=== PATIENT | male | born 1940 | race Caucasian/White ===

== ENCOUNTER 2023-03-08 13:30 | Emergency (ER) | payer MEDICARE, OTHER, SELFPAY ==
[2023-03-08 13:35] VITALS: BP 148/88; BP 166/80; PULSE 56; RESP 18; TEMP 37; O2SAT 95; O2SAT 97; BMI 23.7
[2023-03-08 14:53] LABS: Basophils Percent Auto 0.1 % (0-2); Hematocrit 46.9 % (42.0-52.0); Hemoglobin 15.7 g/dl (14.0-18.0); Imm Gran Abs Auto 0.04 X10*3/uL (0.00-0.03); Imm Gran Pct Auto 0.4 % (0.0-0.4); Lymphocytes Absolute Auto 0.3 X10*3/uL (1.2-4.9); MANUAL DIFF FLAG SCAN; Mean Corpuscular HGB Conc 33.5 g/dl (31.0-36.0); Mean Corpuscular Hemoglobin 31.3 pg (27.0-33.0); Mean Corpuscular Volume 93.4 fL (80.0-98.0); Mean Platelet Volume 10.1 fL (9.4-12.4); Monocytes Absolute Auto 0.6 X10*3/uL (0.1-1.2); Monocytes Percent Auto 5.5 % (2-11); Neutrophils Absolute Auto 9.4 x10*3/uL (2.0-8.3); Platelet Count 206 X10*3/uL (160-400); Red Blood Count 5.02 X10*6/uL (4.60-5.80); Red Cell Distribution Width 12.4 % (11.0-16.0); SCAN SMEAR FLAG 1; White Blood Count 10.4 X10*3/uL (4.8-10.8)
[2023-03-08 14:58] LABS: Appearance Urine Clear; Color Urine Yellow; Glucose Urine UA >=1000 mg/dL (Negative); Leukocyte Esterase Urine Trace (Negative); Nitrite Urine Negative (Negative); Specific Gravity - Urine >= 1.030 (1.005-1.025); UMIC TRIGGER UACC YES; Urine Blood Negative (Negative); Urine Ketones 15 mg/dL (Negative); Urine Protein Trace mg/dL (Neg-Trace)
[2023-03-08 15:01] LABS: Bacteria Urine None Seen (None Seen); Squamous Epithelial Cell Urine 0-2 /HPF (0-2); UACC Culture Trigger YES
[2023-03-08 15:08] LABS: Alanine Aminotransferase 20 U/L (0-40); Albumin Level 4.1 g/dL (3.5-5.0); Alkaline Phosphatase 64 U/L (39-117); Anion Gap 14 (12-20); Aspartate Amino Transferase 24 U/L (5-37); Blood Urea Nitrogen 23 mg/dL (9-16); Calcium 10.3 mg/dL (8.4-10.2); Carbon Dioxide 25 mmol/L (22-29); Chloride 103 mmol/L (96-108); Creatinine Clr Calc Pharmacy 53.8; Estimated Glomerular Filt Rate > 60; Glucose Random 176 mg/dL (60-115); Lipase 9 U/L (8-78); Potassium 5.8 mmol/L (3.3-5.1); Sodium 136 mmol/L (135-145)
[2023-03-08 15:30] LABS: SLIDE REVIEW VERIFIED
== END 2023-03-08 16:55 | disposition left against medical advice (07) ==
PROVIDERS: Physician Assistant Medical; Emergency Provider Emergency Medicine
DX: R10.9 Unspecified abdominal pain (principal); M54.50 Low back pain, unspecified; Z79.899 Other long term (current) drug therapy
CPT/HCPCS: 36415; 80053; 81001; 83690; 83735; 85025; 87086; 99282; 99283

== ENCOUNTER 2023-03-09 04:33 | Inpatient (IN) | payer MEDICARE, OTHER, SELFPAY ==
[2023-03-09] VITALS (11 sets, daily range): BP systolic 100–170; BP diastolic 67–90; PULSE 59–79; RESP 16–20; TEMP 36.4–37.8; O2SAT 91–98; BMI 23.7; BMI 24.0
--- NOTE | ~2023-03-09 | XR_ITS ---
EXAMINATION: XR CHEST CLINICAL INFORMATION: Tachypnea, COMPARISON: 03/12/2023 TECHNIQUE: Frontal view of the chest was obtained. FINDINGS: Enteric tube tip lies in the region of the distal stomach. Lung volumes are symmetric. Persistent extensive opacification throughout the mid to lower left lung. Slightly improved left basilar aeration. Mild interval decrease in patchy right perihilar opacity compared to prior. No evidence of pneumothorax or significant pleural effusion. The cardiomediastinal silhouette is stable. No acute osseous findings are seen. XR/XR chest 1V IMPRESSION: Persistent extensive opacification throughout the mid to lower left
--- NOTE | ~2023-03-09 | XR_ITS ---
EXAMINATION: XR ABDOMEN KUB CLINICAL INDICATION: Follow-up small bowel obstruction COMPARISON: Previous CT of the abdomen and pelvis February 2023 TECHNIQUE: AP view of the abdomen. FINDINGS: There is a nasogastric tube in the stomach. There are still dilated loops of proximal small bowel similar yesterday's CT scan. There is no evidence of free air. No calcifications. Degenerative changes of the spine. Excreted contrast in the bladder from yesterday CT scan. Airspace disease at the left lung base suggestive of pneumonia. XR/XR KUB IMPRESSION: Nasogastric tube in the stomach. Dilated small bowel similar to yesterday's CT scan. Airspace disease at the left lung base probably representing pneumonia.
--- NOTE | ~2023-03-09 | FL_ITS ---
EXAMINATION: FL SMALL BOWEL SERIES CLINICAL INFORMATION: Question small bowel obstruction COMPARISON: Previous KUB and CT of the abdomen and pelvis from yesterday TECHNIQUE: The patient was administered 2 4 0 mL oral Gastrografin contrast through the nasogastric tube. 4 hour portable film of the abdomen and pelvis was obtained. FINDINGS: There is a nasogastric tube in the stomach. There is oral contrast seen in the small bowel. This appears less dilated than seen on yesterday's exam. There is oral contrast seen in the colon. There is no evidence of small bowel obstruction. FL/FL small bowel follow through IMPRESSION: Oral contrast in the colon. No evidence of small bowel obstruction.
--- NOTE | ~2023-03-09 | XR_ITS ---
EXAMINATION: XR CHEST CLINICAL INFORMATION: Post intubation COMPARISON: Previous x-ray from earlier the same day TECHNIQUE: Frontal view of the chest was obtained. FINDINGS: There is a new endotracheal tube with tip 6 cm above the madie. There may be increasing volume loss to the left hemithorax. The cardiac and mediastinal contours are otherwise stable. There is multilobar left-sided airspace disease that appears increased. There is likely a small left pleural effusion. There is patchy airspace disease in the right mid lung and right lung base that appears increased. There are degenerative changes of the spine. XR/XR chest 1V IMPRESSION: Endotracheal tube 6 cm above the madie. Increasing volume loss to the left hemithorax and multilobar left-sided airspace disease. Left pleural effusion. Increasing airspace disease in the right lung.
--- NOTE | ~2023-03-09 | XR_ITS ---
EXAMINATION: XR CHEST CLINICAL INFORMATION: Reason for Exam f/u L lung collapse COMPARISON: Chest radiograph 03/19/2023 TECHNIQUE: 2 views of the chest FINDINGS: Lines and tubes: None. Increased moderate to large left pleural effusion and similar trace right pleural effusion, with worsening left basilar consolidation. Background of mildly increased interstitial opacities which may reflect superimposed interstitial edema. No pneumothorax. Unchanged cardiomediastinal silhouette. XR/XR chest 2V IMPRESSION: 1. Increased moderate to large left pleural effusion and similar trace right pleural effusion, with worsening left basilar consolidation which may reflect atelectasis in the setting of effusion with superimposed infection or aspiration not excluded. 2. Background of mildly increased interstitial opacities which may reflect superimposed interstitial edema.
--- NOTE | ~2023-03-09 | CT_ITS ---
EXAMINATION: CT ABDOMEN AND PELVIS WITHOUT CONTRAST CLINICAL INFORMATION: Diffuse abdominal distention, tenderness, dark red emesis. COMPARISON: None available. TECHNIQUE: Multidetector volumetric imaging was performed from the superior aspect of the liver through the pubic symphysis. Sagittal and coronal reformatted images were obtained on the technologist's workstation. This CT examination was performed using dose optimization techniques as appropriate, variously including the following: *Automated exposure control *Adjustment of mA and/or kV according to patient size (this includes techniques or standardized protocols for targeted exams where dose is matched to indication/reason for exam; i.e. extremities or head) *Use of iterative reconstruction technique DLP: 578 mGy-cm FINDINGS: LUNG BASES: The visualized lung bases are unremarkable. LIVER, GALLBLADDER, AND BILIARY TREE: The liver is normal in size, shape, and attenuation. No focal hepatic lesion or biliary ductal dilatation is present. The gallbladder is unremarkable with no evidence of radiopaque gallstones, gallbladder wall thickening, or obvious pericholecystic inflammatory changes. PANCREAS: Unremarkable. SPLEEN: Unremarkable. ADRENAL GLANDS: Unremarkable. KIDNEYS AND URETERS: The kidneys are normal in size, shape, and attenuation. There is a 0.2 cm nonobstructing stone within the right lower pole as well as 0.2 and 0.3 cm nonobstructing stones within the left lower pole. No ureteral stone. No hydronephrosis or hydroureter. No perinephric stranding. BLADDER: Nondistended. GASTROINTESTINAL TRACT: Sliding hiatal hernia with fluid in the stomach and distal esophagus. There is mild distention of the small bowel proximally with air-fluid levels. Possible transition point within the central abdomen (axial image 40/91). Bowel wall thickening with mesenteric stranding adjacent to the anterior pelvic small-bowel loops, consistent with an acute enteritis. No extraluminal air to suggest perforation. No organized fluid collection or abscess formation. No small or large bowel obstruction. Unremarkable appendix. PERITONEAL CAVITY: Mild, simple ascites. No organized fluid collection or abscess formation. No abnormal soft tissue mass. ABDOMINAL WALL: No significant hernia is appreciated. LYMPH NODES: No significant lymphadenopathy. VASCULAR: No abdominal aortic dilatation. Atherosclerotic calcifications. PELVIC VISCERA: Prominent prostatomegaly with parenchymal calcifications. OSSEOUS STRUCTURES: No acute osseous abnormality. CT/CT abdomen pelvis wo IV con IMPRESSION: 1. Mild distention of the proximal small bowel with air-fluid levels. Possible transition point within the central abdomen. Bowel wall thickening with adjacent mesenteric stranding within the anterior pelvic small-bowel loops, consistent with an acute enteritis. No evidence of perforation or abscess formation. Mild, simple ascites. An infectious, inflammatory, or ischemic etiology could be considered. 2. Sliding hiatal hernia with fluid in the stomach and distal esophagus. 3. Bilateral nonobstructing renal stones measuring up to 0.3 cm. No hydronephrosis or hydroureter. 4. Prominent prostatomegaly. Fleischner guidelines were followed.
--- NOTE | ~2023-03-09 | XR_ITS ---
EXAMINATION: XR CHEST CLINICAL INFORMATION: Shortness of breath COMPARISON: 03/25/2023 TECHNIQUE: Frontal view of the chest was obtained. FINDINGS: Dense opacification of the mid to lower left hemithorax suspicious for small to moderate pleural effusion with associated atelectasis. There is increasing patchy opacity in the left perihilar region. Right lung is well-expanded with possible subtle patchy right upper lung opacity. No evidence of pneumothorax. Cardiomediastinal silhouette appears grossly stable. No acute osseous findings are seen. XR/XR chest 1V IMPRESSION: Dense opacification of the mid to lower left hemithorax suspicious for small to moderate pleural effusion with associated atelectasis. Increasing patchy left perihilar opacity. Possible subtle patchy right upper lung opacity.
--- NOTE | ~2023-03-09 | XR_ITS ---
EXAMINATION: XR CHEST CLINICAL INFORMATION: Aspiration COMPARISON: None available. TECHNIQUE: Frontal view of the chest was obtained. FINDINGS: Heart and mediastinum within normal limits. Patchy opacities identified left upper and lower lobes. No vascular congestion. No effusions. Demineralization and degenerative changes. XR/XR chest 1V IMPRESSION: Patchy left hemithorax opacities. Radiographic appearance consistent with aspiration pneumonias as clinically questioned.
--- NOTE | ~2023-03-09 | CT_ITS ---
EXAMINATION: CT ABDOMEN AND PELVIS WITH CONTRAST CLINICAL INFORMATION: ? SBO COMPARISON: 03/09/2023 TECHNIQUE: Multidetector volumetric imaging was performed from the superior aspect of the liver through the pubic symphysis following administration of 85 mL Omnipaque 300 intravenous contrast. Sagittal and coronal reformatted images were obtained on the technologist workstation.. This CT examination was performed using dose optimization techniques as appropriate, variously including the following: *Automated exposure control *Adjustment of mA and/or kV according to patient size (this includes techniques or standardized protocols for targeted exams where dose is matched to indication/reason for exam; i.e. extremities or head) *Use of iterative reconstruction technique DLP: 963 mGy-cm FINDINGS: LUNG BASES: Left greater than right moderate-sized pleural effusions with associated dependent airspace disease LIVER, GALLBLADDER, AND BILIARY TREE: The liver is normal in size, shape, and attenuation. No focal hepatic lesion or biliary ductal dilatation is present. The gallbladder is unremarkable with no evidence of radiopaque gallstones, gallbladder wall thickening, or obvious pericholecystic inflammatory changes. PANCREAS: Fine detail is obscured by motion artifact. SPLEEN: Fine detail obscured by motion artifact but no focal abnormality. ADRENAL GLANDS: Unremarkable. KIDNEYS AND URETERS: The kidneys are normal in size, shape, and attenuation. No hydronephrosis, hydroureter, or calculi seen. No perinephric stranding. BLADDER: Decompressed by Davies catheter GASTROINTESTINAL TRACT: Extensive colonic diverticulosis more so in the sigmoid colon. No colonic wall thickening or pericolonic inflammatory change to suggest diverticulitis. There is small bowel dilatation seen however fine detail is obscured by patient respiratory motion and I'm unable to appreciate a discrete transition point. The does appear to be focal mesenteric edema to small bowel loops in the midabdomen with relatively decompressed distal ileum. Early or partial small bowel obstruction cannot be excluded. ABDOMINAL WALL: No significant hernia is appreciated. LYMPHOVASCULAR STRUCTURES gastric tube in the stomach.: Vascular calcification within the aorta iliac system PELVIC VISCERA: Prostatic calcifications OSSEOUS STRUCTURES: Multilevel degenerative changes in the spine CT/CT abdomen pelvis w IV con IMPRESSION: There is small bowel dilatation seen however fine detail is obscured by patient respiratory motion artifact. There is focal mesenteric edema in the mid abdomen with relatively decompressed distal ileum. Early or partial small bowel obstruction cannot be excluded. There is extensive diverticulosis but no obvious diverticulitis.
--- NOTE | ~2023-03-09 | CT_ITS ---
EXAMINATION: CT ABDOMEN AND PELVIS WITH CONTRAST CLINICAL INFORMATION: Question of small bowel obstruction COMPARISON: 03/12/2023 TECHNIQUE: Multidetector volumetric images were obtained from the superior aspect of the liver through the pubic symphysis following administration 85 mL of Omnipaque 350 intravenous contrast. Sagittal and coronal reformatted images were obtained on the technologist's workstation. Oral contrast: No This CT examination was performed using dose optimization techniques as appropriate, variously including the following: *Automated exposure control *Adjustment of mA and/or kV according to patient size (this includes techniques or standardized protocols for targeted exams where dose is matched to indication/reason for exam; i.e. extremities or head) *Use of iterative reconstruction technique DLP: 1202.00 mGy-cm FINDINGS: LUNG BASES: There is left lower lobe patchy consolidation due to airspace disease and cystic bronchiectasis and there is moderate pleural effusion with adjacent atelectasis in the right lower lobe as well as small area of groundglass opacity in the right lower lobe most likely pneumonia. LIVER, GALLBLADDER, AND BILIARY TREE: The liver is normal in size, shape, and attenuation. No focal hepatic lesion or biliary ductal dilatation is present. The gallbladder is unremarkable with no evidence of radiopaque gallstones, gallbladder wall thickening, or obvious pericholecystic inflammatory changes. PANCREAS: Unremarkable. SPLEEN: Unremarkable. There is small splenule seen also. ADRENAL GLANDS: Unremarkable. KIDNEYS AND URETERS: The kidneys are normal in size, shape, and attenuation. No hydronephrosis, hydroureter, or calculi seen. No perinephric stranding. BLADDER: Urinary bladder is not distended with mildly thickened wall. Seen on the previous examination following catheter is not identifiable on the current examination. GASTROINTESTINAL TRACT: Loops of small bowel are diffusely dilated, filled with liquid stool, and the zone of transition is seen on images 51-54 on the left, better visualized on coronal reconstruction, images 40-44. There are changes of extensive colonic diverticulosis without diverticulitis in the sigmoid colon. Appendix is not seen. There is mesenteric haziness in the left lower abdomen, surrounding the area of obstruction. ABDOMINAL WALL: No significant hernia is appreciated. LYMPH NODES: Normal. VASCULAR: Unremarkable. PELVIC VISCERA: Prostate is enlarged heterogeneous and partially calcified. OSSEOUS STRUCTURES: There are multilevel degenerative changes in lumbar spine with grade 1 anterior listhesis of L4 over L5 and grade 1 posterior listhesis of L5 over S1. There is S-shaped scoliosis. No lytic or blastic lesions present. CT/CT abdomen pelvis w IV con IMPRESSION: 1. High-grade small bowel obstruction with zone of transition in the left lower abdomen. 2. Left lower lobe pneumonia and cystic bronchiectasis. 3. Right lower lobe pneumonia and pleural effusion. 4. Diverticulosis without diverticulitis. 5. Prostatomegaly. 6. Degenerative changes in lumbar spine. Fleischner guidelines were followed.
[2023-03-09 04:55] LABS: Hemoglobin 15.7 g/dl (14.0-18.0); Imm Gran Abs Auto 0.03 X10*3/uL (0.00-0.03); Imm Gran Pct Auto 0.3 % (0.0-0.4); Lymphocytes Absolute Auto 0.8 X10*3/uL (1.2-4.9); Lymphocytes Percent Auto 6.5 % (20-40); MANUAL DIFF FLAG NO; Mean Corpuscular HGB Conc 33.4 g/dl (31.0-36.0); Mean Corpuscular Hemoglobin 31.2 pg (27.0-33.0); Mean Corpuscular Volume 93.4 fL (80.0-98.0); Mean Platelet Volume 10.3 fL (9.4-12.4); Monocytes Absolute Auto 0.6 X10*3/uL (0.1-1.2); Monocytes Percent Auto 5.4 % (2-11); Neutrophils Absolute Auto 10.3 x10*3/uL (2.0-8.3); Neutrophils Percent Auto 87.8 % (45-73); Platelet Count 227 X10*3/uL (160-400); Red Blood Count 5.03 X10*6/uL (4.60-5.80); Red Cell Distribution Width 12.8 % (11.0-16.0); White Blood Count 11.7 X10*3/uL (4.8-10.8)
[2023-03-09 05:11] LABS: Alanine Aminotransferase 16 U/L (0-40); Albumin Level 3.9 g/dL (3.5-5.0); Alkaline Phosphatase 59 U/L (39-117); Anion Gap 18 (12-20); Aspartate Amino Transferase 19 U/L (5-37); Bilirubin Total 1.3 mg/dL (0.0-1.0); Blood Urea Nitrogen 31 mg/dL (9-16); Calcium 10.1 mg/dL (8.4-10.2); Carbon Dioxide 23 mmol/L (22-29); Chloride 101 mmol/L (96-108); Creatinine Clr Calc Pharmacy 39.1; Estimated Glomerular Filt Rate 42; Glucose Random 207 mg/dL (60-115); Potassium 4.1 mmol/L (3.3-5.1); Sodium 138 mmol/L (135-145); Total Protein 6.5 g/dL (6.5-8.0)
--- NOTE | 2023-03-09 06:34 | ED_ITS ---
HPI - Abdominal Pain General Chief Complaint: Abdominal Pain Stated Complaint: Possible GI Bleed Time Seen by Provider: 03/09/23 06:33 Source: patient, EMS, RN notes reviewed and old records reviewed Mode of arrival: EMS History of Present Illness HPI narrative: 82-year-old male with no significant past medical history presenting to the ED via EMS complaining dark red emesis x 2 episodes since last night with abdominal distension, abdominal pain, and nausea. Also reports subjective fever and chills. Patient admits he presented to ED yesterday however LWT'd due to needing to be home to give medications. Denies currently taking anticoagulation. Denies diarrhea/constipation, dysuria/hematuria, CP/SOB, lightheadedness/dizziness MD elicited complaint: abdominal pain Related Data Home Medications Medication Instructions Recorded Confirmed omega 3-mgb-pbt-fish oil 60 mg-90 1 cap PO DAILY 03/09/23 03/09/23 mg-500 mg capsule (Fish Oil) Allergies Allergy/AdvReac Type Severity Reaction Status Date / Time Unable to Assess Allergy Verified 03/09/23 08:50 Review of Systems Review of Systems Constitutional: + Fever, + Chills, No Night Sweats, No Fatigue, No Malaise ENT/Mouth: No Ear Pain, No Nasal Congestion, NNo sore throat, No Rhinorrhea, No Swallowing Difficulty Eyes: No Eye Pain, No Swelling, No Vision Changes Cardiovascular: No Chest Pain, No SOB, No Edema, No Palpitations Respiratory: No Cough, No Sputum, No Dyspnea Gastrointestinal: + Nausea, + Vomiting, No Diarrhea, No Constipation, + Abdominal pain, + hematemesis, No Melena Genitourinary: No irregular bleeding, No Dysuria, No Urinary Frequency, No Hematuria, No Flank Pain Musculoskeletal: No joint pain, No Myalgias, No Joint Swelling Skin: No Skin Lesions, No rash Neuro: No Weakness, No Dizziness, No Headache Yes all other systems are reviewed and are negative Constitutional: Reports as per [facility] Past Medical History Attestation statement: The following information was validated with the patient. Source: old records reviewed Social History Social History Alcohol intake: current Alcohol intake frequency: a few times a week Alcohol type: hard liquor Smoked in Last 30 Days: No Use of substances other than those prescribed or required for medical reasons: No Advance Directives: No Advance Directives Information Provided: No Physical Exam ED Vital Signs: Vital Signs - 24 hr 03/09/23 04:40 03/09/23 06:00 03/09/23 07:53 Temperature 98.0 F 100.1 F Pulse Rate 77 79 Respiratory Rate 20 20 Blood Pressure 117/75 115/75 Pulse Oximetry 96 94 Oxygen Delivery Method Room Air Room Air 03/09/23 08:36 03/09/23 10:03 03/09/23 11:41 Temperature 98.8 F Pulse Rate 59 74 78 Respiratory Rate 19 16 20 Blood Pressure 144/67 H 132/75 156/90 H Pulse Oximetry 95 96 96 Oxygen Delivery Method Room Air Room Air Room Air 03/09/23 12:03 03/09/23 14:22 Temperature Pulse Rate 69 67 Respiratory Rate 20 20 Blood Pressure 151/84 H 154/83 H Pulse Oximetry 93 93 Oxygen Delivery Method Room Air Room Air BMI result Body Mass Index 23.7 Const General: cooperative, healthy appearing and no acute distress Orientation/consciousness: patient oriented x3 Limitations: no limitations HENMT Head: Yes normal to inspection and Yes atraumatic Ears: hearing grossly normal bilaterally General nose exam: Normal external nose present Face and sinus: Yes normal facial exam Eyes General: appearance normal, both eyes and all related structures EOM: EOMs intact bilaterally Neck Neck: Yes normal visual inspection and Yes no meningeal signs Resp Effort & Inspection: normal respiratory effort and no respiratory distress Auscultation: clear to auscultation bilaterally Cardio Rate: regular rate Heart sounds: S1 normal heart sound present and S2 normal heart sound present GI Inspection: Yes normal to inspection Palpation (GI): Soft to palpation, Tenderness to palpation present (GI) (Diffusely, no rebound or guarding) with no rebound tenderness, no guarding and not rigid Skin Rashes: no rashes Wounds: no wounds Neuro General: patient oriented x3, tone normal and no meningeal signs Extrem General: Yes normal to inspection Course Course Course Narrative: -0832--mild leukocytosis of 12.5. EMILY with a BUN of 31, creatinine of 1.57. Lactic acid negative -UA infected -occult stool negative > will obtain repeat for confirmation CT abdomen pelvis wo IV con IMPRESSION: 1. Mild distention of the proximal small bowel with air-fluid levels. Possible transition point within the central abdomen. Bowel wall thickening with adjacent mesenteric stranding within the anterior pelvic small-bowel loops, consistent with an acute enteritis. No evidence of perforation or abscess formation. Mild, simple ascites. An infectious, inflammatory, or ischemic etiology could be considered. ? 2. Sliding hiatal hernia with fluid in the stomach and distal esophagus. ? 3. Bilateral nonobstructing renal stones measuring up to 0.3 cm. No hydronephrosis or hydroureter. ? 4. Prominent prostatomegaly. ? Fleischner guidelines were followed. > will consult GI Dr. Xie -1011--spoke with GI Dr. Xie concern for possible ischemic bowel versus SBO. Will consult General surgery. Second occult stool negative > Case d/w Dr. Monique who elvauated patient > reports low suspicion for ischemic bowel or SBO, likely gastroenteritis. >>1146--on re-evaluation patient reports mild symptomatic improvement, reports continued abdominal discomfort however abdomen soft > pt would like to be discharged home. Discussed admission with patient which this life insurance underwriter recommended, however patient states at home with Parkinson's and needs help, and would like to be discharged, is agreeable to repeat CMP prior -1239--repeat CMP with little improvement, persistent EMILY with a creatinine of 1.49. Patient is now agreeable to admission. Will consult hospitalist Medical Decision Making Medical Decision Making MDM Narrative: 82-year-old male with no significant past medical history presenting to the ED via EMS complaining dark red emesis x 2 episodes since last night with abdominal distension, abdominal pain, and nausea. On exam patient initially hypotensive per EMS, given small bolus IVF with improvement, vital signs stable since ED arrival, abdomen soft diffusely tender. Concern for UGIB vs anemia vs colitis/diverticulitis. Lower suspicion for appendicitis/GERD, or atypical ACS Plan: EKG, labs, lactic/blood cultures, CT AP, occult stool, anticipated admission Please refer to course for remaining clinical decision making, interpretation of labs/imaging results, and discussions with consultants and/or family members. Differential Diagnosis Differential Diagnoses: The differential diagnosis associated with the presentation includes As above Admission/Observation Consideration of admission/observation: Escalation of care including admission/observation considered Consult Healthcare Provider Management of the patient was discussed with: Hospitalist and Market Specialist (GI and General surgery) Lab Data MDM Lab Attestation statement: I reviewed the patient's lab results. 03/09/23 04:51 03/09/23 04:51 Labs: Lab Results 03/09/23 03/09/23 03/09/23 Range/Units 04:51 04:51 07:20 WBC 11.7 H 12.5 H (4.8-10.8) X10*3/uL RBC 5.03 5.05 (4.60-5.80) X10*6/uL Hgb 15.7 15.9 (14.0-18.0) g/dl Hct 47.0 46.9 (42.0-52.0) % MCV 93.4 92.9 (80.0-98.0) fL MCH 31.2 31.5 (27.0-33.0) pg MCHC 33.4 33.9 (31.0-36.0) g/dl RDW 12.8 12.9 (11.0-16.0) % Plt Count 227 246 (160-400) X10*3/uL MPV 10.3 10.5 (9.4-12.4) fL Immature Gran % (Auto) 0.3 (0.0-0.4) % Neut % (Auto) 87.8 H (45-73) % Lymph % (Auto) 6.5 L (20-40) % [place] % (Auto) 5.4 (2-11) % Eos % (Auto) 0.0 (0-4) % Baso % (Auto) 0.0 (0-2) % Lymph # (Auto) 0.8 L (1.2-4.9) X10*3/uL [place] # (Auto) 0.6 (0.1-1.2) X10*3/uL Eos # (Auto) 0.0 (0.0-0.4) X10*3/uL Baso # (Auto) 0.0 (0.0-0.2) X10*3/uL Abs Immat Gran (auto) 0.03 (0.00-0.03) X10*3/uL Absolute Neuts (auto) 10.3 H (2.0-8.3) x10*3/uL Absolute Nucleated RBC 0.000 0.000 (0.0-0.012) X10*3/uL Nucleated RBC % (auto) 0.0 0.0 (0.0-0.2) /100WBC PT (10.0-13.1) SEC INR (0.9-1.1) APTT (26.0-36.4) SEC Sodium 138 (135-145) mmol/L Potassium 4.1 D (3.3-5.1) mmol/L Chloride 101 (96-108) mmol/L Carbon Dioxide 23 (22-29) mmol/L Anion Gap 18 (12-20) BUN 31 H (9-16) mg/dL Creatinine 1.57 H (0.5-1.4) mg/dL Estim Creat Clear Calc 39.1 Estimated GFR 42 Random Glucose 207 H (60-115) mg/dL Lactic Acid (0.5-2.0) mmol/L Calcium 10.1 (8.4-10.2) mg/dL Magnesium 2.0 (1.6-2.6) mg/dL Total Bilirubin 1.3 H (0.0-1.0) mg/dL Direct Bilirubin 0.4 (0.0-0.5) mg/dL AST 19 (5-37) U/L ALT 16 (0-40) U/L Alkaline Phosphatase 59 (39-117) U/L Lactate Dehydrogenase (118-273) U/L Total Protein 6.5 (6.5-8.0) g/dL Albumin 3.9 (3.5-5.0) g/dL Lipase 42 (8-78) U/L Stool Occult Blood (NEGATIVE) Blood Type Antibody Screen 03/09/23 03/09/23 03/09/23 Range/Units 07:20 07:20 07:20 WBC (4.8-10.8) X10*3/uL RBC (4.60-5.80) X10*6/uL Hgb (14.0-18.0) g/dl Hct (42.0-52.0) % MCV (80.0-98.0) fL MCH (27.0-33.0) pg MCHC (31.0-36.0) g/dl RDW (11.0-16.0) % Plt Count (160-400) X10*3/uL MPV (9.4-12.4) fL Immature Gran % (Auto) (0.0-0.4) % Neut % (Auto) (45-73) % Lymph % (Auto) (20-40) % [place] % (Auto) (2-11) % Eos % (Auto) (0-4) % Baso % (Auto) (0-2) % Lymph # (Auto) (1.2-4.9) X10*3/uL [place] # (Auto) (0.1-1.2) X10*3/uL Eos # (Auto) (0.0-0.4) X10*3/uL Baso # (Auto) (0.0-0.2) X10*3/uL Abs Immat Gran (auto) (0.00-0.03) X10*3/uL Absolute Neuts (auto) (2.0-8.3) x10*3/uL Absolute Nucleated RBC (0.0-0.012) X10*3/uL Nucleated RBC % (auto) (0.0-0.2) /100WBC PT 10.8 (10.0-13.1) SEC INR 0.9 (0.9-1.1) APTT 23.7 L (26.0-36.4) SEC Sodium (135-145) mmol/L Potassium (3.3-5.1) mmol/L Chloride (96-108) mmol/L Carbon Dioxide (22-29) mmol/L Anion Gap (12-20) BUN (9-16) mg/dL Creatinine (0.5-1.4) mg/dL Estim Creat Clear Calc Estimated GFR Random Glucose (60-115) mg/dL Lactic Acid 1.8 (0.5-2.0) mmol/L Calcium (8.4-10.2) mg/dL Magnesium (1.6-2.6) mg/dL Total Bilirubin (0.0-1.0) mg/dL Direct Bilirubin (0.0-0.5) mg/dL AST (5-37) U/L ALT (0-40) U/L Alkaline Phosphatase (39-117) U/L Lactate Dehydrogenase (118-273) U/L Total Protein (6.5-8.0) g/dL Albumin (3.5-5.0) g/dL Lipase (8-78) U/L Stool Occult Blood (NEGATIVE) Blood Type A Negative Antibody Screen NEGATIVE 03/09/23 03/09/23 03/09/23 Range/Units 07:20 08:31 11:55 WBC (4.8-10.8) X10*3/uL RBC (4.60-5.80) X10*6/uL Hgb (14.0-18.0) g/dl Hct (42.0-52.0) % MCV (80.0-98.0) fL MCH (27.0-33.0) pg MCHC (31.0-36.0) g/dl RDW (11.0-16.0) % Plt Count (160-400) X10*3/uL MPV (9.4-12.4) fL Immature Gran % (Auto) (0.0-0.4) % Neut % (Auto) (45-73) % Lymph % (Auto) (20-40) % [place] % (Auto) (2-11) % Eos % (Auto) (0-4) % Baso % (Auto) (0-2) % Lymph # (Auto) (1.2-4.9) X10*3/uL [place] # (Auto) (0.1-1.2) X10*3/uL Eos # (Auto) (0.0-0.4) X10*3/uL Baso # (Auto) (0.0-0.2) X10*3/uL Abs Immat Gran (auto) (0.00-0.03) X10*3/uL Absolute Neuts (auto) (2.0-8.3) x10*3/uL Absolute Nucleated RBC (0.0-0.012) X10*3/uL Nucleated RBC % (auto) (0.0-0.2) /100WBC PT (10.0-13.1) SEC INR (0.9-1.1) APTT (26.0-36.4) SEC Sodium 138 (135-145) mmol/L Potassium 4.7 (3.3-5.1) mmol/L Chloride 106 (96-108) mmol/L Carbon Dioxide 23 (22-29) mmol/L Anion Gap 14 (12-20) BUN 36 H (9-16) mg/dL Creatinine 1.49 H (0.5-1.4) mg/dL Estim Creat Clear Calc 41.2 Estimated GFR 45 Random Glucose 126 H (60-115) mg/dL Lactic Acid (0.5-2.0) mmol/L Calcium 9.9 (8.4-10.2) mg/dL Magnesium (1.6-2.6) mg/dL Total Bilirubin (0.0-1.0) mg/dL Direct Bilirubin (0.0-0.5) mg/dL AST (5-37) U/L ALT (0-40) U/L Alkaline Phosphatase (39-117) U/L Lactate Dehydrogenase 242 (118-273) U/L Total Protein (6.5-8.0) g/dL Albumin (3.5-5.0) g/dL Lipase (8-78) U/L Stool Occult Blood NEGATIVE NEGATIVE (NEGATIVE) Blood Type Antibody Screen Independent Interpretation I performed an independent interpretation of an: EKG (Rhythm with short MS at a rate of 75. QTC 464. No viable priors to compare. No STEMI ) Radiology Impression Discussion of test interpretation with radiology: I have reviewed the radiologist's reading. Independent Historian Clinical information obtained from an independent historian. History obtained fr om or confirmed by: EMS External Record Review External record reviewed: Inpatient record, Office record, Outpatient record, Prior outpatient labs, Prior outpatient radiology, Primary care record and Outside ED record Tests considered The following testing was considered but not selected: As above Prescription Management I considered prescription management with: Pain Medication and Antibiotic Medications Administered Generic Name Dose Route Start Last Admin Trade Name Freq PRN Reason Stop Dose Admin Piperacillin Sod/Tazobactam 50 mls @ 100 mls/hr 03/09/23 15:00 03/09/23 16:11 Sod 3.375 gm/ Sodium Chloride IV 100 mls/hr Q6H MARGARITA Administration Sodium Chloride 1,000 mls @ 100 mls/hr 03/09/23 15:15 03/09/23 16:11 Ns IVCONT 100 mls/hr .Q10H MARGARITA Administration Pantoprazole Sodium 40 mg 03/09/23 16:30 03/09/23 16:11 Pantoprazole Sodium 40 Mg/10 Ml Vial IVPUSH 40 mg BID@0630,1630 MARGARITA Administration Sodium Chloride 3 ml 03/09/23 16:00 03/09/23 16:11 0.9 % Sodium Chloride Flush 3 Ml Syringe IVFLUSH Not Given QSHIFT MARGARITA Discontinued Medications Generic Name Dose Route Start Last Admin Trade Name Lencho PRN Reason Stop Dose Admin Acetaminophen 650 mg 03/09/23 07:52 03/09/23 07:59 Acetaminophen 325 Mg Tablet PO 03/09/23 07:53 650 mg ONCE ONE Administration Fentanyl 25 mcg 03/09/23 06:42 03/09/23 06:54 Fentanyl Citrate/Pf 100 Mcg/2 Ml Vial IVPUSH 03/09/23 06:43 25 mcg ONCE ONE Administration Protocol Sodium Chloride 1,000 mls @ 999 mls/hr 03/09/23 07:30 03/09/23 08:58 Ns IV 03/09/23 08:30 Infused .Q1H1M MARGARITA Infusion Piperacillin Sod/Tazobactam 50 mls @ 100 mls/hr 03/09/23 07:58 03/09/23 08:58 Sod 2.25 gm/ Sodium Chloride IV 03/09/23 08:27 Infused ONCE ONE Infusion Sodium Chloride 1,000 mls @ 999 mls/hr 03/09/23 11:45 03/09/23 13:50 Ns IV 03/09/23 12:45 Infused .Q1H1M MARGARITA Infusion Metoclopramide HCl 10 mg 03/09/23 13:39 03/09/23 13:46 Metoclopramide Hcl 10 Mg/2 Ml Vial IVPUSH 03/09/23 13:40 10 mg ONCE ONE Administration Ondansetron HCl 4 mg 03/09/23 07:55 03/09/23 08:24 Ondansetron Hcl 4 Mg/2 Ml Vial IVPUSH 03/09/23 07:56 4 mg ONCE ONE Administration Pantoprazole Sodium 80 mg 03/09/23 07:25 03/09/23 07:43 Pantoprazole Sodium 40 Mg/10 Ml Vial IVPUSH 03/09/23 07:26 80 mg ONCE ONE Administration Critical Care Time Critical Care Time Critical Care Time: Yes Total Critical Care Time: 40 Attestation: I have personally provided critical care time exclusive of time spent on sep arately billable procedures. Time includes review of lab data, radiology results, discussion with consultants, and monitoring for potential decompensation. Intervention performed as documented. Discharge Plan Discharge Clinical Impression: Enteritis, EMILY (acute kidney injury) Patient Disposition: Admitted As Inpatient
--- NOTE | 2023-03-09 06:42 | ECG_ITS ---
Test Reason : ABD PAIN Blood Pressure : / mmHG Vent. Rate : 075 BPM Atrial Rate : 075 BPM P-R Int : 100 ms QRS Dur : 096 ms QT Int : 416 ms P-R-T Axes : 033 -34 071 degrees QTc Int : 464 ms Sinus rhythm with short PA Left axis deviation Left ventricular hypertrophy with repolarization abnormality ( R in aVL , [place] product , [place] ) Abnormal ECG No previous ECGs available Referred By: Glo Edwards Electronically Signed By:ALEJANDRO SWANSON
[2023-03-09] MEDS: fentaNYL citrate/PF 100 MCG/2 ML VIAL 25 MCG IVPUSH (06:54)
[2023-03-09 07:02] LABS: Bilirubin Direct 0.4 mg/dL (0.0-0.5); Lipase 42 U/L (8-78)
[2023-03-09 07:35] LABS: Hematocrit 46.9 % (42.0-52.0); Hemoglobin 15.9 g/dl (14.0-18.0); Mean Corpuscular HGB Conc 33.9 g/dl (31.0-36.0); Mean Corpuscular Hemoglobin 31.5 pg (27.0-33.0); Mean Corpuscular Volume 92.9 fL (80.0-98.0); Mean Platelet Volume 10.5 fL (9.4-12.4); Platelet Count 246 X10*3/uL (160-400); Red Blood Count 5.05 X10*6/uL (4.60-5.80); Red Cell Distribution Width 12.9 % (11.0-16.0); White Blood Count 12.5 X10*3/uL (4.8-10.8)
[2023-03-09 07:38] LABS: Lactic Acid 1.8 mmol/L (0.5-2.0)
[2023-03-09 07:39] LABS: OBS Int Ctl Valid YES; OBS1 NEGATIVE (NEGATIVE)
[2023-03-09] MEDS: 0.9 % Sodium Chloride 1,000 ML 999 ML IV ×2 (07:43→11:51)
[2023-03-09] MEDS: Pantoprazole Sodium 40 MG/10 ML VIAL 80 MG IVPUSH (07:43)
[2023-03-09 07:52] LABS: INTERNATIONAL NORM RATIO 0.9 (0.9-1.1); Prothrombin Time 10.8 SEC (10.0-13.1)
[2023-03-09 07:57] LABS: Partial Thromboplastin Time 23.7 SEC (26.0-36.4)
[2023-03-09] MEDS: Acetaminophen 325 MG TABLET 650 MG PO ×2 (07:59→21:58)
[2023-03-09] MEDS: ondansetron HCL 4 MG/2 ML VIAL IVPUSH (08:24)
[2023-03-09] MEDS: Piperacillin Sodium/Tazobactam 2.25 GM in 0.9 % Sodium Chloride 50 ML IV (08:24)
--- NOTE | 2023-03-09 08:43 | PHA.MEDREC ---
Pharmacy Consult ? Medication Reconciliation Pharmacy has completed the medication reconciliation.
[2023-03-09 08:44] LABS: OBS Int Ctl Valid YES; OBS1 NEGATIVE (NEGATIVE)
--- NOTE | 2023-03-09 10:15 | PC.NURSE ---
pt was seen by surgery for consult. awaiting disposition
--- NOTE | 2023-03-09 11:00 | P.CONGS_ITS ---
History of Present Illness Consult details Consult date: 03/09/23 Narrative: Ms. Fleming is a pleasant 82-year-old male presents with approximately 1 day history of epigastric/upper abdominal pain. Because of progression of symptoms, presents emergency department. He denies any nausea vomiting or diarrhea. He does not recall having such symptoms before. He has regular bowel habits and tolerates his diet. Chart was reviewed and patient evaluated [facility] Social History Social History Household Members: Spouse Housing: House Do you presently have visiting nurse or other home services: No Alcohol intake: current Alcohol intake frequency: a few times a week Alcohol type: hard liquor Patient Tobacco Use Status: Former Tobacco user Smoked in Last 30 Days: No Use of substances other than those prescribed or required for medical reasons: No Currently Displaying Signs/Symptoms of Drug Intoxication Withdrawal: No Have you been hit, kicked, punched, or otherwise hurt by someone within the past year? If so, by whom?: No Do you feel safe in your current relationship?: Yes Is there a partner from a previous relationship who is making you feel unsafe now?: No Are you made to feel afraid or neglected: No Advance Directives: No Advance Directives Information Provided: No Advance Directives on File: No Do you have thoughts of harming others: None Recently lost weight without trying: No Eating poorly because of decreased appetite: Yes Nutrition Risks: No Nutritional Risk Poor oral hygiene: No service: No Meds Allergies Allergy/AdvReac Type Severity Reaction Status Date / Time Unable to Assess Allergy Verified 03/09/23 08:50 Home Medications Medication Instructions Recorded Confirmed Last Taken Type omega 4-nlz-swa-fish oil 60 mg-90 1 cap PO DAILY 03/09/23 03/09/23 Unknown History mg-500 mg capsule (Fish Oil) Physical Exam Vital Signs: Vital Signs: Last Vital Signs Temp 100.1 F 03/09/23 07:53 Pulse 74 03/09/23 10:03 Resp 16 03/09/23 10:03 BP 132/75 03/09/23 10:03 Pulse Ox 96 03/09/23 10:03 O2 Del Method Room Air 03/09/23 10:03 BMI result Body Mass Index 23.7 GI: Other: Abdomen minimally distended. Mild periumbilical tenderness but without guarding, rebound, rigidity. Results Labs 03/09/23 07:20 03/09/23 04:51 Labs: Abnormal lab results 03/09/23 03/09/23 03/09/23 Range/Units 04:51 04:51 07:20 WBC 11.7 H 12.5 H (4.8-10.8) X10*3/uL Neut % (Auto) 87.8 H (45-73) % Lymph % (Auto) 6.5 L (20-40) % Lymph # (Auto) 0.8 L (1.2-4.9) X10*3/uL Absolute Neuts (auto) 10.3 H (2.0-8.3) x10*3/uL APTT (26.0-36.4) SEC BUN 31 H (9-16) mg/dL Creatinine 1.57 H (0.5-1.4) mg/dL Random Glucose 207 H (60-115) mg/dL Total Bilirubin 1.3 H (0.0-1.0) mg/dL 03/09/23 Range/Units 07:20 WBC (4.8-10.8) X10*3/uL Neut % (Auto) (45-73) % Lymph % (Auto) (20-40) % Lymph # (Auto) (1.2-4.9) X10*3/uL Absolute Neuts (auto) (2.0-8.3) x10*3/uL APTT 23.7 L (26.0-36.4) SEC BUN (9-16) mg/dL Creatinine (0.5-1.4) mg/dL Random Glucose (60-115) mg/dL Total Bilirubin (0.0-1.0) mg/dL Short CBC 03/09/23 03/09/23 Range/Units 04:51 07:20 WBC 11.7 H 12.5 H (4.8-10.8) X10*3/uL Hgb 15.7 15.9 (14.0-18.0) g/dl Hct 47.0 46.9 (42.0-52.0) % Plt Count 227 246 (160-400) X10*3/uL BMP 03/09/23 04:51 Sodium 138 Potassium 4.1 D Chloride 101 Carbon Dioxide 23 BUN 31 H Creatinine 1.57 H Calcium 10.1 Liver Function 03/09/23 Range/Units 04:51 Total Bilirubin 1.3 H (0.0-1.0) mg/dL Direct Bilirubin 0.4 (0.0-0.5) mg/dL AST 19 (5-37) U/L ALT 16 (0-40) U/L Alkaline Phosphatase 59 (39-117) U/L Albumin 3.9 (3.5-5.0) g/dL All other labs normal. Assessment and Plan (1) Enteritis: Status: Acute Plan CT scan suggestive more of enteritis. At present, patient clinically stable. At present, no acute surgical issues or interventions required. Time Spent With Patient Time: Total time managing care of this patient today ____ minutes. Procedures Date of Service Date of Service: 03/10/23
[2023-03-09 12:17] LABS: Anion Gap 14 (12-20); Blood Urea Nitrogen 36 mg/dL (9-16); Calcium 9.9 mg/dL (8.4-10.2); Carbon Dioxide 23 mmol/L (22-29); Chloride 106 mmol/L (96-108); Creatinine Clr Calc Pharmacy 41.2; Estimated Glomerular Filt Rate 45; Glucose Random 126 mg/dL (60-115); Potassium 4.7 mmol/L (3.3-5.1); Sodium 138 mmol/L (135-145)
[2023-03-09 13:26] LABS: Lactate Dehydrogenase 242 U/L (118-273)
--- NOTE | 2023-03-09 13:38 | P.HPHOSP_ITS ---
History of Present Illness Date of Service: 03/09/23 Attending physician on admission: Frankie Bearden Chief Complaint: Abdominal pain, dark red emesis x2 Pt is an 82-year-old male with no significant PMH only taking fish oil at home who presents to the ED with?abdominal pain and 2 episodes of dark red emesis. Patient states his symptoms began early Saturday morning. Patient claims he has difficulty sleeping so he got up at 03:00 o'clock in the morning to do an upper body workout. He went back to sleep but woke up at 06:00 with severe abdominal pain. Patient also felt like he had indigestion and a ?sour stomach?. Patient induced vomiting twice and noted his vomitus was red and looked like a contained blood. Patient also noticed abdominal distension when he went to put on his pants. Ppatient initially presented to the emergency room yesterday where he had his blood drawn but did not get formally evaluated by a clinician. Patient takes care of his at home and needed to leave before being seen by a clinician in order to administer her medications at 17:00. At home patient continued to have increasing abdominal pain and he re-presented to the emergency room via ambulance at 04:00. Did not experience any more vomiting, no diarrhea, though did note increased abdominal distension. Has experienced subjective fevers and chills, but had did not take his temperature. Patient currently denies passing flatus or having a bowel movement today. Last bowel movement was yesterday, states was normal without hematochezia or melena or diarrhea. Patient normally has daily regular bowel movements. Patient denies chest pain/pressure, palpitations. No shortness of breath. Of note, patient does not have a PCP and states he has not seen a doctor since getting a physical in 1960 before going into the [facility]. In the ED patient had temperature up to 100.1 and was slightly hypertensive at 156/90. Labs were significant for leukocytosis of 12.5, potassium of 5.8, BUN 3 1, creatinine 1.57. UA negative for UTI. Stool negative for occult blood. CT?of abdomen and pelvis found mild distension of the proximal small bowel with air-fluid levels with a possible transition point within the central abdomen. Also found ball wall thickening with adjacent mesenteric stranding consistent with an acute enteritis without evidence of perforation or abscess. Also found mild ascites. Additional findings include sliding hiatal hernia and bilateral nonobstructing renal stones measuring up to 0.3 cm without hydronephrosis or hydroureter. Lastly, showed prominent prostatomegaly. EKG demonstrated sinus rhythm with short NC, left ventricular hypertrophy, but no evidence of ST elevations or depressions. Pt was treated with fentanyl, pantoprazole, IVF, Zosyn, and metoclopramide. General surgery was consulted who believe patient has gastroenteritis. Pt will be admitted to the hospital for treatment and further evaluation of likely gastroenteritis. Review of Systems Review of Systems: Abdominal pain and distension Nausea, vomiting with dark red vomitus Subjective fever, chills Denies diarrhea Yes all other systems are reviewed and are negative [facility] Social History Alcohol intake: current Alcohol intake frequency: a few times a week Alcohol type: hard liquor Smoked in Last 30 Days: No Use of substances other than those prescribed or required for medical reasons: No Advance Directives: No Advance Directives Information Provided: No Meds Allergies Allergy/AdvReac Type Severity Reaction Status Date / Time Unable to Assess Allergy Verified 03/09/23 08:50 Home Medications Medication Instructions Recorded Confirmed Last Taken Type omega 5-xpr-bjq-fish oil 60 mg-90 1 cap PO DAILY 03/09/23 03/09/23 Unknown History mg-500 mg capsule (Fish Oil) Physical Exam Vital Signs and Narrative: Vital Signs: Last Vital Signs Temp 98.8 F 03/09/23 11:41 Pulse 69 03/09/23 12:03 Resp 20 03/09/23 12:03 BP 151/84 H 03/09/23 12:03 Pulse Ox 93 03/09/23 12:03 O2 Del Method Room Air 03/09/23 12:03 BMI result Body Mass Index 23.7 Constitutional: Alert, in no acute distress. Mental Status: Oriented to person, place and time. Eyes: Pupils are equal, round, and reactive to light. Ear, Nose, and Throat: Oropharynx clear, mucous membranes dry. Ears and nose without deformities. Trachea midline. Respiratory: Clear to auscultation bilaterally. No wheezing, rales, or rhonchi. Cardiovascular: S1, S2 regular. No murmurs, rubs, or gallops. Gastrointestinal: Abdomen soft, distended, and with central and left-sided tenderness. Normal bowel sounds. Neurologic: Cranial nerves II-XII are grossly intact bilaterally. No focal neurological deficits. Moves all extremities spontaneously. Skin: No rashes or lesions noted. Musculoskeletal: No cyanosis or clubbing. Extremities: No edema. Psychiatric: Normal mood and affect. Results Labs 03/09/23 07:20 03/09/23 11:55 Labs: Laboratory Results - last 24 hr 03/09/23 03/09/23 03/09/23 04:51 04:51 07:20 MCV 93.4 92.9 MCH 31.2 31.5 MCHC 33.4 33.9 RDW 12.8 12.9 Plt Count 227 246 MPV 10.3 10.5 Immature Gran % (Auto) 0.3 Neut % (Auto) 87.8 H Lymph % (Auto) 6.5 L [place] % (Auto) 5.4 Eos % (Auto) 0.0 Baso % (Auto) 0.0 Lymph # (Auto) 0.8 L [place] # (Auto) 0.6 Eos # (Auto) 0.0 Baso # (Auto) 0.0 Abs Immat Gran (auto) 0.03 Absolute Neuts (auto) 10.3 H Absolute Nucleated RBC 0.000 0.000 Nucleated RBC % (auto) 0.0 0.0 PT INR APTT Anion Gap 18 Estim Creat Clear Calc 39.1 Estimated GFR 42 Random Glucose 207 H Lactic Acid Calcium 10.1 Magnesium 2.0 Total Bilirubin 1.3 H Direct Bilirubin 0.4 AST 19 ALT 16 Alkaline Phosphatase 59 Lactate Dehydrogenase Total Protein 6.5 Albumin 3.9 Lipase 42 Stool Occult Blood Blood Type Antibody Screen 03/09/23 03/09/23 03/09/23 07:20 07:20 07:20 MCV MCH MCHC RDW Plt Count MPV Immature Gran % (Auto) Neut % (Auto) Lymph % (Auto) [place] % (Auto) Eos % (Auto) Baso % (Auto) Lymph # (Auto) [place] # (Auto) Eos # (Auto) Baso # (Auto) Abs Immat Gran (auto) Absolute Neuts (auto) Absolute Nucleated RBC Nucleated RBC % (auto) PT 10.8 INR 0.9 APTT 23.7 L Anion Gap Estim Creat Clear Calc Estimated GFR Random Glucose Lactic Acid 1.8 Calcium Magnesium Total Bilirubin Direct Bilirubin AST ALT Alkaline Phosphatase Lactate Dehydrogenase Total Protein Albumin Lipase Stool Occult Blood Blood Type A Negative Antibody Screen NEGATIVE 03/09/23 03/09/23 03/09/23 07:20 08:31 11:55 MCV MCH MCHC RDW Plt Count MPV Immature Gran % (Auto) Neut % (Auto) Lymph % (Auto) [place] % (Auto) Eos % (Auto) Baso % (Auto) Lymph # (Auto) [place] # (Auto) Eos # (Auto) Baso # (Auto) Abs Immat Gran (auto) Absolute Neuts (auto) Absolute Nucleated RBC Nucleated RBC % (auto) PT INR APTT Anion Gap 14 Estim Creat Clear Calc 41.2 Estimated GFR 45 Random Glucose 126 H Lactic Acid Calcium 9.9 Magnesium Total Bilirubin Direct Bilirubin AST ALT Alkaline Phosphatase Lactate Dehydrogenase 242 Total Protein Albumin Lipase Stool Occult Blood NEGATIVE NEGATIVE Blood Type Antibody Screen Imaging Radiologist's Impressions: Impressions Abdomen/Pelvis CT 03/09/23 07:44 IMPRESSION: 1. Mild distention of the proximal small bowel with air-fluid levels. Possible transition point within the central abdomen. Bowel wall thickening with adjacent mesenteric stranding within the anterior pelvic small-bowel loops, consistent with an acute enteritis. No evidence of perforation or abscess formation. Mild, simple ascites. An infectious, inflammatory, or ischemic etiology could be considered. 2. Sliding hiatal hernia with fluid in the stomach and distal esophagus. 3. Bilateral nonobstructing renal stones measuring up to 0.3 cm. No hydronephrosis or hydroureter. 4. Prominent prostatomegaly. Fleischner guidelines were followed. Assessment and Plan (1) EMILY (acute kidney injury): Status: Acute (2) Enteritis: Status: Acute Plan Pt is an 82-year-old male with no significant PMH only taking fish oil at home who presents to the ED with?abdominal pain and 2 episodes of dark red emesis. Pt will be admitted to the hospital for treatment and further evaluation of gastroenteritis and EMILY with IV fluids and antibiotics. Gastroenteritis Patient with abdominal pain and distention, nausea, vomiting CT of abd/pelvis found mild distention, possible transition point, bowel wall thickening with adjacent mesenteric stranding consistent with acute enteritis Given Zosyn in the ED Continue Zosyn for now, started 03/09/2023 Clear liquid diet, advanced as tolerated IVF: Normal saline given hyperkalemia yesterday Anti emetics prn Protonix IV b.i.d. General surgery consult EMILY Patient's creatinine 1.57, elevated from 1.14 the day prior Likely secondary to vomiting and decreased p.o. intake Patient given IVF in the ED Will place on maintenance fluids Follow BMP Hyperkalemia, resolved Likely secondary to vomiting Patient's presented yesterday with potassium 5.8 Not given any medication, but repeats today WNL at 4.1 and 4.7 Follow BMP Question of upper GI bleed Patient states he had dark red vomitus x2 episodes yesterday Stool negative for occult blood H&H steady and WNL, 15.7/46.8 yesterday, 15.9/46.[address] a pneumatic boots for DVT prophylaxis Monitor CBC Full Code Attending:?Dr. Bearden DVT Prophylaxis: Pneumatic boots Pt will require a hospitalization of at least two nights for treatment of?EMILY and gastroenteritis with IV fluids and out antibiotics. Time Spent With Patient Time: Total time managing care of this patient today ____ minutes. Quality Stroke Does the patient have a stroke diagnosis?: No VTE Prior VTE?: No VTE Risk Level:: Medical - moderate - high VTE Device Contraindication: N/A - Device Ordered VTE Drug Contraindication: Treatment Not Indicated
[2023-03-09] MEDS: Metoclopramide HCl 10 MG/2 ML VIAL IVPUSH (13:46)
[2023-03-09] MEDS: Pantoprazole Sodium 40 MG/10 ML VIAL IVPUSH (16:11)
[2023-03-09] MEDS: Piperacillin Sodium/Tazobactam 3.375 GM in 0.9 % Sodium Chloride 50 ML IV ×2 (16:11→20:30)
[2023-03-09] MEDS: 0.9 % Sodium Chloride 1,000 ML 100 ML IVCONT (16:11)
--- NOTE | 2023-03-09 16:17 | PC.NURSE ---
pt resting comfortably in bed, no nausea/vomiting or discomfort noted.
[2023-03-10 02:47] VITALS: BP 138/77; PULSE 72; RESP 18; TEMP 36.3; O2SAT 93
[2023-03-10] MEDS: 0.9 % Sodium Chloride 1,000 ML 100 ML IVCONT ×3 (02:47→20:25)
[2023-03-10] MEDS: Piperacillin Sodium/Tazobactam 3.375 GM in 0.9 % Sodium Chloride 50 ML IV ×4 (02:47→20:25)
[2023-03-10] MEDS: Pantoprazole Sodium 40 MG/10 ML VIAL IVPUSH ×2 (06:02→15:38)
[2023-03-10 06:26] LABS: Hematocrit 39.3 % (42.0-52.0); Mean Corpuscular HGB Conc 33.1 g/dl (31.0-36.0); Mean Corpuscular Hemoglobin 31.6 pg (27.0-33.0); Mean Corpuscular Volume 95.4 fL (80.0-98.0); Mean Platelet Volume 10.7 fL (9.4-12.4); Platelet Count 193 X10*3/uL (160-400); Red Blood Count 4.12 X10*6/uL (4.60-5.80); Red Cell Distribution Width 12.8 % (11.0-16.0); White Blood Count 10.1 X10*3/uL (4.8-10.8)
[2023-03-10 06:40] LABS: Anion Gap 11 (12-20); Blood Urea Nitrogen 36 mg/dL (9-16); Calcium 9.5 mg/dL (8.4-10.2); Carbon Dioxide 25 mmol/L (22-29); Chloride 107 mmol/L (96-108); Creatinine Clr Calc Pharmacy 45.5; Estimated Glomerular Filt Rate 50; Glucose Random 113 mg/dL (60-115); Potassium 4.9 mmol/L (3.3-5.1); Sodium 138 mmol/L (135-145)
[2023-03-10 08:00] VITALS: BP 151/72; PULSE 56; RESP 18; TEMP 36.2; O2SAT 93
[2023-03-10 09:57] LABS: Appearance Urine Clear; Color Urine Yellow; Glucose Urine UA Negative (Negative); Leukocyte Esterase Urine Negative (Negative); Nitrite Urine Negative (Negative); Specific Gravity - Urine >= 1.030 (1.005-1.025); Urine Blood Negative (Negative); Urine Ketones Trace mg/dL (Negative); Urine Protein Negative (Neg-Trace)
--- NOTE | 2023-03-10 10:37 | MHC.CM.PN ---
PT REPORTS HE LIVES WITH HIS AND IS INDEPENDENT WITH CARE HE DENIES USE OF DME OR HOME HEALTH SERVICES PT REPORTS HE HAS A HCP, COPY REQUESTED PT DOES NOT HAVE A PCP PT REPORTS HE ALSO HAS MEDICARE, ALTHOUGH [employer] IS THE ONLY INSURANCE LISTED HE DOES NOT HAVE THE NUMBER/CARD WITH HIM AND SAYS [employer] IS PRIMARY IMM DELIVERED CURRENT DCP IS HOME WITH NO SERVICES VIA FAMILY TRANSPORT
--- NOTE | 2023-03-10 11:04 | P.PNIM_ITS ---
Subjective Subjective Date of Service: 03/10/23 Interval History: Minimal improvement overnight. Tolerating liquid diet Review of Systems Denies chest pain Denies shortness of breath Admits to nausea denies vomiting diarrhea Denies fever chills Physical Exam Vital Signs: Vital Signs: Last Vital Signs Temp 97.2 F 03/10/23 08:00 Pulse 56 03/10/23 08:00 Resp 18 03/10/23 08:00 BP 151/72 H 03/10/23 08:00 Pulse Ox 93 03/10/23 08:00 O2 Del Method Room Air 03/10/23 08:00 BMI result Body Mass Index 24.0 Const: Other: Awake alert oriented x3 no acute distress Resp: Other: Clear to auscultation bilaterally no rales rhonchi or wheezes Cardio: Other: No S4; positive S1-S2; no S3 murmurs rubs or gallops GI: Other: Soft nontender nondistended normoactive bowel sounds Extrem: Other: No edema bilateral Objective Data Active Medications Acetaminophen (Acetaminophen 325 Mg Tablet) 650 mg PO Q6H PRN PRN Reason: Pain, Mild (Pain Scale 1-3) Last Admin: 03/09/23 21:58 Dose: 650 mg Documented By: JOY Docusate Sodium (Docusate Sodium 100 Mg Capsule) 100 mg PO DAILY PRN PRN Reason: Constipation Piperacillin Sod/Tazobactam (Sod 3.375 gm/ Sodium Chloride) 50 mls @ 100 mls/hr IV Q6H [facility] Last Infusion: 03/10/23 10:06 Dose: 0 mls/hr Documented By: DAX Sodium Chloride (Ns) 1,000 mls @ 100 mls/hr IVCONT .Q10H [facility] Last Admin: 03/10/23 02:47 Dose: 100 mls/hr Documented By: JOY Ondansetron HCl (Ondansetron Hcl 4 Mg/2 Ml Vial) 4 mg IVPUSH Q8H PRN PRN Reason: Nausea and Vomiting Pantoprazole Sodium (Pantoprazole Sodium 40 Mg/10 Ml Vial) 40 mg IVPUSH BID@0630,1630 [facility] Last Admin: 03/10/23 06:02 Dose: 40 mg Documented By: JOY Sodium Chloride (0.9 % Sodium Chloride Flush 3 Ml Syringe) 3 ml IVFLUSH QSHIFT [facility] Last Admin: 03/10/23 07:18 Dose: Not Given Documented By: DAX Non-Admin Reason: IV Running Labs 03/10/23 05:56 03/10/23 05:56 Labs: Laboratory Results - last 24 hr 03/09/23 03/10/23 03/10/23 11:55 05:56 05:56 MCV 95.4 MCH 31.6 MCHC 33.1 RDW 12.8 Plt Count 193 MPV 10.7 Absolute Nucleated RBC 0.000 Nucleated RBC % (auto) 0.0 Anion Gap 14 11 L Estim Creat Clear Calc 41.2 45.5 Estimated GFR 45 50 Random Glucose 126 H 113 Calcium 9.9 9.5 Lactate Dehydrogenase 242 Urine Color Urine Appearance Urine pH Ur Specific [place] Urine Protein Urine Glucose (UA) Urine Ketones Urine Blood Urine Nitrite Ur Leukocyte Esterase 03/10/23 09:00 MCV MCH MCHC RDW Plt Count MPV Absolute Nucleated RBC Nucleated RBC % (auto) Anion Gap Estim Creat Clear Calc Estimated GFR Random Glucose Calcium Lactate Dehydrogenase Urine Color Yellow Urine Appearance Clear Urine pH 5.0 Ur Specific [place] >= 1.030 H Urine Protein Negative Urine Glucose (UA) Negative Urine Ketones Trace Urine Blood Negative Urine Nitrite Negative Ur Leukocyte Esterase Negative Microbiology Microbiology Results: Microbiology 03/09/23 08:12 Blood Culture - Preliminary Blood - Venous No growth after 24 hours. 03/09/23 08:07 Blood Culture - Preliminary Blood - Venous No growth after 24 hours. Assessment and Plan (1) Enteritis: Status: Acute (2) EMILY (acute kidney injury): Status: Acute Plan Pt is an 82-year-old male with no significant PMH only taking fish oil at home who presents to the ED with?abdominal pain and 2 episodes of dark red emesis. Pt will be admitted to the hospital for treatment and further evaluation of gastroenteritis and EMILY with IV fluids and antibiotics. 1.Gastroenteritis -slow to improve. . . Advanced diet as tolerated -Zosyn(2) -IVFs...(NSS) 2.EMILY -improved with volume repletion -follow renals/divalents 3.Hyperkalemia -resolved -follow renals/divalents 4.Question of upper GI bleed -Protonix IV b.i.d. -follow CBC in a.m.. .. Dropped likely dilutional -if continues to trend down in a.m.; GI consult Full Code Pneumatic boots Patient will require ongoing hospitalization for IV antibiotics to treat enteritis. Time Spent With Patient Time: Total time managing care of this patient today ____ minutes. Quality Stroke Does the patient have a stroke diagnosis?: No VTE Prior VTE?: No VTE Risk Level:: Medical - moderate - high VTE Device Contraindication: N/A - Device Ordered VTE Drug Contraindication: Treatment Not Indicated
--- NOTE | 2023-03-10 14:27 | P.PNGS_ITS ---
Subjective Subjective Date of Service: 03/10/23 Interval history: Patient has no abdominal complaints. No pain. Patient has not had any flatus or stool. He has had some dry heaves and nausea. Physical Exam Vital Signs: Vital Signs: Last Vital Signs Temp 97.2 F 03/10/23 08:00 Pulse 56 03/10/23 08:00 Resp 18 03/10/23 08:00 BP 151/72 H 03/10/23 08:00 Pulse Ox 93 03/10/23 08:00 O2 Del Method Room Air 03/10/23 08:00 BMI result Body Mass Index 24.0 GI: Other: Abdomen soft, benign, nontender Objective Data Active Medications Acetaminophen (Acetaminophen 325 Mg Tablet) 650 mg PO Q6H PRN PRN Reason: Pain, Mild (Pain Scale 1-3) Last Admin: 03/09/23 21:58 Dose: 650 mg Documented By: JOY Docusate Sodium (Docusate Sodium 100 Mg Capsule) 100 mg PO DAILY PRN PRN Reason: Constipation Piperacillin Sod/Tazobactam (Sod 3.375 gm/ Sodium Chloride) 50 mls @ 100 mls/hr IV Q6H [facility] Last Infusion: 03/10/23 10:06 Dose: 0 mls/hr Documented By: DAX Sodium Chloride (Ns) 1,000 mls @ 100 mls/hr IVCONT .Q10H [facility] Last Admin: 03/10/23 11:59 Dose: 100 mls/hr Documented By: DAX Ondansetron HCl (Ondansetron Hcl 4 Mg/2 Ml Vial) 4 mg IVPUSH Q8H PRN PRN Reason: Nausea and Vomiting Pantoprazole Sodium (Pantoprazole Sodium 40 Mg/10 Ml Vial) 40 mg IVPUSH BID@0630,1630 [facility] Last Admin: 03/10/23 06:02 Dose: 40 mg Documented By: JOY Sodium Chloride (0.9 % Sodium Chloride Flush 3 Ml Syringe) 3 ml IVFLUSH QSHIFT [facility] Last Admin: 03/10/23 07:18 Dose: Not Given Documented By: DAX Non-Admin Reason: IV Running Labs 03/10/23 05:56 03/10/23 05:56 Labs: Laboratory Results - last 24 hr 03/10/23 03/10/23 03/10/23 05:56 05:56 09:00 MCV 95.4 MCH 31.6 MCHC 33.1 RDW 12.8 Plt Count 193 MPV 10.7 Absolute Nucleated RBC 0.000 Nucleated RBC % (auto) 0.0 Anion Gap 11 L Estim Creat Clear Calc 45.5 Estimated GFR 50 Random Glucose 113 Calcium 9.5 Urine Color Yellow Urine Appearance Clear Urine pH 5.0 Ur Specific [place] >= 1.030 H Urine Protein Negative Urine Glucose (UA) Negative Urine Ketones Trace Urine Blood Negative Urine Nitrite Negative Ur Leukocyte Esterase Negative Microbiology Microbiology Results: Microbiology 03/09/23 08:12 Blood Culture - Preliminary Blood - Venous No growth after 24 hours. 03/09/23 08:07 Blood Culture - Preliminary Blood - Venous No growth after 24 hours. Procedures Date of Service Date of Service: 03/10/23 Progress Note: A&P Assessment and plan (1) Enteritis: Status: Acute Plan Gastroenteritis is working diagnosis. Patient is clinically stable from surgical perspective. Time Spent With Patient Time: Total time managing care of this patient today ____ minutes. Quality Stroke Does the patient have a stroke diagnosis?: No VTE Prior VTE?: No VTE Risk Level:: Medical - moderate - high VTE Device Contraindication: N/A - Device Ordered VTE Drug Contraindication: Treatment Not Indicated
[2023-03-10] MEDS: 0.9 % Sodium Chloride Flush 3 ML SYRINGE IVFLUSH (15:38)
[2023-03-10] MEDS: ondansetron HCL 4 MG/2 ML VIAL IVPUSH (15:44)
[2023-03-10] MEDS: Docusate Sodium 100 MG CAPSULE PO (15:46)
[2023-03-10 16:00] VITALS: BP 139/86; PULSE 73; RESP 18; TEMP 36.5; O2SAT 92
[2023-03-10 19:38] VITALS: BP 170/82; PULSE 83; RESP 18; TEMP 36.4; O2SAT 94
[2023-03-11] MEDS: Piperacillin Sodium/Tazobactam 3.375 GM in 0.9 % Sodium Chloride 50 ML IV ×4 (03:09→21:13)
[2023-03-11 04:00] VITALS: BP 150/76; PULSE 58; RESP 16; TEMP 36; O2SAT 93
[2023-03-11] MEDS: Pantoprazole Sodium 40 MG/10 ML VIAL IVPUSH ×2 (05:37→15:53)
[2023-03-11] MEDS: 0.9 % Sodium Chloride 1,000 ML 100 ML IVCONT ×2 (05:38→15:58)
[2023-03-11 07:01] LABS: MANUAL DIFF FLAG NO
[2023-03-11 07:06] LABS: Basophils Percent Auto 0.1 % (0-2); Eosinophils Percent Auto 0.1 % (0-4); Hematocrit 35.5 % (42.0-52.0); Hemoglobin 11.5 g/dl (14.0-18.0); Imm Gran Abs Auto 0.03 X10*3/uL (0.00-0.03); Imm Gran Pct Auto 0.4 % (0.0-0.4); Lymphocytes Absolute Auto 0.7 X10*3/uL (1.2-4.9); Lymphocytes Percent Auto 9.4 % (20-40); Mean Corpuscular HGB Conc 32.4 g/dl (31.0-36.0); Mean Corpuscular Hemoglobin 31.3 pg (27.0-33.0); Mean Corpuscular Volume 96.5 fL (80.0-98.0); Mean Platelet Volume 10.9 fL (9.4-12.4); Monocytes Absolute Auto 0.8 X10*3/uL (0.1-1.2); Neutrophils Absolute Auto 5.7 x10*3/uL (2.0-8.3); Platelet Count 176 X10*3/uL (160-400); Red Blood Count 3.68 X10*6/uL (4.60-5.80); Red Cell Distribution Width 12.8 % (11.0-16.0); White Blood Count 7.2 X10*3/uL (4.8-10.8)
[2023-03-11 07:44] VITALS: BP 154/80; PULSE 58; RESP 16; TEMP 36.7; O2SAT 92
[2023-03-11 08:43] LABS: Alanine Aminotransferase 12 U/L (0-40); Albumin Level 3.2 g/dL (3.5-5.0); Alkaline Phosphatase 45 U/L (39-117); Anion Gap 9 (12-20); Aspartate Amino Transferase 19 U/L (5-37); Blood Urea Nitrogen 30 mg/dL (9-16); Calcium 9.2 mg/dL (8.4-10.2); Carbon Dioxide 26 mmol/L (22-29); Chloride 110 mmol/L (96-108); Creatinine Clr Calc Pharmacy 49.9; Estimated Glomerular Filt Rate 56; Glucose Fasting 97 mg/dL (60-99); Potassium 4.4 mmol/L (3.3-5.1); Sodium 141 mmol/L (135-145); Total Protein 5.3 g/dL (6.5-8.0)
[2023-03-11 08:58] LABS: C Reactive Protein 2.19 mg/dL (< or = 0.50)
--- NOTE | 2023-03-11 11:26 | MHC.CM.PN ---
PER MD ROUNDS, PT LIKELY TO DC TOMORROW DCP: HOME NO SERVICES FAMILY TO TRANSPORT
--- NOTE | 2023-03-11 12:47 | P.PNIM_ITS ---
Subjective Subjective Date of Service: 03/11/23 Interval History: abd pain improving no further dark red emesis Review of Systems Review of Systems: Yes all other systems are reviewed and are negative Physical Exam Vital Signs: Vital Signs: Last Vital Signs Temp 98.0 F 03/11/23 07:44 Pulse 58 03/11/23 07:44 Resp 16 03/11/23 07:44 BP 154/80 H 03/11/23 07:44 Pulse Ox 92 03/11/23 07:44 O2 Del Method Room Air 03/11/23 07:44 BMI result Body Mass Index 24.0 Gen: in no acute distress HEENT: sclera anicteric, moist mucus membranes Neck: supple Lungs: clear to auscultation bilaterally Heart: regular rate and rhythm, no murmurs Abd: soft, non-tender, non-distended Ext: no edema Skin: warm/well-perfused Neuro: alert and oriented x3, no focal findings Psych: appropriate affect Objective Data Active Medications Acetaminophen (Acetaminophen 325 Mg Tablet) 650 mg PO Q6H PRN PRN Reason: Pain, Mild (Pain Scale 1-3) Last Admin: 03/09/23 21:58 Dose: 650 mg Documented By: JOY Docusate Sodium (Docusate Sodium 100 Mg Capsule) 100 mg PO DAILY PRN PRN Reason: Constipation Last Admin: 03/10/23 15:46 Dose: 100 mg Documented By: DAX Piperacillin Sod/Tazobactam (Sod 3.375 gm/ Sodium Chloride) 50 mls @ 100 mls/hr IV Q6H [facility] Last Infusion: 03/11/23 08:57 Dose: 100 mls/hr Documented By: ZEFERINO Sodium Chloride (Ns) 1,000 mls @ 100 mls/hr IVCONT .Q10H [facility] Last Admin: 03/11/23 05:38 Dose: 100 mls/hr Documented By: DARIAN Ondansetron HCl (Ondansetron Hcl 4 Mg/2 Ml Vial) 4 mg IVPUSH Q8H PRN PRN Reason: Nausea and Vomiting Last Admin: 03/10/23 15:44 Dose: 4 mg Documented By: DAX Pantoprazole Sodium (Pantoprazole Sodium 40 Mg/10 Ml Vial) 40 mg IVPUSH BID@0630,1630 [facility] Last Admin: 03/11/23 05:37 Dose: 40 mg Documented By: DARIAN Sodium Chloride (0.9 % Sodium Chloride Flush 3 Ml Syringe) 3 ml IVFLUSH QSHIFT [facility] Last Admin: 03/11/23 08:24 Dose: Not Given Documented By: ZEFERINO Non-Admin Reason: IV Running Labs 03/11/23 05:40 03/11/23 05:40 Labs: Laboratory Results - last 24 hr 03/11/23 03/11/23 05:40 05:40 MCV 96.5 MCH 31.3 MCHC 32.4 RDW 12.8 Plt Count 176 MPV 10.9 Immature Gran % (Auto) 0.4 Neut % (Auto) 79.0 H Lymph % (Auto) 9.4 L [place] % (Auto) 11.0 Eos % (Auto) 0.1 Baso % (Auto) 0.1 Lymph # (Auto) 0.7 L [place] # (Auto) 0.8 Eos # (Auto) 0.0 Baso # (Auto) 0.0 Abs Immat Gran (auto) 0.03 Absolute Neuts (auto) 5.7 Absolute Nucleated RBC 0.000 Nucleated RBC % (auto) 0.0 Anion Gap 9 L Estim Creat Clear Calc 49.9 Estimated GFR 56 Fasting Glucose 97 Calcium 9.2 Total Bilirubin 1.0 AST 19 ALT 12 Alkaline Phosphatase 45 C-Reactive Protein 2.19 H Total Protein 5.3 L Albumin 3.2 L Microbiology Microbiology Results: Microbiology 03/09/23 08:12 Blood Culture - Preliminary Blood - Venous No growth after 48 hours. 03/09/23 08:07 Blood Culture - Preliminary Blood - Venous No growth after 48 hours. Assessment and Plan (1) Enteritis: Status: Acute (2) EMILY (acute kidney injury): Status: Acute Plan d#3 82yo M with no chronic PMHx presenting with 2d of worsening abd pain + 2 episodes of dark red emesis found to have enteritis, EMILY # possible upper GI bleed with acute blood loss anemia - continue PPI, consult GI # enteritis - pip-epifanio d#2, advance diet as tolerated # EMILY, prerenal - improving with volume repletion # hyperK, mild - due to EMILY; resolved # VTE ppx: SCDs # dispo: eventual home In my clinical judgment, the patient requires continued inpatient hospitalization for the following reasons: GI eval Time Spent With Patient Time: Total time managing care of this patient today __35__ minutes. Quality Stroke Does the patient have a stroke diagnosis?: No VTE Prior VTE?: No VTE Risk Level:: Medical - moderate - high VTE Device Contraindication: N/A - Device Ordered VTE Drug Contraindication: Treatment Not Indicated
--- NOTE | 2023-03-11 13:12 | PM.EVENT ---
Event Note Date of Service: 03/11/23 Event Note: GI consult dictated EGD scheduled 03/12 for further evaluation of hematemesis. Continue ppi and monitor hematocrit. Time Spent With Patient Time: Total time managing care of this patient today ____ minutes.
[2023-03-11 15:35] VITALS: BP 147/66; PULSE 53; RESP 18; TEMP 37.1; O2SAT 93
[2023-03-11] MEDS: 0.9 % Sodium Chloride Flush 3 ML SYRINGE IVFLUSH (15:53)
--- NOTE | 2023-03-11 16:06 | PC.NURSE ---
Patient refused sequentials,,risks were explained to patient,encouraged activity,Dr. Neri notified.
[2023-03-11 20:00] VITALS: BP 156/72; PULSE 53; RESP 16; TEMP 36.5; O2SAT 93
[2023-03-11] MEDS: ondansetron HCL 4 MG/2 ML VIAL IVPUSH (21:09)
[2023-03-11] MEDS: Docusate Sodium 100 MG CAPSULE PO (21:12)
[2023-03-11 23:24] VITALS: BP 157/72; PULSE 50; RESP 18; TEMP 36.7; O2SAT 91
[2023-03-12] VITALS (29 sets, daily range): BP systolic 88–174; BP diastolic 47–90; PULSE 47–136; RESP 14–36; TEMP 34.8–38.8; O2SAT 82–100; BMI 25.3
--- NOTE | 2023-03-12 01:16 | CONS_ITS ---
DATE OF SERVICE: 03/11/2023 REFERRING PHYSICIAN: David Neri MD REASON FOR CONSULTATION: Hematemesis. HISTORY OF PRESENT ILLNESS: The patient is a pleasant 82-year-old man who was admitted to the hospital after presenting to the emergency department with complaints of hematemesis. He reports he was well until the morning on Saturday when he awoke and could not sleep. He worked out in his home gym and went back to bed, but developed severe abdominal pain later that morning. He reports vomiting bloody material twice at home, that was associated with abdominal distention and some generalized discomfort. He was seen in the emergency department, but left and had recurrent pain, returning by ambulance the following day. He denies any recurrent hematemesis and did not have any melena. He was evaluated in the emergency department with laboratory studies including blood work showing a hematocrit of 47, which dropped to 35 today. There has been no recurrent hematemesis. He has been treated with a proton pump inhibitor. Imaging studies including CT scanning showed distention of the proximal small bowel with air-fluid levels, consistent with enteritis and bowel wall thickening. The patient denies any prior history of peptic ulcer disease or chronic upper GI symptoms. He has generally been healthy and not seen a doctor for many years. He denies use of NSAIDs. He does drink 1 alcoholic drink several times per week. PAST MEDICAL HISTORY: Upper GI bleeding as above. CURRENT MEDICATIONS: His current medication list is reviewed in the chart. ALLERGIES: THERE ARE NONE REPORTED. FAMILY HISTORY: This is negative for upper GI tract malignancy. SOCIAL HISTORY: There is no current tobacco, alcohol, or substance abuse. REVIEW OF SYSTEMS: SKIN: No pruritus. HEENT: Negative. CARDIOPULMONARY: He denies shortness of breath or chest pain. GASTROINTESTINAL: As above. GENITOURINARY: Negative. NEUROPSYCHIATRIC: Negative. PHYSICAL EXAMINATION: GENERAL: Reveals a pleasant male, sitting comfortably in the table. He is tolerating clear liquids. VITAL SIGNS: Reviewed in the electronic medical record and are stable. SKIN: Anicteric. HEENT: Shows no scleral icterus. NECK: Without lymphadenopathy or thyromegaly. LUNGS: Clear. HEART: Shows a regular rate and rhythm. S1 and S2. No murmur. ABDOMEN: Soft without focal masses or tenderness. Bowel sounds are present. No organomegaly is noted. EXTREMITIES: Without edema. LABORATORY DATA AND IMAGING STUDIES: Reviewed. IMPRESSION: Hematemesis. At this time, he shows no signs of ongoing gastrointestinal bleeding. I would recommend further evaluation with endoscopy because of his underlying hematemesis. We discussed risks and benefits of the procedure today. He understands these and agrees to proceed. We also discussed the differential diagnosis for hematemesis, which includes gastroesophageal reflux disease, peptic ulcer disease, Lay-Xie tear, and tumors. I would recommend continuing his proton pump inhibitor and following his hematocrit. Thanks for asking me to see him. I will follow him in the hospital with you. MD JACQUELYN Marinelli/RENAE / [phone]
[2023-03-12] MEDS: 0.9 % Sodium Chloride 1,000 ML 100 ML IVCONT (02:19)
[2023-03-12] MEDS: Piperacillin Sodium/Tazobactam 3.375 GM in 0.9 % Sodium Chloride 50 ML IV ×4 (02:24→21:25)
[2023-03-12] MEDS: Pantoprazole Sodium 40 MG/10 ML VIAL IVPUSH (05:54)
[2023-03-12 06:03] LABS: Hematocrit 32.7 % (42.0-52.0); Hemoglobin 10.7 g/dl (14.0-18.0); Mean Corpuscular HGB Conc 32.7 g/dl (31.0-36.0); Mean Corpuscular Hemoglobin 31.4 pg (27.0-33.0); Mean Corpuscular Volume 95.9 fL (80.0-98.0); Mean Platelet Volume 10.7 fL (9.4-12.4); Platelet Count 174 X10*3/uL (160-400); Red Blood Count 3.41 X10*6/uL (4.60-5.80); Red Cell Distribution Width 12.7 % (11.0-16.0); White Blood Count 5.4 X10*3/uL (4.8-10.8)
[2023-03-12 06:11] LABS: Anion Gap 11 (12-20); Blood Urea Nitrogen 22 mg/dL (9-16); Calcium 9.1 mg/dL (8.4-10.2); Carbon Dioxide 24 mmol/L (22-29); Chloride 110 mmol/L (96-108); Creatinine Clr Calc Pharmacy 56.3; Estimated Glomerular Filt Rate > 60; Glucose Random 105 mg/dL (60-115); Sodium 141 mmol/L (135-145)
[2023-03-12] MEDS: Albuterol Sulfate (0.083%) 2.5 MG/3 ML VIAL.NEB INHALE (12:50)
--- NOTE | 2023-03-12 12:52 | MHC.SHP ---
Pre-Procedural Eval Section A Date of Service: 03/12/23 The patient is an INPATIENT: Yes Changes since office visit: No Cold of Flu in the past 2 weeks, No New Medical Problems, No Changes in Medication and No Patient answered all questions The History & Physical has been completed within 30 days and I have reviewed it.: Yes Section B Chief Complaint: Abdominal pain, gastroenteritis Allergies: Allergies Allergy/AdvReac Type Severity Reaction Status Date / Time Unable to Assess Allergy Verified 03/09/23 08:50 Plan I have reviewed the history and physical and performed a pertinent physical examination on my patient. No changes have occurred unless specified. Time Spent With Patient Time: Total time managing care of this patient today ____ minutes.
--- NOTE | 2023-03-12 13:25 | PM.OP ---
Brief Operative Note Date of Service: 03/12/23 Pre-op diagnosis: hematemesis Post-op diagnosis: same (erosive esophagitis) Procedure: EGD Surgeon: Eran Baker Anesthesia: MAC Was an Infantry Assaultman used for this Procedure?: No Estimated blood loss (mL): 2 Pathology: other Condition: stable Disposition: PACU
--- NOTE | 2023-03-12 13:26 | PM.EVENT ---
Event Note Date of Service: 03/12/23 Event Note: EGD note dictated Erosive esophagitis over distal 2/3 of esophagus nodular egj without mass, biopsied large amount of retained gastric secretions, suctioned superficial ulceration at pyloric channel, biopsied no obstruction. Rec: f/u bx results oral ppi advance diet. Time Spent With Patient Time: Total time managing care of this patient today ____ minutes.
--- NOTE | 2023-03-12 13:47 | P.CONAN_ITS ---
HPI - Anesthesia Eval Consult details Narrative: 82 M w upper gi bleed PMFSH Active Problems Active Problems: All Active Problems (Updated 03/09/23 @ 12:42 by GUERO Delatorre) EMILY (acute kidney injury) (Acute) Enteritis (Acute) Family History Family history of problems with anesthesia: No Surgical History History of Problems with Anesthesia: No Social History Social History Household Members: Spouse Housing: House Do you presently have visiting nurse or other home services: No Alcohol intake: current Alcohol intake frequency: a few times a week Alcohol type: hard liquor Patient Tobacco Use Status: Former Tobacco user Smoked in Last 30 Days: No Use of substances other than those prescribed or required for medical reasons: No Currently Displaying Signs/Symptoms of Drug Intoxication Withdrawal: No Have you been hit, kicked, punched, or otherwise hurt by someone within the past year? If so, by whom?: No Do you feel safe in your current relationship?: Yes Is there a partner from a previous relationship who is making you feel unsafe now?: No Are you made to feel afraid or neglected: No Are you DNR?: No Advance Directives: No Advance Directives Information Provided: No Advance Directives on File: No Do you have thoughts of harming others: None Recently lost weight without trying: No Eating poorly because of decreased appetite: Yes Nutrition Risks: No Nutritional Risk Poor oral hygiene: No service: No Meds Allergies Allergy/AdvReac Type Severity Reaction Status Date / Time Unable to Assess Allergy Verified 03/09/23 08:50 Active Medications: Current Medications Acetaminophen (Acetaminophen 325 Mg Tablet) 650 mg PO Q6H PRN PRN Reason: Pain, Mild (Pain Scale 1-3) Last Admin: 03/09/23 21:58 Dose: 650 mg Docusate Sodium (Docusate Sodium 100 Mg Capsule) 100 mg PO DAILY PRN PRN Reason: Constipation Last Admin: 03/11/23 21:12 Dose: 100 mg Piperacillin Sod/Tazobactam (Sod 3.375 gm/ Sodium Chloride) 50 mls @ 100 mls/hr IV Q6H [facility] Last Infusion: 03/12/23 09:23 Dose: Infused Ondansetron HCl (Ondansetron Hcl 4 Mg/2 Ml Vial) 4 mg IVPUSH Q8H PRN PRN Reason: Nausea and Vomiting Last Admin: 03/11/23 21:09 Dose: 4 mg Pantoprazole Sodium (Pantoprazole Sodium 40 Mg/10 Ml Vial) 40 mg IVPUSH BID@0630,1630 [facility] Last Admin: 03/12/23 05:54 Dose: 40 mg Sodium Chloride (0.9 % Sodium Chloride Flush 3 Ml Syringe) 3 ml IVFLUSH QSHIFT [facility] Last Admin: 03/12/23 07:30 Dose: Not Given Home Medications Medication Instructions Recorded Confirmed Last Taken Type omega 1-qca-awv-fish oil 60 mg-90 1 cap PO DAILY 03/09/23 03/09/23 Unknown History mg-500 mg capsule (Fish Oil) Exam Exam Date and Time: March 12, 2023 134 Height,Weight and Vital Signs: Height 6 ft Weight 177 lb 4.026 oz Last Vital Signs Temp 98.1 F 03/12/23 12:02 Pulse 47 L 03/12/23 12:02 Resp 18 03/12/23 12:02 BP 102/66 03/12/23 12:02 Pulse Ox 96 03/12/23 12:02 O2 Del Method Room Air 03/12/23 12:02 Pertinent Lab Results Pertinent Lab Results: Laboratory Tests 03/09/23 03/09/23 03/09/23 04:51 04:51 07:20 WBC 11.7 H 12.5 H RBC 5.03 5.05 Hgb 15.7 15.9 Hct 47.0 46.9 MCV 93.4 92.9 MCH 31.2 31.5 MCHC 33.4 33.9 RDW 12.8 12.9 Plt Count 227 246 MPV 10.3 10.5 Immature Gran % (Auto) 0.3 Neut % (Auto) 87.8 H Lymph % (Auto) 6.5 L [place] % (Auto) 5.4 Eos % (Auto) 0.0 Baso % (Auto) 0.0 Lymph # (Auto) 0.8 L [place] # (Auto) 0.6 Eos # (Auto) 0.0 Baso # (Auto) 0.0 Abs Immat Gran (auto) 0.03 Absolute Neuts (auto) 10.3 H Absolute Nucleated RBC 0.000 0.000 Nucleated RBC % (auto) 0.0 0.0 PT INR APTT Sodium 138 Potassium 4.1 D Chloride 101 Carbon Dioxide 23 Anion Gap 18 BUN 31 H Creatinine 1.57 H Estim Creat Clear Calc 39.1 Estimated GFR 42 Random Glucose 207 H Fasting Glucose Lactic Acid Calcium 10.1 Magnesium 2.0 Total Bilirubin 1.3 H Direct Bilirubin 0.4 AST 19 ALT 16 Alkaline Phosphatase 59 Lactate Dehydrogenase C-Reactive Protein Total Protein 6.5 Albumin 3.9 Lipase 42 Urine Color Urine Appearance Urine pH Ur Specific [place] Urine Protein Urine Glucose (UA) Urine Ketones Urine Blood Urine Nitrite Ur Leukocyte Esterase Stool Occult Blood Blood Type Antibody Screen 03/09/23 03/09/23 03/09/23 07:20 07:20 07:20 WBC RBC Hgb Hct MCV MCH MCHC RDW Plt Count MPV Immature Gran % (Auto) Neut % (Auto) Lymph % (Auto) [place] % (Auto) Eos % (Auto) Baso % (Auto) Lymph # (Auto) [place] # (Auto) Eos # (Auto) Baso # (Auto) Abs Immat Gran (auto) Absolute Neuts (auto) Absolute Nucleated RBC Nucleated RBC % (auto) PT 10.8 INR 0.9 APTT 23.7 L Sodium Potassium Chloride Carbon Dioxide Anion Gap BUN Creatinine Estim Creat Clear Calc Estimated GFR Random Glucose Fasting Glucose Lactic Acid 1.8 Calcium Magnesium Total Bilirubin Direct Bilirubin AST ALT Alkaline Phosphatase Lactate Dehydrogenase C-Reactive Protein Total Protein Albumin Lipase Urine Color Urine Appearance Urine pH Ur Specific [place] Urine Protein Urine Glucose (UA) Urine Ketones Urine Blood Urine Nitrite Ur Leukocyte Esterase Stool Occult Blood Blood Type A Negative Antibody Screen NEGATIVE 03/09/23 03/09/23 03/09/23 07:20 08:31 11:55 WBC RBC Hgb Hct MCV MCH MCHC RDW Plt Count MPV Immature Gran % (Auto) Neut % (Auto) Lymph % (Auto) [place] % (Auto) Eos % (Auto) Baso % (Auto) Lymph # (Auto) [place] # (Auto) Eos # (Auto) Baso # (Auto) Abs Immat Gran (auto) Absolute Neuts (auto) Absolute Nucleated RBC Nucleated RBC % (auto) PT INR APTT Sodium 138 Potassium 4.7 Chloride 106 Carbon Dioxide 23 Anion Gap 14 BUN 36 H Creatinine 1.49 H Estim Creat Clear Calc 41.2 Estimated GFR 45 Random Glucose 126 H Fasting Glucose Lactic Acid Calcium 9.9 Magnesium Total Bilirubin Direct Bilirubin AST ALT Alkaline Phosphatase Lactate Dehydrogenase 242 C-Reactive Protein Total Protein Albumin Lipase Urine Color Urine Appearance Urine pH Ur Specific [place] Urine Protein Urine Glucose (UA) Urine Ketones Urine Blood Urine Nitrite Ur Leukocyte Esterase Stool Occult Blood NEGATIVE NEGATIVE Blood Type Antibody Screen 03/10/23 03/10/23 03/10/23 05:56 05:56 09:00 WBC 10.1 RBC 4.12 L Hgb 13.0 L Hct 39.3 L MCV 95.4 MCH 31.6 MCHC 33.1 RDW 12.8 Plt Count 193 MPV 10.7 Immature Gran % (Auto) Neut % (Auto) Lymph % (Auto) [place] % (Auto) Eos % (Auto) Baso % (Auto) Lymph # (Auto) [place] # (Auto) Eos # (Auto) Baso # (Auto) Abs Immat Gran (auto) Absolute Neuts (auto) Absolute Nucleated RBC 0.000 Nucleated RBC % (auto) 0.0 PT INR APTT Sodium 138 Potassium 4.9 Chloride 107 Carbon Dioxide 25 Anion Gap 11 L BUN 36 H Creatinine 1.35 Estim Creat Clear Calc 45.5 Estimated GFR 50 Random Glucose 113 Fasting Glucose Lactic Acid Calcium 9.5 Magnesium Total Bilirubin Direct Bilirubin AST ALT Alkaline Phosphatase Lactate Dehydrogenase C-Reactive Protein Total Protein Albumin Lipase Urine Color Yellow Urine Appearance Clear Urine pH 5.0 Ur Specific [place] >= 1.030 H Urine Protein Negative Urine Glucose (UA) Negative Urine Ketones Trace Urine Blood Negative Urine Nitrite Negative Ur Leukocyte Esterase Negative Stool Occult Blood Blood Type Antibody Screen 03/11/23 03/11/23 03/12/23 05:40 05:40 05:37 WBC 7.2 5.4 RBC 3.68 L 3.41 L Hgb 11.5 L 10.7 L Hct 35.5 L 32.7 L MCV 96.5 95.9 MCH 31.3 31.4 MCHC 32.4 32.7 RDW 12.8 12.7 Plt Count 176 174 MPV 10.9 10.7 Immature Gran % (Auto) 0.4 Neut % (Auto) 79.0 H Lymph % (Auto) 9.4 L [place] % (Auto) 11.0 Eos % (Auto) 0.1 Baso % (Auto) 0.1 Lymph # (Auto) 0.7 L [place] # (Auto) 0.8 Eos # (Auto) 0.0 Baso # (Auto) 0.0 Abs Immat Gran (auto) 0.03 Absolute Neuts (auto) 5.7 Absolute Nucleated RBC 0.000 0.000 Nucleated RBC % (auto) 0.0 0.0 PT INR APTT Sodium 141 Potassium 4.4 Chloride 110 H Carbon Dioxide 26 Anion Gap 9 L BUN 30 H Creatinine 1.23 Estim Creat Clear Calc 49.9 Estimated GFR 56 Random Glucose Fasting Glucose 97 Lactic Acid Calcium 9.2 Magnesium Total Bilirubin 1.0 Direct Bilirubin AST 19 ALT 12 Alkaline Phosphatase 45 Lactate Dehydrogenase C-Reactive Protein 2.19 H Total Protein 5.3 L Albumin 3.2 L Lipase Urine Color Urine Appearance Urine pH Ur Specific [place] Urine Protein Urine Glucose (UA) Urine Ketones Urine Blood Urine Nitrite Ur Leukocyte Esterase Stool Occult Blood Blood Type Antibody Screen 03/12/23 05:37 WBC RBC Hgb Hct MCV MCH MCHC RDW Plt Count MPV Immature Gran % (Auto) Neut % (Auto) Lymph % (Auto) [place] % (Auto) Eos % (Auto) Baso % (Auto) Lymph # (Auto) [place] # (Auto) Eos # (Auto) Baso # (Auto) Abs Immat Gran (auto) Absolute Neuts (auto) Absolute Nucleated RBC Nucleated RBC % (auto) PT INR APTT Sodium 141 Potassium 4.0 Chloride 110 H Carbon Dioxide 24 Anion Gap 11 L BUN 22 H Creatinine 1.09 Estim Creat Clear Calc 56.3 Estimated GFR > 60 Random Glucose 105 Fasting Glucose Lactic Acid Calcium 9.1 Magnesium Total Bilirubin Direct Bilirubin AST ALT Alkaline Phosphatase Lactate Dehydrogenase C-Reactive Protein Total Protein Albumin Lipase Urine Color Urine Appearance Urine pH Ur Specific [place] Urine Protein Urine Glucose (UA) Urine Ketones Urine Blood Urine Nitrite Ur Leukocyte Esterase Stool Occult Blood Blood Type Antibody Screen Airway Mallampati Class: III TM Dist: >3cm Neck ROM: Full Denture: Upper Partial: Lower Loose/Missing/Broken Teeth: Yes Assessment and Plan Assessment Anesthesia Assessment: Anesthesia Plan Discussed and Chart Reviewed Final Anesthetic Review Family History of Problems with Anesthesia: No History of Problems with Anesthesia: No NPO: Yes ASA Class: III Final Preanesthetic Review: No Changes in Pt Med Stat, Meds/Allgs Chart Reviewed, Consent Obtained/Reviewed and Anes Risks/Benef Reviewed Patient Risk: Intermediate Procedure Risk: Low Anesthetic Plan Anesthetic Plan: MAC: Disposition: Standard PACU
[2023-03-12] MEDS: Albuterol Sulfate 7.5 MG, Albuterol Sulfate (0.083%) 2.5 MG 10 MG INHALE (14:45)
[2023-03-12] MEDS: Ipratropium Bromide 0.5 MG/2.5 ML SOLUTION INHALE (14:58)
[2023-03-12 15:15] LABS: VBG Base Excess -3.2 mmol/L; VBG HCO3 24 mmol/L (22-26); VBG pCO2 52 mmHg; VBG pH 7.26 (7.32-7.43); VBG pO2 61 mmHg
[2023-03-12] MEDS: propofoL 1,000 MG/100 ML VIAL 24.12 MG IVCONT (15:25)
--- NOTE | 2023-03-12 15:31 | P.PNIM_ITS ---
Subjective Subjective Date of Service: 03/12/23 Interval History: NPO for EGD Some nausea, no donna vomiting Hungry Review of Systems Review of Systems: Yes all other systems are reviewed and are negative Physical Exam Vital Signs: Vital Signs: VS: T 97.6, BP 174/72, P 51, R 18, SaO2 91 on RA Gen: in no acute distress HEENT: sclera anicteric, moist mucus membranes Neck: supple Lungs: clear to auscultation bilaterally Heart: regular rate and rhythm, no murmurs Abd: soft, non-tender, non-distended Ext: no edema Skin: warm/well-perfused Neuro: alert and oriented x3, no focal findings Psych: appropriate affect Objective Data Active Medications Acetaminophen (Acetaminophen 325 Mg Tablet) 650 mg PO Q6H PRN PRN Reason: Pain, Mild (Pain Scale 1-3) Last Admin: 03/09/23 21:58 Dose: 650 mg Documented By: JOY Docusate Sodium (Docusate Sodium 100 Mg Capsule) 100 mg PO DAILY PRN PRN Reason: Constipation Last Admin: 03/11/23 21:12 Dose: 100 mg Documented By: MICHELLE Piperacillin Sod/Tazobactam (Sod 3.375 gm/ Sodium Chloride) 50 mls @ 100 mls/hr IV Q6H [facility] Last Infusion: 03/12/23 09:23 Dose: 100 mls/hr Documented By: ZEFERINO Ondansetron HCl (Ondansetron Hcl 4 Mg/2 Ml Vial) 4 mg IVPUSH Q8H PRN PRN Reason: Nausea and Vomiting Last Admin: 03/11/23 21:09 Dose: 4 mg Documented By: MICHELLE Pantoprazole Sodium (Pantoprazole Sodium 40 Mg/10 Ml Vial) 40 mg IVPUSH BID@0630,1630 [facility] Last Admin: 03/12/23 05:54 Dose: 40 mg Documented By: JOSE ELIAS Sodium Chloride (0.9 % Sodium Chloride Flush 3 Ml Syringe) 3 ml IVFLUSH QSHIFT [facility] Last Admin: 03/12/23 07:30 Dose: Not Given Documented By: ZEFERINO Non-Admin Reason: IV Running Labs 03/12/23 05:37 03/12/23 05:37 Labs: Laboratory Results - last 24 hr 06/03/12/23 03/12/23 05:37 05:37 15:05 MCV 95.9 MCH 31.4 MCHC 32.7 RDW 12.7 Plt Count 174 MPV 10.7 Absolute Nucleated RBC 0.000 Nucleated RBC % (auto) 0.0 VBG pH 7.26 L VBG pCO2 52 VBG pO2 61 VBG HCO3 24 VBG O2 Saturation 85.0 VBG Base Excess -3.2 Anion Gap 11 L Estim Creat Clear Calc 56.3 Estimated GFR > 60 Random Glucose 105 Calcium 9.1 Assessment and Plan (1) Enteritis: Status: Acute (2) EMILY (acute kidney injury): Status: Acute Plan d#4 82yo M with no chronic PMHx presenting with 2d of worsening abd pain + 2 episodes of dark red emesis found to have enteritis, EMILY # possible upper GI bleed with acute blood loss anemia - continue PPI, EGD today # enteritis - pip-epifanio d#3, advance diet as tolerated after EGD # EMILY, prerenal - resolved p fluid resuscitation # hyperK, mild - due to EMILY; resolved # VTE ppx: SCDs # dispo: eventual home In my clinical judgment, the patient requires continued inpatient hospitalization for the following reasons: GI eval Time Spent With Patient Time: Total time managing care of this patient today __35__ minutes. Quality Stroke Does the patient have a stroke diagnosis?: No VTE Prior VTE?: No VTE Risk Level:: Medical - moderate - high VTE Device Contraindication: N/A - Device Ordered VTE Drug Contraindication: Treatment Not Indicated
[2023-03-12 16:16] LABS: Hematocrit 41.5 % (42.0-52.0); Lymphocytes Absolute Auto 0.3 X10*3/uL (1.2-4.9); Lymphocytes Percent Auto 23.7 % (20-40); MANUAL DIFF FLAG SCAN; Mean Corpuscular HGB Conc 31.3 g/dl (31.0-36.0); Mean Corpuscular Hemoglobin 31.2 pg (27.0-33.0); Mean Corpuscular Volume 99.5 fL (80.0-98.0); Mean Platelet Volume 10.2 fL (9.4-12.4); Monocytes Percent Auto 3.4 % (2-11); Neutrophils Absolute Auto 0.9 x10*3/uL (2.0-8.3); Neutrophils Percent Auto 72.9 % (45-73); Platelet Count 190 X10*3/uL (160-400); Red Blood Count 4.17 X10*6/uL (4.60-5.80); Red Cell Distribution Width 12.7 % (11.0-16.0); SCAN SMEAR FLAG 1
[2023-03-12] MEDS: Lactated Ringers 1,000 ML 999 ML IV ×2 (16:20→18:15)
--- NOTE | 2023-03-12 16:20 | P.ENANES_ITS ---
Anesthesia Event Note Date of Service: 03/12/23 Event Note: Initially did well in PACU with slight increase in WOB. Over time however, status worsened likely secondary to intra-procedural aspiration. Initially tried on high-flow nasal cannula but continued to have increased work of breathing. VBG obtained showing pH of 7.26. Decision made to intubate patient. Patient sedated with propofol 200 mg, lidocaine 15 mg, fentanyl 100 mcg and succinylcholine 100 mg. Intubated using MAC 3 blade with grade 1 view. Eugene ateral breath sounds confirmed. Report given to ICU attending and hospitalist regarding respiratory failure following periprocedural aspiration during endoscopy on an unexpectedly full stomach. Update provided to patient's son Trey via telephone. Time Spent With Patient Time: Total time managing care of this patient today ____ minutes.
[2023-03-12] MEDS: Midazolam HCl/PF 2 MG/2 ML VIAL IVPUSH ×3 (16:22→22:25)
[2023-03-12 16:27] LABS: White Blood Count 1.2 X10*3/uL (4.8-10.8)
[2023-03-12 16:41] LABS: SLIDE REVIEW VERIFIED
--- NOTE | 2023-03-12 16:45 | PM.CCN ---
Critical Care Event Note Summary Date of Service: 03/12/23 Code activated: No Narrative: 82-year-old gentleman admitted with hematemesis with concern for possible gastric outlet obstruction underwent EGD today with demonstration of relative it upper GI this and distended stomach. Patient developed acute hypoxic respiratory failure postprocedure, likely secondary to aspiration of gastric content requiring intubation and transfer to the intensive care unit. Critical Care Time (minutes): 0
--- NOTE | 2023-03-12 16:50 | PC.RT ---
called to PACU for pt requiring updraft treatment after endoscopy for question of aspiration. pt. appears in distress, on non-rebreather, with accessory muscle use. breath sounds on auscultation are dim and expiratory wheezing throughout. unit dose of albuterol given with little change. called back to pacu for pt. to be placed on high flow nasal cannula for resp distress. upon arrival, pt. with low spo2, increased accessory muscle use and RR in upper 20's to low 30's. placed on hfnc. breaths sounds continue to be dim and wheezing throughout. MD at bedside. order for 10mg albuterol given throught hfnc. pt. continues to be in distress. MD ordered atrovent treatment, given through hfnc. pt. c/o of fatigue, stating do something before I croke . decision was made to intubate. Anesthesia intubated in PACU, patient brought to ICU.
[2023-03-12] MEDS: 0.9 % Sodium Chloride Flush 3 ML SYRINGE IVFLUSH (16:51)
--- NOTE | 2023-03-12 17:11 | PC.NURSE ---
TOBY Yusuf brought patients belongings from 364 to ICU shoes,dentures in the cup and shirt
[2023-03-12] MEDS: iohexoL 350 MG/ML 75 ML INFUS..BTL 85 ML IV (17:39)
[2023-03-12 19:11] LABS: Anion Gap 14 (12-20); Blood Urea Nitrogen 24 mg/dL (9-16); Calcium 8.9 mg/dL (8.4-10.2); Carbon Dioxide 21 mmol/L (22-29); Chloride 111 mmol/L (96-108); Creatinine Clr Calc Pharmacy 52.5; Estimated Glomerular Filt Rate 60; Glucose Random 102 mg/dL (60-115); Potassium 3.5 mmol/L (3.3-5.1); Sodium 142 mmol/L (135-145)
[2023-03-12] MEDS: propofoL 1,000 MG/100 ML VIAL 14.47 MG IVCONT (19:12)
[2023-03-12 19:19] LABS: Lactic Acid 2.1 mmol/L (0.5-2.0)
[2023-03-12 19:29] LABS: Venous Blood Gas Refer to POC result
--- NOTE | 2023-03-12 19:30 | PM.EVENT ---
Documented by User: Rajni Powers NP 03/12/23 19:31 Event Note Date of Service: 03/12/23 Event Note: No evidence of septic shock, lactic acid only slighly elevated to 2.1, likely from EGD. Hypotension related to sedation Time Spent With Patient Time: Total time managing care of this patient today ____ minutes. Documented by User: Deondre Ley MD 03/13/23 08:04 Event Note Date of Service: 03/13/23
[2023-03-12] MEDS: Albumin Human 25 % 100 ML IV ×2 (19:57→21:04)
[2023-03-12] MEDS: Potassium Chloride/H20 10 MEQ/100 ML PIGGYBACK 100 MEQ IV ×4 (20:02→23:23)
--- NOTE | 2023-03-12 20:31 | OP_ITS ---
DATE OF SERVICE: 03/12/2023 SURGEON: Eran Baker MD INDICATIONS: Hematemesis. PREOPERATIVE DIAGNOSIS: POSTOPERATIVE DIAGNOSIS: PROCEDURE PERFORMED: Upper endoscopy with biopsy. ESTIMATED BLOOD LOSS: COMPLICATIONS: ANESTHESIA: Monitored anesthesia care. ASSISTANTS: SPECIMENS: DESCRIPTION OF PROCEDURE: A history and physical was performed. The risks and benefits of the procedure were explained to the patient. Informed consent was obtained. The patient was placed in the left lateral decubitus position. The Olympus video gastroscope was introduced into the esophagus, stomach, and duodenum. Examination was performed. The scope was removed. He tolerated the procedure well and was returned to the recovery area in stable condition. FINDINGS: Esophagus: The esophagus showed erosive esophagitis involving the distal 2/3 of the esophagus with linear ulceration and friability. There was some nodularity at the EG junction, but no definite tumor was identified. Biopsies were obtained from the EG junction. Stomach: The stomach showed a small hiatal hernia. There was a large amount of retained gastric secretions, which were carefully suctioned to prevent aspiration. Antral biopsies were obtained from the pyloric channel, which showed some mild superficial ulceration. There were several benign-appearing gastric polyps in the body that were not biopsied, measuring less than 10 mm. Duodenum: The bulb and 2nd portion were examined and appeared normal. IMPRESSION: Erosive esophagitis. RECOMMENDATION: 1. Follow up the biopsy results. 2. Oral proton pump inhibitor for a minimum of 8 to 12 weeks. 3. SBFT should be considered to rule out a more distal obstruction. Eran Baker MD BC/MODL / [id number] MTDD
[2023-03-12 20:47] LABS: Reflex Lactate? Lactic Acid Added
[2023-03-12] MEDS: Chlorhexidine Gluc Oral Rinse 15 ML MOUTHWASH BUCCAL (21:26)
[2023-03-12 21:39] LABS: ~Lactic Acid-LAB USE ONLY 2.1 mmol/L (0.5-2.0)
[2023-03-12 23:06] LABS: Reflex Lactate? 2 Y
[2023-03-13] VITALS (32 sets, daily range): BP systolic 88–143; BP diastolic 49–72; PULSE 67–99; RESP 18–30; TEMP 3.05–38; O2SAT 88–97; BMI 25.4
[2023-03-13] MEDS: propofoL 1,000 MG/100 ML VIAL 19.3 MG IVCONT ×2 (00:27→05:19)
[2023-03-13] MEDS: Piperacillin Sodium/Tazobactam 3.375 GM in 0.9 % Sodium Chloride 50 ML IV ×4 (03:26→19:42)
[2023-03-13] MEDS: Midazolam HCl/PF 2 MG/2 ML VIAL IVPUSH ×3 (03:48→07:55)
[2023-03-13] MEDS: Albumin Human 25 % 100 ML IV ×2 (04:47→14:12)
[2023-03-13 05:04] LABS: VBG Base Excess 0.2 mmol/L; VBG HCO3 24 mmol/L (22-26); VBG pCO2 39 mmHg; VBG pO2 82 mmHg
[2023-03-13 05:24] LABS: Alanine Aminotransferase 25 U/L (0-40); Albumin Level 3.1 g/dL (3.5-5.0); Alkaline Phosphatase 40 U/L (39-117); Anion Gap 14 (12-20); Aspartate Amino Transferase 30 U/L (5-37); Bilirubin Total 1.8 mg/dL (0.0-1.0); Blood Urea Nitrogen 23 mg/dL (9-16); Calcium 9.3 mg/dL (8.4-10.2); Carbon Dioxide 22 mmol/L (22-29); Chloride 111 mmol/L (96-108); Creatinine Clr Calc Pharmacy 48.7; Estimated Glomerular Filt Rate 55; Glucose Random 103 mg/dL (60-115); Magnesium 1.6 mg/dL (1.6-2.6); Phosphorus 3.6 mg/dL (2.7-4.5); Potassium 4.1 mmol/L (3.3-5.1); Sodium 143 mmol/L (135-145); Total Protein 4.8 g/dL (6.5-8.0)
[2023-03-13 05:57] LABS: Hematocrit 31.2 % (42.0-52.0); Hemoglobin 10.2 g/dl (14.0-18.0); Mean Corpuscular HGB Conc 32.7 g/dl (31.0-36.0); Mean Corpuscular Hemoglobin 31.3 pg (27.0-33.0); Mean Corpuscular Volume 95.7 fL (80.0-98.0); Mean Platelet Volume 10.8 fL (9.4-12.4); Platelet Count 137 X10*3/uL (160-400); Red Blood Count 3.26 X10*6/uL (4.60-5.80); Red Cell Distribution Width 12.7 % (11.0-16.0); White Blood Count 3.3 X10*3/uL (4.8-10.8)
[2023-03-13] MEDS: Magnesium Sulfate/D5W 1 GM/100 ML PIGGYBACK IV (06:02)
--- NOTE | 2023-03-13 06:06 | PC.NURSE ---
Pt admitted to ICU from [facility] on previous shift. Tmax 100.6 via core bladder probe. Pt sedated on propofol, RASS -3/4, TEM[place], intermittently emerges from sedation, does not follow commands, reaching for lines/tubes and asynchronous with vent requiring PRN versed. NSR/SA with PAC/PVCs on tele, HR 70-90s. SBP 80-100s, MAP > 60, ENGINEERING PROFESSOR aware. ETT #7.5, 23 cm at lip, on AC/VC settings, FiO2 weaned from 100% to 70%, moderate amount of fajardo inline secretions. NGT to R nare with approx 200 ml of dark brown output. Davies in place, UOP approx 30-50 ml/hr. No BM. Mag/KCl IV replaced per NOV. CHG bath given. Repositioned in bed q2hr. Skin intact- buttocks reddened but blanchable. Bed locked in lowest position.
[2023-03-13 06:09] LABS: Band Neutrophils Percent 23 % (3-5); Eosinophils Absolute Manual 0.1 X10*3/uL (0.0-0.4); Eosinophils Percent Manual 2 % (0-4); Lymphocytes Absolute Manual 0.7 X10*3/uL (1.2-4.9); Lymphocytes Percent Manual 20 % (20-40); Monocytes Absolute Manual 0.1 X10*3/uL (0.1-1.2); Monocytes Percent Manual 4 % (2-11); Neutrophils Absolute Manual 2.4 X10*3/uL (2.0-8.3); Neutrophils Percent Manual 51 % (45-73)
[2023-03-13 06:10] LABS: Platelet Estimate SLIGHTLY DECREASED (NORMAL); RBC Morphology NORMAL
[2023-03-13 06:11] LABS: Large Platelet PRESENT; Platelet Morphology Comment NOTED
[2023-03-13 07:52] LABS: Venous Blood Gas Refer to POC result
[2023-03-13] MEDS: 0.9 % Sodium Chloride Flush 3 ML SYRINGE IVFLUSH ×2 (07:58→15:49)
[2023-03-13] MEDS: Famotidine/PF 20 MG/2 ML VIAL IVPUSH (08:00)
[2023-03-13] MEDS: Chlorhexidine Gluc Oral Rinse 15 ML MOUTHWASH BUCCAL (08:01)
--- NOTE | 2023-03-13 08:10 | HO.POSTANES ---
Post Anesthesia Evaluation Post Anesthesia Evaluation Date of Service: 03/13/23 Vital Signs: Vital Signs Temp Pulse Resp BP Pulse Ox O2 Del Method FiO2 03/13/23 07:39 50 03/13/23 07:26 50 03/13/23 07:00 97.3 F 74 20 89/53 L 95 Mechanical Ventilation 70 03/13/23 04:48 88/49 L 03/13/23 04:43 70 03/13/23 06:00 97.3 F 76 21 H 103/55 L 96 Mechanical Ventilation 70 03/13/23 05:00 97.3 F 77 20 96 Mechanical Ventilation 70 03/13/23 04:00 70 03/13/23 03:51 97.3 F 84 20 97/64 97 Mechanical Ventilation 70 03/13/23 00:15 100 03/13/23 03:00 97.3 F 80 20 97/53 L 97 Mechanical Ventilation 80 03/13/23 02:00 97.7 F 83 20 91/49 L 96 Mechanical Ventilation 80 03/13/23 01:00 98.1 F 82 20 99/56 L 95 Mechanical Ventilation 100 03/13/23 00:00 98.6 F 81 20 92/54 L 96 Mechanical Ventilation 100 03/12/23 23:00 99.1 F 78 20 95/55 L 96 Mechanical Ventilation 100 03/12/23 22:00 99.0 F 94 25 H 112/63 96 Mechanical Ventilation 100 03/12/23 21:00 99.9 F 95 23 H 98/62 94 Mechanical Ventilation 100 03/13/23 00:00 85 03/12/23 21:00 99.9 F 93 24 H 98/62 94 Mechanical Ventilation 100 Anesthesia: Monitored Mental Status: Sedated Pain Control: Satisfactory Nausea/Vomiting: None Hydration: Adequate Comments: Pt was intubated after procedure due to resp. failure, potential aspiration.Pt is still intubated in ICU. His respiration improved, hemodynamically stable, no vasopressors
--- NOTE | 2023-03-13 09:48 | PM.CCPN ---
Subjective Subjective Date of Service: 03/13/23 Interval History: 82-year-old gentleman with no significant past medical history admitted on 03/09/2023 for complaints of hematemesis and treated for infectious enteritis. Evaluated by Gastroenterology and General surgery with concern for possible gastric outlet obstruction who underwent EGD on 03/12/2023 with demonstration of erosive esophagitis and no active bleeding, further complicated by aspiration requiring intubation and transfer to intensive care unit. No events overnight. FiO2 requirements improving. CT abdomen/ pelvis with no definite obstruction. Critical Care Time (minutes): 60 Physical Exam Vital Signs: Vital Signs: Last Vital Signs Temp 97.9 F 03/13/23 09:00 Pulse 79 03/13/23 09:00 Resp 20 03/13/23 09:00 BP 90/50 L 03/13/23 09:00 Pulse Ox 92 03/13/23 09:00 O2 Del Method Mechanical Ventil ation 03/13/23 09:00 O2 Flow Rate 15 03/12/23 15:50 FiO2 70 03/13/23 09:00 BMI result Body Mass Index 25.4 Const: General: no acute distress and other ( Sedated on the vent, arousable sedation vacation) Eyes: Sclerae: sclerae normal EOM: EOMs intact bilaterally Neck: Neck: Yes no lymphadenopathy, Yes trachea midline and Yes supple Resp: Effort & Inspection: normal respiratory effort and no respiratory distress Auscultation: crackles ( bibasilar) Cardio: Rate: regular rate Rhythm: regular rhythm Heart sounds: no gallops, no murmurs and no rubs GI: Other: abdomen is mildly distended Palpation (GI): Soft to palpation and Other GI palpation findings present ( Nontender) Auscultation: normal bowel sounds Extrem: General: Yes no pedal edema, No clubbing and No cyanosis Objective Data Labs 03/13/23 04:55 03/13/23 04:55 Labs: Laboratory Results - last 24 hr 03/12/23 03/12/23 03/12/23 15:05 16:03 18:45 WBC 1.2 L RBC 4.17 L D Hgb 13.0 L D Hct 41.5 L D MCV 99.5 H MCH 31.2 MCHC 31.3 RDW 12.7 Plt Count 190 MPV 10.2 Immature Gran % (Auto) 0.0 Neut % (Auto) 72.9 Lymph % (Auto) 23.7 [place] % (Auto) 3.4 Eos % (Auto) 0.0 Baso % (Auto) 0.0 Lymph # (Auto) 0.3 L [place] # (Auto) 0.0 L Eos # (Auto) 0.0 Baso # (Auto) 0.0 Abs Immat Gran (auto) 0.00 Absolute Neuts (auto) 0.9 L Absolute Nucleated RBC 0.000 Nucleated RBC % (auto) 0.0 Neutrophils % (Manual) Band Neutrophils % Lymphocytes % (Manual) Monocytes % (Manual) Eosinophils % (Manual) Abs Neuts (Manual) Lymphocytes # (Manual) Monocytes # (Manual) Eosinophils # (Manual) Platelet Estimate Large Platelets Plt Morphology Comment RBC Morphology Smear Tech's Comments VERIFIED VBG pH 7.26 L VBG pCO2 52 VBG pO2 61 VBG HCO3 24 VBG O2 Saturation 85.0 VBG Base Excess -3.2 Sodium 142 Potassium 3.5 Chloride 111 H Carbon Dioxide 21 L Anion Gap 14 BUN 24 H Creatinine 1.17 Estim Creat Clear Calc 52.5 Estimated GFR 60 Random Glucose 102 Lactic Acid Lactic Acid F/U @ 2Hr Lactic Acid F/U @ 4Hr Calcium 8.9 Phosphorus Magnesium Total Bilirubin AST ALT Alkaline Phosphatase Total Protein Albumin 03/12/23 03/12/23 03/12/23 18:45 20:55 23:38 WBC RBC Hgb Hct MCV MCH MCHC RDW Plt Count MPV Immature Gran % (Auto) Neut % (Auto) Lymph % (Auto) [place] % (Auto) Eos % (Auto) Baso % (Auto) Lymph # (Auto) [place] # (Auto) Eos # (Auto) Baso # (Auto) Abs Immat Gran (auto) Absolute Neuts (auto) Absolute Nucleated RBC Nucleated RBC % (auto) Neutrophils % (Manual) Band Neutrophils % Lymphocytes % (Manual) Monocytes % (Manual) Eosinophils % (Manual) Abs Neuts (Manual) Lymphocytes # (Manual) Monocytes # (Manual) Eosinophils # (Manual) Platelet Estimate Large Platelets Plt Morphology Comment RBC Morphology Smear Tech's Comments VBG pH VBG pCO2 VBG pO2 VBG HCO3 VBG O2 Saturation VBG Base Excess Sodium Potassium Chloride Carbon Dioxide Anion Gap BUN Creatinine Estim Creat Clear Calc Estimated GFR Random Glucose Lactic Acid 2.1 H* Lactic Acid F/U @ 2Hr 2.1 H* Lactic Acid F/U @ 4Hr 2.0 Calcium Phosphorus Magnesium Total Bilirubin AST ALT Alkaline Phosphatase Total Protein Albumin 03/13/23 03/13/23 03/13/23 04:53 04:55 04:55 WBC 3.3 L RBC 3.26 L D Hgb 10.2 L D Hct 31.2 L D MCV 95.7 MCH 31.3 MCHC 32.7 RDW 12.7 Plt Count 137 L D MPV 10.8 Immature Gran % (Auto) Cancelled Neut % (Auto) Cancelled Lymph % (Auto) Cancelled [place] % (Auto) Cancelled Eos % (Auto) Cancelled Baso % (Auto) Cancelled Lymph # (Auto) Cancelled [place] # (Auto) Cancelled Eos # (Auto) Cancelled Baso # (Auto) Cancelled Abs Immat Gran (auto) Cancelled Absolute Neuts (auto) Cancelled Absolute Nucleated RBC 0.000 Nucleated RBC % (auto) 0.0 Neutrophils % (Manual) 51 Band Neutrophils % 23 H Lymphocytes % (Manual) 20 Monocytes % (Manual) 4 Eosinophils % (Manual) 2 Abs Neuts (Manual) 2.4 Lymphocytes # (Manual) 0.7 L Monocytes # (Manual) 0.1 Eosinophils # (Manual) 0.1 Platelet Estimate SLIGHTLY DECREASED Large Platelets PRESENT Plt Morphology Comment NOTED RBC Morphology NORMAL Smear Tech's Comments VBG pH 7.40 VBG pCO2 39 VBG pO2 82 VBG HCO3 24 VBG O2 Saturation 97.0 VBG Base Excess 0.2 Sodium 143 Potassium 4.1 Chloride 111 H Carbon Dioxide 22 Anion Gap 14 BUN 23 H Creatinine 1.26 Estim Creat Clear Calc 48.7 Estimated GFR 55 Random Glucose 103 Lactic Acid Lactic Acid F/U @ 2Hr Lactic Acid F/U @ 4Hr Calcium 9.3 Phosphorus 3.6 Magnesium 1.6 Total Bilirubin 1.8 H AST 30 ALT 25 Alkaline Phosphatase 40 Total Protein 4.8 L Albumin 3.1 L Microbiology Microbiology Results: Microbiology 03/09/23 08:12 Blood - Venous Blood Culture - Preliminary No growth after 48 hours. 03/09/23 08:07 Blood - Venous Blood Culture - Preliminary No growth after 48 hours. Progress Note: A&P Assessment and plan (1) Pulmonary aspiration: Status: Acute (2) Acute respiratory failure with hypoxia: Status: Acute (3) Hematemesis: Status: Acute (4) Enteritis: Status: Acute Plan Assessment: 82-year-old gentleman admitted with complaints of hematemesis and treated for infectious enteritis, status post EGD complicated by aspiration requiring intubation Plan: Neuro: No acute issues. Cardiac: No acute issues. Pulmonary: acute hypoxic respiratory failure secondary to aspiration. Continue to titrate of ventilatory support as tolerated. Renal: No acute issues. Endo: No acute issues. GI: Gastroenterology service care appreciated. No active bleeding or gastric outlet obstruction on EGD. possible SBO versus partial below versus ileus. NG tube with minimal drainage. ID: Empirically covered for infectious enteritis. Heme/Onc: No acute issues. Psych: No acute issues. Miscellaneous: No acute issues. Prophylaxis: Heparin Diet: nothing by mouth Critical care time spent: 60 minutes Quality Stroke Does the patient have a stroke diagnosis?: No VTE Prior VTE?: No VTE Risk Level:: Medical - moderate - high VTE Device Contraindication: N/A - Device Ordered VTE Drug Contraindication: Treatment Not Indicated
--- NOTE | 2023-03-13 10:18 | MHC.CM.PN ---
Patient currently intubated/vented in ICU. Patient is from home with his . Patient had EGD on 03/12. Found to have an erosive esophagus. Patient aspirated at that time and was intubated/vented and transferred to the ICU. Per Dr Ley, possible extubation today. Patient hasn't seen a doctor since 1960 . No HCP on file. No PCP. Original discharge plan is for patient to return home via family. Patient received 1 J&J vaccine. Continue to monitor for d/c needs.
--- NOTE | 2023-03-13 16:42 | PM.GIPN ---
Subjective Subjective Date of Service: 03/13/23 Interval History: extubated this am still no bm ng draining brown material Critical Care Time (minutes): 25 Physical Exam Vital Signs: Vital Signs: Last Vital Signs Temp 100.4 F 03/13/23 16:00 Pulse 95 03/13/23 16:00 Resp 26 H 03/13/23 16:00 BP 125/62 03/13/23 16:00 Pulse Ox 92 03/13/23 16:38 O2 Del Method Nasal Cannula 03/13/23 16:38 O2 Flow Rate 6 03/13/23 16:00 FiO2 70 03/13/23 09:00 Oxygen Flow Rate 6 03/13/23 16:38 BMI result Body Mass Index 25.4 GI: Other: abdomen is protuberant, nontender bowel sounds present. Objective Data Labs 03/13/23 04:55 03/13/23 04:55 Microbiology Microbiology Results: Microbiology 03/09/23 08:12 Blood - Venous Blood Culture - Preliminary No growth after 48 hours. 03/09/23 08:07 Blood - Venous Blood Culture - Preliminary No growth after 48 hours. Procedures Date of Service Date of Service: 03/13/23 Progress Note: A&P Assessment and plan (1) Hematemesis: Status: Acute Assessment and Plan: erosive esophagitis: no signs of active gi bleeding cont ppi he will need further evaluation for vomiting and possibe sbo ?repeat ct vs sbft need gen surg input Time Spent With Patient Time: Total time managing care of this patient today ____ minutes. Quality Stroke Does the patient have a stroke diagnosis?: No VTE Prior VTE?: No VTE Risk Level:: Medical - moderate - high VTE Device Contraindication: N/A - Device Ordered VTE Drug Contraindication: Treatment Not Indicated
[2023-03-13] MEDS: Ketorolac Tromethamine 15 MG/ML VIAL IVPUSH (19:42)
[2023-03-13] MEDS: Albuterol Sulfate (0.083%) 2.5 MG/3 ML VIAL.NEB INHALE (20:04)
[2023-03-14] VITALS (14 sets, daily range): BP systolic 135–186; BP diastolic 60–115; PULSE 59–82; RESP 16–28; TEMP 36.7–37.7; O2SAT 90–96; BMI 25.4
[2023-03-14] MEDS: Piperacillin Sodium/Tazobactam 3.375 GM in 0.9 % Sodium Chloride 50 ML IV ×4 (03:38→20:46)
[2023-03-14 05:05] LABS: Hematocrit 34.2 % (42.0-52.0); Hemoglobin 11.1 g/dl (14.0-18.0); Mean Corpuscular HGB Conc 32.5 g/dl (31.0-36.0); Mean Corpuscular Hemoglobin 31.4 pg (27.0-33.0); Mean Corpuscular Volume 96.6 fL (80.0-98.0); Mean Platelet Volume 10.4 fL (9.4-12.4); Platelet Count 154 X10*3/uL (160-400); Red Blood Count 3.54 X10*6/uL (4.60-5.80); Red Cell Distribution Width 12.9 % (11.0-16.0); White Blood Count 9.8 X10*3/uL (4.8-10.8)
[2023-03-14 05:11] LABS: VBG Base Excess -2.8 mmol/L; VBG HCO3 20 mmol/L (22-26); VBG pCO2 29 mmHg; VBG pH 7.44 (7.32-7.43); VBG pO2 83 mmHg
[2023-03-14 05:14] LABS: Venous Blood Gas Refer to POC result
[2023-03-14 05:17] LABS: Alanine Aminotransferase 21 U/L (0-40); Albumin Level 3.6 g/dL (3.5-5.0); Alkaline Phosphatase 41 U/L (39-117); Anion Gap 16 (12-20); Aspartate Amino Transferase 30 U/L (5-37); Bilirubin Total 1.6 mg/dL (0.0-1.0); Blood Urea Nitrogen 26 mg/dL (9-16); Calcium 10.1 mg/dL (8.4-10.2); Carbon Dioxide 21 mmol/L (22-29); Chloride 111 mmol/L (96-108); Creatinine Clr Calc Pharmacy 51.6; Estimated Glomerular Filt Rate 58; Glucose Random 72 mg/dL (60-115); Magnesium 2.1 mg/dL (1.6-2.6); Phosphorus 2.9 mg/dL (2.7-4.5); Sodium 144 mmol/L (135-145); Total Protein 5.7 g/dL (6.5-8.0)
[2023-03-14 05:26] LABS: Band Neutrophils Percent 15 % (3-5); Eosinophils Absolute Manual 0.3 X10*3/uL (0.0-0.4); Eosinophils Percent Manual 3 % (0-4); Lymphocytes Absolute Manual 0.4 X10*3/uL (1.2-4.9); Lymphocytes Percent Manual 4 % (20-40); Metamyelocytes Absolute 0.1 X10*3/uL; Metamyelocytes Percent 1 %; Monocytes Absolute Manual 0.2 X10*3/uL (0.1-1.2); Monocytes Percent Manual 2 % (2-11); Neutrophils Absolute Manual 8.8 X10*3/uL (2.0-8.3); Neutrophils Percent Manual 75 % (45-73)
[2023-03-14 05:27] LABS: Platelet Estimate NORMAL (NORMAL); Platelet Morphology Comment NORMAL; RBC Morphology NORMAL; Toxic Vacuolation PRESENT
[2023-03-14] MEDS: 0.9 % Sodium Chloride Flush 3 ML SYRINGE IVFLUSH ×3 (08:09→23:57)
--- NOTE | 2023-03-14 08:23 | PM.CCPN ---
Subjective Subjective Date of Service: 03/14/23 Interval History: 82-year-old gentleman with no significant past medical history admitted on 03/09/2023 for complaints of hematemesis and treated for infectious enteritis. Evaluated by Gastroenterology and General surgery with concern for possible gastric outlet obstruction who underwent EGD on 03/12/2023 with demonstration of erosive esophagitis and no active bleeding, further complicated by aspiration requiring intubation and transfer to intensive care unit. Extubated 03/13/2023. No events overnight. Critical Care Time (minutes): 0 Physical Exam Vital Signs: Vital Signs: Last Vital Signs Temp 99.5 F 03/14/23 08:00 Pulse 74 03/14/23 08:00 Resp 20 03/14/23 08:00 BP 154/78 H 03/14/23 08:00 Pulse Ox 92 03/14/23 08:00 O2 Del Method Oxymask 03/14/23 08:00 O2 Flow Rate 5 03/14/23 08:00 FiO2 70 03/13/23 09:00 Oxygen Flow Rate 6 03/13/23 16:38 BMI result Body Mass Index 25.4 Const: General: no acute distress, alert and awake Eyes: Sclerae: sclerae normal EOM: EOMs intact bilaterally Neck: Neck: Yes no lymphadenopathy, Yes trachea midline and Yes supple Resp: Effort & Inspection: normal respiratory effort and no respiratory distress Auscultation: clear to auscultation bilaterally Cardio: Rate: regular rate Rhythm: regular rhythm Heart sounds: no gallops, no murmurs and no rubs GI: Other: Mildly distended Palpation (GI): Soft to palpation and Other GI palpation findings present ( Nontender) Auscultation: Hypoactive bowel sounds present Extrem: General: Yes no pedal edema, No clubbing and No cyanosis Objective Data Labs 03/14/23 04:54 03/14/23 04:54 Labs: Laboratory Results - last 24 hr 03/12/23 03/14/23 03/14/23 16:03 04:54 04:54 WBC 9.8 RBC 3.54 L Hgb 11.1 L Hct 34.2 L MCV 96.6 MCH 31.4 MCHC 32.5 RDW 12.9 Plt Count 154 L MPV 10.4 Immature Gran % (Auto) Cancelled Neut % (Auto) Cancelled Lymph % (Auto) Cancelled [place] % (Auto) Cancelled Eos % (Auto) Cancelled Baso % (Auto) Cancelled Lymph # (Auto) Cancelled [place] # (Auto) Cancelled Eos # (Auto) Cancelled Baso # (Auto) Cancelled Abs Immat Gran (auto) Cancelled Absolute Neuts (auto) Cancelled Absolute Nucleated RBC 0.000 Nucleated RBC % (auto) 0.0 Neutrophils % (Manual) 75 H Band Neutrophils % 15 H Lymphocytes % (Manual) 4 L Monocytes % (Manual) 2 Eosinophils % (Manual) 3 Metamyelocytes % 1 Abs Neuts (Manual) 8.8 H Lymphocytes # (Manual) 0.4 L Monocytes # (Manual) 0.2 Eosinophils # (Manual) 0.3 Metamyelocytes # 0.1 Toxic Vacuolation PRESENT Platelet Estimate NORMAL Plt Morphology Comment NORMAL RBC Morphology NORMAL Smear Path Review SEE NOTE VBG pH VBG pCO2 VBG pO2 VBG HCO3 VBG O2 Saturation VBG Base Excess Sodium 144 Potassium 4.0 Chloride 111 H Carbon Dioxide 21 L Anion Gap 16 BUN 26 H Creatinine 1.19 Estim Creat Clear Calc 51.6 Estimated GFR 58 Random Glucose 72 Calcium 10.1 D Phosphorus 2.9 Magnesium 2.1 Total Bilirubin 1.6 H AST 30 ALT 21 Alkaline Phosphatase 41 Total Protein 5.7 L Albumin 3.6 03/14/23 05:02 WBC RBC Hgb Hct MCV MCH MCHC RDW Plt Count MPV Immature Gran % (Auto) Neut % (Auto) Lymph % (Auto) [place] % (Auto) Eos % (Auto) Baso % (Auto) Lymph # (Auto) [place] # (Auto) Eos # (Auto) Baso # (Auto) Abs Immat Gran (auto) Absolute Neuts (auto) Absolute Nucleated RBC Nucleated RBC % (auto) Neutrophils % (Manual) Band Neutrophils % Lymphocytes % (Manual) Monocytes % (Manual) Eosinophils % (Manual) Metamyelocytes % Abs Neuts (Manual) Lymphocytes # (Manual) Monocytes # (Manual) Eosinophils # (Manual) Metamyelocytes # Toxic Vacuolation Platelet Estimate Plt Morphology Comment RBC Morphology Smear Path Review VBG pH 7.44 H VBG pCO2 29 VBG pO2 83 VBG HCO3 20 L VBG O2 Saturation 98.0 VBG Base Excess -2.8 Sodium Potassium Chloride Carbon Dioxide Anion Gap BUN Creatinine Estim Creat Clear Calc Estimated GFR Random Glucose Calcium Phosphorus Magnesium Total Bilirubin AST ALT Alkaline Phosphatase Total Protein Albumin Microbiology Microbiology Results: Microbiology 03/09/23 08:12 Blood - Venous Blood Culture - Preliminary No growth after 48 hours. 03/09/23 08:07 Blood - Venous Blood Culture - Preliminary No growth after 48 hours. Progress Note: A&P Assessment and plan (1) Vomiting: Status: Acute (2) Hematemesis: Status: Acute (3) Acute respiratory failure with hypoxia: Status: Acute (4) Pulmonary aspiration: Status: Acute Plan Assessment: 82-year-old gentleman admitted with complaints of hematemesis and treated for infectious enteritis, status post EGD complicated by aspiration requiring intubation Plan: Neuro: No acute issues. Cardiac: No acute issues. Pulmonary: acute hypoxic respiratory failure secondary to aspiration. Extubated 03/13/2023. Renal: No acute issues. Endo: No acute issues. GI: Gastroenterology and General surgery service care appreciated. No active bleeding or gastric outlet obstruction on EGD. Possible SBO versus partial SBO versus ileus. NG tube with minimal drainage. Will repeat CT abdomen/pelvis. ID: Empirically covered for infectious enteritis. Heme/Onc: No acute issues. Psych: No acute issues. Miscellaneous: No acute issues. Prophylaxis: Heparin Diet: nothing by mouth Quality Stroke Does the patient have a stroke diagnosis?: No VTE Prior VTE?: No VTE Risk Level:: Medical - moderate - high VTE Device Contraindication: N/A - Device Ordered VTE Drug Contraindication: Treatment Not Indicated
[2023-03-14] MEDS: iohexoL 350 MG/ML 100 ML INFUS..BTL IV (10:06)
--- NOTE | 2023-03-14 12:03 | PM.EVENT ---
Event Note Date of Service: 03/14/23 Event Note: day hospitalist accept note 82yo M with no chronic PMHx presenting with 2d of worsening abd pain + 2 episodes of dark red emesis found to have enteritis, EMILY admitted to hospitalist service on pip-epifanio + IV fluids EGD done 03/12 showed erosive esophagitis, nodular GE junction, large amount of retained gastric secretions, superficial pyloric ulceration post-procedure course complicated by aspiration causing hypoxic respiratory failure requiring intubation and transfer to 03/13 extubated 03/13 has high-grade SBO continue NPO, NG tube, IV fluids, pip-epifanio Surgery following Time Spent With Patient Time: Total time managing care of this patient today ____ minutes.
--- NOTE | 2023-03-14 12:07 | PM.GIPN ---
Subjective Subjective Date of Service: 03/14/23 Interval History: no bowel movement no c/ abd pain Critical Care Time (minutes): 0 Physical Exam Vital Signs: Vital Signs: Last Vital Signs Temp 99.3 F 03/14/23 11:23 Pulse 79 03/14/23 11:23 Resp 20 03/14/23 11:23 BP 180/80 H 03/14/23 11:23 Pulse Ox 94 03/14/23 11:23 O2 Del Method Oxymask 03/14/23 11:23 O2 Flow Rate 6 03/14/23 11:23 FiO2 70 03/13/23 09:00 Oxygen Flow Rate 6 03/13/23 16:38 BMI result Body Mass Index 25.4 GI: Other: abd distended, nontender, decreased bowel sounds Objective Data Labs 03/14/23 04:54 03/14/23 04:54 Microbiology Microbiology Results: Microbiology 03/09/23 08:12 Blood - Venous Blood Culture - Final No growth after 5 days. 03/09/23 08:07 Blood - Venous Blood Culture - Final No growth after 5 days. Procedures Date of Service Date of Service: 03/14/23 Progress Note: A&P Assessment and plan (1) Hematemesis: Status: Acute Assessment and Plan: ct reviewed: appears to show sbo, ?etiology no obvious mass, ? stricture, adhesive band, or other sb pathology, rec: cont ng decompression surgical reevaluation, discussed with Dr Monique Time Spent With Patient Time: Total time managing care of this patient today ____ minutes. Quality Stroke Does the patient have a stroke diagnosis?: No VTE Prior VTE?: No VTE Risk Level:: Medical - moderate - high VTE Device Contraindication: N/A - Device Ordered VTE Drug Contraindication: Treatment Not Indicated
--- NOTE | 2023-03-14 12:10 | P.PNGS_ITS ---
Subjective Subjective Date of Service: 03/14/23 Interval history: Transferred to telemetry from ICU this morning. Denies abdominal pain. NGT with scanty output. Physical Exam Vital Signs: Vital Signs: Last Vital Signs Temp 99.3 F 03/14/23 11:23 Pulse 79 03/14/23 11:23 Resp 20 03/14/23 11:23 BP 180/80 H 03/14/23 11:23 Pulse Ox 94 03/14/23 11:23 O2 Del Method Oxymask 03/14/23 11:23 O2 Flow Rate 6 03/14/23 11:23 FiO2 70 03/13/23 09:00 Oxygen Flow Rate 6 03/13/23 16:38 BMI result Body Mass Index 25.4 Const: General: comfortable and alert GI: Inspection: Yes distended (softly) Palpation (GI): Soft to palpation, nontender, no guarding and not rigid Percussion: Yes normal to percussion Objective Data Active Medications Acetaminophen (Acetaminophen 325 Mg Tablet) 650 mg PO Q6H PRN PRN Reason: Pain, Mild (Pain Scale 1-3) Last Admin: 03/09/23 21:58 Dose: 650 mg Documented By: JOY Piperacillin Sod/Tazobactam (Sod 3.375 gm/ Sodium Chloride) 50 mls @ 100 mls/hr IV Q6H [facility] Last Infusion: 03/14/23 08:40 Dose: 0 mls/hr Documented By: MONAE Lactated Ringer's (Lr) 1,000 mls @ 100 mls/hr IVCONT .Q10H MARGARITA Ondansetron HCl (Ondansetron Hcl 4 Mg/2 Ml Vial) 4 mg IVPUSH Q8H PRN PRN Reason: Nausea and Vomiting Last Admin: 03/11/23 21:09 Dose: 4 mg Documented By: MICHELLE Sodium Chloride (0.9 % Sodium Chloride Flush 3 Ml Syringe) 3 ml IVFLUSH QSHIFT MARGARITA Last Admin: 03/14/23 08:09 Dose: 3 ml Documented By: MONAE Labs 03/14/23 04:54 03/14/23 04:54 Labs: Laboratory Results - last 24 hr 03/12/23 03/14/23 03/14/23 16:03 04:54 04:54 MCV 96.6 MCH 31.4 MCHC 32.5 RDW 12.9 Plt Count 154 L MPV 10.4 Immature Gran % (Auto) Cancelled Neut % (Auto) Cancelled Lymph % (Auto) Cancelled [place] % (Auto) Cancelled Eos % (Auto) Cancelled Baso % (Auto) Cancelled Lymph # (Auto) Cancelled [place] # (Auto) Cancelled Eos # (Auto) Cancelled Baso # (Auto) Cancelled Abs Immat Gran (auto) Cancelled Absolute Neuts (auto) Cancelled Absolute Nucleated RBC 0.000 Nucleated RBC % (auto) 0.0 Neutrophils % (Manual) 75 H Band Neutrophils % 15 H Lymphocytes % (Manual) 4 L Monocytes % (Manual) 2 Eosinophils % (Manual) 3 Metamyelocytes % 1 Abs Neuts (Manual) 8.8 H Lymphocytes # (Manual) 0.4 L Monocytes # (Manual) 0.2 Eosinophils # (Manual) 0.3 Metamyelocytes # 0.1 Toxic Vacuolation PRESENT Platelet Estimate NORMAL Plt Morphology Comment NORMAL RBC Morphology NORMAL Smear Path Review SEE NOTE VBG pH VBG pCO2 VBG pO2 VBG HCO3 VBG O2 Saturation VBG Base Excess Anion Gap 16 Estim Creat Clear Calc 51.6 Estimated GFR 58 Random Glucose 72 Calcium 10.1 D Phosphorus 2.9 Magnesium 2.1 Total Bilirubin 1.6 H AST 30 ALT 21 Alkaline Phosphatase 41 Total Protein 5.7 L Albumin 3.6 03/14/23 05:02 MCV MCH MCHC RDW Plt Count MPV Immature Gran % (Auto) Neut % (Auto) Lymph % (Auto) [place] % (Auto) Eos % (Auto) Baso % (Auto) Lymph # (Auto) [place] # (Auto) Eos # (Auto) Baso # (Auto) Abs Immat Gran (auto) Absolute Neuts (auto) Absolute Nucleated RBC Nucleated RBC % (auto) Neutrophils % (Manual) Band Neutrophils % Lymphocytes % (Manual) Monocytes % (Manual) Eosinophils % (Manual) Metamyelocytes % Abs Neuts (Manual) Lymphocytes # (Manual) Monocytes # (Manual) Eosinophils # (Manual) Metamyelocytes # Toxic Vacuolation Platelet Estimate Plt Morphology Comment RBC Morphology Smear Path Review VBG pH 7.44 H VBG pCO2 29 VBG pO2 83 VBG HCO3 20 L VBG O2 Saturation 98.0 VBG Base Excess -2.8 Anion Gap Estim Creat Clear Calc Estimated GFR Random Glucose Calcium Phosphorus Magnesium Total Bilirubin AST ALT Alkaline Phosphatase Total Protein Albumin Microbiology Microbiology Results: Microbiology 03/09/23 08:12 Blood Culture - Final Blood - Venous No growth after 5 days. 03/09/23 08:07 Blood Culture - Final Blood - Venous No growth after 5 days. Procedures Date of Service Date of Service: 03/14/23 Progress Note: A&P Assessment and plan (1) Vomiting: Status: Acute (2) Hematemesis: Status: Acute Plan 82 year old male admitted for hematemesis and and initially treated for infectious enteritis who underwent EGD on 03/12/2023. This showed erosive esophagitis without active bleeding, complicated by aspiration requiring intubation and transfer to intensive care unit.?He was extubated 03/13/2023 and transferred to telemetry today. CT was repeated today for concern for SBO which showed dilated loops of small bowel with a transition point in the LLQ. His abdomen is softly distended and nontender. He has no hx of surgery. Will obtain SBFT today as the CT was repeated without oral contrast. Further plan dependent on results. Cont current management of NGT decompression, IVF. Time Spent With Patient Time: Total time managing care of this patient today ____ minutes. Quality Stroke Does the patient have a stroke diagnosis?: No VTE Prior VTE?: No VTE Risk Level:: Medical - moderate - high VTE Device Contraindication: N/A - Device Ordered VTE Drug Contraindication: Treatment Not Indicated
[2023-03-14] MEDS: Lactated Ringers 1,000 ML 100 ML IVCONT ×2 (13:47→23:57)
--- NOTE | 2023-03-14 14:56 | MHC.CM.PN ---
Patient's HCP has been uploaded into [facility] and a copy has been placed on the chart.
--- NOTE | 2023-03-14 17:04 | P.CDIM_ITS ---
PROVIDER RESPONSE TEXT: To clarify, the appropriate diagnosis supported by the clinical indicators: Clinically unable to determine (explain): no history of abd surgery QUERY TEXT: PHYSICIAN'S DOCUMENTATION REQUEST Date of Query: 03/14/2023 12:31 PM EDT Patient Name: Jenaro Brantley Admit Date: 03/09/2023 Dear David Neri, A review of the medical record indicates additional documentation may be needed. Please review below and update the documentation accordingly. Clinical Indicators: Per Gastroenterology Progress Notes 03/14/23: ct reviewed: appears to show sbo, ?etiology no obvious mass, ? stricture, adhesive band, or other sb pathology Per Event Note 03/14/23: has high-grade SBO continue NPO, NG tube, IV fluids, pip-epifanio Surgery following rec: cont ng decompression surgical reevaluation Per General Surgery Progress Note 03/14/23: CT was repeated today for concern for SBO which showed dilated loops of small bowel with a transition point in the LLQ. Will obtain SBFT Based on the above, could you clarify the appropriate diagnosis, if significant, that supports the ab ove abnormalities and additional evaluation, monitoring, and/or treatment rendered: Partial SBO Complete SBO Other (explain)Clinically unable to determine (explain)Thank you, Karen Mckeon RN Use of terms such as suspected, likely, concern for, or probable (associated with a specific diagnosi s that is being evaluated, monitored, or treated as if it exists) are acceptable and can be coded in the inpatient se tting, when documented at the time of discharge. Please use your independent medical judgment in providing your response. THIS QUERY IS PART OF THE PERMANENT MEDICAL RECORD
[2023-03-14] MEDS: Acetaminophen 325 MG TABLET 650 MG PO (17:22)
[2023-03-14] MEDS: ondansetron HCL 4 MG/2 ML VIAL IVPUSH (17:22)
[2023-03-15] VITALS (8 sets, daily range): BP systolic 154–192; BP diastolic 64–82; PULSE 62–75; RESP 18–22; TEMP 36.7–37.7; O2SAT 91–94; BMI 25.2
[2023-03-15] MEDS: diphenhydrAMINE HCL 50 MG/ML VIAL 25 MG IVPUSH (01:10)
[2023-03-15] MEDS: Piperacillin Sodium/Tazobactam 3.375 GM in 0.9 % Sodium Chloride 50 ML IV ×4 (03:18→20:33)
[2023-03-15 06:11] LABS: Hematocrit 34.6 % (42.0-52.0); Hemoglobin 11.2 g/dl (14.0-18.0); Mean Corpuscular HGB Conc 32.4 g/dl (31.0-36.0); Mean Corpuscular Hemoglobin 31.1 pg (27.0-33.0); Mean Corpuscular Volume 96.1 fL (80.0-98.0); Platelet Count 187 X10*3/uL (160-400); Red Cell Distribution Width 12.9 % (11.0-16.0); White Blood Count 11.7 X10*3/uL (4.8-10.8)
[2023-03-15 06:26] LABS: Albumin Level 3.3 g/dL (3.5-5.0); Anion Gap 15 (12-20); Blood Urea Nitrogen 28 mg/dL (9-16); Carbon Dioxide 23 mmol/L (22-29); Chloride 111 mmol/L (96-108); Creatinine Clr Calc Pharmacy 70.6; Estimated Glomerular Filt Rate > 60; Glucose Random 87 mg/dL (60-115); Magnesium 2.1 mg/dL (1.6-2.6); Phosphorus 2.1 mg/dL (2.7-4.5); Sodium 145 mmol/L (135-145)
[2023-03-15 06:54] LABS: Venous Blood Gas Refer to POC result
[2023-03-15 06:56] LABS: VBG Base Excess 3.6 mmol/L; VBG HCO3 29 mmol/L (22-26); VBG pCO2 48 mmHg; VBG pH 7.38 (7.32-7.43); VBG pO2 80 mmHg
[2023-03-15 07:15] LABS: Band Neutrophils Percent 2 % (3-5); Eosinophils Absolute Manual 0.4 X10*3/uL (0.0-0.4); Eosinophils Percent Manual 3 % (0-4); Lymphocytes Absolute Manual 0.6 X10*3/uL (1.2-4.9); Lymphocytes Percent Manual 5 % (20-40); Metamyelocytes Absolute 0.1 X10*3/uL; Metamyelocytes Percent 1 %; Monocytes Absolute Manual 0.2 X10*3/uL (0.1-1.2); Monocytes Percent Manual 2 % (2-11); Neutrophils Absolute Manual 10.4 X10*3/uL (2.0-8.3); Neutrophils Percent Manual 87 % (45-73)
--- NOTE | 2023-03-15 07:15 | PC.NURSE ---
Gastrografin found at field secretary desk at approximately 0230. No active order on NOV. No instructions provided with Gastrografin or in orders. Found previous order through order history which had been discontinued. Communicated with xray and pharmacy, both told RN to hold off until morning. Xray confirmed no active order for contrast or contrast imaging. Obtained order from at 0645, was instructed to contact radiology for administration instructions. Radiology in contact with clinical supervisor [facility] and confirmed they would administer. Oncoming RN aware.
[2023-03-15 07:17] LABS: Platelet Estimate NORMAL (NORMAL); RBC Morphology NORMAL
[2023-03-15 07:18] LABS: Platelet Morphology Comment NORMAL
[2023-03-15] MEDS: 0.9 % Sodium Chloride Flush 3 ML SYRINGE IVFLUSH ×2 (08:58→16:13)
[2023-03-15] MEDS: Diatrizoate Meglumine, Sodium 30 ML SOLUTION 240 ML PO (09:19)
--- NOTE | 2023-03-15 10:24 | MHC.CM.PN ---
Per ROUNDS discussion, Patient is a recent transfer from ICU and not yet medically cleared for dc. Patient may benefit from a PT eval to assist with disposition. CM will follow.
--- NOTE | 2023-03-15 10:26 | HO.PM.IMPN ---
Subjective Subjective Date of Service: 03/15/23 Interval History: Seen and evaluated this morning reports passing small amount of gas NG tube in place Denies any pain in stomach No other overnight events Review of Systems Review of Systems: Yes all other systems are reviewed and are negative Physical Exam Vital Signs: Vital Signs: Last Vital Signs Temp 98.2 F 03/15/23 07:38 Pulse 65 03/15/23 07:38 Resp 18 03/15/23 07:38 BP 155/70 H 03/15/23 07:38 Pulse Ox 93 03/15/23 07:38 O2 Del Method Oxymask 03/15/23 07:38 O2 Flow Rate 6 03/15/23 07:38 FiO2 70 03/13/23 09:00 Oxygen Flow Rate 6 03/14/23 17:00 BMI result Body Mass Index 25.2 Const: Other: Constitutional : Awake, interactive, not in distress, looks physically deconditioned Neck : Normal inspection, Supple Cardiovascular : RRR, no JVP, no lower extremity edema Respiratory : good bilateral air entry, basal finle crackles, wheezes or rhonchi Gastrointestinal: soft, lax, decreased bowel sounds, no tenderness, Skin : Warm, Dry Neurological : Alert & oriented x3, No focal deficit Objective Data Active Medications Acetaminophen (Acetaminophen 325 Mg Tablet) 650 mg PO Q6H PRN PRN Reason: Pain, Mild (Pain Scale 1-3) Last Admin: 03/14/23 17:22 Dose: 650 mg Documented By: MARY Piperacillin Sod/Tazobactam (Sod 3.375 gm/ Sodium Chloride) 50 mls @ 100 mls/hr IV Q6H [facility] Last Infusion: 03/15/23 09:35 Dose: 0 mls/hr Documented By: NEHEMIAS Lactated Ringer's (Lr) 1,000 mls @ 100 mls/hr IVCONT .Q10H [facility] Last Admin: 03/15/23 09:35 Dose: Not Given Documented By: NEHEMIAS Non-Admin Reason: IV Running Ondansetron HCl (Ondansetron Hcl 4 Mg/2 Ml Vial) 4 mg IVPUSH Q8H PRN PRN Reason: Nausea and Vomiting Last Admin: 03/14/23 17:22 Dose: 4 mg Documented By: MARY Sodium Chloride (0.9 % Sodium Chloride Flush 3 Ml Syringe) 3 ml IVFLUSH QSHIFT [facility] Last Admin: 03/15/23 08:58 Dose: 3 ml Documented By: GRETA Labs 03/15/23 05:56 03/15/23 05:56 Labs: Laboratory Results - last 24 hr 03/15/23 03/15/23 03/15/23 05:56 05:56 06:48 MCV 96.1 MCH 31.1 MCHC 32.4 RDW 12.9 Plt Count 187 MPV 10.0 Immature Gran % (Auto) Cancelled Neut % (Auto) Cancelled Lymph % (Auto) Cancelled [place] % (Auto) Cancelled Eos % (Auto) Cancelled Baso % (Auto) Cancelled Lymph # (Auto) Cancelled [place] # (Auto) Cancelled Eos # (Auto) Cancelled Baso # (Auto) Cancelled Abs Immat Gran (auto) Cancelled Absolute Neuts (auto) Cancelled Absolute Nucleated RBC 0.000 Nucleated RBC % (auto) 0.0 Neutrophils % (Manual) 87 H Band Neutrophils % 2 L Lymphocytes % (Manual) 5 L Monocytes % (Manual) 2 Eosinophils % (Manual) 3 Metamyelocytes % 1 Abs Neuts (Manual) 10.4 H Lymphocytes # (Manual) 0.6 L Monocytes # (Manual) 0.2 Eosinophils # (Manual) 0.4 Metamyelocytes # 0.1 Platelet Estimate NORMAL Plt Morphology Comment NORMAL RBC Morphology NORMAL VBG pH 7.38 VBG pCO2 48 VBG pO2 80 VBG HCO3 29 H VBG O2 Saturation 97.0 VBG Base Excess 3.6 Anion Gap 15 Estim Creat Clear Calc 70.6 Estimated GFR > 60 Random Glucose 87 Calcium 10.0 Phosphorus 2.1 L Magnesium 2.1 Albumin 3.3 L Microbiology Microbiology Results: Microbiology 03/09/23 08:12 Blood Culture - Final Blood - Venous No growth after 5 days. 03/09/23 08:07 Blood Culture - Final Blood - Venous No growth after 5 days. Assessment and Plan (1) Hematemesis: Status: Acute (2) Acute respiratory failure with hypoxia: Status: Acute (3) Pulmonary aspiration: Status: Acute (4) EMILY (acute kidney injury): Status: Acute (5) Intestinal obstruction: Status: Acute Plan 82yo M with no chronic PMHx presenting with 2d of worsening abd pain + 2 episodes of dark red emesis found to have enteritis, EMILY. EGD complicated with aspiration. # Acute hypoxic respiratory failure 2/2 aspiration pneumonia\pneumonitis requiring intubation and transfer to ICU, extubated 03/13 Continue IV Abx wean O2 down as tolerated # High-grade SBO passing gas CT showing transition point followed by surgery NPO, NGT IVF # acute blood loss anemia 2/2 GIB EGD showed significant Esophagitis , nodular GE junction, superficial pyloric ulceration continue PPI # EMILY, prerenal Resolved w IVF follow BMP # VTE ppx: SCDs # dispo: eventual home In my clinical judgment, the patient requires continued inpatient hospitalization for the following reasons: GI eval Time Spent With Patient Time: Total time managing care of this patient today ____ minutes. Quality Stroke Does the patient have a stroke diagnosis?: No VTE Prior VTE?: No VTE Risk Level:: Medical - moderate - high VTE Device Contraindication: N/A - Device Ordered VTE Drug Contraindication: Treatment Not Indicated
--- NOTE | 2023-03-15 10:49 | MHC.CLN ---
F/U PT TRANSFERRED TO MEDICAL FLOOR PT IS CURRENTLY NPO-HEADED INTO DAY [address] REMAINS ON SUCTION R/T PSBO NOTED ADVANCE DIET TOLERATED AFTER EGD WHEN DIET TO ADVANCE; RECOMMEND ADDING NUTRITION SUPPLEMENTS (ENSURE TID) TO INCREASE KCALS IF PPN NEEDED; PLS CONSULT RD FOLLOWING WITH TEAM
--- NOTE | 2023-03-15 12:06 | PM.PNGS ---
Subjective Subjective Date of Service: 03/15/23 <Chuyita Roman PA-C - Last Filed: 03/15/23 12:10> 03/15/23 <Luis Monique MD - Last Filed: 03/15/23 12:16> Interval history: Feels ok this morning. Denies abdominal pain. Passing flatus. Feels full from contrast. <Chuyita Roman PA-C - Last Filed: 03/15/23 12:10> Physical Exam Vital Signs: Vital Signs: Last Vital Signs Temp 98.1 F 03/15/23 11:24 Pulse 75 03/15/23 11:24 Resp 18 03/15/23 11:24 BP 155/70 H 03/15/23 11:24 Pulse Ox 93 03/15/23 11:24 O2 Del Method Oxymask 03/15/23 11:24 O2 Flow Rate 6 03/15/23 11:24 FiO2 70 03/13/23 09:00 Oxygen Flow Rate 6 03/14/23 17:00 BMI result Body Mass Index 25.2 <Chuyita Roman PA-C - Last Filed: 03/15/23 12:10> Const: General: comfortable, no acute distress and alert <MARISELA Patton Last Filed: 03/15/23 12:10> Orientation/consciousness: patient oriented x3 <Chuyita Roman PA-C - Last Filed: 03/15/23 12:10> Resp: Effort & Inspection: normal respiratory effort <Chuyita Romna PA-C - Last Filed: 03/15/23 12:10> GI: Inspection: Yes distended (softly) <Chuyita Roman PA-C - Last Filed: 03/15/23 12:10> Palpation (GI): Soft to palpation, nontender, no guarding and not rigid <MARISELA Patton Last Filed: 03/15/23 12:10> Percussion: Yes normal to percussion <MARISELA Patton Last Filed: 03/15/23 12:10> Skin: General skin exam: no rashes or lesions noted <Chuyita Roman PA-C - Last Filed: 03/15/23 12:10> Neuro: General: patient oriented x3 and moves all extremities <Chuyita Roman PA-C - Last Filed: 03/15/23 12:10> Objective Data Active Medications Acetaminophen (Acetaminophen 325 Mg Tablet) 650 mg PO Q6H PRN PRN Reason: Pain, Mild (Pain Scale 1-3) Last Admin: 03/14/23 17:22 Dose: 650 mg Documented By: MARY Piperacillin Sod/Tazobactam (Sod 3.375 gm/ Sodium Chloride) 50 mls @ 100 mls/hr IV Q6H [facility] Last Infusion: 03/15/23 09:35 Dose: 0 mls/hr Documented By: NEHEMIAS Lactated Ringer's (Lr) 1,000 mls @ 100 mls/hr IVCONT .Q10H [facility] Last Admin: 03/15/23 09:35 Dose: Not Given Documented By: NEHEMIAS Non-Admin Reason: IV Running Ondansetron HCl (Ondansetron Hcl 4 Mg/2 Ml Vial) 4 mg IVPUSH Q8H PRN PRN Reason: Nausea and Vomiting Last Admin: 03/14/23 17:22 Dose: 4 mg Documented By: MARY Sodium Chloride (0.9 % Sodium Chloride Flush 3 Ml Syringe) 3 ml IVFLUSH QSHIFT [facility] Last Admin: 03/15/23 08:58 Dose: 3 ml Documented By: GRETA <Chuyita Roman PA-C - Last Filed: 03/15/23 12:10> Labs CBC & Chem 7: 03/15/23 05:56 03/15/23 05:56 <Chuyita Roman PA-C - Last Filed: 03/15/23 12:10> Labs: Laboratory Results - last 24 hr 03/15/23 03/15/23 03/15/23 05:56 05:56 06:48 MCV 96.1 MCH 31.1 MCHC 32.4 RDW 12.9 Plt Count 187 MPV 10.0 Immature Gran % (Auto) Cancelled Neut % (Auto) Cancelled Lymph % (Auto) Cancelled [place] % (Auto) Cancelled Eos % (Auto) Cancelled Baso % (Auto) Cancelled Lymph # (Auto) Cancelled [place] # (Auto) Cancelled Eos # (Auto) Cancelled Baso # (Auto) Cancelled Abs Immat Gran (auto) Cancelled Absolute Neuts (auto) Cancelled Absolute Nucleated RBC 0.000 Nucleated RBC % (auto) 0.0 Neutrophils % (Manual) 87 H Band Neutrophils % 2 L Lymphocytes % (Manual) 5 L Monocytes % (Manual) 2 Eosinophils % (Manual) 3 Metamyelocytes % 1 Abs Neuts (Manual) 10.4 H Lymphocytes # (Manual) 0.6 L Monocytes # (Manual) 0.2 Eosinophils # (Manual) 0.4 Metamyelocytes # 0.1 Platelet Estimate NORMAL Plt Morphology Comment NORMAL RBC Morphology NORMAL VBG pH 7.38 VBG pCO2 48 VBG pO2 80 VBG HCO3 29 H VBG O2 Saturation 97.0 VBG Base Excess 3.6 Anion Gap 15 Estim Creat Clear Calc 70.6 Estimated GFR > 60 Random Glucose 87 Calcium 10.0 Phosphorus 2.1 L Magnesium 2.1 Albumin 3.3 L <Chuyita Roman PA-C - Last Filed: 03/15/23 12:10> Microbiology Microbiology Results: Microbiology 03/09/23 08:12 Blood Culture - Final Blood - Venous No growth after 5 days. 03/09/23 08:07 Blood Culture - Final Blood - Venous No growth after 5 days. <Chuyita Roman PA-C - Last Filed: 03/15/23 12:10> Procedures Date of Service Date of Service: 03/15/23 <Chuyita Roman PA-C - Last Filed: 03/15/23 12:10> 03/15/23 <Luis Monique MD - Last Filed: 03/15/23 12:16> Progress Note: A&P Assessment and plan (1) Enteritis: Status: Acute <MARISELA Patton Last Filed: 03/15/23 12:10> (2) Hematemesis: Status: Acute <MARISELA Patton Last Filed: 03/15/23 12:10> Assessment and Plan: 82 year old male admitted for hematemesis and and initially treated for infectious enteritis who underwent EGD on 03/12/2023. This showed erosive esophagitis without active bleeding, complicated by aspiration requiring intubation and transfer to intensive care unit. He was extubated 03/13/2023 and transferred to telemetry today. Repeat CT yesterday for concern for SBO which showed dilated loops of small bowel with a transition point in the LLQ but SBFT today shows contrast already in the colon- discussed with radiology who feel he is not obstructed. His abdomen reamins softly distended, nontender. NGT has had scanty output and has been clamped since contrast this AM with evidence of GI function. Clinically not obstructed. Will likely dc NGT later today and advance diet slowly. Encouraged OOB/ambulation. <Chuyita Roman PA-C - Last Filed: 03/15/23 12:10> Time Spent With Patient Time: Total time managing care of this patient today ____ minutes. <Chuyita Roman PA-C - Last Filed: 03/15/23 12:10> Quality Stroke Does the patient have a stroke diagnosis?: No <Chuyita Roman PA-C - Last Filed: 03/15/23 12:10> VTE Prior VTE?: No <Chuyita Roman PA-C - Last Filed: 03/15/23 12:10> VTE Risk Level:: Medical - moderate - high <MARISELA Patton Last Filed: 03/15/23 12:10> VTE Device Contraindication: N/A - Device Ordered <Chuyita Roman PA-C - Last Filed: 03/15/23 12:10> VTE Drug Contraindication: Treatment Not Indicated <Chuyita Roman PA-C - Last Filed: 03/15/23 12:10>
--- NOTE | 2023-03-15 16:08 | PC.NURSE ---
As instructed by surgical PA, freelance copywriter put pt's ng tube under suction to determine residual after imaging with contrast. Residual appeared to be approx 20mL, which was relayed to PA. PA ordered clear liquid diet and removal of NG tube. Later, ng tube drained an additional 200mL fluid, while pt had 2 substantial BMs. Information relayed to Dr. Monique via [place]. Dr. Monique asked for the tube to remain in place but OK'd clear liquids for pt.
[2023-03-15] MEDS: Lactated Ringers 1,000 ML 100 ML IVCONT (16:13)
[2023-03-15] MEDS: traZODone HCL 50 MG TABLET PO (20:34)
[2023-03-15] MEDS: hydrALAZINE HCl 20 MG/ML VIAL 5 MG IVPUSH (22:00)
[2023-03-16] VITALS (8 sets, daily range): BP systolic 150–190; BP diastolic 62–84; PULSE 59–72; RESP 18–28; TEMP 36.8–37.7; O2SAT 92–95; BMI 24.8
--- NOTE | 2023-03-16 | PM.EVENT ---
Event Note Date of Service: 03/16/23 Event Note: During p.o. intake. Has 500 cc gastric content drawn with NG tube. Will keep patient NPO Time Spent With Patient Time: Total time managing care of this patient today ____ minutes.
--- NOTE | 2023-03-16 01:37 | PC.NURSE ---
Addendum entered by Piotr Joe RN 03/16/23 01:43: notified hydralazine ordered. Blood pressure decreased to 182/82. will continue to monitor. Pt was on clear liquid diet with NG tube not hooked up to suction. Pt not tolerating clear liquid diet. Abdomen was distended and he was regurgitating emesis into his mouth. MD was notified. Pt hooked up to intermittent suction at 60.Immediately 500ml was drained. Pt seemed to gain relief and abdomen reduced in distention. Diet was changed to NPO. Original Note: Pts blood pressure was elevated at 192/82 for 19:00 vitals. notified hydralazine
[2023-03-16] MEDS: Piperacillin Sodium/Tazobactam 3.375 GM in 0.9 % Sodium Chloride 50 ML IV ×4 (04:14→20:04)
[2023-03-16] MEDS: hydrALAZINE HCl 20 MG/ML VIAL 5 MG IVPUSH (04:27)
[2023-03-16] MEDS: Lactated Ringers 1,000 ML 100 ML IVCONT (05:03)
[2023-03-16 06:57] LABS: Hematocrit 33.9 % (42.0-52.0); Mean Corpuscular HGB Conc 32.4 g/dl (31.0-36.0); Mean Corpuscular Hemoglobin 31.3 pg (27.0-33.0); Mean Corpuscular Volume 96.3 fL (80.0-98.0); Mean Platelet Volume 10.1 fL (9.4-12.4); Platelet Count 215 X10*3/uL (160-400); Red Blood Count 3.52 X10*6/uL (4.60-5.80); White Blood Count 12.9 X10*3/uL (4.8-10.8)
[2023-03-16 07:18] LABS: Anion Gap 16 (12-20); Blood Urea Nitrogen 27 mg/dL (9-16); Calcium 9.8 mg/dL (8.4-10.2); Carbon Dioxide 26 mmol/L (22-29); Chloride 110 mmol/L (96-108); Estimated Glomerular Filt Rate > 60; Glucose Random 113 mg/dL (60-115); Potassium 3.6 mmol/L (3.3-5.1); Sodium 148 mmol/L (135-145)
[2023-03-16] MEDS: 0.9 % Sodium Chloride Flush 3 ML SYRINGE IVFLUSH ×2 (07:54→20:05)
[2023-03-16] MEDS: Dextrose 5 % 1,000 ML 125 ML IVCONT ×2 (08:28→16:15)
--- NOTE | 2023-03-16 10:36 | PM.PNGS ---
Subjective Subjective Date of Service: 03/16/23 Interval history: Patient reported to have high NG output yesterday. He does report having loose stool. His abdominal pain is much improved as well. Physical Exam Vital Signs: Vital Signs: Last Vital Signs Temp 98.7 F 03/16/23 07:09 Pulse 59 03/16/23 07:09 Resp 20 03/16/23 07:09 BP 168/80 H 03/16/23 07:09 Pulse Ox 94 03/16/23 07:09 O2 Del Method Oxymask 03/16/23 07:09 O2 Flow Rate 6 03/16/23 07:09 FiO2 70 03/13/23 09:00 Oxygen Flow Rate 6 03/15/23 17:00 BMI result Body Mass Index 24.8 Const: General: comfortable and no acute distress Nutritional Appearance: well nourished Orientation/consciousness: patient oriented x3 Resp: Effort & Inspection: normal respiratory effort, no audible wheezes and no cough GI: Other: Softly distended, no tympany to percussion, nontender. NG tube with bilious fluid. Skin: Other: Warm and dry Neuro: General: patient oriented x3 Objective Data Active Medications Acetaminophen (Acetaminophen 325 Mg Tablet) 650 mg PO Q6H PRN PRN Reason: Pain, Mild (Pain Scale 1-3) Last Admin: 03/14/23 17:22 Dose: 650 mg Documented By: MARY Piperacillin Sod/Tazobactam (Sod 3.375 gm/ Sodium Chloride) 50 mls @ 100 mls/hr IV Q6H [facility] Last Infusion: 03/16/23 08:28 Dose: 0 mls/hr Documented By: ADAM Dextrose (D5w) 1,000 mls @ 125 mls/hr IVCONT .Q8H [facility] Stop: 03/16/23 23:59 Last Admin: 03/16/23 08:28 Dose: 125 mls/hr Documented By: ADAM Ondansetron HCl (Ondansetron Hcl 4 Mg/2 Ml Vial) 4 mg IVPUSH Q8H PRN PRN Reason: Nausea and Vomiting Last Admin: 03/14/23 17:22 Dose: 4 mg Documented By: MARY Sodium Chloride (0.9 % Sodium Chloride Flush 3 Ml Syringe) 3 ml IVFLUSH QSHIFT [facility] Last Admin: 03/16/23 07:54 Dose: 3 ml Documented By: ADAM Labs 03/16/23 06:11 03/16/23 06:10 Labs: Laboratory Results - last 24 hr 03/16/23 03/16/23 06:10 06:11 MCV 96.3 MCH 31.3 MCHC 32.4 RDW 13.0 Plt Count 215 MPV 10.1 Absolute Nucleated RBC 0.000 Nucleated RBC % (auto) 0.0 Anion Gap 16 Estim Creat Clear Calc 69.0 Estimated GFR > 60 Random Glucose 113 Calcium 9.8 Procedures Date of Service Date of Service: 03/16/23 Progress Note: A&P Assessment and plan (1) Intestinal obstruction: Status: Acute (2) Vomiting: Status: Acute Plan patient initially with a presumed small-bowel obstruction although small-bowel series reveals prompt passage of barium into colon. Patient is now passing frequent stools. NG tube output has decreased as well. Will continue to monitor output with possible clamping trial tomorrow. Time Spent With Patient Time: Total time managing care of this patient today ____ minutes. Quality Stroke Does the patient have a stroke diagnosis?: No VTE Prior VTE?: No VTE Risk Level:: Medical - moderate - high VTE Device Contraindication: N/A - Device Ordered VTE Drug Contraindication: Treatment Not Indicated
--- NOTE | 2023-03-16 12:36 | HO.PM.IMPN ---
Subjective Subjective Date of Service: 03/16/23 Interval History: Seen and evaluated this morning Had obstruction symptoms and suctioning 500 cc at night reports passing stool, mainly diarrhea NG tube in place, suction output decreased No other overnight events Review of Systems Review of Systems: Yes all other systems are reviewed and are negative Physical Exam Vital Signs: Vital Signs: Last Vital Signs Temp 99.2 F 03/16/23 10:58 Pulse 59 03/16/23 10:58 Resp 20 03/16/23 10:58 BP 180/80 H 03/16/23 10:58 Pulse Ox 95 03/16/23 10:58 O2 Del Method Oxymask 03/16/23 10:58 O2 Flow Rate 6 03/16/23 10:58 FiO2 70 03/13/23 09:00 Oxygen Flow Rate 6 03/15/23 17:00 BMI result Body Mass Index 24.8 Const: Other: Constitutional : Awake, interactive, not in distress, looks physically deconditioned Neck : Normal inspection, Supple Cardiovascular : RRR, no JVP, no lower extremity edema Respiratory : fair bilateral air entry, basal finle crackles, wheezes or rhonchi Gastrointestinal: soft, lax, decreased bowel sounds, no tenderness, NG tube in place, Skin : Warm, Dry Neurological : Alert & oriented x3, No focal deficit Objective Data Active Medications Acetaminophen (Acetaminophen 325 Mg Tablet) 650 mg PO Q6H PRN PRN Reason: Pain, Mild (Pain Scale 1-3) Last Admin: 03/14/23 17:22 Dose: 650 mg Documented By: MARY Piperacillin Sod/Tazobactam (Sod 3.375 gm/ Sodium Chloride) 50 mls @ 100 mls/hr IV Q6H [facility] Last Infusion: 03/16/23 08:28 Dose: 0 mls/hr Documented By: ADAM Dextrose (D5w) 1,000 mls @ 125 mls/hr IVCONT .Q8H [facility] Stop: 03/16/23 23:59 Last Admin: 03/16/23 08:28 Dose: 125 mls/hr Documented By: ADAM Ondansetron HCl (Ondansetron Hcl 4 Mg/2 Ml Vial) 4 mg IVPUSH Q8H PRN PRN Reason: Nausea and Vomiting Last Admin: 03/14/23 17:22 Dose: 4 mg Documented By: MARY Sodium Chloride (0.9 % Sodium Chloride Flush 3 Ml Syringe) 3 ml IVFLUSH QSHIFT [facility] Last Admin: 03/16/23 07:54 Dose: 3 ml Documented By: ADAM Labs 03/16/23 06:11 03/16/23 06:10 Labs: Laboratory Results - last 24 hr 03/16/23 03/16/23 06:10 06:11 MCV 96.3 MCH 31.3 MCHC 32.4 RDW 13.0 Plt Count 215 MPV 10.1 Absolute Nucleated RBC 0.000 Nucleated RBC % (auto) 0.0 Anion Gap 16 Estim Creat Clear Calc 69.0 Estimated GFR > 60 Random Glucose 113 Calcium 9.8 Assessment and Plan (1) Intestinal obstruction: Status: Acute (2) Hematemesis: Status: Acute (3) Acute respiratory failure with hypoxia: Status: Acute (4) Pulmonary aspiration: Status: Acute (5) EMILY (acute kidney injury): Status: Acute (6) Esophagitis: Status: Acute Plan 82yo M with no chronic PMHx presenting with 2d of worsening abd pain + 2 episodes of dark red emesis found to have enteritis, EMILY. EGD complicated with aspiration. # Acute hypoxic respiratory failure 2/2 aspiration pneumonia\pneumonitis requiring intubation and transfer to ICU, extubated 03/13 Continue IV Abx wean O2 down as tolerated # High-grade SBO passing frequent stool CT showed transitional pain followed by surgery, consider clamping NG tube tomorrow NPO, NGT Continue IVF # Acute hypernatremia 2/2 decrease intake and high losses Start D5W follow BMP # acute blood loss anemia 2/2 GIB Hb stable EGD showed significant Esophagitis , nodular GE junction, superficial pyloric ulceration continue PPI # EMILY, prerenal Resolved w IVF follow BMP # VTE ppx: SCDs # dispo: eventual home In my clinical judgment, the patient requires continued inpatient hospitalization for the following reasons: GI eval Time Spent With Patient Time: Total time managing care of this patient today ____ minutes. Quality Stroke Does the patient have a stroke diagnosis?: No VTE Prior VTE?: No VTE Risk Level:: Medical - moderate - high VTE Device Contraindication: N/A - Device Ordered VTE Drug Contraindication: Treatment Not Indicated
--- NOTE | 2023-03-16 18:16 | PC.NURSE ---
Patient is alert and oriented to self, place, time, and event. Patient can express needs. Patient right NasoGastric tube suction held at 10:30 am. No output once changed to gravity. Patient consumed three cups of ice chips by 1pm. Frequently has productive cough with white phelm present. Patient tolerated advancement of diet from ice chips to ice water. Dr Jovel contacted a via tiger text to advance diet to clear liquids. Patient tolerated beef broth, jello and juices from dinner tray. Purposeful rounding for safety, call arnett in place and bed alarm on.
[2023-03-16] MEDS: Albuterol/Iprat 2.5/0.5MG 3 ML AMPUL.NEB INHALE (20:41)
--- NOTE | 2023-03-16 23:31 | PC.NURSE ---
Addendum entered by Pankaj Richardson RN 03/17/23 06:48: NGT clammped all shift. No output noted when unclammped, no c/o nausea or vomitting. Pt refusing AM labs. States he doesnt want any of this anymore and wants to be left alone. Original Note: At start of shift pt in coughing fit. Expiratory wheezes audibly heard. Increased WOB with RR in the mid 20s, labored and SOB. O2 sats 91% on 6L via Oxymask. notified. Casa ordered and RT in to see patient. Improved after neb treatment.
[2023-03-17] VITALS (8 sets, daily range): BP systolic 138–170; BP diastolic 70–88; PULSE 61–83; RESP 18–20; TEMP 36.6–37.6; O2SAT 91–96; BMI 25.2
[2023-03-17] MEDS: Piperacillin Sodium/Tazobactam 3.375 GM in 0.9 % Sodium Chloride 50 ML IV ×4 (03:15→21:27)
[2023-03-17] MEDS: 0.9 % Sodium Chloride Flush 3 ML SYRINGE IVFLUSH ×3 (09:45→23:31)
--- NOTE | 2023-03-17 10:04 | HO.PM.IMPN ---
Subjective Subjective Date of Service: 03/17/23 Interval History: Seen and evaluated this morning tolerating clears, passing stool no nausea or vomiting NG suction on hold No other overnight events Review of Systems Review of Systems: Yes all other systems are reviewed and are negative Physical Exam Vital Signs: Vital Signs: Last Vital Signs Temp 98.9 F 03/17/23 07:11 Pulse 61 03/17/23 07:11 Resp 20 03/17/23 07:11 BP 160/80 H 03/17/23 07:11 Pulse Ox 96 03/17/23 07:11 O2 Del Method Oxymask 03/17/23 07:11 O2 Flow Rate 6 03/17/23 07:11 FiO2 70 03/13/23 09:00 Oxygen Flow Rate 6 03/16/23 16:58 BMI result Body Mass Index 25.2 Const: Other: Constitutional : Awake, interactive, not in distress, looks physically deconditioned Neck : Normal inspection, Supple Cardiovascular : RRR, no JVP, no lower extremity edema Respiratory : fair bilateral air entry, basal finle crackles, wheezes or rhonchi Gastrointestinal: soft, lax, active bowel sounds, no tenderness, NG tube in place, Skin : Warm, Dry Neurological : Alert & oriented x3, No focal deficit Objective Data Active Medications Acetaminophen (Acetaminophen 325 Mg Tablet) 650 mg PO Q6H PRN PRN Reason: Pain, Mild (Pain Scale 1-3) Last Admin: 03/14/23 17:22 Dose: 650 mg Documented By: MARY Albuterol/Ipratropium (Albuterol/Iprat 2.5/0.5mg 3 Ml Ampul.Neb) 3 ml INHALE RQ4H PRN PRN Reason: Shortness of Breath/Wheezing Last Admin: 03/16/23 20:41 Dose: 3 ml Documented By: MARIVEL Piperacillin Sod/Tazobactam (Sod 3.375 gm/ Sodium Chloride) 50 mls @ 100 mls/hr IV Q6H [facility] Last Admin: 03/17/23 09:45 Dose: 100 mls/hr Documented By: ADAM Ondansetron HCl (Ondansetron Hcl 4 Mg/2 Ml Vial) 4 mg IVPUSH Q8H PRN PRN Reason: Nausea and Vomiting Last Admin: 03/14/23 17:22 Dose: 4 mg Documented By: MARY Sodium Chloride (0.9 % Sodium Chloride Flush 3 Ml Syringe) 3 ml IVFLUSH [facility] Last Admin: 03/17/23 09:45 Dose: 3 ml Documented By: ADAM Labs 03/16/23 06:11 03/16/23 12:41 Labs: Laboratory Results - last 24 hr 03/16/23 12:41 Anion Gap 14 Estim Creat Clear Calc 70.6 Estimated GFR > 60 Random Glucose 138 H Calcium 9.3 Microbiology Microbiology Results: Microbiology 03/16/23 06:10 Blood Culture - Preliminary Blood - Venous No growth after 24 hours. 03/16/23 06:10 Blood Culture - Preliminary Blood - Venous No growth after 24 hours. Assessment and Plan (1) Esophagitis: Status: Acute (2) Intestinal obstruction: Status: Acute (3) Acute respiratory failure with hypoxia: Status: Acute (4) Pulmonary aspiration: Status: Acute Plan 82yo M with no chronic PMHx presenting with 2d of worsening abd pain + 2 episodes of dark red emesis found to have enteritis, EMILY. EGD complicated with aspiration. # Acute hypoxic respiratory failure 2/2 aspiration pneumonia\pneumonitis requiring intubation and transfer to ICU, extubated 03/13 Continue IV Abx of Zosyn Incentive spirometry still on 6L wean O2 down as tolerated # High-grade SBO reported on CT with transitional point clamped NG tube overnight with good tolerance Tolerating clears passing frequent stool followed by surgery DC NGT DC IVF Advance diet to full # Acute hypernatremia resolved with D5W follow BMP # acute blood loss anemia 2/2 GIB Hb stable EGD showed significant Esophagitis , nodular GE junction, superficial pyloric ulceration continue PPI # EMILY, prerenal Resolved w IVF follow BMP # VTE ppx: SCDs # dispo: eventual home, pending PT eval In my clinical judgment, the patient requires continued inpatient hospitalization for the following reasons: GI eval Time Spent With Patient Time: Total time managing care of this patient today ____ minutes. Quality Stroke Does the patient have a stroke diagnosis?: No VTE Prior VTE?: No VTE Risk Level:: Medical - moderate - high VTE Device Contraindication: N/A - Device Ordered VTE Drug Contraindication: Treatment Not Indicated
[2023-03-17] MEDS: Omeprazole 20 MG CAPSULE.DR PO ×2 (11:11→14:58)
--- NOTE | 2023-03-17 11:40 | PC.NURSE ---
Patient is alert and orientated to self , time, person. Nasogastric tube removed at 0950 this morning. Patient tolerated removal well. Patient denies any nausea at time. Patient has productive cough with white tinged phlegm. Patient able to clear throat. Patient able to take small sips of water, tolerated well. Frequent rounds to maintain safety. Call arnett in reach, bed alarm on and bed in lowest position.
--- NOTE | 2023-03-17 13:10 | MHC.CM.PN ---
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
[2023-03-17 15:45] LABS: Anion Gap 15 (12-20); Blood Urea Nitrogen 19 mg/dL (9-16); Calcium 9.3 mg/dL (8.4-10.2); Carbon Dioxide 24 mmol/L (22-29); Chloride 106 mmol/L (96-108); Creatinine Clr Calc Pharmacy 63.9; Estimated Glomerular Filt Rate > 60; Glucose Random 140 mg/dL (60-115); Potassium 3.5 mmol/L (3.3-5.1); Sodium 141 mmol/L (135-145)
[2023-03-18] VITALS (11 sets, daily range): BP systolic 146–178; BP diastolic 69–86; PULSE 53–98; RESP 16–20; TEMP 36.7–37.7; O2SAT 91–96; BMI 25.0
[2023-03-18] MEDS: Piperacillin Sodium/Tazobactam 3.375 GM in 0.9 % Sodium Chloride 50 ML IV ×2 (03:04→07:42)
[2023-03-18] MEDS: Omeprazole 20 MG CAPSULE.DR PO ×2 (05:56→17:02)
[2023-03-18] MEDS: 0.9 % Sodium Chloride Flush 3 ML SYRINGE IVFLUSH ×3 (07:42→22:28)
--- NOTE | 2023-03-18 08:06 | PM.PNGS ---
Subjective Subjective Date of Service: 03/18/23 <Chuyita Roman PA-C - Last Filed: 03/18/23 08:09> 03/18/23 <Luis Monique MD - Last Filed: 03/18/23 08:57> Interval history: NGT removed yesterday. Tolerating liquids. Denies abdominal pain, bloating. Passing flatus, now with more solid stool. Says he is going home no matter what. <Chuyita Roman PA-C - Last Filed: 03/18/23 08:09> Physical Exam Vital Signs: Vital Signs: Last Vital Signs Temp 98.1 F 03/18/23 07:05 Pulse 68 03/18/23 07:05 Resp 20 03/18/23 07:05 BP 146/78 H 03/18/23 07:05 Pulse Ox 95 03/18/23 07:05 O2 Del Method Nasal Cannula 03/18/23 07:05 O2 Flow Rate 6 03/18/23 07:05 FiO2 70 03/13/23 09:00 Oxygen Flow Rate 4 03/17/23 16:20 BMI result Body Mass Index 25.0 <MARISELA Patton Last Filed: 03/18/23 08:09> Const: General: comfortable, no acute distress and alert <MARISELA Patton Last Filed: 03/18/23 08:09> Orientation/consciousness: patient oriented x3 <MARISELA Patton Last Filed: 03/18/23 08:09> Resp: Effort & Inspection: normal respiratory effort <MARISELA Patton Last Filed: 03/18/23 08:09> GI: Inspection: No distended <MARISELA Patton Last Filed: 03/18/23 08:09> Palpation (GI): Soft to palpation, nontender, no guarding and not rigid <MARISELA Patton Last Filed: 03/18/23 08:09> Percussion: Yes normal to percussion <MARISELA Patton Last Filed: 03/18/23 08:09> Skin: General skin exam: no rashes or lesions noted <Chuyita Roman PA-C - Last Filed: 03/18/23 08:09> Neuro: General: patient oriented x3 and moves all extremities <Chuyita Roman PA-C - Last Filed: 03/18/23 08:09> Objective Data Active Medications Acetaminophen (Acetaminophen 325 Mg Tablet) 650 mg PO Q6H PRN PRN Reason: Pain, Mild (Pain Scale 1-3) Last Admin: 03/14/23 17:22 Dose: 650 mg Documented By: MARY Albuterol/Ipratropium (Albuterol/Iprat 2.5/0.5mg 3 Ml Ampul.Neb) 3 ml INHALE RQ4H PRN PRN Reason: Shortness of Breath/Wheezing Last Admin: 03/16/23 20:41 Dose: 3 ml Documented By: MARIVEL Piperacillin Sod/Tazobactam (Sod 3.375 gm/ Sodium Chloride) 50 mls @ 100 mls/hr IV Q6H [facility] Last Admin: 03/18/23 07:42 Dose: 100 mls/hr Documented By: SHARYN Omeprazole (Omeprazole 20 Mg Capsule.Dr) 20 mg PO BID@0630,1630 [facility] Last Admin: 03/18/23 05:56 Dose: 20 mg Documented By: KAMERON Ondansetron HCl (Ondansetron Hcl 4 Mg/2 Ml Vial) 4 mg IVPUSH Q8H PRN PRN Reason: Nausea and Vomiting Last Admin: 03/14/23 17:22 Dose: 4 mg Documented By: MARY Sodium Chloride (0.9 % Sodium Chloride Flush 3 Ml Syringe) 3 ml IVFLUSH QSHIFT [facility] Last Admin: 03/18/23 07:42 Dose: 3 ml Documented By: SHARYN <Chuyita Roman PA-C - Last Filed: 03/18/23 08:09> Labs CBC & Chem 7: 03/16/23 06:11 03/17/23 15:04 <Chuyita Roman PA-C - Last Filed: 03/18/23 08:09> Labs: Laboratory Results - last 24 hr 03/17/23 15:04 Anion Gap 15 Estim Creat Clear Calc 63.9 Estimated GFR > 60 Random Glucose 140 H Calcium 9.3 <Chuyita Roman PA-C - Last Filed: 03/18/23 08:09> Microbiology Microbiology Results: Microbiology 03/16/23 06:10 Blood Culture - Preliminary Blood - Venous No growth after 24 hours. 03/16/23 06:10 Blood Culture - Preliminary Blood - Venous No growth after 24 hours. <Chuyita Roman PA-C - Last Filed: 03/18/23 08:09> Procedures Date of Service Date of Service: 03/18/23 <Chuyita Roman PA-C - Last Filed: 03/18/23 08:09> 03/18/23 <Luis Monique MD - Last Filed: 03/18/23 08:57> Progress Note: A&P Assessment and plan (1) Vomiting: Status: Acute <MARISELA Patton Last Filed: 03/18/23 08:09> (2) Enteritis: Status: Acute <MARISELA Patton Last Filed: 03/18/23 08:09> Assessment and Plan: Patient initially with a presumed small-bowel obstruction although small-bowel series revealed prompt passage of barium into colon. NGT removed yesterday and started on diet. Tolerating liquids. Passing flatus and now with more solid stools. Advance to solid diet. If tolerating solid diet, stable for dc to home from surgical standpoint. States he is leaving today no matter what. <MARISELA Patton Last Filed: 03/18/23 08:09> Time Spent With Patient Time: Total time managing care of this patient today ____ minutes. <MARISELA Patton Last Filed: 03/18/23 08:09> Quality Stroke Does the patient have a stroke diagnosis?: No <MARISELA Patton Last Filed: 03/18/23 08:09> VTE Prior VTE?: No <MARISELA Patton Last Filed: 03/18/23 08:09> VTE Risk Level:: Medical - moderate - high <MARISELA Patton Last Filed: 03/18/23 08:09> VTE Device Contraindication: N/A - Device Ordered <Chuyita Roman PA-C - Last Filed: 03/18/23 08:09> VTE Drug Contraindication: Treatment Not Indicated <Chuyita Roman PA-C - Last Filed: 03/18/23 08:09>
--- NOTE | 2023-03-18 10:14 | MHC.CM.PN ---
Per ROUNDS discussion, Patient is not yet medically cleared for dc (IV Zosyn, NGT removed yesterday and diet being advanced); Home is the Patient's goal and CM will follow.
[2023-03-18] MEDS: guaiFENesin LA 600 MG TAB.ER.12H PO ×2 (10:54→22:27)
--- NOTE | 2023-03-18 11:23 | MHC.CLN ---
F/U PO INTAKE 0-25% DIET ADVANCED TO REGULAR-APPROPRIATE RECOMMEND ADDING ENSURE TO INCREASE KCALS MONITOR PO INTAKE CLOSELY
--- NOTE | 2023-03-18 11:36 | HO.PM.IMPN ---
Subjective Subjective Date of Service: 03/18/23 Interval History: Seen and evaluated this morning tolerating regular diet, passing stool bringing more thick mucus, tachypneic and still on O2 supplement No other overnight events Review of Systems Review of Systems: Yes all other systems are reviewed and are negative Physical Exam Vital Signs: Vital Signs: Last Vital Signs Temp 98.3 F 03/18/23 10:47 Pulse 71 03/18/23 11:23 Resp 18 03/18/23 11:23 BP 158/86 H 03/18/23 10:47 Pulse Ox 94 03/18/23 10:47 O2 Del Method Nasal Cannula 03/18/23 10:47 O2 Flow Rate 3 03/18/23 10:47 FiO2 70 03/13/23 09:00 Oxygen Flow Rate 4 03/17/23 16:20 BMI result Body Mass Index 25.0 Const: Other: Constitutional : Awake, interactive, not in distress, physically deconditioned Neck : Normal inspection, Supple Cardiovascular : RRR, no JVP, no lower extremity edema Respiratory : fair bilateral air entry, basal crackles bilaterall, no significant wheezes Gastrointestinal: soft, lax, active bowel sounds, no tenderness Skin : Warm, Dry Neurological : Alert & oriented x3, No focal deficit Objective Data Active Medications Acetaminophen (Acetaminophen 325 Mg Tablet) 650 mg PO Q6H PRN PRN Reason: Pain, Mild (Pain Scale 1-3) Last Admin: 03/14/23 17:22 Dose: 650 mg Documented By: MARY Albuterol/Ipratropium (Albuterol/Iprat 2.5/0.5mg 3 Ml Ampul.Neb) 3 ml INHALE RQ4H PRN PRN Reason: Shortness of Breath/Wheezing Last Admin: 03/16/23 20:41 Dose: 3 ml Documented By: MARIVEL Albuterol/Ipratropium (Albuterol/Iprat 2.5/0.5mg 3 Ml Ampul.Neb) 3 ml INHALE RQ4H WHILE AWAKE [facility] Last Admin: 03/18/23 11:18 Dose: 3 ml Documented By: MARCIA Guaifenesin (Guaifenesin La 600 Mg Tab.Er.12h) 600 mg PO BID [facility] Last Admin: 03/18/23 10:54 Dose: 600 mg Documented By: SHARYN Piperacillin Sod/Tazobactam (Sod 3.375 gm/ Sodium Chloride) 50 mls @ 100 mls/hr IV Q6H [facility] Last Infusion: 03/18/23 08:15 Dose: 0 mls/hr Documented By: SHARYN Omeprazole (Omeprazole 20 Mg Capsule.) 20 mg PO BID@0630,1630 [facility] Last Admin: 03/18/23 05:56 Dose: 20 mg Documented By: KAMERON Ondansetron HCl (Ondansetron Hcl 4 Mg/2 Ml Vial) 4 mg IVPUSH Q8H PRN PRN Reason: Nausea and Vomiting Last Admin: 03/14/23 17:22 Dose: 4 mg Documented By: MARY Sodium Chloride (0.9 % Sodium Chloride Flush 3 Ml Syringe) 3 ml IVFLUSH QSHIFT [facility] Last Admin: 03/18/23 07:42 Dose: 3 ml Documented By: SHARYN Labs 03/16/23 06:11 03/17/23 15:04 Labs: Laboratory Results - last 24 hr 03/17/23 15:04 Anion Gap 15 Estim Creat Clear Calc 63.9 Estimated GFR > 60 Random Glucose 140 H Calcium 9.3 Microbiology Microbiology Results: Microbiology 03/16/23 06:10 Blood Culture - Preliminary Blood - Venous No growth after 48 hours. 03/16/23 06:10 Blood Culture - Preliminary Blood - Venous No growth after 48 hours. Assessment and Plan (1) Esophagitis: Status: Acute (2) Intestinal obstruction: Status: Acute (3) Acute respiratory failure with hypoxia: Status: Acute (4) Pulmonary aspiration: Status: Acute Plan 82yo M with no chronic PMHx presenting with 2d of worsening abd pain + 2 episodes of dark red emesis found to have enteritis, EMILY. EGD complicated with aspiration. # Acute hypoxic respiratory failure 2/2 aspiration pneumonia\pneumonitis requiring intubation and transfer to ICU, extubated 03/13 Change IV Abx of Zosyn to PO Augmentin Incentive spirometry wean O2 down as tolerated as he doesnt have PCP and seems can not have Home O2 # PHysical deconditioning pending PT eval He prefers to go home, but has no PCP and can not get VNA. spoke with family who will try to convince him\to get services at home. # High-grade SBO, resolved reported on CT with transitional point followed by surgery DC NGT Advance diet to regular # Acute hypernatremia resolved follow BMP # acute blood loss anemia 2/2 GIB Hb stable EGD showed significant Esophagitis , nodular GE junction, superficial pyloric ulceration continue PPI # EMILY, prerenal Resolved w IVF follow BMP # VTE ppx: SCDs # dispo: eventual home per his wishes, pending PT eval In my clinical judgment, the patient requires continued inpatient hospitalization for the following reasons Hypoxia requiring O2 supplement. Time Spent With Patient Time: Total time managing care of this patient today ____ minutes. Quality Stroke Does the patient have a stroke diagnosis?: No VTE Prior VTE?: No VTE Risk Level:: Medical - moderate - high VTE Device Contraindication: N/A - Device Ordered VTE Drug Contraindication: Treatment Not Indicated
--- NOTE | 2023-03-18 12:15 | MHC.CM.PN ---
CM met with Patient's Daughter/Ranjana and provided her with a list of area PCPs. CM will follow.
[2023-03-19] VITALS (12 sets, daily range): BP systolic 130–186; BP diastolic 59–96; PULSE 63–114; RESP 18–24; TEMP 36.8–37.6; O2SAT 91–96; BMI 24.0
[2023-03-19] MEDS: Omeprazole 20 MG CAPSULE.DR PO ×2 (06:39→17:54)
--- NOTE | 2023-03-19 09:13 | PC.NURSE ---
Augmentin oral found in patient's room - medication should be refrigerated, reported to Jo at the pharmacy and was advised to discard the bottle, per pharmacy new bottle will be provided or new orders for different medication.
[2023-03-19] MEDS: guaiFENesin LA 600 MG TAB.ER.12H PO ×2 (09:21→22:17)
[2023-03-19] MEDS: 0.9 % Sodium Chloride Flush 3 ML SYRINGE IVFLUSH ×3 (09:22→22:17)
--- NOTE | 2023-03-19 12:57 | HO.PM.IMPN ---
Subjective Subjective Date of Service: 03/19/23 Interval History: rib pain with coughing on 4L o2 via NC eating fine, no abd pain/distension or N/V Review of Systems Review of Systems: Yes all other systems are reviewed and are negative Physical Exam Vital Signs: Vital Signs: Last Vital Signs Temp 98.7 F 03/19/23 11:50 Pulse 105 H 03/19/23 11:50 Resp 20 03/19/23 11:50 BP 134/76 03/19/23 11:50 Pulse Ox 93 03/19/23 11:50 O2 Del Method Nasal Cannula 03/19/23 11:50 O2 Flow Rate 4 03/19/23 11:50 FiO2 70 03/13/23 09:00 Oxygen Flow Rate 4 03/18/23 17:00 BMI result Body Mass Index 24.0 Gen: in no acute distress HEENT: sclera anicteric, moist mucus membranes Neck: supple Lungs: diminished L base Heart: regular rate and rhythm, no murmurs Abd: soft, non-tender, non-distended Ext: no edema Skin: warm/well-perfused Neuro: alert and oriented x3, no focal findings Psych: appropriate affect Objective Data Active Medications Acetaminophen (Acetaminophen 325 Mg Tablet) 650 mg PO Q6H PRN PRN Reason: Pain, Mild (Pain Scale 1-3) Last Admin: 03/14/23 17:22 Dose: 650 mg Documented By: MARY Albuterol/Ipratropium (Albuterol/Iprat 2.5/0.5mg 3 Ml Ampul.Neb) 3 ml INHALE RQ4H PRN PRN Reason: Shortness of Breath/Wheezing Last Admin: 03/16/23 20:41 Dose: 3 ml Documented By: MRAIVEL Albuterol/Ipratropium (Albuterol/Iprat 2.5/0.5mg 3 Ml Ampul.Neb) 3 ml INHALE RQ4H WHILE AWAKE [facility] Last Admin: 03/19/23 11:11 Dose: 3 ml Documented By: MARCIA Amoxicillin/Clavulanate Potassium (Amoxicillin/Potassium Clav 400 Mg/5 Ml 100 Ml Bottle) 875 mg PO BID [facility] Last Admin: 03/19/23 09:42 Dose: 875 mg Documented By: DOBROAlba Guaifenesin (Guaifenesin La 600 Mg Tab.Er.12h) 600 mg PO BID [facility] Last Admin: 03/19/23 09:21 Dose: 600 mg Documented By: SARAI Ketorolac Tromethamine (Ketorolac Tromethamine 15 Mg/Ml Vial) 15 mg IVPUSH Q6H PRN PRN Reason: chest wall apin Omeprazole (Omeprazole 20 Mg Capsule.Dr) 20 mg PO BID@0630,1630 [facility] Last Admin: 03/19/23 06:39 Dose: 20 mg Documented By: ZACHARIAH Ondansetron HCl (Ondansetron Hcl 4 Mg/2 Ml Vial) 4 mg IVPUSH Q8H PRN PRN Reason: Nausea and Vomiting Last Admin: 03/14/23 17:22 Dose: 4 mg Documented By: MARY Sodium Chloride (0.9 % Sodium Chloride Flush 3 Ml Syringe) 3 ml IVFLUSH QSHIFT [facility] Last Admin: 03/19/23 09:22 Dose: 3 ml Documented By: SARAI Labs 03/19/23 09:15 03/19/23 09:15 Labs: Laboratory Results - last 24 hr 03/19/23 03/19/23 09:15 09:15 MCV 92.5 MCH 30.7 MCHC 33.1 RDW 12.6 Plt Count 231 MPV 9.9 Immature Gran % (Auto) 1.4 H Neut % (Auto) 83.2 H Lymph % (Auto) 7.5 L Addison % (Auto) 6.7 Eos % (Auto) 0.9 Baso % (Auto) 0.3 Lymph # (Auto) 0.9 L Addison # (Auto) 0.8 Eos # (Auto) 0.1 Baso # (Auto) 0.0 Abs Immat Gran (auto) 0.16 H Absolute Neuts (auto) 9.5 H Absolute Nucleated RBC 0.000 Nucleated RBC % (auto) 0.0 Anion Gap 14 Estim Creat Clear Calc 60.2 Estimated GFR > 60 Random Glucose 124 H Calcium 9.1 Procalcitonin 2.94 Assessment and Plan (1) Esophagitis: Status: Acute (2) Intestinal obstruction: Status: Acute (3) Acute respiratory failure with hypoxia: Status: Acute (4) Pulmonary aspiration: Status: Acute Plan d#11 82yo M with no chronic PMHx presenting with 2d of worsening abd pain + 2 episodes of dark red emesis found to have enteritis, EMILY. EGD complicated by aspiration prompting intubation + ventilation in the ICU 03/12-03/13 # acute hypoxic respiratory failure 2/2 aspiration pneumonia\pneumonitis - requiring intubation and transfer to ICU, extubated 03/13 - changed IV Abx of Zosyn to PO Augmentin - trend PCT - wean O2 as tolerated # high-grade SBO - resolved, NGT out, tolerating diet, no surgical intervention needed # hyperNa - resolved # hypoK - replete, recheck in AM # acute blood loss anemia due to GIB - EGD with esophagitis/nodular GEJ/pyloric ulceration - continue PPI # EMILY, prerenal - resolved p IV fluids # VTE ppx: SCDs # dispo: TBD In my clinical judgment, the patient requires continued inpatient hospitalization for the following reasons:hypoxia Time Spent With Patient Time: Total time managing care of this patient today _35___ minutes. Quality Stroke Does the patient have a stroke diagnosis?: No VTE Prior VTE?: No VTE Risk Level:: Medical - moderate - high VTE Device Contraindication: N/A - Device Ordered VTE Drug Contraindication: Treatment Not Indicated
[2023-03-19] MEDS: Acetaminophen 325 MG TABLET 650 MG PO (22:24)
[2023-03-20] VITALS (12 sets, daily range): BP systolic 118–160; BP diastolic 58–80; PULSE 80–113; RESP 18–94; TEMP 36.3–37.6; O2SAT 4–97; BMI 24.3
[2023-03-20] MEDS: Acetaminophen 325 MG TABLET 650 MG PO ×3 (05:17→18:39)
[2023-03-20] MEDS: Omeprazole 20 MG CAPSULE.DR PO ×2 (05:21→16:55)
[2023-03-20] MEDS: guaiFENesin LA 600 MG TAB.ER.12H PO ×2 (08:56→21:09)
[2023-03-20] MEDS: 0.9 % Sodium Chloride Flush 3 ML SYRINGE IVFLUSH ×3 (09:00→21:09)
--- NOTE | 2023-03-20 11:17 | HO.PM.IMPN ---
Subjective Subjective Date of Service: 03/20/23 Interval History: still hypoxic requiring 6L O2 via NC coughing no abd pain Review of Systems Review of Systems: Yes all other systems are reviewed and are negative Physical Exam Vital Signs: Vital Signs: Last Vital Signs Temp 97.4 F 03/20/23 07:10 Pulse 88 03/20/23 07:24 Resp 24 H 03/20/23 07:24 BP 160/80 H 03/20/23 07:10 Pulse Ox 97 03/20/23 07:10 O2 Del Method Nasal Cannula 03/20/23 07:10 O2 Flow Rate 6 03/20/23 07:10 FiO2 70 03/13/23 09:00 Oxygen Flow Rate 4 03/19/23 16:45 BMI result Body Mass Index 24.3 Gen: in no acute distress HEENT: sclera anicteric, moist mucus membranes Neck: supple Lungs: diminished L base Heart: regular rate and rhythm, no murmurs Abd: soft, non-tender, non-distended Ext: no edema Skin: warm/well-perfused Neuro: alert and oriented x3, no focal findings Psych: appropriate affect Objective Data Active Medications Acetaminophen (Acetaminophen 325 Mg Tablet) 650 mg PO Q6H PRN PRN Reason: Pain, Mild (Pain Scale 1-3) Last Admin: 03/20/23 05:17 Dose: 650 mg Documented By: GAVINO Albuterol/Ipratropium (Albuterol/Iprat 2.5/0.5mg 3 Ml Ampul.Neb) 3 ml INHALE RQ4H PRN PRN Reason: Shortness of Breath/Wheezing Last Admin: 03/16/23 20:41 Dose: 3 ml Documented By: MARIVEL Albuterol/Ipratropium (Albuterol/Iprat 2.5/0.5mg 3 Ml Ampul.Neb) 3 ml INHALE RQ4H WHILE AWAKE [facility] Last Admin: 03/20/23 07:24 Dose: 3 ml Documented By: MARCIA Amoxicillin/Clavulanate Potassium (Amoxicillin/Potassium Clav 400 Mg/5 Ml 100 Ml Bottle) 875 mg PO BID [facility] Last Admin: 03/20/23 08:56 Dose: 875 mg Documented By: SHARYN Guaifenesin (Guaifenesin La 600 Mg Tab.Er.12h) 600 mg PO BID [facility] Last Admin: 03/20/23 08:56 Dose: 600 mg Documented By: SHARYN Ketorolac Tromethamine (Ketorolac Tromethamine 15 Mg/Ml Vial) 15 mg IVPUSH Q6H PRN PRN Reason: chest wall apin Last Admin: 03/19/23 18:40 Dose: 15 mg Documented By: DOBROAlba Omeprazole (Omeprazole 20 Mg Capsule.Dr) 20 mg PO BID@0630,1630 [facility] Last Admin: 03/20/23 05:21 Dose: 20 mg Documented By: LYNNETRYogesh Ondansetron HCl (Ondansetron Hcl 4 Mg/2 Ml Vial) 4 mg IVPUSH Q8H PRN PRN Reason: Nausea and Vomiting Last Admin: 03/14/23 17:22 Dose: 4 mg Documented By: MARY Sodium Chloride (0.9 % Sodium Chloride Flush 3 Ml Syringe) 3 ml IVFLUSH QSHIFT [facility] Last Admin: 03/20/23 09:00 Dose: 3 ml Documented By: SHARYN Labs 03/19/23 09:15 03/20/23 05:25 Labs: Laboratory Results - last 24 hr 03/20/23 05:25 Anion Gap 11 L Estim Creat Clear Calc 54.3 Estimated GFR > 60 Random Glucose 112 Calcium 9.4 Impressions Chest X-Ray 03/19/23 10:02 IMPRESSION: Again, there is bilateral airspace disease left greater than right. Whereas this shows some interim improvement in the mid left lung, there is increased retrocardiac airspace disease. Recommend continued radiographic follow-up to clearance. Assessment and Plan (1) Esophagitis: Status: Acute (2) Intestinal obstruction: Status: Acute (3) Acute respiratory failure with hypoxia: Status: Acute (4) Pulmonary aspiration: Status: Acute Plan d#12 82yo M with no chronic PMHx presenting with 2d of worsening abd pain + 2 episodes of dark red emesis found to have enteritis, EMILY. EGD complicated by aspiration prompting intubation + ventilation in the ICU 03/12-03/13 # acute hypoxic respiratory failure 2/2 aspiration pneumonia\pneumonitis - requiring intubation and transfer to ICU, extubated 03/13 - changed IV Abx of Zosyn to PO Augmentin, change today to IV Unasyn - trend PCT - wean O2 as tolerated # high-grade SBO - resolved, NGT out, tolerating diet, no surgical intervention needed # hyperNa - resolved # hypoK - repleted # acute blood loss anemia due to GIB - EGD with esophagitis/nodular GEJ/pyloric ulceration - continue PPI # EMILY, prerenal - resolved p IV fluids # VTE ppx: SCDs # dispo: TBD In my clinical judgment, the patient requires continued inpatient hospitalization for the following reasons:hypoxia Time Spent With Patient Time: Total time managing care of this patient today ___40_ minutes. Quality Stroke Does the patient have a stroke diagnosis?: No VTE Prior VTE?: No VTE Risk Level:: Medical - moderate - high VTE Device Contraindication: N/A - Device Ordered VTE Drug Contraindication: Treatment Not Indicated
--- NOTE | 2023-03-20 11:44 | MHC.CLN ---
F/U PO INTAKE 75-100% DIET ADVANCED TO REGULAR-APPROPRIATE PT RECEIVING ENSURE TID TO INCREASE KCALS PROVIDES 1050KCALS, 60G PROTEIN MONITOR PO INTAKE CLOSELY
--- NOTE | 2023-03-20 14:15 | MHC.CM.PN ---
Addendum entered by Mouna Farmer 03/20/23 16:25: This CM spoke with pts daughter/HCP Ranjana to update at [phone]. Addendum entered by Mouna Farmer 03/20/23 16:10: PT is recommending STR, this CM met with pt and he is adamantly against STR and would like to return home when medically cleared. This CM explained that without a PCP, pt would not be eligible for home vna services, pt states he understands this. Original Note: EMR reviewed and per MD rounds, pt is not medically cleared for D/C today due to hypoxia. CM will continue to follow.
[2023-03-21] VITALS (11 sets, daily range): BP systolic 124–145; BP diastolic 60–78; PULSE 77–105; RESP 18–22; TEMP 37–37.9; O2SAT 93–96; BMI 24.7
[2023-03-21] MEDS: Acetaminophen 325 MG TABLET 650 MG PO ×2 (03:33→16:22)
[2023-03-21] MEDS: Omeprazole 20 MG CAPSULE.DR PO ×2 (05:57→16:22)
[2023-03-21 06:36] LABS: Venous Blood Gas Refer to POC result
[2023-03-21 06:41] LABS: Hematocrit 32.2 % (42.0-52.0); Hemoglobin 10.5 g/dl (14.0-18.0); Mean Corpuscular HGB Conc 32.6 g/dl (31.0-36.0); Mean Platelet Volume 10.1 fL (9.4-12.4); Platelet Count 292 X10*3/uL (160-400); Red Blood Count 3.39 X10*6/uL (4.60-5.80); Red Cell Distribution Width 12.9 % (11.0-16.0); White Blood Count 12.5 X10*3/uL (4.8-10.8)
[2023-03-21 07:11] LABS: Anion Gap 11 (12-20); Blood Urea Nitrogen 23 mg/dL (9-16); Calcium 9.3 mg/dL (8.4-10.2); Carbon Dioxide 30 mmol/L (22-29); Chloride 102 mmol/L (96-108); Creatinine Clr Calc Pharmacy 57.4; Estimated Glomerular Filt Rate > 60; Glucose Random 120 mg/dL (60-115); Potassium 3.4 mmol/L (3.3-5.1); Sodium 140 mmol/L (135-145)
[2023-03-21 07:27] LABS: Procalcitonin 1.88 ng/mL
[2023-03-21] MEDS: guaiFENesin LA 600 MG TAB.ER.12H PO ×2 (09:10→20:28)
[2023-03-21] MEDS: 0.9 % Sodium Chloride Flush 3 ML SYRINGE IVFLUSH ×2 (09:10→16:24)
--- NOTE | 2023-03-21 09:37 | HO.PM.IMPN ---
Subjective Subjective Date of Service: 03/21/23 Interval History: O2 requirement down to 4L no cough fever improved Review of Systems Review of Systems: Yes all other systems are reviewed and are negative Physical Exam Vital Signs: Vital Signs: Last Vital Signs Temp 98.7 F 03/21/23 07:46 Pulse 95 03/21/23 07:46 Resp 20 03/21/23 07:46 BP 128/78 03/21/23 07:46 Pulse Ox 94 03/21/23 07:46 O2 Del Method Nasal Cannula 03/21/23 07:46 O2 Flow Rate 4 03/21/23 07:46 FiO2 94 03/20/23 19:09 Oxygen Flow Rate 4 03/20/23 17:00 BMI result Body Mass Index 24.7 Gen: in no acute distress HEENT: sclera anicteric, moist mucus membranes Neck: supple Lungs: diminished L base Heart: regular rate and rhythm, no murmurs Abd: soft, non-tender, non-distended Ext: no edema Skin: warm/well-perfused Neuro: alert and oriented x3, no focal findings Psych: appropriate affect Objective Data Active Medications Acetaminophen (Acetaminophen 325 Mg Tablet) 650 mg PO Q6H PRN PRN Reason: Pain, Mild (Pain Scale 1-3) Last Admin: 03/21/23 03:33 Dose: 650 mg Documented By: DANA Albuterol/Ipratropium (Albuterol/Iprat 2.5/0.5mg 3 Ml Ampul.Neb) 3 ml INHALE RQ4H PRN PRN Reason: Shortness of Breath/Wheezing Last Admin: 03/16/23 20:41 Dose: 3 ml Documented By: MARIVEL Albuterol/Ipratropium (Albuterol/Iprat 2.5/0.5mg 3 Ml Ampul.Neb) 3 ml INHALE RQ4H WHILE AWAKE [facility] Last Admin: 03/21/23 08:06 Dose: Not Given Documented By: GIO Non-Admin Reason: Patient Refused Guaifenesin (Guaifenesin La 600 Mg Tab.Er.12h) 600 mg PO BID [facility] Last Admin: 03/21/23 09:10 Dose: 600 mg Documented By: ZEFERINO Ampicillin Sodium/Sulbactam (Sodium 3 gm/ Sodium Chloride) 100 mls @ 200 mls/hr IV Q6H [facility] Last Admin: 03/21/23 09:10 Dose: 200 mls/hr Documented By: ZEFERINO Ketorolac Tromethamine (Ketorolac Tromethamine 15 Mg/Ml Vial) 15 mg IVPUSH Q6H PRN PRN Reason: chest wall apin Last Admin: 03/21/23 03:35 Dose: 15 mg Documented By: DANA Omeprazole (Omeprazole 20 Mg Capsule.Dr) 20 mg PO BID@0630,1630 [facility] Last Admin: 03/21/23 05:57 Dose: 20 mg Documented By: DANA Ondansetron HCl (Ondansetron Hcl 4 Mg/2 Ml Vial) 4 mg IVPUSH Q8H PRN PRN Reason: Nausea and Vomiting Last Admin: 03/14/23 17:22 Dose: 4 mg Documented By: MARY Sodium Chloride (0.9 % Sodium Chloride Flush 3 Ml Syringe) 3 ml IVFLUSH QSHIFT [facility] Last Admin: 03/21/23 09:10 Dose: 3 ml Documented By: ZEFERINO Labs 03/21/23 06:24 03/21/23 06:24 Labs: Laboratory Results - last 24 hr 03/21/23 03/21/23 03/21/23 06:24 06:24 06:30 MCV 95.0 MCH 31.0 MCHC 32.6 RDW 12.9 Plt Count 292 D MPV 10.1 Absolute Nucleated RBC 0.000 Nucleated RBC % (auto) 0.0 VBG pH 7.52 H VBG pCO2 39 VBG pO2 141 VBG HCO3 32 H VBG O2 Saturation 100.0 VBG Base Excess 8.7 Anion Gap 11 L Estim Creat Clear Calc 57.4 Estimated GFR > 60 Random Glucose 120 H Calcium 9.3 Procalcitonin 1.88 Microbiology Microbiology Results: Microbiology 03/16/23 06:10 Blood Culture - Final Blood - Venous No growth after 5 days. 03/16/23 06:10 Blood Culture - Final Blood - Venous No growth after 5 days. Assessment and Plan (1) Esophagitis: Status: Acute (2) Intestinal obstruction: Status: Acute (3) Acute respiratory failure with hypoxia: Status: Acute (4) Pulmonary aspiration: Status: Acute Plan d#13 82yo M with no chronic PMHx presenting with 2d of worsening abd pain + 2 episodes of dark red emesis found to have enteritis, EMILY. EGD complicated by aspiration prompting intubation + ventilation in the ICU 03/12-03/13 # acute hypoxic respiratory failure 2/2 aspiration pneumonia\pneumonitis - requiring intubation and transfer to ICU, extubated 03/13 - changed IV Abx of Zosyn to PO Augmentin 03/18/23, changed 03/20/23 to IV Unasyn - trend PCT q48h - wean O2 as tolerated - pulmonary toilet # high-grade SBO - resolved, NGT out, tolerating diet, no surgical intervention needed # hyperNa - resolved # hypoK - repleted # acute blood loss anemia due to GIB - EGD with esophagitis/nodular GEJ/pyloric ulceration - continue PPI # EMILY, prerenal - resolved p IV fluids # VTE ppx: SCDs # dispo: TBD In my clinical judgment, the patient requires continued inpatient hospitalization for the following reasons: hypoxia Time Spent With Patient Time: Total time managing care of this patient today _35___ minutes. Quality Stroke Does the patient have a stroke diagnosis?: No VTE Prior VTE?: No VTE Risk Level:: Medical - moderate - high VTE Device Contraindication: N/A - Device Ordered VTE Drug Contraindication: Treatment Not Indicated
[2023-03-21] MEDS: Sennosides/Docusate Sodium TABLET 2 TAB PO ×2 (12:32→20:28)
[2023-03-21] MEDS: polyethylene glycoL 3350 17 GM POWD.PACK PO (12:32)
--- NOTE | 2023-03-21 22:38 | PC.NURSE ---
oral temp 100.2 this afternoon, HR 105, oxygen saturation 94% 4 l via NC . was notified , new orders: blood cx, CTA chest
[2023-03-22] VITALS (10 sets, daily range): BP systolic 132–159; BP diastolic 72–81; PULSE 78–98; RESP 16–20; TEMP 36.7–37; O2SAT 91–97; BMI 24.3
[2023-03-22] MEDS: Omeprazole 20 MG CAPSULE.DR PO ×2 (06:24→15:25)
[2023-03-22] MEDS: polyethylene glycoL 3350 17 GM POWD.PACK PO (09:06)
[2023-03-22] MEDS: guaiFENesin LA 600 MG TAB.ER.12H PO ×2 (09:06→20:05)
[2023-03-22] MEDS: Sennosides/Docusate Sodium TABLET 2 TAB PO ×2 (09:06→20:05)
[2023-03-22] MEDS: 0.9 % Sodium Chloride Flush 3 ML SYRINGE IVFLUSH ×3 (09:06→20:06)
--- NOTE | 2023-03-22 10:20 | MHC.CM.PN ---
Per ROUNDS discussion, Patient needs a Pulmonary consult and may need a Bronch on Saturday. PT recommends STR and CM will continue to follow.
--- NOTE | 2023-03-22 10:27 | HO.PM.IMPN ---
Subjective Subjective Date of Service: 03/22/23 Interval History: still short of breath with activity T 100.2 yesterday afternoon otherwise in good spirits tolerating diets + having flatus and BM Review of Systems Review of Systems: Yes all other systems are reviewed and are negative Physical Exam Vital Signs: Vital Signs: Last Vital Signs Temp 98.5 F 03/22/23 07:28 Pulse 98 03/22/23 10:09 Resp 16 03/22/23 08:44 BP 146/76 H 03/22/23 07:28 Pulse Ox 95 03/22/23 07:28 O2 Del Method Nasal Cannula 03/22/23 07:28 O2 Flow Rate 4 03/22/23 07:28 FiO2 94 03/20/23 19:09 Oxygen Flow Rate 4 03/21/23 17:00 BMI result Body Mass Index 24.3 Gen: in no acute distress HEENT: sclera anicteric, moist mucus membranes Neck: supple Lungs: absent air entry L side Heart: regular rate and rhythm, no murmurs Abd: soft, non-tender, non-distended Ext: no edema Skin: warm/well-perfused Neuro: alert and oriented x3, no focal findings Psych: appropriate affect Objective Data Active Medications Acetaminophen (Acetaminophen 325 Mg Tablet) 650 mg PO Q6H PRN PRN Reason: Pain, Mild (Pain Scale 1-3) Last Admin: 03/21/23 16:22 Dose: 650 mg Documented By: JIMENA Albuterol/Ipratropium (Albuterol/Iprat 2.5/0.5mg 3 Ml Ampul.Neb) 3 ml INHALE RQ4H PRN PRN Reason: Shortness of Breath/Wheezing Last Admin: 03/16/23 20:41 Dose: 3 ml Documented By: MARIVEL Albuterol/Ipratropium (Albuterol/Iprat 2.5/0.5mg 3 Ml Ampul.Neb) 3 ml INHALE RQ4H WHILE AWAKE [facility] Last Admin: 03/22/23 08:44 Dose: 3 ml Documented By: GIO Guaifenesin (Guaifenesin La 600 Mg Tab.Er.12h) 600 mg PO BID [facility] Last Admin: 03/22/23 09:06 Dose: 600 mg Documented By: HAWA Ampicillin Sodium/Sulbactam (Sodium 3 gm/ Sodium Chloride) 100 mls @ 200 mls/hr IV Q6H [facility] Last Infusion: 03/22/23 09:49 Dose: 0 mls/hr Documented By: HAWA Ketorolac Tromethamine (Ketorolac Tromethamine 15 Mg/Ml Vial) 15 mg IVPUSH Q6H PRN PRN Reason: chest wall apin Last Admin: 03/21/23 03:35 Dose: 15 mg Documented By: DANA Omeprazole (Omeprazole 20 Mg Capsule.Dr) 20 mg PO BID@0630,1630 [facility] Last Admin: 03/22/23 06:24 Dose: 20 mg Documented By: NEGRA Ondansetron HCl (Ondansetron Hcl 4 Mg/2 Ml Vial) 4 mg IVPUSH Q8H PRN PRN Reason: Nausea and Vomiting Last Admin: 03/14/23 17:22 Dose: 4 mg Documented By: WILLISMAShaina Polyethylene Glycol (Polyethylene Glycol 3350 17 Gm Powd.Pack) 17 gm PO DAILY [facility] Last Admin: 03/22/23 09:06 Dose: 17 gm Documented By: HAWA Senna/Docusate Sodium (Sennosides/Docusate Sodium Tablet) 2 tab PO BID [facility] Last Admin: 03/22/23 09:06 Dose: 2 tab Documented By: HAWA Sodium Chloride (0.9 % Sodium Chloride Flush 3 Ml Syringe) 3 ml IVFLUSH QSHIFT [facility] Last Admin: 03/22/23 09:06 Dose: 3 ml Documented By: HAWA Labs 03/21/23 06:24 03/21/23 06:24 Labs: Laboratory Results - last 24 hr 03/21/23 17:34 Nasal Screen MRSA (PCR) NEGATIVE Nasal S. aureus Screen NEGATIVE Nasal MRSA/S.aureus Interp SEE NOTE Impressions Chest CTA 03/21/23 20:30 IMPRESSION: No evidence of pulmonary embolism. New volume loss to the left hemithorax and complete white out due to a combination of left upper and left lower lobe atelectasis and left pleural effusion. Follow-up chest x-ray following respiratory treatment recommended. Innumerable small right pulmonary nodules and question small left apical nodule. Small pericardial effusion. Small right pleural effusion. Findings will be communicated by the [place] work flow car trimmer. VTE: negative Microbiology Microbiology Results: Microbiology 03/16/23 06:10 Blood Culture - Final Blood - Venous No growth after 5 days. 03/16/23 06:10 Blood Culture - Final Blood - Venous No growth after 5 days. Assessment and Plan (1) Esophagitis: Status: Acute (2) Intestinal obstruction: Status: Acute (3) Acute respiratory failure with hypoxia: Status: Acute (4) Pulmonary aspiration: Status: Acute Plan d#14 82yo M with no chronic PMHx presenting with 2d of worsening abd pain + 2 episodes of dark red emesis found to have enteritis, EMILY. EGD complicated by aspiration prompting intubation + ventilation in the ICU 03/12-03/13 # acute hypoxic respiratory failure 2/2 aspiration pneumonia\pneumonitis # now with L lung collapse - requiring intubation and transfer to ICU, extubated 03/13 - changed IV Abx of Zosyn to PO Augmentin 03/18/23, changed 03/20/23 to IV Unasyn - trend PCT q48h - wean O2 as tolerated - pulmonary toilet - Pulm consult re: therapeutic bronchoscopy # high-grade SBO - resolved, NGT out, tolerating diet, no surgical intervention needed # hyperNa - resolved # hypoK - repleted # acute blood loss anemia due to GIB - EGD with esophagitis/nodular GEJ/pyloric ulceration - continue PPI # EMILY, prerenal - resolved p IV fluids # VTE ppx: SCDs # dispo: TBD In my clinical judgment, the patient requires continued inpatient hospitalization for the following reasons: hypoxia Time Spent With Patient Time: Total time managing care of this patient today __45__ minutes. Quality Stroke Does the patient have a stroke diagnosis?: No VTE Prior VTE?: No VTE Risk Level:: Medical - moderate - high VTE Device Contraindication: N/A - Device Ordered VTE Drug Contraindication: Treatment Not Indicated
--- NOTE | 2023-03-22 10:28 | PM.PNPUL ---
Subjective Subjective Date of Service: 03/22/23 Principal diagnosis: PULMONARY ASPIRATION / PNEUMONITIS LT LUNG Interval history: PULMONARY F U . 82-year-old gentleman with no significant past medical history admitted on 03/09/2023 for complaints of hematemesis and treated for infectious enteritis.? Evaluated by Gastroenterology and General surgery with concern for possible gastric outlet obstruction who underwent EGD on 03/12/2023 with demonstration of erosive esophagitis and no active bleeding. The course was complicated by vomiting and pulmonary aspiration, resulting in complete white needing of the left lung. Patient was treated with the a intubation and ventilatory support for 1 day, treated in intensive care unit, extubated on 03/13. He continues to require oxygen supplementation, currently requiring 4 L/minute. Being treated with IV Zosyn. Repeat chest x-ray shows some residual densities in the left lower and right lower lobe, The CTA of the chest on 03/21 shows almost complete white needing of the left lung. No evidence of pulmonary embolism. The patient is slowly getting better. He has only minimal cough,. Not much expectoration. Remains afebrile, He is ambulating with the walker, mentally remains very clear. ? Objective Data Labs 03/21/23 06:24 03/21/23 06:24 Labs: Laboratory Results - last 24 hr 03/21/23 17:34 Nasal Screen MRSA (PCR) NEGATIVE Nasal S. aureus Screen NEGATIVE Nasal MRSA/S.aureus Interp SEE NOTE Imaging Chest x-ray: My impression: Hypoinflation of the left lung, residual alveolar densities, especially in left lower lobe. Is a few residual densities in the left lower lobe. CT scan - chest: My impression: There is no evidence of pulmonary embolism There is complete white needing of the left lung, no definite endobronchial obstruction noted. Findings consistent with atelectasis/ pneumonitis of the left lung. Microbiology Microbiology Results: Microbiology 03/16/23 06:10 Blood - Venous Blood Culture - Final No growth after 5 days. 03/16/23 06:10 Blood - Venous Blood Culture - Final No growth after 5 days. 03/09/23 08:12 Blood - Venous Blood Culture - Final No growth after 5 days. 03/09/23 08:07 Blood - Venous Blood Culture - Final No growth after 5 days. Physical Exam Vital Signs: Vital Signs: Last Vital Signs Temp 98.5 F 03/22/23 07:28 Pulse 98 03/22/23 10:09 Resp 16 03/22/23 08:44 BP 146/76 H 03/22/23 07:28 Pulse Ox 95 03/22/23 07:28 O2 Del Method Nasal Cannula 03/22/23 07:28 O2 Flow Rate 4 03/22/23 07:28 FiO2 94 03/20/23 19:09 Oxygen Flow Rate 4 03/21/23 17:00 BMI result Body Mass Index 24.3 Chest: Chest palpation & inspection: normal inspection of the chest, normal palpation of entire chest wall and no tenderness Resp: Other: Percussion note slightly dull over the left lower lobe. Patient does have partial aeration of the left lung, breath sounds decreased over the left lower lobe area. No wheezes or crepitations are heard. Procedures Date of Service Date of Service: 03/22/23 Assessment and Plan Assessment and plan (1) Pulmonary aspiration: Status: Acute (2) Atelectasis of left lung: Status: Acute (3) Pneumonitis: Status: Acute (4) Acute respiratory failure with hypoxia: Status: Acute Plan I think this gentleman did have massive pulmonary aspiration, with residual atelectasis of the Left lung, Clinically he has improved. Still dependent on oxygen. CTA of the chest showing complete whitening of the left long, probably due to atelectasis is and also pneumonitis of the left lung. Clinically he is stable and not in any acute distress. Recc . Continue present treatment. Continue incentive spirometry. Add CPT chest for left lung . T.i.d. Also have the patient use Acapela Valve along with the incentive spirometry. Short course of IV Solu-Medrol 40 mg q.8 hours for 2-3 days. Repeat chest x-ray on 03/25 , if significant atelectasis is is persisting then patient may benefit from bronchoscopy and bronchial lavage . Time Spent With Patient Time: Total time managing care of this patient today ____ minutes. Progress Note: Quality Stroke Does the patient have a stroke diagnosis?: No
[2023-03-22] MEDS: methylPREDNISolone Sod Succ 40 MG/ML VIAL IVPUSH ×2 (11:04→20:02)
[2023-03-23] VITALS (11 sets, daily range): BP systolic 126–148; BP diastolic 58–64; PULSE 58–100; RESP 17–20; TEMP 36.7–37; O2SAT 91–96; BMI 25.0
[2023-03-23] MEDS: methylPREDNISolone Sod Succ 40 MG/ML VIAL IVPUSH ×3 (03:19→18:22)
[2023-03-23] MEDS: Omeprazole 20 MG CAPSULE.DR PO ×2 (06:44→16:54)
[2023-03-23] MEDS: Sennosides/Docusate Sodium TABLET 2 TAB PO ×2 (08:38→21:23)
[2023-03-23] MEDS: polyethylene glycoL 3350 17 GM POWD.PACK PO (08:38)
[2023-03-23] MEDS: guaiFENesin LA 600 MG TAB.ER.12H PO ×2 (08:38→21:23)
[2023-03-23] MEDS: 0.9 % Sodium Chloride Flush 3 ML SYRINGE IVFLUSH ×3 (08:39→21:27)
--- NOTE | 2023-03-23 09:50 | HO.PM.IMPN ---
Subjective Subjective Date of Service: 03/23/23 Interval History: weaned from 4 to 3L O2 coughing up occasional sputum no fever less dyspnea Review of Systems Review of Systems: Yes all other systems are reviewed and are negative Physical Exam Vital Signs: Vital Signs: Last Vital Signs Temp 98.6 F 03/23/23 07:26 Pulse 81 03/23/23 07:55 Resp 18 03/23/23 07:55 BP 148/64 H 03/23/23 07:26 Pulse Ox 94 03/23/23 07:26 O2 Del Method Nasal Cannula 03/23/23 07:26 O2 Flow Rate 3 03/23/23 07:26 FiO2 94 03/20/23 19:09 Oxygen Flow Rate 4 03/22/23 16:39 BMI result Body Mass Index 25.0 Gen: in no acute distress HEENT: sclera anicteric, moist mucus membranes Neck: supple Lungs: markedly diminished air entry L side Heart: regular rate and rhythm, no murmurs Abd: soft, non-tender, non-distended Ext: no edema Skin: warm/well-perfused Neuro: alert and oriented x3, no focal findings Psych: appropriate affect Objective Data Active Medications Acetaminophen (Acetaminophen 325 Mg Tablet) 650 mg PO Q6H PRN PRN Reason: Pain, Mild (Pain Scale 1-3) Last Admin: 03/21/23 16:22 Dose: 650 mg Documented By: JIMENA Albuterol/Ipratropium (Albuterol/Iprat 2.5/0.5mg 3 Ml Ampul.Neb) 3 ml INHALE RQ4H PRN PRN Reason: Shortness of Breath/Wheezing Last Admin: 03/16/23 20:41 Dose: 3 ml Documented By: MARIVEL Albuterol/Ipratropium (Albuterol/Iprat 2.5/0.5mg 3 Ml Ampul.Neb) 3 ml INHALE RQ4H WHILE AWAKE [facility] Last Admin: 03/23/23 07:55 Dose: 3 ml Documented By: HITESH Guaifenesin (Guaifenesin La 600 Mg Tab.Er.12h) 600 mg PO BID [facility] Last Admin: 03/23/23 08:38 Dose: 600 mg Documented By: YOVANA Ampicillin Sodium/Sulbactam (Sodium 3 gm/ Sodium Chloride) 100 mls @ 200 mls/hr IV Q6H [facility] Last Infusion: 03/23/23 09:35 Dose: 0 mls/hr Documented By: YOVANA Ketorolac Tromethamine (Ketorolac Tromethamine 15 Mg/Ml Vial) 15 mg IVPUSH Q6H PRN PRN Reason: chest wall apin Last Admin: 03/21/23 03:35 Dose: 15 mg Documented By: DANA Methylprednisolone Sodium Succinate (Methylprednisolone Sod Succ 40 Mg/Ml Vial) 40 mg IVPUSH Q8H [facility] Last Admin: 03/23/23 03:19 Dose: 40 mg Documented By: GAVINO Omeprazole (Omeprazole 20 Mg Capsule.Dr) 20 mg PO BID@0630,1630 [facility] Last Admin: 03/23/23 06:44 Dose: 20 mg Documented By: GAVINO Ondansetron HCl (Ondansetron Hcl 4 Mg/2 Ml Vial) 4 mg IVPUSH Q8H PRN PRN Reason: Nausea and Vomiting Last Admin: 03/14/23 17:22 Dose: 4 mg Documented By: MARY Polyethylene Glycol (Polyethylene Glycol 3350 17 Gm Powd.Pack) 17 gm PO DAILY [facility] Last Admin: 03/23/23 08:38 Dose: 17 gm Documented By: YOVANA Senna/Docusate Sodium (Sennosides/Docusate Sodium Tablet) 2 tab PO BID [facility] Last Admin: 03/23/23 08:38 Dose: 2 tab Documented By: YOVANA Sodium Chloride (0.9 % Sodium Chloride Flush 3 Ml Syringe) 3 ml IVFLUSH QSHIFT [facility] Last Admin: 03/23/23 08:39 Dose: 3 ml Documented By: YOVANA Labs 03/23/23 06:10 03/23/23 06:10 Labs: Laboratory Results - last 24 hr 03/23/23 03/23/23 06:10 06:10 MCV 93.8 MCH 30.8 MCHC 32.9 RDW 12.9 Plt Count 393 D MPV 10.1 Absolute Nucleated RBC 0.000 Nucleated RBC % (auto) 0.0 Anion Gap 14 Estim Creat Clear Calc 63.9 Estimated GFR > 60 Random Glucose 138 H Calcium 9.7 Procalcitonin 0.75 Microbiology Microbiology Results: Microbiology 03/21/23 18:40 Blood Culture - Preliminary Blood - Venous No growth after 24 hours. 03/21/23 18:40 Blood Culture - Preliminary Blood - Venous No growth after 24 hours. Assessment and Plan (1) Esophagitis: Status: Acute (2) Intestinal obstruction: Status: Acute (3) Acute respiratory failure with hypoxia: Status: Acute (4) Pulmonary aspiration: Status: Acute Plan d#15 82yo M with no chronic PMHx presenting with 2d of worsening abd pain + 2 episodes of dark red emesis found to have enteritis, EMILY. EGD complicated by aspiration prompting intubation + ventilation in the ICU 03/12-03/13 # acute hypoxic respiratory failure 2/2 aspiration pneumonia\pneumonitis # now with L lung collapse - requiring intubation and transfer to ICU, extubated 03/13 - changed IV Abx of Zosyn to PO Augmentin 03/18/23, changed 03/20/23 to IV Unasyn - trend PCT q48h - wean O2 as tolerated - pulmonary toilet - Pulm consulted: continue CPT, give steroids x2-3d, repeat CXR 03/25 and bronch if unimproved # high-grade SBO - resolved, NGT out, tolerating diet, no surgical intervention needed # hyperNa - resolved # hypoK - repleted # acute blood loss anemia due to GIB - EGD with esophagitis/nodular GEJ/pyloric ulceration - continue PPI # EMILY, prerenal - resolved p IV fluids # VTE ppx: SCDs # dispo: TBD In my clinical judgment, the patient requires continued inpatient hospitalization for the following reasons: hypoxia Time Spent With Patient Time: Total time managing care of this patient today __35_ minutes. Quality Stroke Does the patient have a stroke diagnosis?: No VTE Prior VTE?: No VTE Risk Level:: Medical - moderate - high VTE Device Contraindication: N/A - Device Ordered VTE Drug Contraindication: Treatment Not Indicated
[2023-03-23] MEDS: Enoxaparin Sodium 40 MG/0.4 ML SYRINGE SUBCUT (11:16)
[2023-03-24] VITALS (10 sets, daily range): BP systolic 123–161; BP diastolic 60–76; PULSE 66–96; RESP 17–20; TEMP 36.6–37.5; O2SAT 90–99; BMI 25.3
[2023-03-24] MEDS: methylPREDNISolone Sod Succ 40 MG/ML VIAL IVPUSH ×3 (04:01→20:48)
[2023-03-24] MEDS: Sennosides/Docusate Sodium TABLET 2 TAB PO (07:43)
[2023-03-24] MEDS: guaiFENesin LA 600 MG TAB.ER.12H PO ×2 (07:44→20:48)
[2023-03-24] MEDS: polyethylene glycoL 3350 17 GM POWD.PACK PO (07:44)
[2023-03-24] MEDS: Omeprazole 20 MG CAPSULE.DR PO ×2 (07:44→16:24)
[2023-03-24] MEDS: 0.9 % Sodium Chloride Flush 3 ML SYRINGE IVFLUSH ×3 (07:48→20:48)
[2023-03-24] MEDS: Enoxaparin Sodium 40 MG/0.4 ML SYRINGE SUBCUT (09:43)
--- NOTE | 2023-03-24 10:13 | HO.PM.IMPN ---
Subjective Subjective Date of Service: 03/24/23 Interval History: still sob Physical Exam Vital Signs: Vital Signs: Last Vital Signs Temp 98.9 F 03/24/23 07:07 Pulse 81 03/24/23 08:28 Resp 18 03/24/23 08:28 BP 138/74 03/24/23 07:07 Pulse Ox 99 03/24/23 07:07 O2 Del Method Nasal Cannula 03/24/23 07:07 O2 Flow Rate 2 03/24/23 07:07 FiO2 94 03/20/23 19:09 Oxygen Flow Rate 3 03/23/23 16:00 BMI result Body Mass Index 25.3 Chest: Chest palpation & inspection: normal inspection of the chest, normal palpation of entire chest wall and no tenderness Resp: Other: Percussion note slightly dull over the left lower lobe. Patient does have partial aeration of the left lung, breath sounds decreased over the left lower lobe area. No wheezes or crepitations are heard. Objective Data Active Medications Acetaminophen (Acetaminophen 325 Mg Tablet) 650 mg PO Q6H PRN PRN Reason: Pain, Mild (Pain Scale 1-3) Last Admin: 03/21/23 16:22 Dose: 650 mg Documented By: JIMENA Albuterol/Ipratropium (Albuterol/Iprat 2.5/0.5mg 3 Ml Ampul.Neb) 3 ml INHALE RQ4H PRN PRN Reason: Shortness of Breath/Wheezing Last Admin: 03/16/23 20:41 Dose: 3 ml Documented By: MARIVEL Albuterol/Ipratropium (Albuterol/Iprat 2.5/0.5mg 3 Ml Ampul.Neb) 3 ml INHALE RQ4H WHILE AWAKE [facility] Last Admin: 03/24/23 08:28 Dose: 3 ml Documented By: HITESH Enoxaparin Sodium (Enoxaparin Sodium 40 Mg/0.4 Ml Syringe) 40 mg SUBCUT Q24H [facility] Last Admin: 03/24/23 09:43 Dose: 40 mg Documented By: GRETA Guaifenesin (Guaifenesin La 600 Mg Tab.Er.12h) 600 mg PO BID [facility] Last Admin: 03/24/23 07:44 Dose: 600 mg Documented By: GRETA Ampicillin Sodium/Sulbactam (Sodium 3 gm/ Sodium Chloride) 100 mls @ 200 mls/hr IV Q6H [facility] Last Admin: 03/24/23 09:48 Dose: 200 mls/hr Documented By: GRETA Methylprednisolone Sodium Succinate (Methylprednisolone Sod Succ 40 Mg/Ml Vial) 40 mg IVPUSH Q8H [facility] Last Admin: 03/24/23 04:01 Dose: 40 mg Documented By: GAVINO Omeprazole (Omeprazole 20 Mg Capsule.Dr) 20 mg PO BID@0630,1630 [facility] Last Admin: 03/24/23 07:44 Dose: 20 mg Documented By: GRETA Ondansetron HCl (Ondansetron Hcl 4 Mg/2 Ml Vial) 4 mg IVPUSH Q8H PRN PRN Reason: Nausea and Vomiting Last Admin: 03/14/23 17:22 Dose: 4 mg Documented By: MARY Polyethylene Glycol (Polyethylene Glycol 3350 17 Gm Powd.Pack) 17 gm PO DAILY [facility] Last Admin: 03/24/23 07:44 Dose: 17 gm Documented By: GRETA Senna/Docusate Sodium (Sennosides/Docusate Sodium Tablet) 2 tab PO BID [facility] Last Admin: 03/24/23 07:43 Dose: 2 tab Documented By: GRETA Sodium Chloride (0.9 % Sodium Chloride Flush 3 Ml Syringe) 3 ml IVFLUSH QSHIFT [facility] Last Admin: 03/24/23 07:48 Dose: 3 ml Documented By: GRETA Labs 03/23/23 06:10 03/23/23 06:10 Microbiology Microbiology Results: Microbiology 03/21/23 18:40 Blood Culture - Preliminary Blood - Venous No growth after 48 hours. 03/21/23 18:40 Blood Culture - Preliminary Blood - Venous No growth after 48 hours. Assessment and Plan (1) Esophagitis: Status: Acute (2) Intestinal obstruction: Status: Acute (3) Acute respiratory failure with hypoxia: Status: Acute (4) Pulmonary aspiration: Status: Acute Plan d#16 82yo M with no chronic PMHx presenting with 2d of worsening abd pain + 2 episodes of dark red emesis found to have enteritis, EMILY. EGD complicated by aspiration prompting intubation + ventilation in the ICU 03/12-03/13 # acute hypoxic respiratory failure 2/2 aspiration pneumonia\pneumonitis # now with L lung collapse - requiring intubation and transfer to ICU, extubated 03/13 - changed IV Abx of Zosyn to PO Augmentin 03/18/23, changed 03/20/23 to IV Unasyn - trend PCT q48h - wean O2 as tolerated - pulmonary toilet - Pulm consulted: continue CPT, give steroids x2-3d, repeat CXR 03/25 and bronch if unimproved # high-grade SBO - resolved, NGT out, tolerating diet, no surgical intervention needed # hyperNa - resolved # hypoK - repleted # acute blood loss anemia due to GIB - EGD with esophagitis/nodular GEJ/pyloric ulceration - continue PPI # EMILY, prerenal - resolved p IV fluids # VTE ppx: SCDs # dispo: TBD In my clinical judgment, the patient requires continued inpatient hospitalization for the following reasons: hypoxia Time Spent With Patient Time: Total time managing care of this patient today ____ minutes. Quality Stroke Does the patient have a stroke diagnosis?: No VTE Prior VTE?: No VTE Risk Level:: Medical - moderate - high VTE Device Contraindication: N/A - Device Ordered VTE Drug Contraindication: Treatment Not Indicated
[2023-03-25] VITALS (7 sets, daily range): BP systolic 122–156; BP diastolic 62–78; PULSE 59–77; RESP 16–20; TEMP 36.2–37.1; O2SAT 94–98; BMI 25.7
[2023-03-25] MEDS: methylPREDNISolone Sod Succ 40 MG/ML VIAL IVPUSH (03:43)
[2023-03-25] MEDS: Omeprazole 20 MG CAPSULE.DR PO ×2 (05:41→15:19)
[2023-03-25 06:45] LABS: Anion Gap 13 (12-20); Blood Urea Nitrogen 31 mg/dL (9-16); Calcium 9.3 mg/dL (8.4-10.2); Carbon Dioxide 29 mmol/L (22-29); Chloride 103 mmol/L (96-108); Estimated Glomerular Filt Rate > 60; Glucose Fasting 126 mg/dL (60-99); Sodium 141 mmol/L (135-145)
[2023-03-25 08:05] LABS: Procalcitonin 0.33 ng/mL
[2023-03-25] MEDS: guaiFENesin LA 600 MG TAB.ER.12H PO ×2 (08:25→22:12)
[2023-03-25] MEDS: 0.9 % Sodium Chloride Flush 3 ML SYRINGE IVFLUSH ×3 (08:26→22:14)
[2023-03-25] MEDS: Enoxaparin Sodium 40 MG/0.4 ML SYRINGE SUBCUT (08:26)
--- NOTE | 2023-03-25 08:43 | PM.PNPUL ---
Subjective Subjective Date of Service: 03/25/23 Principal diagnosis: PULMONARY ASPIRATION / PNEUMONITIS LT LUNG Interval history: The patient was seen on exam. She has a his breathing is worse. He is on 4 L nasal cannula. On examination he has absent breath sounds on the left hemithorax. Will go ahead and request a chest x-ray but, in view of his persistent symptoms will go ahead and plan for bronchoscopy. Right now the bronchoscopy scheduled for 13:00 tomorrow SaturdayMarch 26. Objective Data Labs 03/25/23 06:01 03/25/23 06:01 Labs: Laboratory Results - last 24 hr 03/25/23 03/25/23 06:01 06:01 WBC 7.8 RBC 3.15 L Hgb 9.6 L Hct 30.2 L MCV 95.9 MCH 30.5 MCHC 31.8 RDW 13.1 Plt Count 490 H MPV 10.4 Absolute Nucleated RBC 0.000 Nucleated RBC % (auto) 0.0 Sodium 141 Potassium 4.0 Chloride 103 Carbon Dioxide 29 Anion Gap 13 BUN 31 H Creatinine 0.89 Estim Creat Clear Calc 69.0 Estimated GFR > 60 Fasting Glucose 126 H Calcium 9.3 Procalcitonin 0.33 Microbiology Microbiology Results: Microbiology 03/21/23 18:40 Blood - Venous Blood Culture - Preliminary No growth after 48 hours. 03/21/23 18:40 Blood - Venous Blood Culture - Preliminary No growth after 48 hours. 03/16/23 06:10 Blood - Venous Blood Culture - Final No growth after 5 days. 03/16/23 06:10 Blood - Venous Blood Culture - Final No growth after 5 days. 03/09/23 08:12 Blood - Venous Blood Culture - Final No growth after 5 days. 03/09/23 08:07 Blood - Venous Blood Culture - Final No growth after 5 days. Review of Systems Constitutional: Denies fever(s) Denies neck pain Cardiovascular: Denies chest pain and Reports dyspnea Respiratory: Reports cough, Reports dyspnea and Denies wheezing Gastrointestinal: Reports no additional gastrointestinal complaints Musculoskeletal: Denies neck pain Hematologic/Lymphatic: Denies lymphadenopathy Allergic/Immunologic: Denies wheezing Physical Exam Vital Signs: Vital Signs: Last Vital Signs Temp 98.4 F 03/25/23 07:31 Pulse 74 03/25/23 07:31 Resp 20 03/25/23 07:31 BP 156/68 H 03/25/23 07:31 Pulse Ox 94 03/25/23 07:31 O2 Del Method Nasal Cannula 03/25/23 07:31 O2 Flow Rate 4 03/25/23 07:31 FiO2 94 03/20/23 19:09 Oxygen Flow Rate 3 03/23/23 16:00 BMI result Body Mass Index 25.7 Const: General: comfortable HEENT: Head: Yes atraumatic Neck: Neck: Yes trachea midline and Yes supple Chest: Chest palpation & inspection: normal inspection of the chest Resp: Effort & Inspection: not tachypneic and no tracheal deviation Auscultation: breath sounds absent on th left Cardio: Rate: regular rate Heart sounds: S1 normal heart sound present and S2 normal heart sound present GI: Palpation (GI): Soft to palpation Extrem: General: No cyanosis Procedures Date of Service Date of Service: 03/25/23 Assessment and Plan Assessment and plan (1) Atelectasis of left lung: Status: Acute (2) Acute respiratory failure with hypoxia: Status: Acute (3) Pulmonary aspiration: Status: Acute Plan Plan for bronchoscopy tomorrow 03/26 at 1pm CPT oxygen supplementation to keep pox>90% Time Spent With Patient Time: Total time managing care of this patient today ____ minutes. Progress Note: Quality Stroke Does the patient have a stroke diagnosis?: No
--- NOTE | 2023-03-25 10:09 | MHC.CM.PN ---
Per ROUNDS discussion, Patient is not yet medically cleared for dc (Bronch tomorrow); PT is recommending STR and CM will continue to follow.
--- NOTE | 2023-03-25 10:49 | HO.PM.IMPN ---
Subjective Subjective Date of Service: 03/25/23 Interval History: persistent dyspnea + hypoxia requiring 4L NC Review of Systems Review of Systems: Yes all other systems are reviewed and are negative Physical Exam Vital Signs: Vital Signs: Last Vital Signs Temp 98.4 F 03/25/23 07:31 Pulse 74 03/25/23 07:31 Resp 20 03/25/23 07:31 BP 156/68 H 03/25/23 07:31 Pulse Ox 94 03/25/23 07:31 O2 Del Method Nasal Cannula 03/25/23 07:31 O2 Flow Rate 4 03/25/23 07:31 FiO2 94 03/20/23 19:09 Oxygen Flow Rate 3 03/23/23 16:00 BMI result Body Mass Index 25.7 Gen: in no acute distress HEENT: sclera anicteric, moist mucus membranes Neck: supple Lungs: markedly diminished air entry L side Heart: regular rate and rhythm, no murmurs Abd: soft, non-tender, non-distended Ext: no edema Skin: warm/well-perfused Neuro: alert and oriented x3, no focal findings Psych: appropriate affect Objective Data Active Medications Acetaminophen (Acetaminophen 325 Mg Tablet) 650 mg PO Q6H PRN PRN Reason: Pain, Mild (Pain Scale 1-3) Last Admin: 03/21/23 16:22 Dose: 650 mg Documented By: JIMENA Albuterol/Ipratropium (Albuterol/Iprat 2.5/0.5mg 3 Ml Ampul.Neb) 3 ml INHALE RQ4H PRN PRN Reason: Shortness of Breath/Wheezing Last Admin: 03/16/23 20:41 Dose: 3 ml Documented By: MARIVEL Albuterol/Ipratropium (Albuterol/Iprat 2.5/0.5mg 3 Ml Ampul.Neb) 3 ml INHALE RQ4H WHILE AWAKE [facility] Last Admin: 03/25/23 08:32 Dose: Not Given Documented By: GIO Non-Admin Reason: Patient Refused Enoxaparin Sodium (Enoxaparin Sodium 40 Mg/0.4 Ml Syringe) 40 mg SUBCUT Q24H [facility] Last Admin: 03/25/23 08:26 Dose: 40 mg Documented By: CLAYTON Guaifenesin (Guaifenesin La 600 Mg Tab.Er.12h) 600 mg PO BID [facility] Last Admin: 03/25/23 08:25 Dose: 600 mg Documented By: CLAYTON Ampicillin Sodium/Sulbactam (Sodium 3 gm/ Sodium Chloride) 100 mls @ 200 mls/hr IV Q6H [facility] Last Infusion: 03/25/23 09:09 Dose: 0 mls/hr Documented By: CLAYTON Omeprazole (Omeprazole 20 Mg Capsule.) 20 mg PO BID@0630,1630 [facility] Last Admin: 03/25/23 05:41 Dose: 20 mg Documented By: MIKE Ondansetron HCl (Ondansetron Hcl 4 Mg/2 Ml Vial) 4 mg IVPUSH Q8H PRN PRN Reason: Nausea and Vomiting Last Admin: 03/14/23 17:22 Dose: 4 mg Documented By: MARY Polyethylene Glycol (Polyethylene Glycol 3350 17 Gm Powd.Pack) 17 gm PO DAILY [facility] Last Admin: 03/25/23 08:26 Dose: Not Given Documented By: CLAYTON Non-Admin Reason: Patient Refused Senna/Docusate Sodium (Sennosides/Docusate Sodium Tablet) 2 tab PO BID [facility] Last Admin: 03/25/23 08:26 Dose: Not Given Documented By: CLAYTON Non-Admin Reason: Patient Refused Sodium Chloride (0.9 % Sodium Chloride Flush 3 Ml Syringe) 3 ml IVFLUSH QSHIFT [facility] Last Admin: 03/25/23 08:26 Dose: 3 ml Documented By: CLAYTON Labs 03/25/23 06:01 03/25/23 06:01 Labs: Laboratory Results - last 24 hr 03/25/23 03/25/23 06:01 06:01 MCV 95.9 MCH 30.5 MCHC 31.8 RDW 13.1 Plt Count 490 H MPV 10.4 Absolute Nucleated RBC 0.000 Nucleated RBC % (auto) 0.0 Anion Gap 13 Estim Creat Clear Calc 69.0 Estimated GFR > 60 Fasting Glucose 126 H Calcium 9.3 Procalcitonin 0.33 Assessment and Plan (1) Esophagitis: Status: Acute (2) Intestinal obstruction: Status: Acute (3) Acute respiratory failure with hypoxia: Status: Acute (4) Pulmonary aspiration: Status: Acute Plan d#17 82yo M with no chronic PMHx presenting with 2d of worsening abd pain + 2 episodes of dark red emesis found to have enteritis, EMILY. EGD complicated by aspiration prompting intubation + ventilation in the ICU 03/12-03/13 # acute hypoxic respiratory failure 2/2 aspiration pneumonia\pneumonitis # now with L lung collapse - requiring intubation and transfer to ICU, extubated 03/13 - changed IV Abx of Zosyn to PO Augmentin 03/18/23, changed 03/20/23 to IV Unasyn - PCT now <0.5, consider d/c ABX after bronchoscopy tomorrow - wean O2 as tolerated - pulmonary toilet - Pulm consulted: d/c steroids, bronchoscopy tomorrow # high-grade SBO - resolved, NGT out, tolerating diet, no surgical intervention needed # hyperNa - resolved # hypoK - repleted # acute blood loss anemia due to GIB - EGD with esophagitis/nodular GEJ/pyloric ulceration - continue PPI # EMILY, prerenal - resolved p IV fluids # VTE ppx: SCDs # dispo: TBD In my clinical judgment, the patient requires continued inpatient hospitalization for the following reasons: hypoxia, bronchoscopy Time Spent With Patient Time: Total time managing care of this patient today ___40_ minutes. Quality Stroke Does the patient have a stroke diagnosis?: No VTE Prior VTE?: No VTE Risk Level:: Medical - moderate - high VTE Device Contraindication: N/A - Device Ordered VTE Drug Contraindication: Treatment Not Indicated
[2023-03-26] VITALS (13 sets, daily range): BP systolic 118–170; BP diastolic 54–82; PULSE 61–79; RESP 18–24; TEMP 36.2–37.2; O2SAT 82–98; BMI 25.7
--- NOTE | 2023-03-26 08:44 | MHC.SHP ---
Pre-Procedural Eval Section A Date of Service: 03/26/23 The patient is an INPATIENT: Yes Section B Chief Complaint: Abdominal pain, gastroenteritis Allergies: Allergies Allergy/AdvReac Type Severity Reaction Status Date / Time No Known Allergies Allergy Verified 03/23/23 00:34 Plan I have reviewed the history and physical and performed a pertinent physical examination on my patient. No changes have occurred unless specified. Time Spent With Patient Time: Total time managing care of this patient today ____ minutes.
--- NOTE | 2023-03-26 09:51 | HO.PM.IMPN ---
Subjective Subjective Date of Service: 03/26/23 Interval History: still having dyspnea with exertion not coughing afebrile Review of Systems Review of Systems: Yes all other systems are reviewed and are negative Physical Exam Vital Signs: Vital Signs: Last Vital Signs Temp 98.9 F 03/26/23 07:05 Pulse 68 03/26/23 07:05 Resp 20 03/26/23 07:05 BP 130/76 03/26/23 07:05 Pulse Ox 96 03/26/23 07:05 O2 Del Method Nasal Cannula 03/26/23 07:05 O2 Flow Rate 2 03/26/23 07:05 FiO2 94 03/20/23 19:09 Oxygen Flow Rate 3 03/25/23 16:00 BMI result Body Mass Index 25.7 Gen: in no acute distress HEENT: sclera anicteric, moist mucus membranes Neck: supple Lungs: markedly diminished air entry L side Heart: regular rate and rhythm, no murmurs Abd: soft, non-tender, non-distended Ext: no edema Skin: warm/well-perfused Neuro: alert and oriented x3, no focal findings Psych: appropriate affect Objective Data Active Medications Acetaminophen (Acetaminophen 325 Mg Tablet) 650 mg PO Q6H PRN PRN Reason: Pain, Mild (Pain Scale 1-3) Last Admin: 03/21/23 16:22 Dose: 650 mg Documented By: JIMENA Albuterol/Ipratropium (Albuterol/Iprat 2.5/0.5mg 3 Ml Ampul.Neb) 3 ml INHALE RQ4H PRN PRN Reason: Shortness of Breath/Wheezing Last Admin: 03/16/23 20:41 Dose: 3 ml Documented By: MARIVEL Enoxaparin Sodium (Enoxaparin Sodium 40 Mg/0.4 Ml Syringe) 40 mg SUBCUT Q24H [facility] Last Admin: 03/25/23 08:26 Dose: 40 mg Documented By: CLAYTON Guaifenesin (Guaifenesin La 600 Mg Tab.Er.12h) 600 mg PO BID [facility] Last Admin: 03/25/23 22:12 Dose: 600 mg Documented By: ZACHARIAH Ampicillin Sodium/Sulbactam (Sodium 3 gm/ Sodium Chloride) 100 mls @ 200 mls/hr IV Q6H [facility] Last Infusion: 03/26/23 03:09 Dose: 0 mls/hr Documented By: ZACHARIAH Omeprazole (Omeprazole 20 Mg Capsule.Dr) 20 mg PO BID@0630,1630 [facility] Last Admin: 03/26/23 06:32 Dose: Not Given Documented By: ZACHARIAH Non-Admin Reason: NPO Ondansetron HCl (Ondansetron Hcl 4 Mg/2 Ml Vial) 4 mg IVPUSH Q8H PRN PRN Reason: Nausea and Vomiting Last Admin: 03/14/23 17:22 Dose: 4 mg Documented By: MARY Polyethylene Glycol (Polyethylene Glycol 3350 17 Gm Powd.Pack) 17 gm PO DAILY [facility] Last Admin: 03/25/23 08:26 Dose: Not Given Documented By: CLAYTON Non-Admin Reason: Patient Refused Senna/Docusate Sodium (Sennosides/Docusate Sodium Tablet) 2 tab PO BID [facility] Last Admin: 03/25/23 22:19 Dose: Not Given Documented By: ZACHARIAH Non-Admin Reason: loose stools Sodium Chloride (0.9 % Sodium Chloride Flush 3 Ml Syringe) 3 ml IVFLUSH QSHIFT [facility] Last Admin: 03/25/23 22:14 Dose: 3 ml Documented By: ZACHARIAH Labs 03/25/23 06:01 03/25/23 06:01 Assessment and Plan (1) Esophagitis: Status: Acute (2) Intestinal obstruction: Status: Acute (3) Acute respiratory failure with hypoxia: Status: Acute (4) Pulmonary aspiration: Status: Acute Plan d#18 82yo M with no chronic PMHx presenting with 2d of worsening abd pain + 2 episodes of dark red emesis found to have enteritis, EMILY. EGD complicated by aspiration prompting intubation + ventilation in the ICU 03/12-03/13 acute hypoxic respiratory failure 2/2 aspiration pneumonia\pneumonitis, now with L lung collapse - requiring intubation and transfer to ICU, extubated 03/13 - changed IV Abx of Zosyn to PO Augmentin 03/18/23, changed 03/20/23 to IV Unasyn - PCT now <0.5, consider d/c ABX after bronchoscopy today - wean O2 as tolerated - pulmonary toilet - Pulm consulted: d/c'ed steroids, will get therapeutic bronchoscopy today # high-grade SBO - resolved, NGT out, tolerating diet, no surgical intervention needed # hyperNa - resolved # hypoK - repleted # acute blood loss anemia due to GIB - EGD with esophagitis/nodular GEJ/pyloric ulceration - continue PPI # EMILY, prerenal - resolved p IV fluids # VTE ppx: SCDs # dispo: home when off O2 In my clinical judgment, the patient requires continued inpatient hospitalization for the following reasons: hypoxia, bronchoscopy Time Spent With Patient Time: Total time managing care of this patient today __35__ minutes. Quality Stroke Does the patient have a stroke diagnosis?: No VTE Prior VTE?: No VTE Risk Level:: Medical - moderate - high VTE Device Contraindication: N/A - Device Ordered VTE Drug Contraindication: Treatment Not Indicated
[2023-03-26] MEDS: 0.9 % Sodium Chloride Flush 3 ML SYRINGE IVFLUSH ×3 (10:15→20:04)
--- NOTE | 2023-03-26 12:40 | HO.ANESPROP2 ---
HPI - Anesthesia Eval Consult details Narrative: for bronchoscopy [facility] Active Problems Active Problems: All Active Problems (Updated 03/22/23 @ 10:39 by Raghu Rosales MD) Pneumonitis (Acute) Atelectasis of left lung (Acute) Esophagitis (Acute) Intestinal obstruction (Acute) Vomiting (Acute) Hematemesis (Acute) Acute respiratory failure with hypoxia (Acute) Pulmonary aspiration (Acute) EMILY (acute kidney injury) (Acute) Enteritis (Acute) Past Medical History Medical History (Updated 03/22/23 @ 10:39 by Raghu Rosales MD) Atelectasis of left lung Pneumonitis Family History Family history of problems with anesthesia: No Surgical History Surgical History (Updated 03/26/23 @ 12:59 by Francia Franco RN) Hx of arthroscopic knee surgery History of Problems with Anesthesia: No Social History Social History Household Members: Spouse Housing: House Do you presently have visiting nurse or other home services: No Alcohol intake: current Alcohol intake frequency: a few times a week Alcohol type: hard liquor Patient Tobacco Use Status: Former Tobacco user Smoked in Last 30 Days: No Use of substances other than those prescribed or required for medical reasons: No Currently Displaying Signs/Symptoms of Drug Intoxication Withdrawal: No Have you been hit, kicked, punched, or otherwise hurt by someone within the past year? If so, by whom?: No Do you feel safe in your current relationship?: Yes Is there a partner from a previous relationship who is making you feel unsafe now?: No Are you made to feel afraid or neglected: No Are you DNR?: No Advance Directives: No Advance Directives Information Provided: No Advance Directives on File: No Do you have thoughts of harming others: None Recently lost weight without trying: No Eating poorly because of decreased appetite: Yes Nutrition Risks: No Nutritional Risk Poor oral hygiene: No service: No Meds Allergies Allergy/AdvReac Type Severity Reaction Status Date / Time No Known Allergies Allergy Verified 03/23/23 00:34 Active Medications: Current Medications Acetaminophen (Acetaminophen 325 Mg Tablet) 650 mg PO Q6H PRN PRN Reason: Pain, Mild (Pain Scale 1-3) Last Admin: 03/21/23 16:22 Dose: 650 mg Albuterol/Ipratropium (Albuterol/Iprat 2.5/0.5mg 3 Ml Ampul.Neb) 3 ml INHALE RQ4H PRN PRN Reason: Shortness of Breath/Wheezing Last Admin: 03/16/23 20:41 Dose: 3 ml Enoxaparin Sodium (Enoxaparin Sodium 40 Mg/0.4 Ml Syringe) 40 mg SUBCUT Q24H [facility] Last Admin: 03/25/23 08:26 Dose: 40 mg Guaifenesin (Guaifenesin La 600 Mg Tab.Er.12h) 600 mg PO BID [facility] Last Admin: 03/26/23 10:15 Dose: Not Given Ampicillin Sodium/Sulbactam (Sodium 3 gm/ Sodium Chloride) 100 mls @ 200 mls/hr IV Q6H [facility] Last Infusion: 03/26/23 10:51 Dose: Infused Omeprazole (Omeprazole 20 Mg Capsule.Dr) 20 mg PO BID@0630,1630 [facility] Last Admin: 03/26/23 06:32 Dose: Not Given Ondansetron HCl (Ondansetron Hcl 4 Mg/2 Ml Vial) 4 mg IVPUSH Q8H PRN PRN Reason: Nausea and Vomiting Last Admin: 03/14/23 17:22 Dose: 4 mg Polyethylene Glycol (Polyethylene Glycol 3350 17 Gm Powd.Pack) 17 gm PO DAILY [facility] Last Admin: 03/26/23 10:15 Dose: Not Given Senna/Docusate Sodium (Sennosides/Docusate Sodium Tablet) 2 tab PO BID [facility] Last Admin: 03/26/23 10:15 Dose: Not Given Sodium Chloride (0.9 % Sodium Chloride Flush 3 Ml Syringe) 3 ml IVFLUSH QSHIFT [facility] Last Admin: 03/26/23 10:15 Dose: 3 ml Home Medications Medication Instructions Recorded Confirmed Last Taken Type omega 4-khf-zys-fish oil 60 mg-90 1 cap PO DAILY 03/09/23 03/09/23 Unknown History mg-500 mg capsule (Fish Oil) Exam Exam Date and Time: March 26, 2023 1240 Height,Weight and Vital Signs: Height 6 ft Weight 86 kg Last Vital Signs Temp 97.7 F 03/26/23 11:05 Pulse 66 03/26/23 11:05 Resp 20 03/26/23 11:05 BP 120/70 07/11/23 11:05 Pulse Ox 94 03/26/23 11:05 O2 Del Method Nasal Cannula 03/26/23 11:05 O2 Flow Rate 2 03/26/23 11:05 FiO2 94 03/20/23 19:09 Oxygen Flow Rate 3 03/25/23 16:00 Pertinent Lab Results Pertinent Lab Results: Laboratory Tests 03/09/23 03/09/23 03/09/23 04:51 04:51 07:20 WBC 11.7 H 12.5 H RBC 5.03 5.05 Hgb 15.7 15.9 Hct 47.0 46.9 MCV 93.4 92.9 MCH 31.2 31.5 MCHC 33.4 33.9 RDW 12.8 12.9 Plt Count 227 246 MPV 10.3 10.5 Immature Gran % (Auto) 0.3 Neut % (Auto) 87.8 H Lymph % (Auto) 6.5 L Burt % (Auto) 5.4 Eos % (Auto) 0.0 Baso % (Auto) 0.0 Lymph # (Auto) 0.8 L Burt # (Auto) 0.6 Eos # (Auto) 0.0 Baso # (Auto) 0.0 Abs Immat Gran (auto) 0.03 Absolute Neuts (auto) 10.3 H Absolute Nucleated RBC 0.000 0.000 Nucleated RBC % (auto) 0.0 0.0 Neutrophils % (Manual) Band Neutrophils % Lymphocytes % (Manual) Monocytes % (Manual) Eosinophils % (Manual) Metamyelocytes % Abs Neuts (Manual) Lymphocytes # (Manual) Monocytes # (Manual) Eosinophils # (Manual) Metamyelocytes # Toxic Vacuolation Platelet Estimate Large Platelets Plt Morphology Comment RBC Morphology Smear Tech's Comments Smear Path Review PT INR APTT VBG pH VBG pCO2 VBG pO2 VBG HCO3 VBG O2 Saturation VBG Base Excess Sodium 138 Potassium 4.1 D Chloride 101 Carbon Dioxide 23 Anion Gap 18 BUN 31 H Creatinine 1.57 H Estim Creat Clear Calc 39.1 Estimated GFR 42 Random Glucose 207 H Fasting Glucose Lactic Acid Lactic Acid F/U @ 2Hr Lactic Acid F/U @ 4Hr Calcium 10.1 Phosphorus Magnesium 2.0 Total Bilirubin 1.3 H Direct Bilirubin 0.4 AST 19 ALT 16 Alkaline Phosphatase 59 Lactate Dehydrogenase C-Reactive Protein Total Protein 6.5 Albumin 3.9 Lipase 42 Procalcitonin Urine Color Urine Appearance Urine pH Ur Specific [place] Urine Protein Urine Glucose (UA) Urine Ketones Urine Blood Urine Nitrite Ur Leukocyte Esterase Nasal Screen MRSA (PCR) Nasal S. aureus Screen Nasal MRSA/S.aureus Interp Stool Occult Blood Blood Type Antibody Screen 03/09/23 03/09/23 03/09/23 07:20 07:20 07:20 WBC RBC Hgb Hct MCV MCH MCHC RDW Plt Count MPV Immature Gran % (Auto) Neut % (Auto) Lymph % (Auto) Burt % (Auto) Eos % (Auto) Baso % (Auto) Lymph # (Auto) Burt # (Auto) Eos # (Auto) Baso # (Auto) Abs Immat Gran (auto) Absolute Neuts (auto) Absolute Nucleated RBC Nucleated RBC % (auto) Neutrophils % (Manual) Band Neutrophils % Lymphocytes % (Manual) Monocytes % (Manual) Eosinophils % (Manual) Metamyelocytes % Abs Neuts (Manual) Lymphocytes # (Manual) Monocytes # (Manual) Eosinophils # (Manual) Metamyelocytes # Toxic Vacuolation Platelet Estimate Large Platelets Plt Morphology Comment RBC Morphology Smear Tech's Comments Smear Path Review PT 10.8 INR 0.9 APTT 23.7 L VBG pH VBG pCO2 VBG pO2 VBG HCO3 VBG O2 Saturation VBG Base Excess Sodium Potassium Chloride Carbon Dioxide Anion Gap BUN Creatinine Estim Creat Clear Calc Estimated GFR Random Glucose Fasting Glucose Lactic Acid 1.8 Lactic Acid F/U @ 2Hr Lactic Acid F/U @ 4Hr Calcium Phosphorus Magnesium Total Bilirubin Direct Bilirubin AST ALT Alkaline Phosphatase Lactate Dehydrogenase C-Reactive Protein Total Protein Albumin Lipase Procalcitonin Urine Color Urine Appearance Urine pH Ur Specific [place] Urine Protein Urine Glucose (UA) Urine Ketones Urine Blood Urine Nitrite Ur Leukocyte Esterase Nasal Screen MRSA (PCR) Nasal S. aureus Screen Nasal MRSA/S.aureus Interp Stool Occult Blood Blood Type A Negative Antibody Screen NEGATIVE 03/09/23 03/09/23 03/09/23 07:20 08:31 11:55 WBC RBC Hgb Hct MCV MCH MCHC RDW Plt Count MPV Immature Gran % (Auto) Neut % (Auto) Lymph % (Auto) Burt % (Auto) Eos % (Auto) Baso % (Auto) Lymph # (Auto) Burt # (Auto) Eos # (Auto) Baso # (Auto) Abs Immat Gran (auto) Absolute Neuts (auto) Absolute Nucleated RBC Nucleated RBC % (auto) Neutrophils % (Manual) Band Neutrophils % Lymphocytes % (Manual) Monocytes % (Manual) Eosinophils % (Manual) Metamyelocytes % Abs Neuts (Manual) Lymphocytes # (Manual) Monocytes # (Manual) Eosinophils # (Manual) Metamyelocytes # Toxic Vacuolation Platelet Estimate Large Platelets Plt Morphology Comment RBC Morphology Smear Tech's Comments Smear Path Review PT INR APTT VBG pH VBG pCO2 VBG pO2 VBG HCO3 VBG O2 Saturation VBG Base Excess Sodium 138 Potassium 4.7 Chloride 106 Carbon Dioxide 23 Anion Gap 14 BUN 36 H Creatinine 1.49 H Estim Creat Clear Calc 41.2 Estimated GFR 45 Random Glucose 126 H Fasting Glucose Lactic Acid Lactic Acid F/U @ 2Hr Lactic Acid F/U @ 4Hr Calcium 9.9 Phosphorus Magnesium Total Bilirubin Direct Bilirubin AST ALT Alkaline Phosphatase Lactate Dehydrogenase 242 C-Reactive Protein Total Protein Albumin Lipase Procalcitonin Urine Color Urine Appearance Urine pH Ur Specific [place] Urine Protein Urine Glucose (UA) Urine Ketones Urine Blood Urine Nitrite Ur Leukocyte Esterase Nasal Screen MRSA (PCR) Nasal S. aureus Screen Nasal MRSA/S.aureus Interp Stool Occult Blood NEGATIVE NEGATIVE Blood Type Antibody Screen 03/10/23 03/10/23 03/10/23 05:56 05:56 09:00 WBC 10.1 RBC 4.12 L Hgb 13.0 L Hct 39.3 L MCV 95.4 MCH 31.6 MCHC 33.1 RDW 12.8 Plt Count 193 MPV 10.7 Immature Gran % (Auto) Neut % (Auto) Lymph % (Auto) Burt % (Auto) Eos % (Auto) Baso % (Auto) Lymph # (Auto) Burt # (Auto) Eos # (Auto) Baso # (Auto) Abs Immat Gran (auto) Absolute Neuts (auto) Absolute Nucleated RBC 0.000 Nucleated RBC % (auto) 0.0 Neutrophils % (Manual) Band Neutrophils % Lymphocytes % (Manual) Monocytes % (Manual) Eosinophils % (Manual) Metamyelocytes % Abs Neuts (Manual) Lymphocytes # (Manual) Monocytes # (Manual) Eosinophils # (Manual) Metamyelocytes # Toxic Vacuolation Platelet Estimate Large Platelets Plt Morphology Comment RBC Morphology Smear Tech's Comments Smear Path Review PT INR APTT VBG pH VBG pCO2 VBG pO2 VBG HCO3 VBG O2 Saturation VBG Base Excess Sodium 138 Potassium 4.9 Chloride 107 Carbon Dioxide 25 Anion Gap 11 L BUN 36 H Creatinine 1.35 Estim Creat Clear Calc 45.5 Estimated GFR 50 Random Glucose 113 Fasting Glucose Lactic Acid Lactic Acid F/U @ 2Hr Lactic Acid F/U @ 4Hr Calcium 9.5 Phosphorus Magnesium Total Bilirubin Direct Bilirubin AST ALT Alkaline Phosphatase Lactate Dehydrogenase C-Reactive Protein Total Protein Albumin Lipase Procalcitonin Urine Color Yellow Urine Appearance Clear Urine pH 5.0 Ur Specific [place] >= 1.030 H Urine Protein Negative Urine Glucose (UA) Negative Urine Ketones Trace Urine Blood Negative Urine Nitrite Negative Ur Leukocyte Esterase Negative Nasal Screen MRSA (PCR) Nasal S. aureus Screen Nasal MRSA/S.aureus Interp Stool Occult Blood Blood Type Antibody Screen 03/11/23 03/11/23 03/12/23 05:40 05:40 05:37 WBC 7.2 5.4 RBC 3.68 L 3.41 L Hgb 11.5 L 10.7 L Hct 35.5 L 32.7 L MCV 96.5 95.9 MCH 31.3 31.4 MCHC 32.4 32.7 RDW 12.8 12.7 Plt Count 176 174 MPV 10.9 10.7 Immature Gran % (Auto) 0.4 Neut % (Auto) 79.0 H Lymph % (Auto) 9.4 L Burt % (Auto) 11.0 Eos % (Auto) 0.1 Baso % (Auto) 0.1 Lymph # (Auto) 0.7 L Burt # (Auto) 0.8 Eos # (Auto) 0.0 Baso # (Auto) 0.0 Abs Immat Gran (auto) 0.03 Absolute Neuts (auto) 5.7 Absolute Nucleated RBC 0.000 0.000 Nucleated RBC % (auto) 0.0 0.0 Neutrophils % (Manual) Band Neutrophils % Lymphocytes % (Manual) Monocytes % (Manual) Eosinophils % (Manual) Metamyelocytes % Abs Neuts (Manual) Lymphocytes # (Manual) Monocytes # (Manual) Eosinophils # (Manual) Metamyelocytes # Toxic Vacuolation Platelet Estimate Large Platelets Plt Morphology Comment RBC Morphology Smear Tech's Comments Smear Path Review PT INR APTT VBG pH VBG pCO2 VBG pO2 VBG HCO3 VBG O2 Saturation VBG Base Excess Sodium 141 Potassium 4.4 Chloride 110 H Carbon Dioxide 26 Anion Gap 9 L BUN 30 H Creatinine 1.23 Estim Creat Clear Calc 49.9 Estimated GFR 56 Random Glucose Fasting Glucose 97 Lactic Acid Lactic Acid F/U @ 2Hr Lactic Acid F/U @ 4Hr Calcium 9.2 Phosphorus Magnesium Total Bilirubin 1.0 Direct Bilirubin AST 19 ALT 12 Alkaline Phosphatase 45 Lactate Dehydrogenase C-Reactive Protein 2.19 H Total Protein 5.3 L Albumin 3.2 L Lipase Procalcitonin Urine Color Urine Appearance Urine pH Ur Specific [place] Urine Protein Urine Glucose (UA) Urine Ketones Urine Blood Urine Nitrite Ur Leukocyte Esterase Nasal Screen MRSA (PCR) Nasal S. aureus Screen Nasal MRSA/S.aureus Interp Stool Occult Blood Blood Type Antibody Screen 03/12/23 03/12/23 03/12/23 05:37 15:05 16:03 WBC 1.2 L RBC 4.17 L D Hgb 13.0 L D Hct 41.5 L D MCV 99.5 H MCH 31.2 MCHC 31.3 RDW 12.7 Plt Count 190 MPV 10.2 Immature Gran % (Auto) 0.0 Neut % (Auto) 72.9 Lymph % (Auto) 23.7 Burt % (Auto) 3.4 Eos % (Auto) 0.0 Baso % (Auto) 0.0 Lymph # (Auto) 0.3 L Burt # (Auto) 0.0 L Eos # (Auto) 0.0 Baso # (Auto) 0.0 Abs Immat Gran (auto) 0.00 Absolute Neuts (auto) 0.9 L Absolute Nucleated RBC 0.000 Nucleated RBC % (auto) 0.0 Neutrophils % (Manual) Band Neutrophils % Lymphocytes % (Manual) Monocytes % (Manual) Eosinophils % (Manual) Metamyelocytes % Abs Neuts (Manual) Lymphocytes # (Manual) Monocytes # (Manual) Eosinophils # (Manual) Metamyelocytes # Toxic Vacuolation Platelet Estimate Large Platelets Plt Morphology Comment RBC Morphology Smear Tech's Comments VERIFIED Smear Path Review SEE NOTE PT INR APTT VBG pH 7.26 L VBG pCO2 52 VBG pO2 61 VBG HCO3 24 VBG O2 Saturation 85.0 VBG Base Excess -3.2 Sodium 141 Potassium 4.0 Chloride 110 H Carbon Dioxide 24 Anion Gap 11 L BUN 22 H Creatinine 1.09 Estim Creat Clear Calc 56.3 Estimated GFR > 60 Random Glucose 105 Fasting Glucose Lactic Acid Lactic Acid F/U @ 2Hr Lactic Acid F/U @ 4Hr Calcium 9.1 Phosphorus Magnesium Total Bilirubin Direct Bilirubin AST ALT Alkaline Phosphatase Lactate Dehydrogenase C-Reactive Protein Total Protein Albumin Lipase Procalcitonin Urine Color Urine Appearance Urine pH Ur Specific [place] Urine Protein Urine Glucose (UA) Urine Ketones Urine Blood Urine Nitrite Ur Leukocyte Esterase Nasal Screen MRSA (PCR) Nasal S. aureus Screen Nasal MRSA/S.aureus Interp Stool Occult Blood Blood Type Antibody Screen 03/12/23 03/12/23 03/12/23 18:45 18:45 20:55 WBC RBC Hgb Hct MCV MCH MCHC RDW Plt Count MPV Immature Gran % (Auto) Neut % (Auto) Lymph % (Auto) Burt % (Auto) Eos % (Auto) Baso % (Auto) Lymph # (Auto) Burt # (Auto) Eos # (Auto) Baso # (Auto) Abs Immat Gran (auto) Absolute Neuts (auto) Absolute Nucleated RBC Nucleated RBC % (auto) Neutrophils % (Manual) Band Neutrophils % Lymphocytes % (Manual) Monocytes % (Manual) Eosinophils % (Manual) Metamyelocytes % Abs Neuts (Manual) Lymphocytes # (Manual) Monocytes # (Manual) Eosinophils # (Manual) Metamyelocytes # Toxic Vacuolation Platelet Estimate Large Platelets Plt Morphology Comment RBC Morphology Smear Tech's Comments Smear Path Review PT INR APTT VBG pH VBG pCO2 VBG pO2 VBG HCO3 VBG O2 Saturation VBG Base Excess Sodium 142 Potassium 3.5 Chloride 111 H Carbon Dioxide 21 L Anion Gap 14 BUN 24 H Creatinine 1.17 Estim Creat Clear Calc 52.5 Estimated GFR 60 Random Glucose 102 Fasting Glucose Lactic Acid 2.1 H* Lactic Acid F/U @ 2Hr 2.1 H* Lactic Acid F/U @ 4Hr Calcium 8.9 Phosphorus Magnesium Total Bilirubin Direct Bilirubin AST ALT Alkaline Phosphatase Lactate Dehydrogenase C-Reactive Protein Total Protein Albumin Lipase Procalcitonin Urine Color Urine Appearance Urine pH Ur Specific [place] Urine Protein Urine Glucose (UA) Urine Ketones Urine Blood Urine Nitrite Ur Leukocyte Esterase Nasal Screen MRSA (PCR) Nasal S. aureus Screen Nasal MRSA/S.aureus Interp Stool Occult Blood Blood Type Antibody Screen 03/12/23 03/13/23 03/13/23 23:38 04:53 04:55 WBC 3.3 L RBC 3.26 L D Hgb 10.2 L D Hct 31.2 L D MCV 95.7 MCH 31.3 MCHC 32.7 RDW 12.7 Plt Count 137 L D MPV 10.8 Immature Gran % (Auto) Cancelled Neut % (Auto) Cancelled Lymph % (Auto) Cancelled Burt % (Auto) Cancelled Eos % (Auto) Cancelled Baso % (Auto) Cancelled Lymph # (Auto) Cancelled Burt # (Auto) Cancelled Eos # (Auto) Cancelled Baso # (Auto) Cancelled Abs Immat Gran (auto) Cancelled Absolute Neuts (auto) Cancelled Absolute Nucleated RBC 0.000 Nucleated RBC % (auto) 0.0 Neutrophils % (Manual) 51 Band Neutrophils % 23 H Lymphocytes % (Manual) 20 Monocytes % (Manual) 4 Eosinophils % (Manual) 2 Metamyelocytes % Abs Neuts (Manual) 2.4 Lymphocytes # (Manual) 0.7 L Monocytes # (Manual) 0.1 Eosinophils # (Manual) 0.1 Metamyelocytes # Toxic Vacuolation Platelet Estimate SLIGHTLY DECREASED Large Platelets PRESENT Plt Morphology Comment NOTED RBC Morphology NORMAL Smear Tech's Comments Smear Path Review PT INR APTT VBG pH 7.40 VBG pCO2 39 VBG pO2 82 VBG HCO3 24 VBG O2 Saturation 97.0 VBG Base Excess 0.2 Sodium Potassium Chloride Carbon Dioxide Anion Gap BUN Creatinine Estim Creat Clear Calc Estimated GFR Random Glucose Fasting Glucose Lactic Acid Lactic Acid F/U @ 2Hr Lactic Acid F/U @ 4Hr 2.0 Calcium Phosphorus Magnesium Total Bilirubin Direct Bilirubin AST ALT Alkaline Phosphatase Lactate Dehydrogenase C-Reactive Protein Total Protein Albumin Lipase Procalcitonin Urine Color Urine Appearance Urine pH Ur Specific [place] Urine Protein Urine Glucose (UA) Urine Ketones Urine Blood Urine Nitrite Ur Leukocyte Esterase Nasal Screen MRSA (PCR) Nasal S. aureus Screen Nasal MRSA/S.aureus Interp Stool Occult Blood Blood Type Antibody Screen 03/13/23 03/14/23 03/14/23 04:55 04:54 04:54 WBC 9.8 RBC 3.54 L Hgb 11.1 L Hct 34.2 L MCV 96.6 MCH 31.4 MCHC 32.5 RDW 12.9 Plt Count 154 L MPV 10.4 Immature Gran % (Auto) Cancelled Neut % (Auto) Cancelled Lymph % (Auto) Cancelled Burt % (Auto) Cancelled Eos % (Auto) Cancelled Baso % (Auto) Cancelled Lymph # (Auto) Cancelled Burt # (Auto) Cancelled Eos # (Auto) Cancelled Baso # (Auto) Cancelled Abs Immat Gran (auto) Cancelled Absolute Neuts (auto) Cancelled Absolute Nucleated RBC 0.000 Nucleated RBC % (auto) 0.0 Neutrophils % (Manual) 75 H Band Neutrophils % 15 H Lymphocytes % (Manual) 4 L Monocytes % (Manual) 2 Eosinophils % (Manual) 3 Metamyelocytes % 1 Abs Neuts (Manual) 8.8 H Lymphocytes # (Manual) 0.4 L Monocytes # (Manual) 0.2 Eosinophils # (Manual) 0.3 Metamyelocytes # 0.1 Toxic Vacuolation PRESENT Platelet Estimate NORMAL Large Platelets Plt Morphology Comment NORMAL RBC Morphology NORMAL Smear Tech's Comments Smear Path Review PT INR APTT VBG pH VBG pCO2 VBG pO2 VBG HCO3 VBG O2 Saturation VBG Base Excess Sodium 143 144 Potassium 4.1 4.0 Chloride 111 H 111 H Carbon Dioxide 22 21 L Anion Gap 14 16 BUN 23 H 26 H Creatinine 1.26 1.19 Estim Creat Clear Calc 48.7 51.6 Estimated GFR 55 58 Random Glucose 103 72 Fasting Glucose Lactic Acid Lactic Acid F/U @ 2Hr Lactic Acid F/U @ 4Hr Calcium 9.3 10.1 D Phosphorus 3.6 2.9 Magnesium 1.6 2.1 Total Bilirubin 1.8 H 1.6 H Direct Bilirubin AST 30 30 ALT 25 21 Alkaline Phosphatase 40 41 Lactate Dehydrogenase C-Reactive Protein Total Protein 4.8 L 5.7 L Albumin 3.1 L 3.6 Lipase Procalcitonin Urine Color Urine Appearance Urine pH Ur Specific [place] Urine Protein Urine Glucose (UA) Urine Ketones Urine Blood Urine Nitrite Ur Leukocyte Esterase Nasal Screen MRSA (PCR) Nasal S. aureus Screen Nasal MRSA/S.aureus Interp Stool Occult Blood Blood Type Antibody Screen 03/14/23 03/15/23 03/15/23 05:02 05:56 05:56 WBC 11.7 H RBC 3.60 L Hgb 11.2 L Hct 34.6 L MCV 96.1 MCH 31.1 MCHC 32.4 RDW 12.9 Plt Count 187 MPV 10.0 Immature Gran % (Auto) Cancelled Neut % (Auto) Cancelled Lymph % (Auto) Cancelled Burt % (Auto) Cancelled Eos % (Auto) Cancelled Baso % (Auto) Cancelled Lymph # (Auto) Cancelled Burt # (Auto) Cancelled Eos # (Auto) Cancelled Baso # (Auto) Cancelled Abs Immat Gran (auto) Cancelled Absolute Neuts (auto) Cancelled Absolute Nucleated RBC 0.000 Nucleated RBC % (auto) 0.0 Neutrophils % (Manual) 87 H Band Neutrophils % 2 L Lymphocytes % (Manual) 5 L Monocytes % (Manual) 2 Eosinophils % (Manual) 3 Metamyelocytes % 1 Abs Neuts (Manual) 10.4 H Lymphocytes # (Manual) 0.6 L Monocytes # (Manual) 0.2 Eosinophils # (Manual) 0.4 Metamyelocytes # 0.1 Toxic Vacuolation Platelet Estimate NORMAL Large Platelets Plt Morphology Comment NORMAL RBC Morphology NORMAL Smear Tech's Comments Smear Path Review PT INR APTT VBG pH 7.44 H VBG pCO2 29 VBG pO2 83 VBG HCO3 20 L VBG O2 Saturation 98.0 VBG Base Excess -2.8 Sodium 145 Potassium 4.0 Chloride 111 H Carbon Dioxide 23 Anion Gap 15 BUN 28 H Creatinine 0.87 Estim Creat Clear Calc 70.6 Estimated GFR > 60 Random Glucose 87 Fasting Glucose Lactic Acid Lactic Acid F/U @ 2Hr Lactic Acid F/U @ 4Hr Calcium 10.0 Phosphorus 2.1 L Magnesium 2.1 Total Bilirubin Direct Bilirubin AST ALT Alkaline Phosphatase Lactate Dehydrogenase C-Reactive Protein Total Protein Albumin 3.3 L Lipase Procalcitonin Urine Color Urine Appearance Urine pH Ur Specific [place] Urine Protein Urine Glucose (UA) Urine Ketones Urine Blood Urine Nitrite Ur Leukocyte Esterase Nasal Screen MRSA (PCR) Nasal S. aureus Screen Nasal MRSA/S.aureus Interp Stool Occult Blood Blood Type Antibody Screen 03/15/23 03/16/23 03/16/23 06:48 06:10 06:11 WBC 12.9 H RBC 3.52 L Hgb 11.0 L Hct 33.9 L MCV 96.3 MCH 31.3 MCHC 32.4 RDW 13.0 Plt Count 215 MPV 10.1 Immature Gran % (Auto) Neut % (Auto) Lymph % (Auto) Burt % (Auto) Eos % (Auto) Baso % (Auto) Lymph # (Auto) Burt # (Auto) Eos # (Auto) Baso # (Auto) Abs Immat Gran (auto) Absolute Neuts (auto) Absolute Nucleated RBC 0.000 Nucleated RBC % (auto) 0.0 Neutrophils % (Manual) Band Neutrophils % Lymphocytes % (Manual) Monocytes % (Manual) Eosinophils % (Manual) Metamyelocytes % Abs Neuts (Manual) Lymphocytes # (Manual) Monocytes # (Manual) Eosinophils # (Manual) Metamyelocytes # Toxic Vacuolation Platelet Estimate Large Platelets Plt Morphology Comment RBC Morphology Smear Tech's Comments Smear Path Review PT INR APTT VBG pH 7.38 VBG pCO2 48 VBG pO2 80 VBG HCO3 29 H VBG O2 Saturation 97.0 VBG Base Excess 3.6 Sodium 148 H Potassium 3.6 Chloride 110 H Carbon Dioxide 26 Anion Gap 16 BUN 27 H Creatinine 0.89 Estim Creat Clear Calc 69.0 Estimated GFR > 60 Random Glucose 113 Fasting Glucose Lactic Acid Lactic Acid F/U @ 2Hr Lactic Acid F/U @ 4Hr Calcium 9.8 Phosphorus Magnesium Total Bilirubin Direct Bilirubin AST ALT Alkaline Phosphatase Lactate Dehydrogenase C-Reactive Protein Total Protein Albumin Lipase Procalcitonin Urine Color Urine Appearance Urine pH Ur Specific [place] Urine Protein Urine Glucose (UA) Urine Ketones Urine Blood Urine Nitrite Ur Leukocyte Esterase Nasal Screen MRSA (PCR) Nasal S. aureus Screen Nasal MRSA/S.aureus Interp Stool Occult Blood Blood Type Antibody Screen 03/16/23 03/17/23 03/19/23 12:41 15:04 09:15 WBC 11.4 H RBC 3.62 L Hgb 11.1 L Hct 33.5 L MCV 92.5 MCH 30.7 MCHC 33.1 RDW 12.6 Plt Count 231 MPV 9.9 Immature Gran % (Auto) 1.4 H Neut % (Auto) 83.2 H Lymph % (Auto) 7.5 L Burt % (Auto) 6.7 Eos % (Auto) 0.9 Baso % (Auto) 0.3 Lymph # (Auto) 0.9 L [place] # (Auto) 0.8 Eos # (Auto) 0.1 Baso # (Auto) 0.0 Abs Immat Gran (auto) 0.16 H Absolute Neuts (auto) 9.5 H Absolute Nucleated RBC 0.000 Nucleated RBC % (auto) 0.0 Neutrophils % (Manual) Band Neutrophils % Lymphocytes % (Manual) Monocytes % (Manual) Eosinophils % (Manual) Metamyelocytes % Abs Neuts (Manual) Lymphocytes # (Manual) Monocytes # (Manual) Eosinophils # (Manual) Metamyelocytes # Toxic Vacuolation Platelet Estimate Large Platelets Plt Morphology Comment RBC Morphology Smear Tech's Comments Smear Path Review PT INR APTT VBG pH VBG pCO2 VBG pO2 VBG HCO3 VBG O2 Saturation VBG Base Excess Sodium 145 141 Potassium 3.4 3.5 Chloride 108 106 Carbon Dioxide 26 24 Anion Gap 14 15 BUN 25 H 19 H Creatinine 0.87 0.96 Estim Creat Clear Calc 70.6 63.9 Estimated GFR > 60 > 60 Random Glucose 138 H 140 H Fasting Glucose Lactic Acid Lactic Acid F/U @ 2Hr Lactic Acid F/U @ 4Hr Calcium 9.3 9.3 Phosphorus Magnesium Total Bilirubin Direct Bilirubin AST ALT Alkaline Phosphatase Lactate Dehydrogenase C-Reactive Protein Total Protein Albumin Lipase Procalcitonin Urine Color Urine Appearance Urine pH Ur Specific [place] Urine Protein Urine Glucose (UA) Urine Ketones Urine Blood Urine Nitrite Ur Leukocyte Esterase Nasal Screen MRSA (PCR) Nasal S. aureus Screen Nasal MRSA/S.aureus Interp Stool Occult Blood Blood Type Antibody Screen 03/19/23 03/20/23 03/21/23 09:15 05:25 06:24 WBC 12.5 H RBC 3.39 L Hgb 10.5 L Hct 32.2 L MCV 95.0 MCH 31.0 MCHC 32.6 RDW 12.9 Plt Count 292 D MPV 10.1 Immature Gran % (Auto) Neut % (Auto) Lymph % (Auto) Burt % (Auto) Eos % (Auto) Baso % (Auto) Lymph # (Auto) Burt # (Auto) Eos # (Auto) Baso # (Auto) Abs Immat Gran (auto) Absolute Neuts (auto) Absolute Nucleated RBC 0.000 Nucleated RBC % (auto) 0.0 Neutrophils % (Manual) Band Neutrophils % Lymphocytes % (Manual) Monocytes % (Manual) Eosinophils % (Manual) Metamyelocytes % Abs Neuts (Manual) Lymphocytes # (Manual) Monocytes # (Manual) Eosinophils # (Manual) Metamyelocytes # Toxic Vacuolation Platelet Estimate Large Platelets Plt Morphology Comment RBC Morphology Smear Tech's Comments Smear Path Review PT INR APTT VBG pH VBG pCO2 VBG pO2 VBG HCO3 VBG O2 Saturation VBG Base Excess Sodium 143 140 Potassium 3.0 L 3.4 Chloride 102 100 Carbon Dioxide 30 H 32 H Anion Gap 14 11 L BUN 22 H 23 H Creatinine 1.02 1.13 Estim Creat Clear Calc 60.2 54.3 Estimated GFR > 60 > 60 Random Glucose 124 H 112 Fasting Glucose Lactic Acid Lactic Acid F/U @ 2Hr Lactic Acid F/U @ 4Hr Calcium 9.1 9.4 Phosphorus Magnesium Total Bilirubin Direct Bilirubin AST ALT Alkaline Phosphatase Lactate Dehydrogenase C-Reactive Protein Total Protein Albumin Lipase Procalcitonin 2.94 Urine Color Urine Appearance Urine pH Ur Specific [place] Urine Protein Urine Glucose (UA) Urine Ketones Urine Blood Urine Nitrite Ur Leukocyte Esterase Nasal Screen MRSA (PCR) Nasal S. aureus Screen Nasal MRSA/S.aureus Interp Stool Occult Blood Blood Type Antibody Screen 03/21/23 03/21/23 03/21/23 06:24 06:30 17:34 WBC RBC Hgb Hct MCV MCH MCHC RDW Plt Count MPV Immature Gran % (Auto) Neut % (Auto) Lymph % (Auto) Burt % (Auto) Eos % (Auto) Baso % (Auto) Lymph # (Auto) Burt # (Auto) Eos # (Auto) Baso # (Auto) Abs Immat Gran (auto) Absolute Neuts (auto) Absolute Nucleated RBC Nucleated RBC % (auto) Neutrophils % (Manual) Band Neutrophils % Lymphocytes % (Manual) Monocytes % (Manual) Eosinophils % (Manual) Metamyelocytes % Abs Neuts (Manual) Lymphocytes # (Manual) Monocytes # (Manual) Eosinophils # (Manual) Metamyelocytes # Toxic Vacuolation Platelet Estimate Large Platelets Plt Morphology Comment RBC Morphology Smear Tech's Comments Smear Path Review PT INR APTT VBG pH 7.52 H VBG pCO2 39 VBG pO2 141 VBG HCO3 32 H VBG O2 Saturation 100.0 VBG Base Excess 8.7 Sodium 140 Potassium 3.4 Chloride 102 Carbon Dioxide 30 H Anion Gap 11 L BUN 23 H Creatinine 1.07 Estim Creat Clear Calc 57.4 Estimated GFR > 60 Random Glucose 120 H Fasting Glucose Lactic Acid Lactic Acid F/U @ 2Hr Lactic Acid F/U @ 4Hr Calcium 9.3 Phosphorus Magnesium Total Bilirubin Direct Bilirubin AST ALT Alkaline Phosphatase Lactate Dehydrogenase C-Reactive Protein Total Protein Albumin Lipase Procalcitonin 1.88 Urine Color Urine Appearance Urine pH Ur Specific [place] Urine Protein Urine Glucose (UA) Urine Ketones Urine Blood Urine Nitrite Ur Leukocyte Esterase Nasal Screen MRSA (PCR) NEGATIVE Nasal S. aureus Screen NEGATIVE Nasal MRSA/S.aureus Interp SEE NOTE Stool Occult Blood Blood Type Antibody Screen 03/23/23 03/23/23 03/25/23 06:10 06:10 06:01 WBC 9.9 7.8 RBC 3.08 L 3.15 L Hgb 9.5 L 9.6 L Hct 28.9 L 30.2 L MCV 93.8 95.9 MCH 30.8 30.5 MCHC 32.9 31.8 RDW 12.9 13.1 Plt Count 393 D 490 H MPV 10.1 10.4 Immature Gran % (Auto) Neut % (Auto) Lymph % (Auto) Burt % (Auto) Eos % (Auto) Baso % (Auto) Lymph # (Auto) Burt # (Auto) Eos # (Auto) Baso # (Auto) Abs Immat Gran (auto) Absolute Neuts (auto) Absolute Nucleated RBC 0.000 0.000 Nucleated RBC % (auto) 0.0 0.0 Neutrophils % (Manual) Band Neutrophils % Lymphocytes % (Manual) Monocytes % (Manual) Eosinophils % (Manual) Metamyelocytes % Abs Neuts (Manual) Lymphocytes # (Manual) Monocytes # (Manual) Eosinophils # (Manual) Metamyelocytes # Toxic Vacuolation Platelet Estimate Large Platelets Plt Morphology Comment RBC Morphology Smear Tech's Comments Smear Path Review PT INR APTT VBG pH VBG pCO2 VBG pO2 VBG HCO3 VBG O2 Saturation VBG Base Excess Sodium 140 Potassium 3.8 Chloride 102 Carbon Dioxide 28 Anion Gap 14 BUN 23 H Creatinine 0.96 Estim Creat Clear Calc 63.9 Estimated GFR > 60 Random Glucose 138 H Fasting Glucose Lactic Acid Lactic Acid F/U @ 2Hr Lactic Acid F/U @ 4Hr Calcium 9.7 Phosphorus Magnesium Total Bilirubin Direct Bilirubin AST ALT Alkaline Phosphatase Lactate Dehydrogenase C-Reactive Protein Total Protein Albumin Lipase Procalcitonin 0.75 Urine Color Urine Appearance Urine pH Ur Specific [place] Urine Protein Urine Glucose (UA) Urine Ketones Urine Blood Urine Nitrite Ur Leukocyte Esterase Nasal Screen MRSA (PCR) Nasal S. aureus Screen Nasal MRSA/S.aureus Interp Stool Occult Blood Blood Type Antibody Screen 03/25/23 06:01 WBC RBC Hgb Hct MCV MCH MCHC RDW Plt Count MPV Immature Gran % (Auto) Neut % (Auto) Lymph % (Auto) Burt % (Auto) Eos % (Auto) Baso % (Auto) Lymph # (Auto) Burt # (Auto) Eos # (Auto) Baso # (Auto) Abs Immat Gran (auto) Absolute Neuts (auto) Absolute Nucleated RBC Nucleated RBC % (auto) Neutrophils % (Manual) Band Neutrophils % Lymphocytes % (Manual) Monocytes % (Manual) Eosinophils % (Manual) Metamyelocytes % Abs Neuts (Manual) Lymphocytes # (Manual) Monocytes # (Manual) Eosinophils # (Manual) Metamyelocytes # Toxic Vacuolation Platelet Estimate Large Platelets Plt Morphology Comment RBC Morphology Smear Tech's Comments Smear Path Review PT INR APTT VBG pH VBG pCO2 VBG pO2 VBG HCO3 VBG O2 Saturation VBG Base Excess Sodium 141 Potassium 4.0 Chloride 103 Carbon Dioxide 29 Anion Gap 13 BUN 31 H Creatinine 0.89 Estim Creat Clear Calc 69.0 Estimated GFR > 60 Random Glucose Fasting Glucose 126 H Lactic Acid Lactic Acid F/U @ 2Hr Lactic Acid F/U @ 4Hr Calcium 9.3 Phosphorus Magnesium Total Bilirubin Direct Bilirubin AST ALT Alkaline Phosphatase Lactate Dehydrogenase C-Reactive Protein Total Protein Albumin Lipase Procalcitonin 0.33 Urine Color Urine Appearance Urine pH Ur Specific [place] Urine Protein Urine Glucose (UA) Urine Ketones Urine Blood Urine Nitrite Ur Leukocyte Esterase Nasal Screen MRSA (PCR) Nasal S. aureus Screen Nasal MRSA/S.aureus Interp Stool Occult Blood Blood Type Antibody Screen Airway Mallampati Class: II TM Dist: >3cm Neck ROM: Full Denture: Upper Partial: Lower Heart: ok. Lungs: Pneumonitis. Sat 92% on 3L NC, 85% on room air. Assessment and Plan Assessment Anesthesia Assessment: Anesthesia Plan Discussed and Chart Reviewed Final Anesthetic Review Family History of Problems with Anesthesia: No History of Problems with Anesthesia: No NPO: Yes ASA Class: IV Final Preanesthetic Review: No Changes in Pt Med Stat, Meds/Allgs Chart Reviewed, Consent Obtained/Reviewed and Anes Risks/Benef Reviewed Patient Risk: High Procedure Risk: Intermediate Anesthetic Plan Anesthetic Plan: GA (PSR.) and Agree w/ Assess. and Plan Disposition: Standard PACU
--- NOTE | 2023-03-26 13:54 | P.BOP_ITS ---
Brief Operative Note Date of Service: 03/26/23 Pre-op diagnosis: Atelectasis Post-op diagnosis: other (Atelectasis, Bronchomalecia) Procedure: Bronchoscopy with washings and brushings Implants: Surgeon: Grady Gilmore MD Anesthesia: GLMA Was an Linen Supervisor used for this Procedure?: No Estimated blood loss (mL): 0 Pathology: none sent Condition: stable Disposition: floor
[2023-03-26] MEDS: Omeprazole 20 MG CAPSULE.DR PO (16:04)
[2023-03-26] MEDS: guaiFENesin LA 600 MG TAB.ER.12H PO (20:03)
--- NOTE | 2023-03-26 23:36 | OP_ITS ---
DATE OF SERVICE: 03/26/2023 SURGEON: Grady Gilmore MD PREOPERATIVE DIAGNOSIS: Atelectasis. POSTOPERATIVE DIAGNOSIS: Atelectasis, Bronchomalecia PROCEDURE PERFORMED: Bronchoscopy with washings and brushings ESTIMATED BLOOD LOSS: 0. COMPLICATIONS: ANESTHESIA: LMA. ASSISTANTS: SPECIMENS: ASA CLASSIFICATION: 3. POSTOPERATIVE DIAGNOSES: Atelectasis and bronchomalacia. PROCEDURE IN DETAIL: After the patient was sedated and LMA in place, the flexible digital bronchoscope was inserted via the LMA to the level of larynx. The vocal cords appeared to be normal and symmetrical. Larynx also appeared to be normal. After instilling lidocaine, the bronchoscope was then passed through the vocal cords to the level of the trachea. The tracheal mucosa appeared normal and it was patent. Patient did have some frothy secretions, but minimal. After instilling additional lidocaine, the bronchoscope then was navigated to the entire tracheobronchial tree. The patient did have edematous and congested looking mucosa primarily on the left lower lobe. Patient also has significant bronchomalacia causing 100% obstruction of the left lower lobe airway bronchus, which was dynamic obstruction that then reopened during insufflation. No endobronchial lesions were noted. No foreign bodies noted. No evidence of any bleeding. The patient did have frothy secretions throughout. Using cytologic brushes introduced into the left lower lobe and sent to the proper location. Also, microscopic brushes introduced into the left lower lobe for Gram-stain culture. Bronchial washings were collected bilaterally and sent for both Gram-stain culture and cytology. The bronchoscope was then removed. The total endoscopic time was approximately 12 minutes. Patient tolerated the procedure well. Vital signs were stable throughout the procedure. No evidence of any complications. MD MIMI Talbert/RENAE / [id number] ERINN
[2023-03-27] VITALS (10 sets, daily range): BP systolic 124–172; BP diastolic 64–78; PULSE 58–86; RESP 16–20; TEMP 36.2–37.2; O2SAT 3–98
[2023-03-27 01:59] LABS: B Type Natriuretic Peptide 205 pg/mL (<100)
[2023-03-27] MEDS: Omeprazole 20 MG CAPSULE.DR PO ×2 (06:16→15:46)
--- NOTE | 2023-03-27 08:12 | HO.POSTANES ---
Post Anesthesia Evaluation Post Anesthesia Evaluation Date of Service: 03/27/23 Vital Signs: Vital Signs Temp Pulse Resp BP Pulse Ox O2 Del Method 03/27/23 07:03 97.6 F 62 20 128/78 3 L Nasal Cannula 03/27/23 02:57 98.4 F 62 16 158/72 H 93 Nasal Cannula 03/27/23 00:00 98.9 F 67 16 159/76 H 94 Nasal Cannula Anesthesia: General Endotracheal-GETA Mental Status: Awake Pain Control: Satisfactory Nausea/Vomiting: None Hydration: Adequate Anesthesia-Related Issues: No Anes. Related Issues
[2023-03-27] MEDS: guaiFENesin LA 600 MG TAB.ER.12H PO ×2 (09:38→22:04)
[2023-03-27] MEDS: Furosemide 40 MG TABLET PO (09:38)
[2023-03-27] MEDS: 0.9 % Sodium Chloride Flush 3 ML SYRINGE IVFLUSH ×2 (09:38→15:46)
[2023-03-27] MEDS: Enoxaparin Sodium 40 MG/0.4 ML SYRINGE SUBCUT (09:41)
--- NOTE | 2023-03-27 10:18 | MHC.CM.PN ---
Per ROUNDS discussion, Patient may be medically cleared for dc soon; PT is recommending STR and Patient has multiple SNF bed offers. CM will follow.
--- NOTE | 2023-03-27 10:47 | P.PNIM_ITS ---
Subjective Subjective Date of Service: 03/27/23 Interval History: Overall dyspnea is better Bronch yesterday was unremarkable other tracheomalacia Physical Exam Vital Signs: Vital Signs: Last Vital Signs Temp 97.6 F 03/27/23 07:03 Pulse 62 03/27/23 07:03 Resp 20 03/27/23 07:03 BP 128/78 03/27/23 07:03 Pulse Ox 3 L 03/27/23 07:03 O2 Del Method Nasal Cannula 03/27/23 07:03 O2 Flow Rate 3 03/26/23 18:57 FiO2 94 03/20/23 19:09 Oxygen Flow Rate 3 03/26/23 16:00 BMI result Body Mass Index 25.7 Const: Other: Constitutional : Awake, interactive, not in distress, physically deconditioned Neck : Normal inspection, Supple Cardiovascular : RRR, no JVP, no lower extremity edema Respiratory : fair bilateral air entry, basal crackles bilaterall, no significant wheezes Gastrointestinal: soft, lax, active bowel sounds, no tenderness Skin : Warm, Dry Neurological : Alert & oriented x3, No focal deficit Objective Data Active Medications Acetaminophen (Acetaminophen 325 Mg Tablet) 650 mg PO Q6H PRN PRN Reason: Pain, Mild (Pain Scale 1-3) Last Admin: 03/21/23 16:22 Dose: 650 mg Documented By: JIMENA Albuterol/Ipratropium (Albuterol/Iprat 2.5/0.5mg 3 Ml Ampul.Neb) 3 ml INHALE RQ4H PRN PRN Reason: Shortness of Breath/Wheezing Last Admin: 03/16/23 20:41 Dose: 3 ml Documented By: MARIVEL Enoxaparin Sodium (Enoxaparin Sodium 40 Mg/0.4 Ml Syringe) 40 mg SUBCUT Q24H [facility] Last Admin: 03/27/23 09:41 Dose: 40 mg Documented By: DENNY Fentanyl (Fentanyl Citrate/Pf 100 Mcg/2 Ml Vial) 25 mcg IVPUSH Q5M PRN; Protocol PRN Reason: Pain, Moderate(Pain Scale 4-6) Guaifenesin (Guaifenesin La 600 Mg Tab.Er.12h) 600 mg PO BID [facility] Last Admin: 03/27/23 09:38 Dose: 600 mg Documented By: DENNY Hydromorphone HCl (Hydromorphone Hcl 0.5 Mg/0.5 Ml Syringe) 0.25 mg IVPUSH Q5M PRN; Protocol PRN Reason: Pain, Severe (Pain Scale 7-10) Ampicillin Sodium/Sulbactam (Sodium 3 gm/ Sodium Chloride) 100 mls @ 200 mls/hr IV Q6H [facility] Last Admin: 03/27/23 09:39 Dose: 100 mls/hr Documented By: DENNY Omeprazole (Omeprazole 20 Mg Capsule.Dr) 20 mg PO BID@0630,1630 [facility] Last Admin: 03/27/23 06:16 Dose: 20 mg Documented By: ZACHARIAH Ondansetron HCl (Ondansetron Hcl 4 Mg/2 Ml Vial) 4 mg IVPUSH Q8H PRN PRN Reason: Nausea and Vomiting Last Admin: 03/14/23 17:22 Dose: 4 mg Documented By: MARY Ondansetron HCl (Ondansetron Hcl 4 Mg/2 Ml Vial) 4 mg IVPUSH ONCE PRN PRN Reason: Nausea and Vomiting Polyethylene Glycol (Polyethylene Glycol 3350 17 Gm Powd.Pack) 17 gm PO DAILY [facility] Last Admin: 03/27/23 09:42 Dose: Not Given Documented By: DENNY Non-Admin Reason: Patient Refused Senna/Docusate Sodium (Sennosides/Docusate Sodium Tablet) 2 tab PO BID [facility] Last Admin: 03/27/23 09:42 Dose: Not Given Documented By: DENNY Non-Admin Reason: Patient Refused Sodium Chloride (0.9 % Sodium Chloride Flush 3 Ml Syringe) 3 ml IVFLUSH QSHIFT [facility] Last Admin: 03/27/23 09:38 Dose: 3 ml Documented By: DENNY Labs 03/25/23 06:01 03/25/23 06:01 Labs: Laboratory Results - last 24 hr 03/27/23 00:58 B-Natriuretic Peptide 205 H Microbiology Microbiology Results: Microbiology 03/26/23 13:40 Gram Stain - Final Bronchial Washings - Preliminary No growth to date. 03/26/23 13:40 Gram Stain - Final Bronchial Brushings - Preliminary No growth to date. 03/21/23 18:40 Blood Culture - Final Blood - Venous No growth after 5 days. 03/21/23 18:40 Blood Culture - Final Blood - Venous No growth after 5 days. Assessment and Plan (1) Esophagitis: Status: Acute (2) Intestinal obstruction: Status: Acute (3) Acute respiratory failure with hypoxia: Status: Acute (4) Pulmonary aspiration: Status: Acute Plan 82yo M with no chronic PMHx who presented on 03/09 with worsening abdominal pain and hematemsis, initiallyy hgb was 15.9 on 03/09, and dropped to 10 on 03/12. He underwent EGD on 03/12 and noted to have Erosive esophagitis over distal 2/3 of esophagus nodular egj without mass, biopsied large amount of retained gastric secretions, suctioned superficial ulceration at pyloric channel, biopsied no obstruction. Patient aspirated after the EGD and was intubated and went to ICU and was extubated the next day 03/13. His initial CT of abdomen on 03/09 showed Mild distention of the proximal small bowel with air-fluid levels. Possible transition point within the central abdomen. Bowel wall thickening with adjacent mesenteric stranding within the anterior pelvic small- bowel loops Surgery saw him and did not think obstruction but rather infectious enteritis and was treated with IV Abx (Zosyn), A repeat CT on 03/14 showed a high grade small bowel obstruction and NGT was inserted and was managed co nservatively, Upper GI series 03/15 showed no obstruction. He has continued to have respriatory difficulty and hasn't been able to wean off oxygen. He has been treated extensively with IV antibiotics for asp penumonia, enteritis. Repeat CXRs have shown persistent left lung colapase so on 03/26, he underwent Bronchoscopy by Dr. Gilmore and noted to have Atelectassis and Tracheomalacia. Other issues during hospitalization inclue EMILY, hypernatremia, hypokalemia, acute blood loss anemia.. All of which are stable or resolved. Problems: Acute hypoxic respiratory failure due t aspiration pneumonia\pneumonitis following EGD, complicated by left lung collaspse from ateletasis. He required intubation x night in ICU 03/12-03/13. Has been IV Abx of Zosyn from admission, changed to PO Augmentin 03/18/23 and then changed back to Unasyn 03/20/23 . Bronch yesterday didn't show any signs of infection (just tracheomalacia and atelectass), he is afebrile, CXR finding are due to atelectasis and therefore discontinuing all antibiotics today. Wean off O2 --probably difficult to get home O2 since doesn't have PCP # high-grade SBO-- - resolved, NGT out, tolerating diet, no surgical i ntervention needed # hyperNatremia-- resolved # hypoKalemia, repleted and resolved # acute blood loss anemia due to GIB - EGD 03/12 with esophagitis/nodular GEJ/pyloric ulceration - continue PPI. Initial Hct 46 on 03/09 went down to 32 on 03/12 when EGD was done and since then, has stayed around 30.. Did not get transfused # EMILY, prerenal- resolved p IV fluids. Initial Cr 1.57, most recently 0.89 on 03/25 # VTE ppx: SCDs # dispo: home when off O2 In my clinical judgment, the patient requires continued inpatient hospitalization for the following reasons: Need for placement Time Spent With Patient Time: Total time managing care of this patient today ____ minutes. Quality Stroke Does the patient have a stroke diagnosis?: No VTE Prior VTE?: No VTE Risk Level:: Medical - moderate - high VTE Device Contraindication: N/A - Device Ordered VTE Drug Contraindication: Treatment Not Indicated
--- NOTE | 2023-03-27 12:35 | MHC.CM.PN ---
CM met with Patient at bedside to discuss PT's recommendation for STR; Patient refuses to consider STR. Patient has no PCP so he will not qualify for VNA. Per Patient's request, JILLIAN has left a message for Dr. Cyril Bhat's [facility] @ [phone], asking if she is accepting new Patients and able to take Patient on as a new Patient. CM awaits a return call. is aware.If Patient requires home O2, it will be new to him; he has not had home O2 in the past.JILLIAN will follow.
--- NOTE | 2023-03-27 12:42 | MHC.CM.PN ---
Patient has been medically cleared for dc to return to LTC today. Patient will return to LTC on [employer] to [facility] today at 3PM, via [facility]. CM has left a detailed message for Son/HCP/Romero, informing him of the 3PM dc.
--- NOTE | 2023-03-27 14:46 | MHC.CM.PN ---
JILLIAN was able to get Patient an appointment with a PA/Geovany Mann on 04/03/2023 @ 10:45 AM(PA is from Dr. Bhat's practice). is aware.
--- NOTE | 2023-03-27 16:15 | MHC.CM.PN ---
CM met with Patient and his Daughter at bedside and addressed IMM with them, providing Patient with the original and placing a copy on the chart.
[2023-03-28] MEDS: 0.9 % Sodium Chloride Flush 3 ML SYRINGE IVFLUSH ×2 (00:16→08:47)
--- NOTE | 2023-03-28 00:39 | PC.NURSE ---
Assumed care at 07:00. Patient OOB to commode and to recliner today, ate well. WEaned off 3 LPM nasal cannula on to room air, well tolerated, o2 eval today. Denies pain. Still with +2 edema to BLE. Dicussed lasix plan with MD per patient request. Bladder scanned per MD for 24 ccs, 2 liters urine output.
[2023-03-28 03:16] VITALS: BP 148/78; PULSE 56; RESP 20; TEMP 36.1; O2SAT 88
[2023-03-28 04:00] VITALS: O2SAT 97
[2023-03-28 05:29] VITALS: BMI 26.0
[2023-03-28] MEDS: Omeprazole 20 MG CAPSULE.DR PO (06:00)
[2023-03-28 07:30] VITALS: BP 135/70; PULSE 65; RESP 19; O2SAT 89
[2023-03-28] MEDS: guaiFENesin LA 600 MG TAB.ER.12H PO (08:47)
[2023-03-28] MEDS: Enoxaparin Sodium 40 MG/0.4 ML SYRINGE SUBCUT (08:53)
--- NOTE | 2023-03-28 10:44 | MHC.CM.PN ---
Per MD, Patient is medically cleared for dc to home, self care. Patient does not need new home O2 and his new PCP appointment with GUERO/Geovany Mann is 04/03/2023 at 10:45 AM.Patient's Daughter will provide transport to home.
[2023-03-28 11:09] VITALS: BP 130/70; PULSE 58; RESP 20; TEMP 36.7; O2SAT 90
--- NOTE | 2023-03-28 13:24 | PM.PNPUL ---
Subjective Subjective Date of Service: 03/28/23 Principal diagnosis: PULMONARY ASPIRATION / PNEUMONITIS LT LUNG Interval history: Seen and examined. Feeling well after the bronchoscopy. Has significant Bronchomalecia. USing the flutter valve. On RA resting, but likely need oxygen with activity. Objective Data Labs 03/25/23 06:01 03/25/23 06:01 Microbiology Microbiology Results: Microbiology 03/26/23 13:40 Bronchial Washings Gram Stain - Final 03/26/23 13:40 Bronchial Washings - Final No growth after 2 days 03/26/23 13:40 Bronchial Brushings Gram Stain - Final 03/26/23 13:40 Bronchial Brushings - Final No growth after 2 days 03/21/23 18:40 Blood - Venous Blood Culture - Final No growth after 5 days. 03/21/23 18:40 Blood - Venous Blood Culture - Final No growth after 5 days. 03/16/23 06:10 Blood - Venous Blood Culture - Final No growth after 5 days. 03/16/23 06:10 Blood - Venous Blood Culture - Final No growth after 5 days. 03/09/23 08:12 Blood - Venous Blood Culture - Final No growth after 5 days. 03/09/23 08:07 Blood - Venous Blood Culture - Final No growth after 5 days. Review of Systems Constitutional: Denies fever(s) Denies neck pain Cardiovascular: Denies chest pain and Reports dyspnea Respiratory: Reports cough, Reports dyspnea and Denies wheezing Gastrointestinal: Reports no additional gastrointestinal complaints Musculoskeletal: Denies neck pain Hematologic/Lymphatic: Denies lymphadenopathy Allergic/Immunologic: Denies wheezing Physical Exam Vital Signs: Vital Signs: Last Vital Signs Temp 98.1 F 03/28/23 11:09 Pulse 58 03/28/23 11:09 Resp 20 03/28/23 11:09 BP 130/70 03/28/23 11:09 Pulse Ox 90 L 03/28/23 11:09 O2 Del Method Room Air 03/28/23 11:09 O2 Flow Rate 2 03/28/23 04:00 FiO2 94 03/20/23 19:09 Oxygen Flow Rate 3 03/27/23 16:00 BMI result Body Mass Index 26.0 Const: General: comfortable HEENT: Head: Yes atraumatic Neck: Neck: Yes trachea midline and Yes supple Chest: Chest palpation & inspection: normal inspection of the chest Resp: Effort & Inspection: not tachypneic and no tracheal deviation Auscultation: breath sounds absent on th left Cardio: Rate: regular rate Heart sounds: S1 normal heart sound present and S2 normal heart sound present GI: Palpation (GI): Soft to palpation Extrem: General: No cyanosis Procedures Date of Service Date of Service: 03/28/23 Assessment and Plan Assessment and plan (1) Atelectasis of left lung: Status: Acute (2) Acute respiratory failure with hypoxia: Status: Acute (3) Pulmonary aspiration: Status: Acute Plan CPT with aerobika oxygen supplementation to keep pox>90%. will need a walking oximetry F/U with Pulmonary Time Spent With Patient Time: Total time managing care of this patient today ____ minutes. Progress Note: Quality Stroke Does the patient have a stroke diagnosis?: No
--- NOTE | 2023-03-29 14:56 | P.DS_ITS ---
DS: Providers Provider Date of Service: 03/29/23 Date of admission: 03/09/23 14:43 Primary care physician: Unknown Physician Consults: 03/09/23 15:04 Consult to General Surgery Routine Consulting Provider: [facility] General Surgeons Reason for consultation: Gastroenteritis versus SBO Has provider been notified: Yes 03/11/23 07:54 Consult to Gastroenterology Routine Consulting Provider: Clinton Xie Reason for consultation: acute blood loss anemia 03/22/23 07:55 Consult to Pulmonology Routine Consulting Provider: [facility] [place] [facility] Pulmonology Services Reason for consultation: white out of the left hemithorax, persistently hypoxic DS: Diagnosis Discharge Diagnosis (1) Atelectasis of left lung: Status: Acute (2) Acute respiratory failure with hypoxia: Status: Acute (3) Pulmonary aspiration: Status: Acute DS: Summary Hospital Course Hospital Course: Date of Service: 03/09/23 Attending physician on admission: Frankie Bearden Chief Complaint: Abdominal pain, dark red emesis x2 Pt is an 82-year-old male with no significant PMH only taking fish oil at home who presents to the ED with?abdominal pain and 2 episodes of dark red emesis.? Patient states his symptoms began early Saturday morning.? Patient claims he has difficulty sleeping so he got up at 03:00 o'clock in the morning to do an upper body workout.? He went back to sleep but woke up at 06:00 with severe abdominal pain.? Patient also felt like he had indigestion and a ?sour stomach?.? Patient induced vomiting twice and noted his vomitus was red and looked like a contained blood.? Patient also noticed abdominal distension when he went to put on his pants. Ppatient initially presented to the emergency room yesterday where he had his blood drawn but did not get formally evaluated by a clinician.? Patient takes care of his at home and needed to leave before being seen by a clinician in order to administer her medications at 17:00.? At home patient continued to have increasing abdominal pain and he re-presented to the emergency room via ambulance at 04:00.? Did not experience any more vomiting, no diarrhea, though did note increased abdominal distension.? Has experienced subjective fevers and chills, but had did not take his temperature.? Patient currently denies passing flatus or having a bowel movement today.? Last bowel movement was yesterday, states was normal without hematochezia or melena or diarrhea.? Patient normally has daily regular bowel movements.? Patient denies chest pain/pressure, palpitations.? No shortness of breath. Of note, patient does not have a PCP and states he has not seen a doctor since getting a physical in 1960 before going into the [employer] [facility]. In the ED patient had temperature up to 100.1 and was slightly hypertensive at 156/90. Labs were significant for leukocytosis of 12.5, potassium of 5.8, BUN 31, creatinine 1.57.? UA negative for UTI.? Stool negative for occult blood. CT?of abdomen and pelvis found mild distension of the proximal small bowel with air-fluid levels with a possible transition point within the central abdomen.? Also found ball wall thickening with adjacent mesenteric stranding consistent with an acute enteritis without evidence of perforation or abscess.? Also found mild ascites.? Additional findings include sliding hiatal hernia and bilateral nonobstructing renal stones measuring up to 0.3 cm without hydronephrosis or hydroureter.? Lastly, showed prominent prostatomegaly. EKG demonstrated sinus rhythm with short SD, left ventricular hypertrophy, but no evidence of ST elevations or depressions. Pt was treated with fentanyl, pantoprazole, IVF, Zosyn, and metoclopramide.? General surgery was consulted who believe patient has gastroenteritis. Pt will be admitted to the hospital for treatment and further evaluation of likely gastroenteritis. Hospital course: 82yo M with no chronic PMHx who presented on 03/09 with? worsening? abdominal pain and hematemsis, initiallyy hgb was 15.9 on 03/09, and dropped to 10 on 03/12. He underwent EGD on 03/12 and noted to have Erosive esophagitis over distal 2/3 of esophagus nodular egj without mass, biopsied large amount of retained gastric secretions, suctioned superficial ulceration at pyloric channel, biopsied no obstruction.? Patient aspirated after the EGD and was intubated and went to ICU and was extubated the next day 03/13.? His initial CT of abdomen on 03/09 showed Mild distention of the proximal small bowel with air-fluid levels. Possible transition point within the central abdomen. Bowel wall thickening with adjacent mesenteric stranding within the anterior pelvic small- bowel loops Surgery saw him and did not think obstruction but rather infectious enteritis and was treated with IV Abx (Zosyn), A repeat CT on 03/14 showed a high grade small bowel obstruction? and NGT was inserted and was managed conservatively, Upper GI series 03/15 showed no obstruction.? He has continued to have respriatory difficulty and hasn't been able to wean off oxygen. He has been treated extensively with IV antibiotics for asp penumonia, enteritis.? Repeat CXRs have shown persistent? left lung colapase so on 03/26, he underwent Bronchoscopy by Dr. Gilmore? 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 Other issues during hospitalization inclue EMILY, hypernatremia, hypokalemia, acute blood loss anemia.. All of which are stable or resolved. Problems: Acute hypoxic respiratory failure due to aspiration pneumonia\pneumonitis following EGD, complicated by left lung collaspse from atelectasis. He required intubation in ICU 03/12-03/13. Treated with IV Abx Zosyn from admission, changed? to PO Augmentin 03/18/23 and then? changed? back to Unasyn 03/20/23 . Bronch 03/26 didn't show any signs of infection (just tracheomalacia and atelectass), he is afebrile, CXR finding are due to atelectasis and therefore all antibiotics discontinued on 03/27. Wean off O2. # high-grade SBO-- - resolved, NGT out, tolerating diet, no surgical intervention needed. # hyperNatremia-- resolved # hypoKalemia, repleted and resolved # acute blood loss anemia due to GIB - EGD? 03/12 with esophagitis/nodular GEJ/pyloric ulceration - continue PPI. Initial Hct 46 on 03/09 went down to 32 on 03/12 when EGD was done and since then, has stayed around 30.. Did not get transfused # EMILY, prerenal- resolved p IV fluids. Initial Cr 1.57, most recently 0.89 on 03/25. Time Spent with Patient Time attestation: Total time managing care of this patient today ____ minutes. Discharge coordination time: Greater than 30 minutes Quality: Safe Use of Opioids Does Pt have an Active Cancer Diagnosis on the Problem List?: No Quality: Stroke Does the patient have a stroke diagnosis?: No Physical Exam Vital Signs: Vital Signs: Last Vital Signs Temp 98.1 F 03/28/23 11:09 Pulse 58 03/28/23 11:09 Resp 20 03/28/23 11:09 BP 130/70 03/28/23 11:09 Pulse Ox 90 L 03/28/23 11:09 O2 Del Method Room Air 03/28/23 11:09 O2 Flow Rate 2 03/28/23 04:00 FiO2 94 03/20/23 19:09 Oxygen Flow Rate 3 03/27/23 16:00 BMI result Body Mass Index 26.0 Const: Other: Constitutional : Awake, interactive, not in distress, physically deconditioned Neck : Normal inspection, Supple Cardiovascular : RRR, no JVP, no lower extremity edema Respiratory : fair bilateral air entry,?no significant wheezes Gastrointestinal:? soft, active bowel sounds, no tenderness to palpation Skin : Warm, Dry Neurological : Alert & oriented x3, No focal deficit. DS: Data Data Completed and Pending Completed studies during hospitalization [Text1]: Pending at discharge 03/12/23 13:25 Surgical [PTH] Routine 03/26/23 14:05 Cytology [PTH] Routine Discharge Plan Discharge Anticipated Discharge Date/Time: 03/28/23 11:20 Patient Disposition: Home, Self-Care Discharge Diagnosis: Acute hypoxic respiratory failure due to aspiration pneumonia High-grade small-bowel obstruction Acute GI bleed Referrals: GUERO/Geovany Mann(from DR. Bhat's practice)04/03/23 10:45AM [Other] - 1 Week Po,Kamini Wilcox MD [Physician] - 07/08/23 1:45 pm (New patient appointment scheduled. If you need to reschedule call office ) Luis Monique MD [Physician] - 1 Week Discharge Medications: New omeprazole 20 mg Capsule,Delayed Release(/Ec) 20 mg PO BID@0630,1630 Qty: 60 0RF Continued omega 2-wto-aoi-fish oil [Fish Oil] 60-90-500 mg Capsule 1 cap PO DAILY Discharge Orders: Discharge Order (Routine); Ordered 03/28/23 Ordered By: Caridad Burton Diet: Advance to usual diet Activity on Discharge: As tolerated Stand Alone Forms: Patient Portal Discharge page Care Plan Goals: Take Prilosec 1 tablet twice daily Cough medication as needed Keep legs elevated take high-protein diet Return to ED with worsening shortness of breath, weakness bloody stool or vomiting. Discharge no the a Health Concerns: Acute hypoxic respiratory, do not qualify for home oxygen Plan of Treatment: Outpatient follow-up with primary care physician Assessment: As above Patient Instructions: Pneumonitis (DC), Aspiration Pneumonia (GEN), Bowel Obstruction (DC) Discharge Date/Time: 03/28/23 13:52
== END 2023-03-28 13:52 | disposition home or self-care (01) | DRG 326 ==
LOC: HO.ED 12:42 → HO.EDOVER 15:07 → HO.S3 16:32 → HO.ICU 03-12 16:12 → HO.IMC 03-14 10:28
PROVIDERS: Family Medicine; Hospitalist; Internal Medicine; Internal Medicine Gastroenterology; Internal Medicine Pulmonary Disease; Physician Assistant; Registered Nurse Community Health; Student in an Organized Health Care Education/Training Program; Admitting Provider Student in an Organized Health Care Education/Training Program; Emergency Provider Emergency Medicine Emergency Medical Services; Visit Provider Hospitalist
PROC: 0D968ZZ Drainage of Stomach, Via Natural or Artificial Opening Endoscopic (ICD-10-PCS; principal; 2023-03-12 11:40)
PROC: 0BJ08ZZ Inspection of Tracheobronchial Tree, Via Natural or Artificial Opening Endoscopic (ICD-10-PCS; CPT 31622; principal; 2023-03-26 13:00)
DX: K22.11 Ulcer of esophagus with bleeding (principal); J69.0 Pneumonitis due to inhalation of food and vomit; J96.01 Acute respiratory failure with hypoxia; K56.609 Unspecified intestinal obstruction, unspecified as to partial versus complete obstruction; D62 Acute posthemorrhagic anemia; N17.9 Acute kidney failure, unspecified; J98.11 Atelectasis; K31.1 Adult hypertrophic pyloric stenosis; A09 Infectious gastroenteritis and colitis, unspecified; E87.0 Hyperosmolality and hypernatremia; I95.2 Hypotension due to drugs; K44.9 Diaphragmatic hernia without obstruction or gangrene; J98.09 Other diseases of bronchus, not elsewhere classified; K25.4 Chronic or unspecified gastric ulcer with hemorrhage; E87.5 Hyperkalemia; Z87.891 Personal history of nicotine dependence; Z79.899 Other long term (current) drug therapy
CPT/HCPCS: 36415; 71045; 71046; 71275; 74018; 74176; 74177; 74250; 80048; 80053; 81001; 81003; 82040; 82248; 82272; 82803; 83605; 83615; 83690; 83735; 83880; 84100; 84145; 85007; 85025; 85027; 85610; 85730; 86140; 86850; 86900; 86901; 87040; 87071; 87086; 87205; 87640; 87641; 88112; 88305; 88342; 93005; 94002; 94003; 94640; 94799; 97116; 97161; 97530; 99282; 99283; 99285; C1758; J0171; J0295; J1200; J1650; J1885; J1940; J2250; J2405; J2543; J2765; J2920; J3010; J3475; P9047; Q9967

== ENCOUNTER → 2023-03-09 14:43 | Outpatient (BNV) | payer MEDICARE, OTHER, SELFPAY | PROVIDERS: Admitting Provider Student in an Organized Health Care Education/Training Program; Emergency Provider Emergency Medicine Emergency Medical Services; Visit Provider Internal Medicine Pulmonary Disease | DX: J98.11 Atelectasis (principal) | CPT/HCPCS: 31623; 99232; 99233; 99291; 99499 ==

== ENCOUNTER → 2023-03-09 14:43 | Outpatient (BNV) | payer MEDICARE, OTHER, SELFPAY | PROVIDERS: Admitting Provider Student in an Organized Health Care Education/Training Program; Emergency Provider Emergency Medicine Emergency Medical Services; Visit Provider Student in an Organized Health Care Education/Training Program | DX: J98.11 Atelectasis (principal); J96.01 Acute respiratory failure with hypoxia; T17.900A Unspecified foreign body in respiratory tract, part unspecified causing asphyxiation, initial encounter | CPT/HCPCS: 99223; 99232; 99233; 99239; 99499 ==

== ENCOUNTER 2025-03-11 08:58 | Inpatient (IN) | payer MEDICARE, OTHER, SELFPAY ==
[2025-03-11] VITALS (15 sets, daily range): BP systolic 90–143; BP diastolic 36–68; PULSE 50–94; RESP 16–19; TEMP 36–36.8; O2SAT 99–100; BMI 20.3; BMI 20.8
--- NOTE | 2025-03-11 09:06 | ECG_ITS ---
Test Reason : SOB Blood Pressure : */* mmHG Vent. Rate : 73 BPM Atrial Rate : * BPM P-R Int : * ms QRS Dur : 104 ms QT Int : 380 ms P-R-T Axes : * -36 50 degrees QTcB Int : 418 ms Normal sinus rhythm Premature atrial complexes Left axis deviation Abnormal ECG When compared with ECG of 09-Mar-2023 06:44, No significant changes seen Referred By: Generic ED Physician Electronically Signed By: ALEJANDRO SWANSON
--- NOTE | 2025-03-11 09:18 | ED.GENADULT ---
HPI - General Adult General Chief complaint: Recheck/Abnormal Lab/Rx Stated complaint: abnormal labs Time Seen by Provider: 03/11/25 09:12 Source: patient, RN notes reviewed and old records reviewed Mode of arrival: ambulatory Limitations: no limitations History of Present Illness ED Provider: Alexus [facility] narrative: Patient is a an 84-year-old male with prior admission for GI bleeding presenting to the emergency department for low H&H after he was called by his doctor and notified of abnormal lab values. He reports several months of shortness of breath worse with exertion and generalized fatigue. Denies any chest pain, palpitations, dizziness or lightheadedness, syncope. Reports some dark stools but denies any bright red blood in his stools. Denies any nausea, vomiting, hematemesis. Denies abdominal pain, does report some constipation. MD complaint: anemia Related Data Home Medications ?Medication ?Instructions ?Recorded ?Confirmed omega 3-zbl-trt-fish oil 60 mg-90 1 cap PO DAILY 03/09/23 03/09/23 mg-500 mg capsule (Fish Oil) Previous Rx's ?Medication ?Instructions ?Recorded omeprazole 20 mg capsule,delayed 20 mg PO BID@0630,1630 #60 caps 03/28/23 release Allergies Allergy/AdvReac Type Severity Reaction Status Date / Time No Known Allergies Allergy Verified 03/11/25 09:03 Review of Systems Review of Systems: As per HPI Yes all other systems are reviewed and are negative Constitutional: Constitutional: Reports as per HPI [facility] Past Medical History Medical History (Updated 03/11/25 @ 10:39 by Mouna Vaughan NP) Pneumonitis Atelectasis of left lung Surgical History (Updated 03/26/23 @ 12:59 by Francia Franco RN) Hx of arthroscopic knee surgery Social History Social History Household Members: Spouse Housing: House Do you presently have visiting nurse or other home services: No Unable to assess alcohol history related to: Unknown Alcohol intake: current Alcohol intake frequency: a few times a week Alcohol type: hard liquor Patient Tobacco Use Status: Former Tobacco user Smoked in Last 30 Days: No Use of substances other than those prescribed or required for medical reasons: Unknown Advance Directives: Yes Advance Directives on File: Yes Advance Directives Date on File: 03/29/23 Do you have a plan to hurt others: No Plan service: No Physical Exam ED Vital Signs: Vital Signs - 24 hr 03/11/25 09:00 03/11/25 09:26 Temperature 97.4 F 97.9 F Pulse Rate 94 70 Respiratory Rate 18 17 Blood Pressure 107/44 L 102/36 L Pulse Oximetry 99 100 Oxygen Delivery Method Room Air Room Air BMI result Body Mass Index 20.3 Vital signs have been reviewed and appear to be correct. Blood pressure normal. Heart rate normal. Respiratory rate normal. Temperature normal. Oxygen saturation normal. Const General: cooperative, healthy appearing and no acute distress Orientation/consciousness: oriented to person, oriented to place, oriented to time and patient oriented x3 Limitations: no limitations HENMT Head: Yes normocephalic and Yes atraumatic Ears: external ears normal General nose exam: Normal external nose present Face and sinus: Yes face symmetric Mouth: oropharynx normal and moist mucous membranes Throat: Yes uvula midline Eyes Conjunctivae: conjunctival abnormal bilateral pallor Pupils: Equal, round and reactive pupils present Neck Neck: Yes normal visual inspection and Yes supple Resp Effort & Inspection: normal respiratory effort and able to speak in complete sentences Auscultation: clear to auscultation bilaterally Cardio Rate: regular rate Rhythm: regular rhythm Heart sounds: S1 normal heart sound present and S2 normal heart sound present GI Palpation (GI): Soft to palpation and nontender Auscultation: normoactive bowel sounds General: Yes no CVA tenderness Back/Spine/Pelvis Back: no CVA tenderness Skin General skin exam: elasticity normal, turgor normal and pallor Neuro General: oriented to person, oriented to place, oriented to time, patient oriented x3, moves all extremities, no focal motor deficits and CN's II-XI intact bilaterally Cranial nerves: Yes Equal, round and reactive pupils present Cognition (Neuro): normal cognition Extrem General: Yes full ROM, Yes no pedal edema and Yes no calf tenderness Psych Mental Status: mental status grossly normal Affect: normal affect Thought process: Normal thought process present Course Reevaluation(s) Reevaluation #1: Written consent for transfusion of blood products obtained. Time: 09:37 Medications Administered Generic Name Dose Route Start Last Admin Trade Name Freq PRN Reason Stop Dose Admin Sodium Chloride 1,000 mls @ 999 mls/hr 03/11/25 10:45 03/11/25 10:42 Ns IV 03/11/25 11:45 999 mls/hr .Q1H1M MARGARITA Administration Discontinued Medications Generic Name Dose Route Start Last Admin Trade Name Lencho PRN Reason Stop Dose Admin Acetaminophen 975 mg 03/11/25 09:53 03/11/25 10:17 Acetaminophen 325 Mg Tablet PO 03/11/25 09:54 975 mg ONCE ONE Administration Medical Decision Making Medical Decision Making [facility] Narrative: Patient is a an 84-year-old male with prior admission for GI bleeding presenting to the emergency department for low H&H after he was called by his doctor and notified of abnormal lab values. On exam patient is awake, A+Ox3, VS WNL, afebrile, normal neurological exam without focal deficits, physical exam findings as above. Given reported symptoms and physical exam findings, initial differential includes but is not limited to anemia, GI bleed, electrolyte abnormality. Labs notable for anemia with H&H of 5.6/19.8, EMILY. IV fluids and 2 units RBCs ordered. Admission to medicine accepted by Dr. Harden. Differential Diagnosis Differential Diagnoses: The differential diagnosis associated with the presentation includes as per [facility] Admission/Observation Consideration of admission/observation: Escalation of care including admission/observation considered Consult Healthcare Provider Management of the patient was discussed with: Hospitalist Lab Data [facility] Lab Attestation statement: I reviewed the patient's lab results. as per [facility] 03/11/25 09:20 03/11/25 09:20 Labs: Lab Results 03/11/25 03/11/25 03/11/25 Range/Units 09:20 09:46 10:45 WBC 7.5 (4.8-10.8) X10*3/uL RBC 3.00 L (4.60-5.80) X10*6/uL Hgb 5.6 L* D (14.0-18.0) g/dl Hct 19.8 L* D (42.0-52.0) % MCV 66.0 L (80.0-98.0) fL MCH 18.7 L (27.0-33.0) pg MCHC 28.3 L (31.0-36.0) g/dl RDW 18.5 H (11.0-16.0) % Plt Count 383 (160-400) X10*3/uL MPV 9.6 (9.4-12.4) fL Immature Gran % (Auto) 0.4 (0.0-0.4) % Neut % (Auto) 76.4 H (45-73) % Lymph % (Auto) 10.8 L (20-40) % [place] % (Auto) 10.8 (2-11) % Eos % (Auto) 1.1 (0-4) % Baso % (Auto) 0.5 (0-2) % Lymph # (Auto) 0.8 L (1.2-4.9) X10*3/uL [place] # (Auto) 0.8 (0.1-1.2) X10*3/uL Eos # (Auto) 0.1 (0.0-0.4) X10*3/uL Baso # (Auto) 0.0 (0.0-0.2) X10*3/uL Abs Immat Gran (auto) 0.03 (0.00-0.03) X10*3/uL Absolute Neuts (auto) 5.7 (2.0-8.3) x10*3/uL Absolute Nucleated RBC 0.000 (0.0-0.012) X10*3/uL Nucleated RBC % (auto) 0.0 (0.0-0.2) /100WBC Sodium 136 (135-145) mmol/L Potassium 4.1 (3.3-5.1) mmol/L Chloride 102 (96-108) mmol/L Carbon Dioxide 24 (22-29) mmol/L Anion Gap 14 (12-20) BUN 26 H (9-16) mg/dL Creatinine 1.65 H (0.5-1.4) mg/dL Estim Creat Clear Calc 31.4 Estimated GFR 40 Random Glucose 134 H (60-115) mg/dL Calcium 10.0 D (8.4-10.2) mg/dL Magnesium 2.2 (1.6-2.6) mg/dL Total Bilirubin 0.5 (0.0-1.0) mg/dL AST 17 (5-37) U/L ALT 8 (0-40) U/L Alkaline Phosphatase 81 (39-117) U/L Total Protein 7.2 (6.5-8.0) g/dL Albumin 4.2 (3.5-5.0) g/dL Stool Occult Blood NEGATIVE (NEGATIVE) Blood Type A Negative Antibody Screen NEGATIVE Crossmatch See Detail External Record Review External record reviewed: Inpatient record, Office record and Outpatient record Critical Care Time Critical Care Time Critical Care Time: Yes Total Critical Care Time: 37 Attestation: I have personally provided critical care time exclusive of time spent on separately billable procedures. Time includes review of lab data, radiology results, discussion with consultants, and monitoring for potential decompensation. Intervention performed as documented. Discharge Plan Discharge Clinical Impression: Acute blood loss anemia Patient Disposition: Admitted As Inpatient Print Language: Wallisian
[2025-03-11 09:26] LABS: MANUAL DIFF FLAG NO
[2025-03-11 09:27] LABS: Basophils Percent Auto 0.5 % (0-2); Eosinophils Absolute Auto 0.1 X10*3/uL (0.0-0.4); Eosinophils Percent Auto 1.1 % (0-4); Imm Gran Abs Auto 0.03 X10*3/uL (0.00-0.03); Imm Gran Pct Auto 0.4 % (0.0-0.4); Lymphocytes Absolute Auto 0.8 X10*3/uL (1.2-4.9); Lymphocytes Percent Auto 10.8 % (20-40); Mean Corpuscular HGB Conc 28.3 g/dl (31.0-36.0); Mean Corpuscular Hemoglobin 18.7 pg (27.0-33.0); Mean Platelet Volume 9.6 fL (9.4-12.4); Monocytes Absolute Auto 0.8 X10*3/uL (0.1-1.2); Monocytes Percent Auto 10.8 % (2-11); Neutrophils Absolute Auto 5.7 x10*3/uL (2.0-8.3); Neutrophils Percent Auto 76.4 % (45-73); Platelet Count 383 X10*3/uL (160-400); Red Cell Distribution Width 18.5 % (11.0-16.0); White Blood Count 7.5 X10*3/uL (4.8-10.8)
--- NOTE | 2025-03-11 09:29 | PC.NURSE ---
IV placed, labs drawn and sent.
[2025-03-11 09:30] LABS: Hematocrit 19.8 % (42.0-52.0); Hemoglobin 5.6 g/dl (14.0-18.0)
[2025-03-11 09:43] LABS: Alanine Aminotransferase 8 U/L (0-40); Albumin Level 4.2 g/dL (3.5-5.0); Alkaline Phosphatase 81 U/L (39-117); Anion Gap 14 (12-20); Aspartate Amino Transferase 17 U/L (5-37); Bilirubin Total 0.5 mg/dL (0.0-1.0); Blood Urea Nitrogen 26 mg/dL (9-16); Carbon Dioxide 24 mmol/L (22-29); Chloride 102 mmol/L (96-108); Creatinine Clr Calc Pharmacy 31.4; Estimated Glomerular Filt Rate 40; Glucose Random 134 mg/dL (60-115); Magnesium 2.2 mg/dL (1.6-2.6); Potassium 4.1 mmol/L (3.3-5.1); Sodium 136 mmol/L (135-145); Total Protein 7.2 g/dL (6.5-8.0)
[2025-03-11] MEDS: Acetaminophen 325 MG TABLET 975 MG PO (10:17)
[2025-03-11] MEDS: 0.9 % Sodium Chloride 1,000 ML 999 ML IV (10:42)
[2025-03-11 10:49] LABS: OBS Int Ctl Valid YES; OBS1 NEGATIVE (NEGATIVE)
--- NOTE | 2025-03-11 11:01 | PM.IMHP ---
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 Patient stated that he has been feeling very short of breath for a while. He also has been experiencing stomachache right after eating. He denied any event of vomiting or nausea. He reported black stools. The patient denied chest pain, headache, dizziness or loss of consciousness. He denied picking about thinners such as aspirin. He also denied taking NSAIDs such as naproxen, Advil or Motrin. The only medication he is currently taking is lisinopril. He drinks a glass of wine daily and has a former tobacco smoker. Patient stated that he has not ever been transfused. Chart review: Patient has an EGD 2022 that showed erosive gastritis. He required endotracheal intubation after developed hypotension and over-sedation. In the ED he was found to have stable vital signs, however, his blood pressure has been slowly decreasing since 09:00. Last BP at 11 16:00 is 90/79. There is no tachycardia and oxygen saturation on room air is 100%. Blood workup is remarkable hemoglobin 5.6, hematocrit 19.8, MCV 66 and RDW 18.5. Platelets is normal, 383. There are no electrolyte imbalances. Creatinine is 1.65 and BUN 26 (0.89 and 31, in 2022). LFTs are normal as well as total protein and albumin. Review of Systems Review of Systems: All 12 systems were reviewed and normal except as noted in HPI. REPLACED BY [facility] Medical History (Updated 03/11/25 @ 11:59 by Maria T Salvador MD) Erosive gastritis Essential hypertension Pneumonitis Atelectasis of left lung Surgical History (Updated 03/26/23 @ 12:59 by Francia Franco RN) Hx of arthroscopic knee surgery Social History Household Members: Spouse Housing: House Do you presently have visiting nurse or other home services: No Unable to assess alcohol history related to: Unknown Alcohol intake: current Alcohol intake frequency: a few times a week Alcohol type: hard liquor Patient Tobacco Use Status: Former Tobacco user Smoked in Last 30 Days: No Use of substances other than those prescribed or required for medical reasons: Unknown Advance Directives: Yes Advance Directives on File: Yes Advance Directives Date on File: 03/29/23 Do you have a plan to hurt others: No Plan service: No Meds Allergies Allergy/AdvReac Type Severity Reaction Status Date / Time No Known Allergies Allergy Verified 03/11/25 09:03 Active Medications: Current Medications Sodium Chloride (Ns) 1,000 mls @ 999 mls/hr IV .Q1H1M MARGARITA Stop: 03/11/25 11:45 Last Admin: 03/11/25 10:42 Dose: 999 mls/hr Home Medications ?Medication ?Instructions ?Recorded ?Confirmed ?Last Taken ?Type omega 9-nob-vhy-fish oil 60 mg-90 1 cap PO DAILY 03/09/23 03/11/25 03/11/25 History mg-500 mg capsule (Fish Oil) lisinopril 20 mg tablet 20 mg PO DAILY 03/11/25 03/11/25 03/11/25 History Physical Exam Vital Signs and Narrative: Vital Signs: Last Vital Signs Temp 97.9 F 03/11/25 09:26 Pulse 70 03/11/25 09:26 Resp 17 03/11/25 09:26 BP 102/36 L 03/11/25 09:26 Pulse Ox 100 03/11/25 09:26 O2 Del Method Room Air 03/11/25 09:26 BMI result Body Mass Index 20.3 Constitutional - Awake and Alert, No apparent distress. Pleasant. Cooperative. HEENT - PER, EOMI Heart -RRR, No murmurs Lungs - Normal lung expansion, Normal respiratory effort, No respiratory distress, CTA bilaterally Abdomen - NT / ND; +BS; No rebound or guarding Extremities - no calf tenderness bilaterally, no swelling Musculoskeletal - Normal inspection, normal ROM Skin - Warm/Dry. Pallor. Neurological - Alert & oriented x3. No focal weakness grossly noted. Normal speech. Psychological - Appropriate affect Results Labs 03/11/25 09:20 03/11/25 09:20 Labs: Laboratory Results - last 24 hr 03/11/25 03/11/25 03/11/25 09:20 09:46 10:45 MCV 66.0 L MCH 18.7 L MCHC 28.3 L RDW 18.5 H Plt Count 383 MPV 9.6 Immature Gran % (Auto) 0.4 Neut % (Auto) 76.4 H Lymph % (Auto) 10.8 L [place] % (Auto) 10.8 Eos % (Auto) 1.1 Baso % (Auto) 0.5 Lymph # (Auto) 0.8 L [place] # (Auto) 0.8 Eos # (Auto) 0.1 Baso # (Auto) 0.0 Abs Immat Gran (auto) 0.03 Absolute Neuts (auto) 5.7 Absolute Nucleated RBC 0.000 Nucleated RBC % (auto) 0.0 Anion Gap 14 Estim Creat Clear Calc 31.4 Estimated GFR 40 Random Glucose 134 H Calcium 10.0 D Magnesium 2.2 Total Bilirubin 0.5 AST 17 ALT 8 Alkaline Phosphatase 81 Total Protein 7.2 Albumin 4.2 Stool Occult Blood NEGATIVE Blood Type A Negative Antibody Screen NEGATIVE Crossmatch See Detail Assessment and Plan (1) Acute blood loss anemia: Status: Acute (2) Essential hypertension: Status: Acute Plan Jenaro Brantley is 84 y/o man admitted with: Acute blood loss anemia (microcytic), suspecting GI bleeding. History of erosive gastritis. Admit to hospitalist service. NPO after midnight. Continue PRBCs transfusions and continue to monitor H&H (goal > 7). Anemia workup. Start Protonix 80 mg IV now then 40 mg IV quantity. Gastroenterology consult. EMILY, secondary to above. Continue PRBC transfusions. IV fluids. Avoid nephrotoxic agents. Hold lisinopril. Continue to monitor renal function. Essential hypertension. Lisinopril on hold due to above. DVT prophylaxis: SCDs Code status: Full Patient will need hospitalization for at least 2 midnights acute blood loss anemia treatment PRBC transfusion, IV anti-reflux therapy and evaluation by subspecialty for EGD if appropriate. Quality Stroke Does the patient have a stroke diagnosis?: No VTE Prior VTE?: No VTE Risk Level:: Medical - moderate - high VTE Device Contraindication: N/A - Device Ordered VTE Drug Contraindication: Treatment Not Indicated
[2025-03-11] MEDS: Pantoprazole Sodium 40 MG/10 ML VIAL 80 MG IVPUSH (11:10)
[2025-03-11 11:43] LABS: Immature Retic Fraction 18.6 % (2.3-13.4); Retic HGB Equivalent 16.1 pg (30.0-35.0); Reticulocyte Percent 1.7 % (0.5-1.8); Reticulocytes Absolute 0.051 X10*6/uL (0.026-0.095)
--- NOTE | 2025-03-11 11:50 | PHA.MEDREC ---
Addendum entered by Eunice Awad RPh 03/11/25 12:03: Reviewed by [facility] Original Note: Pharmacy Consult ? Medication Reconciliation Pharmacy has completed the medication reconciliation. Spoke with pt and he confirmed he is only taking Lisinopril 20mg tabs and Fish Oil tabs once daily and nothing else. Pt was on an Albuterol inhaler but stopped it stating he was not finding any relief when he was using it.
[2025-03-11 11:56] LABS: Iron 8 mcg/dL (45-160); Percent Iron Saturation 2 % (15-50); Total Iron Binding Capacity 366 mcg/dL (228-428); Unsaturated Iron Binding 358 ug/dL
--- NOTE | 2025-03-11 14:48 | P.CNGI_ITS ---
History of Present Illness Data of Consult Service Date: 03/11/25 Requesting physician: Maria T Salvador Primary Care Provider: Unknown Physician HPI 84 YM with erosive gastritis (February 2023), diverticulosis, SBO and hypertension on lisinopril seen at [facility] on 03/10/25 after he was found to have significant anemia as an outpatient. 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 He decreased the amount of food he was eating and still noted pain yesterday. Patient denies nausea, vomiting, heartburn or dysphagia. He admits to being constipated for the past few days. He denies chest pain, headache, dizziness or loss of consciousness. He denied taking aspirin, NSAIDS or anticoagulants. The only medication he is currently taking is lisinopril and was taking acetaminophen prn for back pain. Pt admits to wt loss from 165 to 150 lbs over the past few months He drinks a glass of wine daily and is a former tobacco smoker (quitted 40 yrs ago). Patient stated that he has not ever been transfused and has not had a colonoscopy in the past. Pt works in [employer] and continues to go to work for a few hrs in the morning. Pt is and lives by himself and has 2 children Family hx is positive for colon cancer in his Mom in her 50's. Chart review: Patient has an EGD [address] Baker which showed erosive esophagitis, multiple gastric polyps, and superficial ulcerations in the pyloric channel. He required endotracheal intubation after EGD due to aspiration, hypotension and over-sedation. In the ED he was found to have stable vital signs without tachycardia and oxygen saturation on room air of 100%. Labs showed hemoglobin 5.6, hematocrit 19.8, MCV 66 and RDW 18.5. Platelets is normal, 383. Creatinine is 1.65 and BUN 26 (0.89 and 31, in 2022). LFTs are normal as well as total protein and albumin. Review of Systems 2 Review of Systems: All 12 systems were reviewed and normal except as noted in HPI. [facility] Past Medical History Medical History (Updated 03/11/25 @ 16:40 by Jose Banks MD) Erosive gastritis Essential hypertension Pneumonitis Atelectasis of left lung Surgical History Surgical History (Updated 03/26/23 @ 12:59 by Francia Franco RN) Hx of arthroscopic knee surgery Social History Social History Household Members: None Housing: House Do you presently have visiting nurse or other home services: No Unable to assess alcohol history related to: Unknown Alcohol intake: current Alcohol intake frequency: a few times a week Alcohol type: hard liquor Patient Tobacco Use Status: Former Tobacco user Advance Directives Date on File: 03/29/23 service: No Meds Allergies Allergy/AdvReac Type Severity Reaction Status Date / Time No Known Allergies Allergy Verified 03/11/25 09:03 Active Medications: Current Medications Acetaminophen (Acetaminophen 325 Mg Tablet) 975 mg PO Q6H PRN PRN Reason: Pain, Mild 1-3,fever,headache Lactated Ringer's (Lr) 1,000 mls @ 100 mls/hr IVCONT .Q10H [facility] Pantoprazole Sodium (Pantoprazole Sodium 40 Mg/10 Ml Vial) 40 mg IVPUSH BID@0630,1630 [facility] Sodium Chloride (0.9 % Sodium Chloride Flush 3 Ml Syringe) 3 ml IVFLUSH QSHIFT [facility] Home Medications ?Medication ?Instructions ?Recorded ?Confirmed ?Last Taken ?Type omega 7-bmp-oum-fish oil 60 mg-90 1 cap PO DAILY 03/0903/11/25 03/11/25 History mg-500 mg capsule (Fish Oil) lisinopril 20 mg tablet 20 mg PO DAILY 03/11/25 06/03/1003/11/25 History Physical Exam 2 Vital Signs: Vital Signs: Last Vital Signs Temp 97.8 F 03/11/25 14:33 Pulse 55 03/11/25 14:33 Resp 16 03/11/25 14:33 BP 117/45 L 03/11/25 14:33 Pulse Ox 100 03/11/25 14:33 O2 Del Method Room Air 03/11/25 09:26 BMI result Body Mass Index 20.3 Const: General: no acute distress and other (pale appearing) Nutritional Appearance: average body habitus Orientation/consciousness: patient oriented x3 HEENT: Head: Yes normal to inspection Ears: hearing grossly normal bilaterally Mouth: Normal oral and palatal mucosa present Eyes: Sclerae: sclerae normal Pupils: Equal, round and reactive pupils present Neck: Neck: Yes normal visual inspection Chest: Chest palpation & inspection: normal inspection of the chest Resp: Effort & Inspection: normal respiratory effort Auscultation: clear to auscultation bilaterally Cardio: Palpation: normal PMI Rate: regular rate Rhythm: regular rhythm Heart sounds: S1 normal heart sound present, S2 normal heart sound present and no murmurs GI: Palpation (GI): Soft to palpation, nontender and No hepatosplenomegaly present Auscultation: normal bowel sounds Rectal Exam - Male: Yes deferred Skin: General skin exam: no rashes or lesions noted Neuro: General: patient oriented x3, gait normal and moves all extremities Cranial nerves: Yes Equal, round and reactive pupils present Psych: Appearance: grossly normal Mental Status: mental status grossly normal Results Labs 03/11/25 09:20 03/11/25 09:20 Labs: Short CBC 03/11/25 Range/Units 09:20 WBC 7.5 (4.8-10.8) X10*3/uL Hgb 5.6 L* D (14.0-18.0) g/dl Hct 19.8 L* D (42.0-52.0) % Plt Count 383 (160-400) X10*3/uL BMP 03/11/25 09:20 Sodium 136 Potassium 4.1 Chloride 102 Carbon Dioxide 24 BUN 26 H Creatinine 1.65 H Calcium 10.0 D Liver Function 03/11/25 Range/Units 09:20 Total Bilirubin 0.5 (0.0-1.0) mg/dL AST 17 (5-37) U/L ALT 8 (0-40) U/L Alkaline Phosphatase 81 (39-117) U/L Albumin 4.2 (3.5-5.0) g/dL Assessment and Plan (1) Acute on chronic anemia: Status: Acute Plan 84 YM with erosive gastritis (February 2023), diverticulosis, SBO and hypertension admitted to [facility] on 03/10/25 with acute on chronic microcytic hypochromic anemia, SOB, black stools, abd pain and wt loss. Iron studies consistent with iron- deficiency anemia. Stool occult blood was negative. He likely has slow GI blood loss from an UGI source (peptic ulcer disease, erosive esophagitis, gastritis, upper GI AVM or Dieulafoy's). RECOMMENDATIONS: 1. Agree with IV PPI and transfusion of 2 U PRBC 2. Check CBC post transfusion and transfuse an additional unit of PRBC with Hb is < 7.5 3. Pt needs further evaluation with an upper endoscopy - patient was placed on the add on list for an upper endoscopy with Dr. Shook on 03/12/2025. EGD procedure and potential complications including bleeding, perforation, reaction to anesthetic and aspiration were reviewed with the patient. If no bleeding source if found on EGD, he will need further evaluation with a colonoscopy (pt states he never had a colonoscopy in the past) Procedures Date of Service Date of Service: 03/11/25
[2025-03-11] MEDS: Pantoprazole Sodium 40 MG/10 ML VIAL IVPUSH (16:43)
[2025-03-11] MEDS: Lactated Ringers 1,000 ML 100 ML IVCONT (16:59)
[2025-03-11 18:38] LABS: Mean Corpuscular Hemoglobin 21.1 pg (27.0-33.0); Mean Corpuscular Volume 70.3 fL (80.0-98.0); Mean Platelet Volume 9.6 fL (9.4-12.4); Platelet Count 301 X10*3/uL (160-400); Red Blood Count 3.13 X10*6/uL (4.60-5.80); Red Cell Distribution Width 22.4 % (11.0-16.0); White Blood Count 6.5 X10*3/uL (4.8-10.8)
[2025-03-11 19:01] LABS: Hemoglobin 6.6 g/dl (14.0-18.0)
[2025-03-12] VITALS (9 sets, daily range): BP systolic 130–158; BP diastolic 54–85; PULSE 48–97; RESP 15–20; TEMP 36.2–36.6; O2SAT 93–98
[2025-03-12] MEDS: 0.9 % Sodium Chloride Flush 3 ML SYRINGE IVFLUSH ×2 (00:03→16:52)
--- NOTE | 2025-03-12 05:02 | PC.NURSE ---
Pt received 2 units PRBcs overnight. Awaiting EGD, NPO for procedure.
[2025-03-12] MEDS: Pantoprazole Sodium 40 MG/10 ML VIAL IVPUSH ×2 (06:11→16:52)
[2025-03-12 06:55] LABS: Hematocrit 29.9 % (42.0-52.0); Hemoglobin 9.5 g/dl (14.0-18.0); Mean Corpuscular HGB Conc 31.8 g/dl (31.0-36.0); Mean Corpuscular Hemoglobin 23.5 pg (27.0-33.0); Mean Platelet Volume 9.6 fL (9.4-12.4); Platelet Count 302 X10*3/uL (160-400); Red Blood Count 4.04 X10*6/uL (4.60-5.80); Red Cell Distribution Width 23.3 % (11.0-16.0); White Blood Count 6.8 X10*3/uL (4.8-10.8)
[2025-03-12 07:13] LABS: Anion Gap 13 (12-20); Blood Urea Nitrogen 20 mg/dL (9-16); Calcium 9.7 mg/dL (8.4-10.2); Carbon Dioxide 25 mmol/L (22-29); Chloride 104 mmol/L (96-108); Creatinine Clr Calc Pharmacy 44.7; Estimated Glomerular Filt Rate 58; Glucose Random 99 mg/dL (60-115); Potassium 4.9 mmol/L (3.3-5.1); Sodium 137 mmol/L (135-145)
[2025-03-12 08:03] LABS: Vitamin B12 > 2000 pg/mL (200-900)
[2025-03-12] MEDS: Acetaminophen 325 MG TABLET 975 MG PO (08:46)
--- NOTE | 2025-03-12 10:28 | P.PNIM_ITS ---
Subjective Subjective Date of Service: 03/12/25 Interval History: f/u anemia, suspecte gib, no sob, no cp, no bleeding Physical Exam 2 Vital Signs: Vital Signs: Last Vital Signs Temp 97.1 F 03/12/25 07:17 Pulse 53 03/12/25 07:17 Resp 17 03/12/25 07:17 BP 130/61 03/12/25 07:17 Pulse Ox 94 03/12/25 07:17 O2 Del Method Room Air 03/12/25 03:33 BMI result Body Mass Index 20.8 Const: Other: General: AO X 3, no acute distress Resp: CTA bilateral CVS: S1,S2,RRR GI: +BS, NT, no distention Skin: No rash Neuro: motor grossly intact Psych: appropriate affect Objective Data Active Medications Acetaminophen (Acetaminophen 325 Mg Tablet) 975 mg PO Q6H PRN PRN Reason: Pain, Mild 1-3,fever,headache Last Admin: 03/12/25 08:46 Dose: 975 mg Documented By: NEREIDA Lactated Ringer's (Lr) 1,000 mls @ 100 mls/hr IVCONT .Q10H [facility] Last Admin: 03/12/25 03:14 Dose: Not Given Documented By: MARIAH Non-Admin Reason: Blood Running Pantoprazole Sodium (Pantoprazole Sodium 40 Mg/10 Ml Vial) 40 mg IVPUSH BID@0630,1630 [facility] Last Admin: 03/12/25 06:11 Dose: 40 mg Documented By: MARIAH Sodium Chloride (0.9 % Sodium Chloride Flush 3 Ml Syringe) 3 ml IVFLUSH QSHIFT [facility] Last Admin: 03/12/25 07:40 Dose: Not Given Documented By: NEREIDA Non-Admin Reason: IV Running Labs 03/12/25 06:32 03/12/25 06:32 Labs: Laboratory Results - last 24 hr 03/11/25 03/11/25 03/11/25 09:20 09:46 10:45 MCV MCH MCHC RDW Plt Count MPV Absolute Nucleated RBC Nucleated RBC % (auto) Smear Path Review SEE NOTE Absolute Retic 0.051 Percent Retic 1.7 Immature Retic Fraction 18.6 H Retic Hgb Equivalent 16.1 L Anion Gap Estim Creat Clear Calc Estimated GFR Random Glucose Calcium Iron 8 L TIBC 366 % Saturation 2 L Unsat Iron Binding 358 Vitamin B12 Folate Stool Occult Blood NEGATIVE Blood Type A Negative Antibody Screen NEGATIVE Crossmatch See Detail 03/11/25 03/12/25 18:19 06:32 MCV 70.3 L 74.0 L MCH 21.1 L 23.5 L MCHC 30.0 L 31.8 RDW 22.4 H 23.3 H Plt Count 301 302 MPV 9.6 9.6 Absolute Nucleated RBC 0.000 0.000 Nucleated RBC % (auto) 0.0 0.0 Smear Path Review Absolute Retic Percent Retic Immature Retic Fraction Retic Hgb Equivalent Anion Gap 13 Estim Creat Clear Calc 44.7 Estimated GFR 58 Random Glucose 99 Calcium 9.7 Iron TIBC % Saturation Unsat Iron Binding Vitamin B12 > 2000 H Folate 4.0 Stool Occult Blood Blood Type Antibody Screen Crossmatch Assessment and Plan (1) Acute blood loss anemia: Status: Acute Plan 84 YM with erosive gastritis (February 2023), diverticulosis, h/o SBO and hypertension sent by PCP for anemia hemoglobin was 5.7 and black stools, sob , abdpain and weight loss Acute blood loss anemia (microcytic), suspecting slow GI bleeding, DDx : peptic ulcer disease, erosive esophagitis, gastritis, upper GI AVM or Dieulafoy's transfused 2 units, hgb 6.7 -->9.5 today IV PPI EGD today by Dr. Banks NO NSAID EMILY, likely from above, resolved. Cr 1.65--> 1.19 Essential hypertension Lisinopril on hold due to above. DVT prophylaxis: SCDs Code status: Full Quality Stroke Does the patient have a stroke diagnosis?: No VTE Prior VTE?: No VTE Risk Level:: Medical - moderate - high VTE Device Contraindication: N/A - Device Ordered VTE Drug Contraindication: Treatment Not Indicated
[2025-03-12] MEDS: Lactated Ringers 1,000 ML 100 ML IVCONT (10:29)
--- NOTE | 2025-03-12 12:08 | MHC.CM.PN ---
IMM 03/12/25 DELIVERED TO BEDSIDE, EMR REVIEWED, PT W/GI BLEED, CM MET W/PT WHO REPORTS HE LIVES ALONE, IS FULLY INDEP/WORKS/DRIVES AND REPORTS HE HAS ALL THE DME HE WOULD NEED HE TOOK CARE OF HIS W/[facility] PRIOR TO HER PASSING AWAY. PT HAS NO HOME SERVICES AND DENIES NEED. PT'S GOAL IS FOR DC HOME SELF-CARE. PT VERIFIES PCP IS [facility] AND REPORT HE DID A HCP/WILL ETC W/A WE[facility] LOGGER AND HAS DOCUMENTS AT HOME, COPY OF HCP REQUESTED.
--- NOTE | 2025-03-12 13:55 | P.PNGI_ITS ---
Subjective Subjective Date of Service: 03/12/25 Interval History: no melena today no rectal bleeding denie abdominal pain feels well Critical Care Time (minutes): 0 Physical Exam 2 Vital Signs: Vital Signs: Last Vital Signs Temp 97.5 F 03/12/25 11:08 Pulse 97 03/12/25 11:08 Resp 15 03/12/25 11:08 BP 135/85 03/12/25 11:08 Pulse Ox 94 03/12/25 11:08 O2 Del Method Room Air 03/12/25 11:08 BMI result Body Mass Index 20.8 EXAM: GENERAL: The patient is well developed and nontoxic. VITAL SIGNS:see workflow HEENT: Nonicteric sclerae, PERRLA, EOMI. Oropharynx clear. Moist mucous membranes. Conjunctivae appear well perfused. No thyroid mass. CHEST: Chest wall is nontender. HEART: Regular rate and rhythm without murmurs. LUNGS: Clear to auscultation bilaterally. ABDOMEN: Soft, positive bowel sounds, nontender, no organomegaly.no flank tenderness SKIN: No rash, no excessive bruising, petechiae, or purpura. NEUROLOGIC: Cranial nerves II-XII intact without motor/sensory deficit. Psych: normal affect Objective Data Labs 03/12/25 06:32 03/12/25 06:32 Labs: Laboratory Results - last 24 hr 03/11/25 03/11/25 03/11/25 09:20 09:46 18:19 WBC 6.5 RBC 3.13 L Hgb 6.6 L* Hct 22.0 L MCV 70.3 L MCH 21.1 L MCHC 30.0 L RDW 22.4 H Plt Count 301 MPV 9.6 Absolute Nucleated RBC 0.000 Nucleated RBC % (auto) 0.0 Smear Path Review SEE NOTE Sodium Potassium Chloride Carbon Dioxide Anion Gap BUN Creatinine Estim Creat Clear Calc Estimated GFR Random Glucose Calcium Vitamin B12 Folate Blood Type A Negative Antibody Screen NEGATIVE Crossmatch See Detail 03/12/25 06:32 WBC 6.8 RBC 4.04 L D Hgb 9.5 L D Hct 29.9 L D MCV 74.0 L MCH 23.5 L MCHC 31.8 RDW 23.3 H Plt Count 302 MPV 9.6 Absolute Nucleated RBC 0.000 Nucleated RBC % (auto) 0.0 Smear Path Review Sodium 137 Potassium 4.9 Chloride 104 Carbon Dioxide 25 Anion Gap 13 BUN 20 H Creatinine 1.19 Estim Creat Clear Calc 44.7 Estimated GFR 58 Random Glucose 99 Calcium 9.7 Vitamin B12 > 2000 H Folate 4.0 Blood Type Antibody Screen Crossmatch Procedures Date of Service Date of Service: 03/12/25 Progress Note: A&P Assessment and plan (1) Acute blood loss anemia: Status: Acute Plan 1/ Acute blood loss anemia, posisble PUD or gastritis with melena PLAN: 1/ EGD for assessment, HGB has improved appropriately with PRBC 2/ Cont with PPI for the moment Time Spent With Patient Time: Total time managing care of this patient today ____ minutes. Quality Stroke Does the patient have a stroke diagnosis?: No VTE Prior VTE?: No VTE Risk Level:: Medical - moderate - high VTE Device Contraindication: N/A - Device Ordered VTE Drug Contraindication: Treatment Not Indicated
--- NOTE | 2025-03-12 14:08 | PC.NURSE ---
right ac intacrt.
--- NOTE | 2025-03-12 14:24 | P.CONAN_ITS ---
[facility] Active Problems Active Problems: All Active Problems (Updated 03/11/25 @ 16:40 by Jose Banks MD) Acute on chronic anemia (Acute) Acute blood loss anemia (Acute) Essential hypertension (Acute) Atelectasis of left lung (Acute) Past Medical History Medical History (Updated 03/11/25 @ 16:40 by Jose Banks MD) Erosive gastritis Essential hypertension Pneumonitis Atelectasis of left lung Family History Family history of problems with anesthesia: No Surgical History Surgical History (Updated 03/12/25 @ 14:03 by Winnie Kemp RN) History of tonsillectomy Hx of arthroscopic knee surgery History of Problems with Anesthesia: No Social History Social History Household Members: None Housing: House Do you presently have visiting nurse or other home services: No Unable to assess alcohol history related to: Unknown Alcohol intake: current Alcohol intake frequency: a few times a week Alcohol type: hard liquor Patient Tobacco Use Status: Former Tobacco user Advance Directives Date on File: 03/29/23 service: No Meds Allergies Allergy/AdvReac Type Severity Reaction Status Date / Time No Known Allergies Allergy Verified 03/11/25 09:03 Active Medications: Current Medications Acetaminophen (Acetaminophen 325 Mg Tablet) 975 mg PO Q6H PRN PRN Reason: Pain, Mild 1-3,fever,headache Last Admin: 03/12/25 08:46 Dose: 975 mg Lactated Ringer's (Lr) 1,000 mls @ 100 mls/hr IVCONT .Q10H [facility] Last Admin: 03/12/25 10:29 Dose: 100 mls/hr Pantoprazole Sodium (Pantoprazole Sodium 40 Mg/10 Ml Vial) 40 mg IVPUSH BID@0630,1630 [facility] Last Admin: 03/12/25 06:11 Dose: 40 mg Sodium Chloride (0.9 % Sodium Chloride Flush 3 Ml Syringe) 3 ml IVFLUSH QSHIFT [facility] Last Admin: 03/12/25 07:40 Dose: Not Given Home Medications ?Medication ?Instructions ?Recorded ?Confirmed ?Last Taken ?Type omega 6-gyf-avv-fish oil 60 mg-90 1 cap PO DAILY 03/0903/11/25 03/11/25 History mg-500 mg capsule (Fish Oil) lisinopril 20 mg tablet 20 mg PO DAILY 03/11/25 06/2 03/1003/11/25 History Exam Height,Weight and Vital Signs: Height 6 ft Weight 69.7 kg Last Vital Signs Temp 97.4 F 03/12/25 14:06 Pulse 52 03/12/25 14:06 Resp 16 03/12/25 14:06 BP 158/66 H 03/12/25 14:06 Pulse Ox 97 03/12/25 14:06 O2 Del Method Room Air 03/12/25 14:06 Pertinent Lab Results Pertinent Lab Results: Laboratory Tests 03/11/25 03/11/25 03/11/25 09:20 09:46 10:45 WBC 7.5 RBC 3.00 L Hgb 5.6 L* D Hct 19.8 L* D MCV 66.0 L MCH 18.7 L MCHC 28.3 L RDW 18.5 H Plt Count 383 MPV 9.6 Immature Gran % (Auto) 0.4 Neut % (Auto) 76.4 H Lymph % (Auto) 10.8 L [place] % (Auto) 10.8 Eos % (Auto) 1.1 Baso % (Auto) 0.5 Lymph # (Auto) 0.8 L [place] # (Auto) 0.8 Eos # (Auto) 0.1 Baso # (Auto) 0.0 Abs Immat Gran (auto) 0.03 Absolute Neuts (auto) 5.7 Absolute Nucleated RBC 0.000 Nucleated RBC % (auto) 0.0 Smear Path Review SEE NOTE Absolute Retic 0.051 Percent Retic 1.7 Immature Retic Fraction 18.6 H Retic Hgb Equivalent 16.1 L Sodium 136 Potassium 4.1 Chloride 102 Carbon Dioxide 24 Anion Gap 14 BUN 26 H Creatinine 1.65 H Estim Creat Clear Calc 31.4 Estimated GFR 40 Random Glucose 134 H Calcium 10.0 D Magnesium 2.2 Iron 8 L TIBC 366 % Saturation 2 L Unsat Iron Binding 358 Total Bilirubin 0.5 AST 17 ALT 8 Alkaline Phosphatase 81 Total Protein 7.2 Albumin 4.2 Vitamin B12 Folate Stool Occult Blood NEGATIVE Blood Type A Negative Antibody Screen NEGATIVE Crossmatch See Detail 03/11/25 03/12/25 18:19 06:32 WBC 6.5 6.8 RBC 3.13 L 4.04 L D Hgb 6.6 L* 9.5 L D Hct 22.0 L 29.9 L D MCV 70.3 L 74.0 L MCH 21.1 L 23.5 L MCHC 30.0 L 31.8 RDW 22.4 H 23.3 H Plt Count 301 302 MPV 9.6 9.6 Immature Gran % (Auto) Neut % (Auto) Lymph % (Auto) [place] % (Auto) Eos % (Auto) Baso % (Auto) Lymph # (Auto) [place] # (Auto) Eos # (Auto) Baso # (Auto) Abs Immat Gran (auto) Absolute Neuts (auto) Absolute Nucleated RBC 0.000 0.000 Nucleated RBC % (auto) 0.0 0.0 Smear Path Review Absolute Retic Percent Retic Immature Retic Fraction Retic Hgb Equivalent Sodium 137 Potassium 4.9 Chloride 104 Carbon Dioxide 25 Anion Gap 13 BUN 20 H Creatinine 1.19 Estim Creat Clear Calc 44.7 Estimated GFR 58 Random Glucose 99 Calcium 9.7 Magnesium Iron TIBC % Saturation Unsat Iron Binding Total Bilirubin AST ALT Alkaline Phosphatase Total Protein Albumin Vitamin B12 > 2000 H Folate 4.0 Stool Occult Blood Blood Type Antibody Screen Crossmatch Airway Mallampati Class: II TM Dist: >3cm Neck ROM: Full Denture: Upper Partial: Lower Heart: rrr Lungs: cta Assessment and Plan Assessment Anesthesia Assessment: Anesthesia Plan Discussed and Chart Reviewed Final Anesthetic Review Family History of Problems with Anesthesia: No History of Problems with Anesthesia: No NPO: Yes ASA Class: III Final Preanesthetic Review: No Changes in Pt Med Stat, Meds/Allgs Chart Reviewed and Consent Obtained/Reviewed Patient Risk: Intermediate Procedure Risk: Intermediate Anesthetic Plan Anesthetic Plan: MAC: Disposition: Standard PACU
--- NOTE | 2025-03-12 14:42 | W.PM.OPN ---
Operative Note Operative Note Date of Service: 03/12/25 Narrative: Procedure Description: EGD Indication: anemia Anesthesia: MAC FLEXIBLE TRANSORAL UPPER GASTROINTESTINAL ENDOSCOPY UPPER ENDOSCOPY Consent: Indications for the procedure and potential complications of bleeding, perforation, reaction to medications and missed diagnosis were discussed with the patient and informed consent was obtained. Instrument: Olympus GIF H 190 J mid size upper endoscope Monitoring: Vital signs and clinical assessment, continuous EKG monitoring, Pulse oximetry, Carbon Dioxide monitoring and blood pressure monitoring were done throughout the procedure. Procedure: The patient was placed in the left lateral decubitis position and pre-procedure medications were administered and a bite block was placed. The endoscope was inserted into the mouth and advanced under direct vision to the third part of duodenum. A careful inspection was made as the upper endoscope was withdrawn including a retroflexed examination of the proximal stomach; Findings and interventions are described below. Findings: Larynx:normal Esophagus: GE junction at 38 cm, diaphragm hiatus at 40 cm, consistent with 2 cm sliding hiatal hernia and schatzki ring Stomach: few possible small hyperplastic polyps 6-7 mm in distal stomach removed with cold snare . Biopsies were also obtained to r/o H pylori. Grade 2 flap valve on retroflexed examination of the cardia. Duodenum: Normal bulb and descending duodenum, Intervention: Biopsies as noted above, cold snare polypectomy Impression/Findings: gastric polyps hiatal hernia schatzki ring no active bleeding seen PLAN: colonoscopy on Saturday or as early outpatient --if neg then caspule endoscopy GERD precautions
--- NOTE | 2025-03-12 15:56 | P.DS_ITS ---
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 Patient stated that he has been feeling very short of breath for a while. He also has been experiencing stomachache right after eating. He denied any event of vomiting or nausea. He reported black stools. The patient denied chest pain, headache, dizziness or loss of consciousness. He denied picking about thinners such as aspirin. He also denied taking NSAIDs such as naproxen, Advil or Motrin. The only medication he is currently taking is lisinopril. He drinks a glass of wine daily and has a former tobacco smoker. Patient stated that he has not ever been transfused. Chart review: Patient has an EGD 2022 that showed erosive gastritis. He required endotracheal intubation after developed hypotension and over-sedation. In the ED he was found to have stable vital signs, however, his blood pressure has been slowly decreasing since 09:00. Last BP at 11 16:00 is 90/79. There is no tachycardia and oxygen saturation on room air is 100%. Blood workup is remarkable hemoglobin 5.6, hematocrit 19.8, MCV 66 and RDW 18.5. Platelets is normal, 383. There are no electrolyte imbalances. Creatinine is 1.65 and BUN 26 (0.89 and 31, in 2022). LFTs are normal as well as total protein and albumin. Hospital course: Acute blood loss anemia (microcytic), suspecting slow GI bleeding, DDx : peptic ulcer disease, erosive esophagitis, gastritis, upper GI AVM or Dieulafoy's transfused 2 units, hgb 6.7 -->9.5 today. He was treated with IV IV PPI. He has EGD by DR. Shook with the following finding and plan: Larynx:normal Esophagus: GE junction at 38 cm, diaphragm hiatus at 40 cm, consistent with 2 cm sliding hiatal hernia and schatzki ring Stomach: few possible small hyperplastic polyps 6-7 mm in distal stomach removed with cold snare . Biopsies were also obtained to r/o H pylori. Grade 2 flap valve on retroflexed examination of the cardia. Duodenum: Normal bulb and descending duodenum, Intervention: Biopsies as noted above, cold snare polypectomy Impression/Findings: gastric polyps hiatal hernia schatzki ring no active bleeding seen PLAN: colonoscopy on Saturday or as early outpatient --if neg then caspule endoscop y--Patient prefers getting colonoscopy done on outpatient basis GERD precautions EMILY, likely from above, resolved. Cr 1.65--> 1.19 Essential hypertension Lisinopril on hold due to above. Time Attestation Discharge Coordination Time (in mins): 35 Quality: Safe Use of Opioids Does Pt have an Active Cancer Diagnosis on the Problem List?: No Quality: Stroke Does the patient have a stroke diagnosis?: No Physical Exam Vital Signs: Vital Signs: Last Vital Signs Temp 97.5 F 03/12/25 15:10 Pulse 51 03/12/25 15:10 Resp 17 03/12/25 15:10 BP 152/75 H 03/12/25 15:10 Pulse Ox 95 03/12/25 15:10 O2 Del Method Room Air 03/12/25 15:10 BMI result Body Mass Index 20.8 DS: Data Data Completed and Pending Completed studies during hospitalization [Text1]: Procedures Drainage of Bilateral Lungs, Via Natural or Artificial Opening Endoscopic, Diagnostic (03/09/23) Drainage of Stomach, Via Natural or Artificial Opening Endoscopic (03/09/23) Excision of Esophagogastric Junction, Via Natural or Artificial Opening Endoscopic, Diagnostic (03/09/23) Excision of Stomach, Pylorus, Via Natural or Artificial Opening Endoscopic, Diagnostic (03/09/23) Extraction of Left Lower Lung Lobe, Via Natural or Artificial Opening Endoscopic, Diagnostic (03/09/23) Insertion of Endotracheal Airway into Trachea, Via Natural or Artificial Opening (03/09/23) Respiratory Ventilation, Less than 24 Consecutive Hours (03/09/23) Pending studies at discharge: Pending at discharge 03/12/25 14:43 Surgical [PTH] Routine Labs on day of discharge: Laboratory Results - last 24 hr 03/11/25 03/11/25 03/11/25 09:20 09:46 18:19 WBC 6.5 RBC 3.13 L Hgb 6.6 L* Hct 22.0 L MCV 70.3 L MCH 21.1 L MCHC 30.0 L RDW 22.4 H Plt Count 301 MPV 9.6 Absolute Nucleated RBC 0.000 Nucleated RBC % (auto) 0.0 Smear Path Review SEE NOTE Sodium Potassium Chloride Carbon Dioxide Anion Gap BUN Creatinine Estim Creat Clear Calc Estimated GFR Random Glucose Calcium Vitamin B12 Folate Blood Type A Negative Antibody Screen NEGATIVE Crossmatch See Detail 03/12/25 06:32 WBC 6.8 RBC 4.04 L D Hgb 9.5 L D Hct 29.9 L D MCV 74.0 L MCH 23.5 L MCHC 31.8 RDW 23.3 H Plt Count 302 MPV 9.6 Absolute Nucleated RBC 0.000 Nucleated RBC % (auto) 0.0 Smear Path Review Sodium 137 Potassium 4.9 Chloride 104 Carbon Dioxide 25 Anion Gap 13 BUN 20 H Creatinine 1.19 Estim Creat Clear Calc 44.7 Estimated GFR 58 Random Glucose 99 Calcium 9.7 Vitamin B12 > 2000 H Folate 4.0 Blood Type Antibody Screen Crossmatch Discharge Plan Discharge Anticipated Discharge Date/Time: 03/12/25 15:56 Patient Disposition: Home, Self-Care Discharge Diagnosis: Acute blood loss anemia Referrals: Physician,Unknown J [Primary Care Provider, Medical] - 1 Week Discharge Medications: Continued lisinopril 20 mg tablet 20 mg PO DAILY omega 1-egu-kqa-fish oil [Fish Oil] 60-90-500 mg Capsule 1 cap PO DAILY Discharge Orders: Discharge Order (Routine); Ordered 03/12/25 Ordered By: Duglas Chavez Diet: Advance to usual diet Activity on Discharge: As tolerated Stand Alone Forms: Patient Portal Discharge page Print Language: Belarusian Care Plan Goals: recovery and complete work up for anemia Health Concerns: iron deficiency anemia Plan of Treatment: Follow up with Dr. Shook for arrangment for colonoscopy Assessment: see above
[2025-03-12 16:31] LABS: Hematocrit 30.3 % (42.0-52.0); Hemoglobin 9.4 g/dl (14.0-18.0)
== END 2025-03-12 17:51 | disposition home or self-care (01) | DRG 812 ==
LOC: HO.ED 11:03 → HO.EDOVER 11:11 → HO.IMC 14:29
PROVIDERS: Internal Medicine Gastroenterology; Registered Nurse Emergency; Admitting Provider Internal Medicine; Emergency Provider Emergency Medicine; PCP Physician Assistant Medical; Visit Provider Internal Medicine
PROC: 0DJ08ZZ Inspection of Upper Intestinal Tract, Via Natural or Artificial Opening Endoscopic (ICD-10-PCS; CPT 43235; principal; 2025-03-12 14:40)
DX: D62 Acute posthemorrhagic anemia (principal); N17.9 Acute kidney failure, unspecified; I10 Essential (primary) hypertension; K44.9 Diaphragmatic hernia without obstruction or gangrene; K22.2 Esophageal obstruction; K31.7 Polyp of stomach and duodenum; Z87.891 Personal history of nicotine dependence; Z79.899 Other long term (current) drug therapy
CPT/HCPCS: 36415; 80048; 80053; 82272; 82607; 82746; 83540; 83735; 85014; 85018; 85025; 85027; 85045; 86850; 86900; 86901; 86923; 88305; 88313; 88342; 93005; 99285; J2003; J2470; J2704; J7120; P9016

== ENCOUNTER → 2025-03-11 09:06 | Outpatient (BNV) | payer MEDICARE, OTHER, SELFPAY | PROVIDERS: Admitting Provider Internal Medicine; Emergency Provider Emergency Medicine; Visit Provider Internal Medicine | DX: I49.1 Atrial premature depolarization (principal) | CPT/HCPCS: 93010 ==

== ENCOUNTER → 2025-03-11 10:59 | Outpatient (BNV) | payer MEDICARE, OTHER, SELFPAY | PROVIDERS: Admitting Provider Internal Medicine; Emergency Provider Emergency Medicine; Visit Provider Internal Medicine Gastroenterology | DX: D64.9 Anemia, unspecified (principal) | CPT/HCPCS: 99232 ==

== ENCOUNTER → 2025-03-11 10:59 | Outpatient (BNV) | payer MEDICARE, OTHER, SELFPAY | PROVIDERS: Admitting Provider Internal Medicine; Emergency Provider Emergency Medicine; Visit Provider Internal Medicine | DX: D62 Acute posthemorrhagic anemia (principal) | CPT/HCPCS: 99232 ==

== ENCOUNTER 2025-04-08 06:11 | Day surgery (SDC) | payer MEDICARE, OTHER, SELFPAY ==
[2025-04-06 13:18] VITALS: BMI 20.8
[2025-04-08 06:33] VITALS: BP 148/73; PULSE 74; RESP 12; TEMP 36.8; O2SAT 97; BMI 19.7
[2025-04-08] MEDS: Lactated Ringers 1,000 ML 100 ML IVCONT (06:48)
--- NOTE | 2025-04-08 07:31 | MHC.SHP ---
Pre-Procedural Eval Section A - 24 Hr Update-Section A only Date of Service: 04/08/25 Section B - Complete if H&P > 30 days Chief Complaint: Anemia, unspecified Relevant Family History (Specify if Yes): No Relevant Social History: None Present Medications: see Short Stay Collaborative assessment Medical History: Significant History (sential hypertension Pneumonitis Atelectasis of left lung) History of Previous Operations: Relevant previous surgery/procedure and date(s) ( History of tonsillectomy Hx of arthroscopic knee surgery) Allergies: Allergies Allergy/AdvReac Type Severity Reaction Status Date / Time No Known Allergies Allergy Verified 04/08/25 06:25 Review of Systems Sugical H&P ROS: Negative: Constitution, Cardiovascular, Respiratory, Neurological, Psychiatric, Hem-Onc, Allergic/Immunologic, Gastrointestinal, Genitourinary, Musculoskeletal, Integumentary, Endocrine and Eyes/Ears/Nose/Throat Exam Surgical H&P Exam: Normal: HEENT, Normal: Heart, Normal: Lungs, Normal: Extremities, Normal: Abdomen, Normal: Skin and Normal: Neurological Plan Diagnosis/Plan: Unchanged I have reviewed the history and physical and performed a pertinent physical examination on my patient. No changes have occurred unless specified. Time Spent With Patient Time: Total time managing care of this patient today ____ minutes.
--- NOTE | 2025-04-08 07:47 | HO.ANESPROP2 ---
[facility] Active Problems Active Problems: All Active Problems (Updated 04/07/25 @ 07:14 by Jena Bobby RN) Acute on chronic anemia (Acute) Acute blood loss anemia (Acute) Atelectasis of left lung (Acute) Past Medical History Medical History Cough SOB (shortness of breath) GERD (gastroesophageal reflux disease) Erosive gastritis Essential hypertension Pneumonitis Atelectasis of left lung Functional capacity: independent ambulation Family History Family history of problems with anesthesia: No Surgical History Surgical History History of tonsillectomy Hx of arthroscopic knee surgery History of Problems with Anesthesia: No Social History Social History Household Members: None Housing: House Are you a primary furnace caretaker to a significant other at home: No Do you presently have visiting nurse or other home services: No Unable to assess alcohol history related to: Unknown Alcohol intake: current Alcohol intake frequency: a few times a week Alcohol type: hard liquor Patient Tobacco Use Status: Former Tobacco user Use of substances other than those prescribed or required for medical reasons: No Have you been hit, kicked, punched, or otherwise hurt by someone within the past year? If so, by whom?: No Are you DNR?: No Advance Directives: No Advance Directives Information Provided: Yes Advance Directives Date on File: 03/29/23 Poor oral hygiene: No service: No Meds Allergies Allergy/AdvReac Type Severity Reaction Status Date / Time No Known Allergies Allergy Verified 04/08/25 06:25 Active Medications: Current Medications Albuterol Sulfate (Albuterol Sulfate (0.083%) 2.5 Mg/3 Ml Vial.Neb) 2.5 mg INHALE ONCE PRN PRN Reason: Shortness of Breath/Wheezing Lactated Ringer's (Lr) 1,000 mls @ 100 mls/hr IVCONT .Q10H MARGARITA Last Admin: 04/08/25 06:48 Dose: 100 mls/hr Home Medications ?Medication ?Instructions ?Recorded ?Confirmed ?Last Taken ?Type omega 0-bpj-qdx-fish oil 60 mg-90 1 cap PO DAILY 03/09/23 04/07/25 03/11/25 History mg-500 mg capsule (Fish Oil) lisinopril 20 mg tablet 20 mg PO DAILY 03/11/25 04/07/25 03/11/25 History albuterol sulfate 90 mcg/actuation 1 - 2 puff inhalation Q4-6H PRN 04/07/25 04/07/25 Unknown History aerosol inhaler Shortness Of Breath Or Wheezing cetirizine 10 mg tablet 10 mg PO DAILY 04/07/25 04/07/25 Unknown History fluticasone propionate 50 1 - 2 spray intranasal DAILY 04/07/25 04/07/25 Unknown History mcg/actuation nasal spray,suspension Exam Height,Weight and Vital Signs: Height 6 ft Weight 66 kg Last Vital Signs Temp 98.2 F 04/08/25 06:33 Pulse 74 04/08/25 06:33 Resp 12 04/08/25 06:33 BP 148/73 H 04/08/25 06:33 Pulse Ox 97 04/08/25 06:33 O2 Del Method Room Air 04/08/25 06:33 Airway Mallampati Class: II TM Dist: >3cm Neck ROM: Full Heart: RRR Lungs: CTA Assessment and Plan Assessment Anesthesia Assessment: Anesthesia Plan Discussed Final Anesthetic Review Family History of Problems with Anesthesia: No History of Problems with Anesthesia: No NPO: Yes ASA Class: III Final Preanesthetic Review: Meds/Allgs Chart Reviewed, Consent Obtained/Reviewed and Anes Risks/Benef Reviewed Patient Risk: Low Procedure Risk: Low Anesthetic Plan Anesthetic Plan: MAC: Disposition: Standard PACU
--- NOTE | 2025-04-08 08:14 | P.OPN-COLO_ITS ---
Colonoscopy Operative Note Operative Note Date of Service: 04/08/25 Narrative: Operative Information Procedure Description: Colonoscopy Indication: anemia Anesthesia: MAC COLONOSCOPY Instrument: Olympus variable stiffness pediatric scope 190L Colonoscopy Monitoring: Vital signs and clinical assessment, continuous EKG monitoring, Pulse oximetry, Carbon Dioxide monitoring and blood pressure monitoring were done throughout the procedure. Colon withdrawal time was 16 minutes. Procedure: The patient was placed in the left lateral decubitis position and pre-procedure medications were administered. After a digital rectal examination of the ano-rectum, the video colonoscope was inserted into the rectum and advanced through the colon to the cecum/TI. The colonoscope was slowly withdrawn in a retrograde panoramic fashion and the colon mucosa was carefully examined including a retroflexed view of the rectum. Findings and interventions are described below. Procedure Difficulty: moderate Findings: Terminal Ileum-not reached Cecum: not seen Ascending Colon: at distal ascending stricturing mass noted with slough, edema and necrotic tissue, unable to pass. biopsies taken Transverse Colon - proximal area there was a laterally spreading polypoid mass, injected with eleview and removed with cold snare, measured about 12-14 mm. x 1 5-7 mm sessile polyp removed with cold forceps Descending Colon:normal Sigmoid Colon: moderate diverticulosis, at about 30 cm there was a sessile polyp 12-13 mm injected with epinephrine and removed with hot snare Rectum: Retroflexion with medium sized inflammed internal hemorrhoids seen, grade I Anorectum - normal Intervention: cold snare and eleview for EMR< cold forceps, epinephrine injection Colon preparation: [place] Bowel Preparation Scale Right colon; 2 Transverse colon: 2 Left colon; 2 (0 = Unprepared colon segment with mucosa not seen due to solid stool that cannot be cleared. 1 = Portion of mucosa of the colon segment seen, but other areas of the colon segment not well seen due to staining, residual stool and/or opaque liquid. 2 = Minor amount of residual staining, small fragments of stool and/or opaque liquid, but mucosa of colon segment seen well. 3 = Entire mucosa of colon segment seen well with no residual staining, small fragments of stool or opaque liquid) Impression and Post Procedure Diagnosis: diverticulosis colon polyps internal hemorrhoids colon mass Plan: low fiber diet leaflet Avoid straining at stool, epsom salts and sitz bath, anusol supps or cream oncology and surgical referrals urgent CT scan with PO and Iv contrast Above findings were reviewed with the patient and relevant handouts were provided if indicated.
[2025-04-08 08:23] VITALS: BP 132/90; PULSE 88; RESP 16; TEMP 36.3; O2SAT 100
[2025-04-08 08:41] VITALS: BP 153/56; PULSE 61; RESP 16; TEMP 36.3; O2SAT 99
== END 2025-04-08 09:01 | disposition home or self-care (01) ==
PROVIDERS: PCP Physician Assistant Medical; Visit Provider Internal Medicine Gastroenterology
PROC: 0DJD8ZZ Inspection of Lower Intestinal Tract, Via Natural or Artificial Opening Endoscopic (ICD-10-PCS; CPT 45378; principal; 2025-04-08 07:30)
DX: D64.9 Anemia, unspecified (principal); D62 Acute posthemorrhagic anemia; C18.2 Malignant neoplasm of ascending colon; D12.3 Benign neoplasm of transverse colon; D12.5 Benign neoplasm of sigmoid colon; K57.30 Diverticulosis of large intestine without perforation or abscess without bleeding; K64.0 First degree hemorrhoids; K21.9 Gastro-esophageal reflux disease without esophagitis; I10 Essential (primary) hypertension; J98.11 Atelectasis; Z79.51 Long term (current) use of inhaled steroids; Z79.899 Other long term (current) drug therapy; Z87.891 Personal history of nicotine dependence
CPT/HCPCS: 45385; 45380; 45381; 88305; J0165; J2003; J2371; J2704

== ENCOUNTER → 2025-04-08 06:11 | Outpatient (BNV) | payer MEDICARE, OTHER, SELFPAY | PROVIDERS: PCP Physician Assistant Medical; Visit Provider Internal Medicine Gastroenterology | DX: D64.9 Anemia, unspecified (principal); D12.3 Benign neoplasm of transverse colon; D12.5 Benign neoplasm of sigmoid colon; K57.30 Diverticulosis of large intestine without perforation or abscess without bleeding; K64.0 First degree hemorrhoids | CPT/HCPCS: 45381; 45385 ==

== ENCOUNTER → 2025-04-16 09:11 | Outpatient (BNV) | payer MEDICARE, OTHER, SELFPAY | PROVIDERS: PCP Physician Assistant Medical; Referring Provider Internal Medicine Gastroenterology; Visit Provider Internal Medicine | DX: C18.2 Malignant neoplasm of ascending colon (principal); D63.0 Anemia in neoplastic disease | CPT/HCPCS: 99202; 99204; G2211 ==

== ENCOUNTER 2025-04-19 13:47 | Outpatient (AMB) | payer MEDICARE, OTHER, SELFPAY ==
--- NOTE | 2025-04-19 13:49 | A.OFFVIS_ITS ---
Vital Signs 04/19/25 13:55 Height 6 ft Weight 152 lb BMI 20.6 BP 117/60 Blood Pressure Location Rt brachial Position Sitting Pulse 75 Intake Visit Reasons: Colon mass~ colonoscopy 04-08-25 Intake Note: Patient referred by Dr. Shook for assessment and evaluation of colon mass. Patient c/o: constipation, internal bleeding. Denies nausea, diarrhea. Colonoscopy: 04-08-2025 Pattern Clerk Required: No Accompanied by: Self / Same As Patient Allergies No Known Allergies Allergy (Verified 04/19/25 13:53) [facility] Medical History Cough SOB (shortness of breath) GERD (gastroesophageal reflux disease) Erosive gastritis Essential hypertension Pneumonitis Atelectasis of left lung Surgical History History of tonsillectomy Hx of arthroscopic knee surgery Family History Mother Colon cancer Social History Household Members: None Housing: House Are you a primary child care center administrator to a significant other at home: No Do you presently have visiting nurse or other home services: No Unable to assess alcohol history related to: Unknown Alcohol intake: current Alcohol intake frequency: a few times a week Alcohol type: hard liquor Patient Tobacco Use Status: Former Tobacco user Tobacco use type: Cigarette Advance Directives Date on File: 03/29/23 service: No Current occupational status: retired Physical Exam Vital Signs: Last Vital Signs Pulse 75 04/19/25 13:55 BP 117/60 04/19/25 13:55 BMI result Body Mass Index 20.6 Assessment & Plan Assessment & Plan (1) Colon cancer: Code(s): C18.9 - Malignant neoplasm of colon, unspecified Category: Medical Plan: He has had this anemia and easy fatigability starting September of 2024. He eventually had a colonoscopy done by Dr. Shook last 04/08/2025. This showed a stricturing mass in the ascending colon and biopsies of this showed adenocarcinoma . He is having a CAT scan this week. I explained to him that in view of this adenocarcinoma of the right colon, he may benefit from colon resection. I explained the technique of hand assisted laparoscopic right colon resection. I reviewed the risks including but not limited to bleeding, infections, injury to other organs, inherent risks of anesthesia including [place], strokes, pneumonia, anastomotic leak, as well as the benefits and alternatives. I also reviewed with her what to expect postoperatively He does state that he also has been diagnosed to have an ejection fraction of 30% and is going to see his fruit peeler and vice president of operations 2 weeks. He says that he is not ready to decide on surgery at this time. He wants to discuss this with his other doctors as well his family as he says he has already ? 84 years old?. I will see him again in about 2 weeks to see what his decision is. He understands that if he does not proceed with surgery, the end point we will be obstruction from this mass as well as metastatic disease. He will also have recurrent anemia requiring transfusions. He he has had multiple transfusions already since February,. I will also review his CAT scan once this is done. Coding Level of Care Code New Pt Level 4 (06609) Diagnoses Colon cancer C18.9
[2025-04-19 13:55] VITALS: BP 117/60; PULSE 75; BMI 20.6
== END 2025-04-19 14:32 | disposition home or self-care (01) ==
LOC: HO.HGS 13:47
PROVIDERS: PCP Physician Assistant Medical; Referring Provider Internal Medicine Gastroenterology; Visit Provider Surgery
DX: C18.9 Malignant neoplasm of colon, unspecified (principal)
CPT/HCPCS: 99204

== ENCOUNTER → 2025-04-19 13:47 | Outpatient (BNVA) | payer MEDICARE, OTHER, SELFPAY | PROVIDERS: PCP Physician Assistant Medical; Referring Provider Internal Medicine Gastroenterology; Visit Provider Surgery | DX: C18.9 Malignant neoplasm of colon, unspecified (principal) | CPT/HCPCS: 99202 ==

== ENCOUNTER 2025-05-04 12:12 | Outpatient (REF) | payer MEDICARE, OTHER, SELFPAY ==
--- NOTE | ~2025-05-04 | CT_ITS ---
EXAMINATION: CT ABDOMEN AND PELVIS WITH CONTRAST CLINICAL INFORMATION: Other specified disease the intestine. K63.89. COMPARISON: March 14, 2023. TECHNIQUE: Multidetector volumetric images were obtained from the superior aspect of the liver through the pubic symphysis following administration 85 mL of Omnipaque 350 intravenous contrast. Sagittal and coronal reformatted images were obtained on the technologist's workstation. Oral contrast: Yes This CT examination was performed using dose optimization techniques as appropriate, variously including the following: *Automated exposure control *Adjustment of mA and/or kV according to patient size (this includes techniques or standardized protocols for targeted exams where dose is matched to indication/reason for exam; i.e. extremities or head) *Use of iterative reconstruction technique. DLP: 294 mGy centimeter. FINDINGS: LUNG BASES: No gross pulmonary nodules or acute airspace disease. LIVER, GALLBLADDER, AND BILIARY TREE: Liver measures 11 cm. No focal mass. Portal veins, hepatic veins are patent. No pericholecystic fluid collection or gallbladder wall thickening. Gallbladder is not distended. No intrahepatic or extrahepatic biliary ductal dilatation. PANCREAS: No focal mass. No peripancreatic fluid collection. No main pancreatic ductal dilatation. SPLEEN: 11 cm. No focal mass. ADRENAL GLANDS: No nodular lesion. KIDNEYS AND URETERS: No renal mass. No hydronephrosis. 1 mm nonobstructing calculus, lower pole left kidney. BLADDER: Fluid-filled. GASTROINTESTINAL TRACT: There is a 7 cm heterogeneously enhancing mixed density noncalcified mass centered in the cecum/ascending colon and narrowing the lumen. There is a 18 mm nodular lesion adjacent to the cecum/in the mesocecum. The contrast passes through the terminal ileum into the ascending colon. Abundant stool in the large intestine. No intestinal obstruction pattern. No pneumatosis intestinalis. No pneumoperitoneum. No ascites. No peripheral enhancing fluid collections, peritoneal cavity. ABDOMINAL WALL: Small fat-containing umbilical hernia. LYMPH NODES: A 2 mm lymphadenopathy, mesocecum. Edema pattern in the omentum. VASCULAR: Mixed plaques throughout the abdominal aorta wall of the origin of the main renal arteries and iliac arteries. No aneurysm or dissection, abdominal aorta. PELVIC VISCERA: Heterogeneously, 7 cm, enlarged prostate gland with dystrophic calcifications protruding upon the urinary bladder floor. OSSEOUS STRUCTURES: Multilevel thoracolumbar spondylosis resulting in grade 1 anterolisthesis L4-5 causing bilateral neuroforamina stenosis. There is 7 grade 1 retrolisthesis L1 to and L5-S1 on a degenerative basis. There is central spinal canal stenosis at L4-5 on a degenerative basis. Dextroconvex rotoscoliosis apex at L2-3. No gross lytic or blastic lesions. Bone marrow inhomogeneity throughout the axial skeleton. No gross acute fracture. CT/CT abdomen pelvis w IV con IMPRESSION: Approximately 7 cm mass, cecum associated perilesional mesenteric lymphadenopathy and questionable infiltration into the lower omentum. No gross metastatic disease to the liver or the lung bases. Fleischner guidelines were followed. Electronically signed by: Sharath Yuan MD 05/04/2025 03:38 PM EDT
[2025-05-04 13:25] LABS: Anion Gap 13 (12-20); Blood Urea Nitrogen 31 mg/dL (9-16); Calcium 10.3 mg/dL (8.4-10.2); Carbon Dioxide 26 mmol/L (22-29); Chloride 101 mmol/L (96-108); Estimated Glomerular Filt Rate > 60; Potassium 4.3 mmol/L (3.3-5.1); Sodium 136 mmol/L (135-145)
--- OUTSIDE RECORDS SUMMARY | 2025-05-04 13:33 | XMS_ITS | Encounter Summary ---
Author Organization [facility] Address [address] [address] Phone Care Team Providers Care Ob/Gyn Physician Name Role Phone Geovany Mann Primary Care Provider [phone] Self-Referred, Patient Unavailable Unavailab le Encounter Details Date Type Department Care Team (Late st Contact Info) Description 04/23/2025 Orders Only [facility] General & GI Surgery [address] [place] [address] [address] [place] [address] Provider, MD [facility]zy [place] [address] Social History Tobacco Use Types Packs/Day Years Used Date Smoking Tobacco: Former Cigarettes 0.5 40.6 S tarted: 1985 Passive Smoke Exposure: Never Smokeless Tobacco: Never Education Answer Date Recorded Are you interested in more education? Not on adi e 04/16/2025 Are you concerned about learning? Not on file 04/16/2025 No 04/16/2025 No 04/16/2025 Digital Access Answer Date Recorded No 04/16/2025 No 04/16/2025 Reliable internet access at home? Not on file 04/16/2025 Device with a working camera? Not on file Sex and Gender Information Value Date Recorded Sex Assigned at Male 04/16/2025 11:39 AM EDT Legal Sex Male 11:38 AM EDT Gender Identity Male 04/16/2025 11:39 AM EDT Sexual Orientation Straight 04/16/2025 11 :39 AM EDT documented as of this encounter Plan of Treatment Upcoming Encounters Date Type Department Care Team (Latest Contact Info) Description 05/24/2025 Procedure Pass [facility] Periop [address] [place] [address] 05/24/2025 3:30 PM EDT Hospital Encounter [facility] Periop [address] [place] [address] Bobby Malik MD [address] [id number] [email or web address] 05/24/2025 3:30 PM EDT - 05/24/2025 6:44 PM EDT Surgery [facility] Periop [address] [place] [address] Bobby Malik MD [address] [place] [phone] [email or web address] LAPAROSCOPIC COLECTOMY RIGHT 06/15/2025 10:45 AM EDT Office Visit [facility] General & GI Surgery [address] [facility] [place] [address] Bobby Malik MD [address] [address] [email or web address] Scheduled Procedures Name Priority Associated Diagnoses Date/Ti me LAPAROSCOPIC COLECTOMY RIGHT Malignant neoplasm of ascending colon 05/24/2025 3:30 PM EDT COLECTOMY RIGHT Malignant neoplasm of ascending colon 05/24/2025 3:30 PM EDT documented as of this encounter Procedures Procedure Name Priority Date/Time Associated Diagnosis Comments OUTSIDE ECHO Routine 04/06/2025 10:49 AM EDT documented in this encounter Results * Outside Echo Report Only (04/06/2025 10:49 AM EDT) us Historical Provider MD HUANG ECHO ORDERABLES Final Result documented in this encounter Visit Diagnoses Not on filedocumented in this encounter Care Teams Ob/Gyn Physician Relationship Specialty Start Date End Date Geovany Mann PA [address] [place] [address] [place] [address] [email or web address] PCP - General Physician Specialty Foods Cook 04/16/25 Self-Referred, Patient Referring Physician 04/16/25 documented as of this encounter Additional Source Comments The information contained in this document represents components of the legal health record. It is not the complete legal health record.[facility]
--- OUTSIDE RECORDS SUMMARY | 2025-05-04 13:33 | XMS_ITS | Clinical Summary ---
Author Organization [facility] Address [address] [place] [address] Phone Care Team Providers Care Analysis Evaluator Name Role Phone Unavailable Primary Care Provider Unavailabl e Encounters Date Type Department Care Team Description 04/23/2025 2:49 PM EDT - 04/23/2025 11:59 PM EDT Hospital Encounter [facility] PET Scan [address] [place] [address] Malignant neoplasm of colon, unspecified (CMS/HCC V24, CMS/HCC V28) Discharge Disposition: Home or Self Care from Last 3 Months Social History Tobacco Use Types Packs/Day Years Used Date Smoking Tobacco: Never Assessed Sex and Gender Information Value Date Recorded Sex Assigned at Not on file Legal Sex Male 10:55 AM EDT Gender Identity Not on file Sexual Orientation Not on file Plan of Treatment Health Maintenance Due Date Last Done Comments DTaP,Tdap,and Td Vaccines (1 - Tdap) 1959 Pneumococcal Vaccine: 50+ Ye ars (1 of 1 - PCV) 1989 Zoster Vaccines (1 of 2) 1989 RSV Immunization Adult Patie nts (1 - 1-dose 75+ series) 2014 COVID-19 Vaccine (2 - 2023-2 5 season) 2024 12/18/2020 Depression Screening 09/16/2024 Cholesterol Screening (Lipid Panel) 04/22/2025 Falls Risk Assessment 04/22/2025 Medicare Annual Wellness Visit 04/22/2025 Social Influencers of Health Screening 04/22/2025 Influenza Vaccine (#1) 2025 HIB Vaccines Aged Out No longer eligi ble based on patient's age to complete this topic HPV Vaccines Aged Out No longer eligi ble based on patient's age to complete this topic Hepatitis A Vaccines Aged Out No long er eligible based on patient's age to complete this topic Hepatitis B Vaccines Aged Out No long er eligible based on patient's age to complete this topic IPV Vaccines Aged Out No longer eligi ble based on patient's age to complete this topic MMR Vaccines Aged Out No longer eligi ble based on patient's age to complete this topic Meningococcal ACWY Vaccine Aged Out N o longer eligible based on patient's age to complete this topic Meningococcal B Vaccine Aged Out No l onger eligible based on patient's age to complete this topic RSV Immunization Patients Un lianna 20 months Aged Out No longer eligible b ased on patient's age to complete this topic Varicella Vaccines Aged Out No longer eligible based on patient's age to complete this topic Procedures Procedure Name Priority Date/Time Associated Diagnosis Comments PET CT SKULL TO MID THIGH INITIAL Routine 04/23/2025 5:28 PM EDT Malignant neoplasm of colon, unspecified ([facility] V24, [facility] V28) from Last 3 Months Results * PET CT Skull to Mid Thigh Initial (04/23/2025 5:28 PM EDT) Anatomical Region Laterality Modality Body Radiographic Johanne ging 04/29/2025 12:1 4 PM EDT Impressions 04/29/2025 12:20 PM EDT Metabolic active cecal mass with pericecal and retroperitoneal lymphadenopathy. -------- FINAL REPORT -------- Dictated By: Mane Boland Dictated Date: 04/29/2025 12:14 ET Assigned Physician: Mane Boland Reviewed and Electronically Signed By: Mane Boland Signed Date: 04/29/2025 12:20 ET Workstation ID: [id number] Transcribed By: Self Edit Transcribed Date: 04/29/2025 12:14 ET Narrative 04/29/2025 12:20 PM EDT INDICATION: Colonic carcinoma, initial treatment strategy Prior relevant studies: None Radiopharmaceutical: 12.1 mCi of F-18 FDG IV. Blood glucose: 100 mg/dl. PROCEDURE: Routine body FDG PET-CT imaging was performed from the skull base to the mid thighs and reconstructed in axial, coronal, and sagittal planes at the computer workstation with fused data from both the PET imaging study and attenuation correction CT. The CT portion of the examination was done strictly for attenuation correction and is not a true diagnostic CT examination. CTDI: 4.60 mGy FINDINGS: HEAD AND NECK: No abnormal FDG activity. THORAX: No abnormal FDG activity. ABDOMEN/PELVIS: FDG avid right-sided cecal mass with FDG max of 15.6. FDG avid nodes including pericecal node superior medially with FDG max of 14.3. Small noted inferior laterally with FDG max of 3.4. Right-sided periaortic retroperitoneal russell activity with FDG max up to 8.2. MUSCULOSKELETAL: No abnormal FDG activity. Procedure Note Mane Boland MD - 04/29/2025 INDICATION: Colonic carcinoma, initial treatment strategy Prior relevant studies: None Radiopharmaceutical: 12.1 mCi of F-18 FDG IV. Blood glucose: 100 mg/dl. PROCEDURE: Routine body FDG PET-CT imaging was performed from the skullbase to the mid thighs and reconstructed in axial, coronal, and sagittalplanes at the computer workstation with fused data from both the PETimaging study and attenuation correction CT. The CT portion of theexamination was done strictly for attenuation correction and is not a truediagnostic CT examination. CTDI: 4.60 mGy FINDINGS: HEAD AND NECK: No abnormal FDG activity. THORAX: No abnormal FDG activity. ABDOMEN/PELVIS: FDG avid right-sided cecal mass with FDG max of 15.6. FDG avid nodes including pericecal node superior medially with FDG max of14.3. Small noted inferior laterally with FDG max of 3.4. Right-sidedperiaortic retroperitoneal russell activity with FDG max up to 8.2. MUSCULOSKELETAL: No abnormal FDG activity. IMPRESSION: Metabolic active cecal mass with pericecal and retroperitoneallymphadenopathy. -------- FINAL REPORT -------- Dictated By: Mane Boland Dictated Date: 04/29/2025 12:14 ET Assigned Physician: Mane Boland Reviewed and Electronically Signed By: Mane Boland Signed Date: 04/29/2025 12:20 ET Workstation ID: [id number] Transcribed By: Self Edit Transcribed Date: 04/29/2025 12:14 ET Sharlene Garcia MD IMG NM PROCEDURES Final Result from Last 3 Months Insurance MEDICARE [facility]
[2025-05-04] MEDS: iohexoL 350 MG/ML 100 ML INFUS..BTL IV (15:16)
[2025-05-04] MEDS: Barium Sulfate Oral (Mocha) 450 ML ORAL.SUSP 900 ML PO (15:16)
== END 2025-05-04 12:13 | disposition home or self-care (01) ==
LOC: HO.CT 12:12
PROVIDERS: PCP Physician Assistant Medical; Visit Provider Internal Medicine Gastroenterology
DX: K63.89 Other specified diseases of intestine (principal); N18.30 Chronic kidney disease, stage 3 unspecified
CPT/HCPCS: 36415; 74177; 80048; Q9967

== ENCOUNTER → 2025-05-04 12:14 | Outpatient (BNV) | payer MEDICARE, OTHER, SELFPAY | PROVIDERS: PCP Physician Assistant Medical; Visit Provider Radiology Diagnostic Radiology | DX: K63.89 Other specified diseases of intestine (principal) | CPT/HCPCS: 74177 ==